=== PATIENT | female | born 1960 | race African-American/Black ===

== ENCOUNTER 2024-06-01 14:41 | Inpatient (IN) | payer OTHER, SELFPAY ==
[2024-06-01] VITALS (26 sets, daily range): BP systolic 68–156; BP diastolic 45–86; PULSE 116–151; RESP 0–67; TEMP 37.6–40.7; O2SAT 81–97; BMI 21.9
--- NOTE | ~2024-06-01 | XR_ITS ---
EXAMINATION: XR chest 1V portable DATE: 06/02/2024 03:46 INDICATION: Hypoxia TECHNIQUE: frontal view of the chest was obtained. COMPARISON: Chest radiograph dated 06/01/2024 FINDINGS: Endotracheal tube tip 6.1 cm above the luis. Right internal jugular central venous catheter with di stal tip in the high right atrium. Nasogastric tube extends below the left hemidiaphragm with distal tip collimated off the study. Persistent diffuse bilateral airspace opacities throughout both lungs relatively sparing the apices t here is preservation the lower lung zones where there is associated air bronchograms. Possible small right pleural effusion. No pneumothorax. Heart size is normal. Visualized bones and soft tissues are unremarkable. IMPRESSION: 1. Endotracheal tube tip 6.1 cm above the luis. Could consider advancement by 4 cm. 2. Persistent diffuse bilateral airspace opacities which could represent moderate pulmonary edema or pneumonia. 3. Possible small right pleural effusion. Reviewed, dictated and finalized at location A. [facility]ER IMPRESSION: 1. Endotracheal tube tip 6.1 cm above the luis. Could consider advancement by 4 cm. 2. Persistent diffuse bilateral airspace opacities which could represent modera te pulmonary edema or pneumonia. 3. Possible small right pleural effusion.
--- NOTE | ~2024-06-01 | XR_ITS ---
EXAMINATION: XR chest port-a-cath/central Exam Date/Time: 06/01/2024 21:35 ZIG ZAG STITCHER HISTORY: Central line placement Comparison: Same date at 7:34 PM. RESULT: Lines, tubes, and devices: New right IJ central line terminating in the right atrium. Endotracheal t ube terminates 5.3 cm above the luis. Subdiaphragmatic NG tube. Lungs and pleura: New left medial basal opacity with volume loss. Diffuse bilateral airspace disease , with interval worsening in the right lung. Cardiomediastinal silhouette: Stable. Other: No acute osseous or upper abdominal finding. IMPRESSION: Right IJ central line positioned deep in the right atrium, consider 6 cm retraction. Endotracheal tube terminates 5.3 cm above the luis. Worsening right lung airspace disease. New left medial basilar atelectasis. Reviewed, dictated and finalized at [facility] K. ZAG STITCHER IMPRESSION: Right IJ central line positioned deep in the right atrium, consider 6 cm retrac tion. Endotracheal tube terminates 5.3 cm above the luis. Worsening right lung airspace disease. New left medial basilar atelectasis.
--- NOTE | ~2024-06-01 | XR_ITS ---
Portable chest x-ray Comparison: 06/02/2024 Clinical History: Pneumonia Findings: Endotracheal tube and NG tube and right IJ line remain in place. Extensive bilateral pulmo nary consolidation is present, relatively sparing the left lung apex. Possible underlying small effus ions. Cardiomediastinal silhouette is stable. Bones and soft tissues are unremarkable. Impression: Extensive bilateral pulmonary consolidation. Correlate for severe pulmonary edema versus extensive bi lateral pneumonia. Possible small pleural effusions. Support tubes, as above. Reviewed, dictated and finalized at location . HER CARVER Impression: Extensive bilateral pulmonary consolidation. Correlate for severe pulmonary annette ma versus extensive bilateral pneumonia. Possible small pleural effusions. Support tubes, as above.
--- NOTE | ~2024-06-01 | XR_ITS ---
EXAM: XR abdomen gastric tube insert DATE: 06/01/2024 19:43 HISTORY: NG TUBE PLACEMENT . COMPARISON: None available. FINDINGS: Patchy opacities in the lung bases. NG tube, tip at the gastric antrum, side port in the g astric body. Paucity of bowel gas. Degenerative changes in the spine. IMPRESSION: NG tube, in good position. Reviewed, dictated and finalized at location K. THCARE CUSTOMER SERVICE IMPRESSION: NG tube, in good position.
--- NOTE | ~2024-06-01 | XR_ITS ---
EXAMINATION: XR chest ET placement Exam Date/Time: 06/01/2024 19:20 BATCH TANK CONTROLLER HISTORY: respiratory failure Comparison: Same date at 3:37 PM. RESULT: Lines, tubes, and devices: Endotracheal tube terminates 6.0 cm above the luis. Subdiaphragmatic NG tube. Lungs and pleura: Worsening patchy bilateral airspace disease, greater in the right lung. Cardiomediastinal silhouette: Stable. Other: No acute osseous or upper abdominal finding. IMPRESSION: High positioned endotracheal tube, consider advancing by 2 cm. Worsening pulmonary opacities, likely representing worsening pulmonary edema, with or without underly ing infection. Reviewed, dictated and finalized at location K. H TANK CONTROLLER IMPRESSION: High positioned endotracheal tube, consider advancing by 2 cm. Worsening pulmonary opacities, likely representing worsening pulmonary edema, w ith or without underlying infection.
--- NOTE | ~2024-06-01 | XR_ITS ---
XR chest 1V portable 06/01/2024 15:41 Indication: Shortness of breath Procedure: AP portable chest Comparison: No prior studies for comparison. Findings: Patchy bilateral airspace disease, compatible with pneumonia, right greater than left. No p leural effusion. Heart size normal. No pleural effusion or pneumothorax. No acute osseous abnormality . Impression: 1: Patchy bilateral airspace disease, compatible with pneumonia. Reviewed, dictated and finalized at location A. ESTATE APPRAISER Impression: 1: Patchy bilateral airspace disease, compatible with pneumonia.
--- NOTE | ~2024-06-01 | US_ITS ---
EXAM: RENAL ULTRASOUND HISTORY: Acute kidney injury rule out hydronephrosis COMPARISON: None FINDINGS: RIGHT KIDNEY: 11.6 x 5.1 x 6.3 cm. The parenchyma of the right kidney is unremarkable. Mild right-sided hydronephrosis. LEFT KIDNEY: 14.3 x 6.3 x 5.8 cm No hydronephrosis or renal calculi. The parenchyma of the left kidney is unremarkable BLADDER: Decompressed with a Kate catheter, limiting its evaluation. Bilateral pleural effusions are incidentally noted. IMPRESSION: Mild right-sided hydronephrosis. Size asymmetry between the bilateral kidneys. No findings suggesting medical renal disease. Incidental notation is made of bilateral pleural effusions. Reviewed, dictated and finalized at location A. IAC REHABILITATION PROGRAM DIRECTOR
--- NOTE | ~2024-06-01 | XR_ITS ---
EXAMINATION: XR chest 1V portable DATE: 06/03/2024 09:33 INDICATION: Central line repositioning. TECHNIQUE: A single frontal view of the chest was obtained. COMPARISON: Chest single view 06/03/2024 at 5:49 AM FINDINGS: The patient is rotated to her right. There are airspace opacities in all right lung zones w ith a lower lung predominance with air bronchograms. There are airspace opacities in the left mid and lower lung zones with air bronchograms. There are small pleural effusions. No pneumothorax. The hear t size is normal. The endotracheal tube tip is 3.2 cm above the luis. A right internal jugular cent ral venous catheter is seen with tip at the superior cavoatrial junction. The nasogastric tube tip is beyond the inferior margin of the radiograph, but at least to the stomach. IMPRESSION: 1. Stable diffuse lung disease, consistent with pulmonary edema versus pneumonia. 2. Stable small pleural effusions. 3. Central line tip at the superior cavoatrial junction. Reviewed, dictated and finalized at location [] NERATOR PLANT GENERAL SUPERVISOR IMPRESSION: 1. Stable diffuse lung disease, consistent with pulmonary edema versus pneumoni a. 2. Stable small pleural effusions. 3. Central line tip at the superior cavoatrial junction.
--- NOTE | 2024-06-01 14:48 | ECG_ITS ---
Test Date: 2024-06-01 14:55:55 Measurements Intervals [place] Rate: 137 P: 56 SC: 129 QRS: 49 QRSD: 78 T: 56 QT: 322 QTc: 488 Interpretive Statements SINUS TACHYCARDIA MODERATE VOLTAGE CRITERIA FOR LVH, CONSIDER NORMAL VARIANT [MEETS CRITERIA IN ONE OF: R(aVL), S(V1), R(V5), R(V5/V6)+S(V1)] POSSIBLE ANTEROSEPTAL MYOCARDIAL INFARCTION , OF INDETERMINATE AGE [30 ms Q WAVE IN V1-V4] No previous ECG available for comparison Electronically Signed On 06-01-2024 22:41:23 [employer] by Maricarmen Hartmann M.D.
[2024-06-01] MEDS: SODIUM CHLORIDE 0.9% IV 1,000 ML 999 ML IV CONT ×3 (14:52→17:55)
[2024-06-01] MEDS: ONDANSETRON INJ 4 MG/2 ML VIAL IV PUSH (14:53)
[2024-06-01 15:13] LABS: Hematocrit 42.7 % (37.0-47.0); Hemoglobin 14.2 g/dL (12.0-15.0); Lymphocytes Absolute Auto 0.38 K/mm3 (0.9-3.2); Lymphocytes Percent Auto 37.6 % (18.3-44.2); Mean Corpuscular HGB Conc 33.3 g/dl (32-36); Mean Corpuscular Hemoglobin 28.6 pg (26-34); Mean Corpuscular Volume 86.1 fl (80-100); Mean Platelet Volume 10.9 fl (7.4-10.4); Monocytes Absolute Auto 0.1 K/mm3 (0.1-0.6); Monocytes Percent Auto 9.9 % (2.6-8.5); Neutrophils Absolute Auto 0.5 K/mm3 (1.3-6.7); Neutrophils Percent Auto 50.5 % (45.5-73.1); Platelet Count Result 212 k/mm3 (150-375); Red Blood Count 4.96 M/mm3 (4.2-5.4); Red Cell Distribution Width 12.1 % (11.5-14.5)
[2024-06-01 15:25] LABS: Prothrombin Time 13.6 Seconds (11.1-14.7)
[2024-06-01 15:26] LABS: Partial Thromboplastin Time 27.3 Seconds (22.3-36.8)
[2024-06-01 15:31] LABS: Alanine Aminotransferase 20 U/L (6-35); Albumin Level 4.7 g/dL (3.5-5.1); Alkaline Phosphatase 92 U/L (38-126); Anion Gap 13 mmol/L (4-12); Aspartate Amino Transferase 27 U/L (14-36); Bilirubin,Total 0.8 mg/dL (0.2-1.3); Blood Urea Nitrogen 8 mg/dL (7-17); CRP 4.1 mg/dL (<1.0); Calcium 9.7 mg/dL (8.4-10.2); Carbon Dioxide 20 mmol/L (22-30); Chloride 91 mmol/L (98-107); Estimated CRCL calculation 108 ml/min; Estimated Glomerular Filt Rate > 60; Glucose 325 mg/dL (65-110); Potassium 3.5 mmol/L (3.4-5.0); Sodium 124 mmol/L (137-145)
[2024-06-01 15:49] LABS: Influenza A QL RT-PCR Positive (Negative); Influenza B QL RT-PCR Negative (Negative); RSV RNA, RT-PCR Negative (Negative); SARS-CoV-2 RNA PCR Negative (Negative)
--- NOTE | 2024-06-01 15:50 | PC.NURSE ---
Patient placed on bed alarm for safety due to confusion
[2024-06-01 16:33] LABS: Add Urine Microscopic? YES; Appearance Urine Clear (Clear); Bacteria Urine None Seen /hpf; Bilirubin Urine Negative (Negative); Blood Urine Negative (Negative); Color Urine Yellow (Yellow); Glucose Urine UA 3+ mg/dL (Negative); Ketones Urine 3+ mg/dL (Negative); Leukocyte Esterase Ur Negative LEU/UL (Negative); Nitrate Urine Negative (Negative); Non Pathogenic Casts 0-2; Protein Urine 2+ mg/dL (Negative); RBC Urine 0-2 /hpf (0-2); Squamous Epithelial Cell Urine None Seen /hpf (Few); Urobilinogen Urine 0.2 mg/dL (<2.0); WBC Urine 0-5 /hpf (0-3)
[2024-06-01 16:38] LABS: Alveolar/Arterial O2 Gradient 225.9 mmHg; Base Excess ABG -6.1 mEq/l (+/-2.0); Carboxyhemoglobin 0.5 % THb (0-2.0); Fractional Inspired Oxygen 44 %; HCO3 ABG 16.8 mEq/l (22.0-26.0); Methemoglobin ABG 0.1 %THb (0-1.5); Oxygen Content ABG 16.4 %vol (16.0-22.0); Oxygen Saturation ABG 91.2 % (95.0-100.0); Oxyhemoglobin 89.9 % THb (90.0-100.0); PCO2 ABG 26.3 mmHg (35.0-45.0); PO2 ABG 57.8 mmHg (80.0-100.0); PO2 FiO2 Ratio Arterial Blood 1.31 %; Reduced Hemoglobin 9.5 %THb (0-5.0); pH ABG 7.423 (7.350-7.450)
[2024-06-01 16:39] LABS: Device NASAL CANNULA; Modified Allen's Test Pass; Site Drawn RIGHT RADIAL
--- NOTE | 2024-06-01 16:52 | ED.SOB ---
HPI - SOB/Dyspnea General Chief Complaint: Shortness of Breath/Dyspnea Stated Complaint: hypoxic/confused Time Seen by Provider: 06/01/24 14:42 History of Present Illness HPI Narrative: patient is a 64-year-old female who presents ER with hypoxia. Developed cough today according family went to urgent care. Found to be hypoxic and sent here. Patient orient x2. She has no complaints pain cannot provide additional history. Patient's family has arrived her surprised by her level of confusion reports this is new. She had had no prodrome of illness over last few days. Related Data Allergies Allergy/AdvReac Type Severity Reaction Status Date / Time No Known Allergies Allergy Verified 06/01/24 14:47 Review of Systems Review of Systems: ROS unobtainable: Yes unobtainable due to mental status PMFSH Past Medical History Medical History (Updated 06/01/24 @ 22:13 by Roel Parkinson MD) Diabetes Surgical History Surgical History (Updated 06/01/24 @ 22:13 by Roel Parkinson MD) History of tracheostomy Exam Narrative: GENERAL: Ill-appearing, well-nourished, and in Mild distress. HEAD: Normocephalic, atraumatic. EYES: PERRL and EOMI. ENT: Mucous membranes moist. NECK: Supple. CHEST: Coarse rales bilaterally with increased respiratory rate and mild distress. HEART: tachycardic regular. Normal peripheral pulses. ABDOMEN: Soft, nontender, nondistended. EXTREMITIES: Normal range of motion. No edema. SKIN: Warm, dry, no rash. NEURO: Alert and oriented x2. Course Course Emergency Course: significant decline in the ER going from 6 L to 10 L and becoming more hypoxic. Family at bedside and decision made to intubate which was successful. Patient had bloody frothy secretions on intubation. Broad-spectrum antibiotics ordered. Patient given Tamiflu. ICU consulted and we will give steroids as well. CTA recommended by ICU given persistent tachycardia. Patient with critically low white blood cell count. Family where the patient is critically ill and chances of or hi. Blood pressure dropping with sedation and central line placed. Admit to hospitalist service. Vital Signs Vital signs: Vital Signs Temperature 99.7 F H 06/01/24 14:36 Pulse Rate 145 H 06/01/24 14:36 Respiratory Rate 20 06/01/24 14:36 Blood Pressure 156/86 H 06/01/24 14:36 Pulse Oximetry 90 06/01/24 14:36 Oxygen Delivery Nasal Cannula 06/01/24 14:36 Oxygen Flow Rate 6 06/01/24 14:36 Temperature 103.5 F H 06/01/24 22:06 Pulse Rate 126 H 06/01/24 22:06 Respiratory Rate 40 H 06/01/24 22:06 Blood Pressure 79/48 L 06/01/24 22:06 Pulse Oximetry 93 06/01/24 22:06 Oxygen Delivery High Flow Nasal Cannula 06/01/24 17:36 Oxygen Flow Rate 10 06/01/24 17:36 Procedures Central Line Placement Right IJ: Central Line Date: 06/01/24 Discussed w/ the patient/family/POA,the placement of a central venous catheter, including its clinical necessity/indication & associated potential risks, benifits and alternatives.: Yes Time Out Performed: Yes Patient Placed on Monitor/Pulse Ox: Yes Max. Sterile Barrier Technique: Caps, large sterile sheet and hand hygiene Central Line Prep: 2% chlorhexidine scrub and sterile drapes applied Technique: US-Guided Ultrasound Used for Placement: Yes Central Line Lumen Inserted: triple Post Procedure: sutured in place, good blood return, all ports aspirated, flushed, capped and sterile dressing applied Post Procedure X-Ray: tip of catheter in good position and no pneumothorax seen Patient Tolerated Procedure: well Complications: none Intubation Intubation #1: sedative: Etomidate Mg Given: 30 paralytic: Succinylcholine Mg Given: 100 Laryngoscope: Anish Tube Size (cm): Cuffed Method of Intubation: orotracheal Number of Attempts: 1 Tube Secured Depth (cm): 21 Tube Secured Location: teeth Tube Placement Confirmation: visualized tube passing through cords, equal breath sounds bilaterally, no breath sounds over epigastrium and confirmation by capnometry Patient Tolerated Procedure: well Intubation Complications: none MDM - SOB/Dyspnea Lab Data 06/01/24 15:05 06/01/24 15:05 Labs: Lab Results 06/01/24 06/01/24 06/01/24 Range/Units 15:05 16:20 16:32 WBC 1.0 L* (4.5-10.0) K/mm3 RBC 4.96 (4.2-5.4) M/mm3 Hgb 14.2 (12.0-15.0) g/dL Hct 42.7 (37.0-47.0) % MCV 86.1 (80-100) fl MCH 28.6 (26-34) pg MCHC 33.3 (32-36) g/dl RDW 12.1 (11.5-14.5) % Plt Count 212 (150-375) k/mm3 MPV 10.9 H (7.4-10.4) fl Immature Gran % (Auto) 0.0 (0-0.5) % Neut % (Auto) 50.5 (45.5-73.1) % Lymph % (Auto) 37.6 (18.3-44.2) % [place] % (Auto) 9.9 H (2.6-8.5) % Eos % (Auto) 1.0 (0-4.4) % Baso % (Auto) 1.0 (0.2-1.2) % Lymph # (Auto) 0.38 L (0.9-3.2) K/mm3 [place] # (Auto) 0.1 (0.1-0.6) K/mm3 Eos # (Auto) 0.0 (0-0.3) K/mm3 Baso # (Auto) 0.0 (0.0-0.1) K/mm3 Abs Immat Gran (auto) 0.00 (0.00-0.031) K/mm3 Absolute Neuts (auto) 0.5 L (1.3-6.7) K/mm3 Absolute Nucleated RBC 0.000 (0.0-0.012) K/mm3 Nucleated RBC % 0.0 (0.0-0.2) % PT 13.6 (11.1-14.7) Seconds INR 1.0 APTT 27.3 (22.3-36.8) Seconds D-Dimer 2.82 H (<0.48) ug/mL Methemoglobin 0.1 (0-1.5) %THb Sodium 124 L (137-145) mmol/L Potassium 3.5 (3.4-5.0) mmol/L Chloride 91 L (98-107) mmol/L Carbon Dioxide 20 L (22-30) mmol/L Anion Gap 13 H (4-12) mmol/L BUN 8 (7-17) mg/dL Creatinine 0.40 L (0.7-1.0) mg/dL Estim Creat Clear Calc 108 ml/min Estimated GFR > 60 (59 - ) Glucose 325 H (65-110) mg/dL Lactic Acid 4.0 H (0.7-2.0) mmol/L Calcium 9.7 (8.4-10.2) mg/dL Total Bilirubin 0.8 (0.2-1.3) mg/dL AST 27 (14-36) U/L ALT 20 (6-35) U/L Alkaline Phosphatase 92 (38-126) U/L C-Reactive Protein 4.1 H (<1.0) mg/dL Total Protein 9.0 H (6.3-8.2) g/dL Albumin 4.7 (3.5-5.1) g/dL Triglycerides 66 (<150) mg/dL Urine Color Yellow (Yellow) Urine Appearance Clear (Clear) Urine pH 5.0 (5.0-9.0) Ur Specific [place] 1.030 (1.001-1.035) Urine Protein 2+ H (Negative) mg/dL Urine Glucose (UA) 3+ H (Negative) mg/dL Urine Ketones 3+ H (Negative) mg/dL Ur Blood (Man) Negative (Negative) Urine Nitrate Negative (Negative) Urine Bilirubin Negative (Negative) Urine Urobilinogen 0.2 (<2.0) mg/dL Leukocyte Esterase Rfl Negative (Negative) ALBERT/UL Urine RBC 0-2 (0-2) /hpf Urine WBC 0-5 (0-3) /hpf Ur Squamous Epith Cells None seen (Few) /hpf Urine Bacteria None seen /hpf Urine Casts 0-2 Influenza A (RT-PCR) Positive A (Negative) Influenza B (RT-PCR) Negative (Negative) RSV (RT-PCR) Negative (Negative) SARS-CoV-2 RNA (RT-PCR) Negative (Negative) 06/01/24 Range/Units 17:18 WBC (4.5-10.0) K/mm3 RBC (4.2-5.4) M/mm3 Hgb (12.0-15.0) g/dL Hct (37.0-47.0) % MCV (80-100) fl MCH (26-34) pg MCHC (32-36) g/dl RDW (11.5-14.5) % Plt Count (150-375) k/mm3 MPV (7.4-10.4) fl Immature Gran % (Auto) (0-0.5) % Neut % (Auto) (45.5-73.1) % Lymph % (Auto) (18.3-44.2) % [place] % (Auto) (2.6-8.5) % Eos % (Auto) (0-4.4) % Baso % (Auto) (0.2-1.2) % Lymph # (Auto) (0.9-3.2) K/mm3 [place] # (Auto) (0.1-0.6) K/mm3 Eos # (Auto) (0-0.3) K/mm3 Baso # (Auto) (0.0-0.1) K/mm3 Abs Immat Gran (auto) (0.00-0.031) K/mm3 Absolute Neuts (auto) (1.3-6.7) K/mm3 Absolute Nucleated RBC (0.0-0.012) K/mm3 Nucleated RBC % (0.0-0.2) % PT (11.1-14.7) Seconds INR APTT (22.3-36.8) Seconds D-Dimer (<0.48) ug/mL Methemoglobin (0-1.5) %THb Sodium (137-145) mmol/L Potassium (3.4-5.0) mmol/L Chloride (98-107) mmol/L Carbon Dioxide (22-30) mmol/L Anion Gap (4-12) mmol/L BUN (7-17) mg/dL Creatinine (0.7-1.0) mg/dL Estim Creat Clear Calc ml/min Estimated GFR (59 - ) Glucose (65-110) mg/dL Lactic Acid 3.5 H (0.7-2.0) mmol/L Calcium (8.4-10.2) mg/dL Total Bilirubin (0.2-1.3) mg/dL AST (14-36) U/L ALT (6-35) U/L Alkaline Phosphatase (38-126) U/L C-Reactive Protein (<1.0) mg/dL Total Protein (6.3-8.2) g/dL Albumin (3.5-5.1) g/dL Triglycerides (<150) mg/dL Urine Color (Yellow) Urine Appearance (Clear) Urine pH (5.0-9.0) Ur Specific [place] (1.001-1.035) Urine Protein (Negative) mg/dL Urine Glucose (UA) (Negative) mg/dL Urine Ketones (Negative) mg/dL Ur Blood (Man) (Negative) Urine Nitrate (Negative) Urine Bilirubin (Negative) Urine Urobilinogen (<2.0) mg/dL Leukocyte Esterase Rfl (Negative) ALBERT/UL Urine RBC (0-2) /hpf Urine WBC (0-3) /hpf Ur Squamous Epith Cells (Few) /hpf Urine Bacteria /hpf Urine Casts Influenza A (RT-PCR) (Negative) Influenza B (RT-PCR) (Negative) RSV (RT-PCR) (Negative) SARS-CoV-2 RNA (RT-PCR) (Negative) ABG Data ABG results: 06/01/24 16:32 Puncture Site Right radial ABG pH 7.423 ABG pCO2 26.3 L ABG pO2 57.8 L ABG PO2/FiO2 Ratio 1.31 ABG HCO3 16.8 L ABG O2 Saturation 91.2 L ABG O2 Content 16.4 ABG Base Excess -6.1 A-a Gradient 225.9 Oxyhemoglobin 89.9 L Carboxyhemoglobin 0.5 Reduced Hemoglobin 9.5 H Total Hemoglobin 13.0 O2 Delivery Device Nasal cannula O2 Liters/Min 6.0 FiO2 44 Imaging Data Radiologist's impression: ITS Impressions Chest X-Ray 06/01/24 16:04 Impression: 1: Patchy bilateral airspace disease, compatible with pneumonia. ECG Data EKG #1: ECG completion date: 06/01/24 ECG completion time: 14:55 EKG Interpretation: tachycardia (137), sinus rhythm, non-specific ST changes, normal QRS, normal QT, NL axis and other (LVH) Critical Care Time Critical Care Time Critical Care Time: Yes Total Critical Care Time: 60 Discharge Plan Discharge Clinical Impression: Severe sepsis, Influenza, Pneumonia, Respiratory failure, Leukopenia Patient Disposition: Still a Patient Condition: Critical
[2024-06-01 17:14] LABS: D Dimer 2.82 ug/mL (<0.48)
[2024-06-01] MEDS: AZITHROMYCIN 500 MG/NS 250 ML 500 MG/250 ML BAG 250 MG IVPB (17:22)
[2024-06-01] MEDS: LEVALBUTEROL NEB 1.25 MG/3 ML 2.5 MG INHALATION (17:22)
[2024-06-01 17:32] LABS: Lactic Acid Reflex 3.5 mmol/L (0.7-2.0)
[2024-06-01] MEDS: SODIUM CHLORIDE 0.9% IV 100 ML 999 ML IV CONT (17:54)
[2024-06-01 18:11] LABS: Reflex Lactic Acid Yes or No Add Lactic
--- NOTE | 2024-06-01 19:32 | PC.NURSE ---
Patient began to have increased respiratory effort. Patient oxygen SAT on the high flow oxygen was in the 80's. Provider aware and spoke with family about intubation. Patient's family agreed to intubation. Provider and respiratory at bedside at 1919 for intubation. 1920-30mg of etomidate given by UMESH Wilson 1921-100mg succinylcholine given by UMESH Wilson 1923-ET tube placed by Dr Parkinson. Bilateral lung sounds and +color change. 21cm at the teeth. 1929-OG tube placed @ 75cm at the lip with positive sounds
[2024-06-01] MEDS: MIDAZOLAM 100MG/NS 100ML(*CRX) 100 MG/100 ML BAG IV CONT (19:40)
[2024-06-01] MEDS: FENTANYL 2,500MCG/NS250ML(*CRX 2,500 MCG/250 ML BAG IV CONT (19:42)
[2024-06-01] MEDS: MIDAZOLAM HCL (*CRX) 2 MG/2 ML VIAL 4 MG (19:43)
[2024-06-01] MEDS: RAPID SEQUENCE INTUBATION KIT 1 EACH ×2 (19:43→20:08)
[2024-06-01] MEDS: VANCOMYCIN 1,750 MG/NS 500 ML 1,750 MG/500 ML BAG 250 MG IVPB (20:26)
--- NOTE | 2024-06-01 20:28 | PC.NURSE ---
Pt pressure is 111/64. Pt already has two sedations going at this time. RN is holding propofol for now until pt pressure goes back up to be able to handle all three sedations. Propofol is ready at bedside when pressures go up.
--- NOTE | 2024-06-01 20:35 | P.HP_ITS ---
H&P: HPI History of Present Illness Date/Time: 06/01/24 20:30 Chief Complaint: Short of breath. Narrative: This is a 64-year-old female with type 2 diabetes mellitus and history of tracheostomy as a young woman, possibly related to allergic reaction as she had previously told her daughter that her ?throat had closed up,? who presented to the emergency department via EMS from urgent care with complaints of shortness of breath. She is sedated on mechanical ventilation and is unable to provide any history. Her 3 daughters are present and provide the following history. The patient lives alone in her own home and works at a local [employer] where her eldest daughter also works. They drive to work together and yesterday the patient complained of a sore throat but otherwise seemed to be feeling okay. At about 07 :00 the patient texted her daughter that the sore throat was getting worse and she was also having ear pain. A few hours thereafter she went with her granddaughter to urgent care and they sat in the waiting room for upwards of an hour or so. Once they were called to come back and when the patient was feeling out her paperwork, she was confused and was unable to tell them her address or where she lived. Vital signs were then obtained and she was reportedly hypoxic was an SpO2 of 84% on room air. 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 Aside from the sore throat and ear pain the patient had no other complaints. It is unclear if she was vaccinated. In the ED: Vital signs on arrival include a blood pressure 156/86, pulse 137, respiratory rate 25, and an SpO2 of 92% on 10 L non-rebreather. She tested positive for influenza A. Labs are significant for WBC count of 1.0, D-dimer 2.82, sodium 124, potassium 3.5, chloride 91, carbon dioxide 20, anion gap 13, BUN 8, creatinine 0.40, glucose 325, lactic acid 4.0, CRP 4.1. Urinalysis was positive for 2+ protein, 3+ glucose, 3+ ketones. Chest x-ray showed patchy bilateral airspace disease compatible with pneumonia. Condition unfortunately declined in the emergency department with increasing respiratory distress and she was intubated. She required increasing doses of sedation as she was awake, alert, quite anxious, and was over breathing the ventilator significantly. Ultimately a central line was placed and she was started on vasopressors. She received azithromycin, ceftriaxone, oseltamivir, hydrocortisone, and a 3 L IV fluid bolus. She is being admitted to the ICU in this setting. Review of Systems Review of Systems: Unable to be obtained given clinical condition as detailed above. [facility] Past Medical History Medical History (Updated 06/02/24 @ 01:56 by Irene Mcbride PA-C) Type 2 diabetes mellitus Surgical History Surgical History History of tracheostomy Family History Family History Mother Aneurysm Social History Social History (Updated 06/02/24 @ 01:52 by Irene Mcbride PA-C) Social History: Surrogate medical decision maker: Kay ([phone]), Екатерина ([phone]), and Jos Alarcon ([phone]), daughters. Code status: Full code. Years smoked: 40 Smoking status: Former smoker Alcohol intake: current Alcohol use details: Drinks 4 to 5 beers most days Substance use: never Additional living arrangements comments: The patient lives in her own home in [place]. 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 Spiritual care concerns: No Meds Home Medications and Allergies Home Medications ?Medication ?Instructions ?Recorded ?Confirmed ?Type glipizide 5 mg tablet 5 mg PO DAILY 06/02/24 06/02/24 History metformin 1,000 mg tablet 1,000 mg PO BID 06/02/24 06/02/24 History Allergies Allergy/AdvReac Type Severity Reaction Status Date / Time No Known Allergies Allergy Verified 06/01/24 14:47 Vital Signs Vital Signs - 24 hr 06/01/24 14:36 06/01/24 14:55 06/01/24 15:03 Temperature 99.7 F H Pulse Rate 145 H 137 H Respiratory Rate 20 25 H Blood Pressure 156/86 H 156/86 H Pulse Oximetry 90 91 92 Oxygen Delivery Nasal Cannula Nasal Cannula Oxygen Flow Rate 6 6 06/01/24 16:00 06/01/24 17:00 06/01/24 17:36 Temperature Pulse Rate 132 H 140 H 141 H Respiratory Rate 26 H 30 H 28 H Blood Pressure 156/69 H 147/69 H Pulse Oximetry 96 96 95 Oxygen Delivery High Flow Nasal Cannula Oxygen Flow Rate 10 06/01/24 17:37 06/01/24 18:00 06/01/24 19:01 Temperature 103 F H Pulse Rate 141 H 140 H 148 H Respiratory Rate 28 H 26 H 36 H Blood Pressure 128/63 141/86 H Pulse Oximetry 95 81 L Oxygen Delivery Oxygen Flow Rate 06/01/24 19:40 06/01/24 19:42 06/01/24 19:56 Temperature Pulse Rate 151 H 151 H 146 H Respiratory Rate 43 H 43 H 61 H Blood Pressure Pulse Oximetry Oxygen Delivery Oxygen Flow Rate 06/01/24 19:58 Temperature Pulse Rate 146 H Respiratory Rate 67 H Blood Pressure Pulse Oximetry Oxygen Delivery Oxygen Flow Rate Exam Narrative: General: Acutely ill-appearing female intubated on mechanical ventilation. Weight: 63.5 kg. BMI: 21.9. HEENT: Normocephalic, atraumatic. PERRL, EOMI. Sclera anicteric. ET tube in place. Neck: Supple. No JVD. Respiratory: Tachypneic in over breathing the ventilator. Coarse rales heard anteriorly and at the flanks. Cardiovascular: Tachycardic with normal S1-S2. Gastrointestinal: Abdomen is soft, nontender, and nondistended with positive bowel sounds. Skin: Warm and dry. Normal capillary refill. Extremities are warm and perfused. Extremities: No cyanosis, clubbing, or edema. Radial and pedal pulses intact. Neurological: Alert. Unable to assess orientation as she is intubated. Cranial nerves 2-12 are grossly intact. She does squeeze my fingers with both hands equally. She does not follow any other commands. Psychiatric: Unable to assess at this time. H&P: Results Labs Labs: Short CBC 06/01/24 Range/Units 15:05 WBC 1.0 L* (4.5-10.0) K/mm3 Hgb 14.2 (12.0-15.0) g/dL Hct 42.7 (37.0-47.0) % Plt Count 212 (150-375) k/mm3 BMP 06/01/24 15:05 Sodium 124 L Potassium 3.5 Chloride 91 L Carbon Dioxide 20 L BUN 8 Creatinine 0.40 L Glucose 325 H Calcium 9.7 Liver Function 06/01/24 Range/Units 15:05 Total Bilirubin 0.8 (0.2-1.3) mg/dL AST 27 (14-36) U/L ALT 20 (6-35) U/L Alkaline Phosphatase 92 (38-126) U/L Albumin 4.7 (3.5-5.1) g/dL Urine 06/01/24 Range/Units 16:20 Urine Color Yellow (Yellow) Urine Appearance Clear (Clear) Urine pH 5.0 (5.0-9.0) Ur Specific [place] 1.030 (1.001-1.035) Urine Protein 2+ H (Negative) mg/dL Urine Glucose (UA) 3+ H (Negative) mg/dL Impressions Chest X-Ray 06/01/24 16:04 Impression: 1: Patchy bilateral airspace disease, compatible with pneumonia. Chest X-Ray 06/01/24 19:45 IMPRESSION: High positioned endotracheal tube, consider advancing by 2 cm. Worsening pulmonary opacities, likely representing worsening pulmonary edema, with or without underlying infection. Abdomen X-Ray 06/01/24 19:47 IMPRESSION: NG tube, in good position. Chest X-Ray 06/01/24 21:54 IMPRESSION: Right IJ central line positioned deep in the right atrium, consider 6 cm retraction. Endotracheal tube terminates 5.3 cm above the luis. Worsening right lung airspace disease. New left medial basilar atelectasis. ABG ABG results: 06/01/24 06/01/24 06/01/24 16:32 19:54 23:20 Puncture Site Right radial Right radial Right radial ABG pH 7.423 7.156 L* 7.170 L* ABG pCO2 26.3 L 44.6 37.5 ABG pO2 57.8 L 72.7 L 103.8 H ABG PO2/FiO2 Ratio 1.31 0.73 1.04 ABG HCO3 16.8 L 15.4 L 13.4 L ABG O2 Saturation 91.2 L 90.1 L 96.3 ABG O2 Content 16.4 16.8 18.7 ABG Base Excess -6.1 -13.0 -14.3 A-a Gradient 225.9 595.7 571.7 Oxyhemoglobin 89.9 L 89.1 L 95.8 Carboxyhemoglobin 0.5 0.7 0.5 Reduced Hemoglobin 9.5 H 10.0 H 3.7 Total Hemoglobin 13.0 13.4 13.8 O2 Delivery Device Nasal cannula Ventilator Ventilator O2 Liters/Min 6.0 Not Reportable Not Reportable Vent Rate 18 18 FiO2 44 100 100 Assessment and Plan Assessment and plan (1) Septic shock: Code(s): A41.9 - Sepsis, unspecified organism; R65.21 - Severe sepsis with septic shock Status: Acute Assessment and Plan: Patient with septic shock as evidenced by altered mental status, hypotension, tachycardia, neutropenia, and lactic acidosis. Source of infection is influenza with underlying pneumonia. * Mild improvement lactic acid level with IV fluids. * Currently on norepinephrine and vasopressin to maintain an MAP of greater than 65. * Blood and sputum cultures are pending. (2) Acute respiratory failure with hypoxia: Code(s): J96.01 - Acute respiratory failure with hypoxia Status: Acute Assessment and Plan: Intubated in the ED on 06/01/2024 due to worsening hypoxia. * Chest x-ray shows patchy bilateral airspace disease compatible with pneumonia. ET tube in position. * Vent per dog bather: CMV mode, tidal volume of 400, peep 5, FiO2 100%, rate 18. * Sedated with fentanyl and midazolam; received bolus of propofol and rocuronium in the ED for vent asynchrony. (3) Influenza A: Code(s): J10.1 - Influenza due to other identified influenza virus with other respiratory manifestations Status: Acute Assessment and Plan: Patient tested positive for influenza A, family members not certain if she was vaccinated. * Placed in isolation per protocol. * Oseltamivir 75 mg p.o. q.12 hours started 06/01/2024. (4) Pneumonia: Code(s): J18.9 - Pneumonia, unspecified organism Status: Acute Assessment and Plan: Chest x-ray shows patchy bilateral airspace disease compatible with pneumonia. * Likely influenza pneumonia for which she is on oseltamivir. * On azithromycin, ceftriaxone, and vancomycin to cover for possible concomitant bacterial pneumonia. * Continue hydrocortisone 50 mg q.6 hours for severe pneumonia. * Sputum culture ordered. (5) Neutropenia: Code(s): D70.9 - Neutropenia, unspecified Status: Acute Assessment and Plan: She has moderate neutropenia with an absolute neutrophil count of just over 500, likely related to viral infection. * Placed in reverse isolation in the ED. * Continue to monitor neutrophil count. (6) Type 2 diabetes mellitus: Code(s): E11.9 - Type 2 diabetes mellitus without complications Status: Acute Assessment and Plan: Daughters believe her diabetes is well controlled on oral medication with a random glucose of 325 today. * 3+ glucose and 3+ ketones noted in urine with a serum carbon dioxide of 20 and anion gap of 13. * Check beta hydroxybutyrate and repeat BMP. * Consider insulin drip depending on above results. Quality VTE Prophylaxis VTE prophylaxis: pharmacologic ordered Hospitalist MIPS Advance Care Plan I have confirmed that the patient's Advanced Care Plan is present, code status is documented, or surrogate decision maker is listed in patient medical record.: Yes Medication Reconciliation I have utilized all available resources to obtain, update and review the patients current medications (includes all prescriptions, OTC, herbals, cannabis, and nutritional supplements).: Yes Critical Care Time Critical Care Time: Yes Total Critical Care Time: 60 Attestation: Due to a high probability of clinically significant, life threatening deterioration, the patient required my highest level of preparedness to intervene emergently and I personally spent this critical care time directly and personally managing the patient. This critical care time included obtaining a history; examining the patient; pulse oximetry; ordering and review of studies; arranging urgent treatment with development of a management plan; evaluation of patient's response to treatment; frequent reassessment; and discussions with other providers. It was exclusive of separately billable procedures and treating other patients and teaching time. Please see Assessment and Plan section and the rest of the note for further information on patient assessment and treatment.
--- NOTE | 2024-06-01 20:52 | PC.NURSE ---
vrbo tylenol suppository per lan
[2024-06-01 20:57] LABS: Triglycerides 66 mg/dL (<150)
[2024-06-01] MEDS: HYDROCORTISONE SODIUM SUCCINATE 100 MG/2 ML VIAL 50 MG IV PUSH (21:50)
[2024-06-01] MEDS: ACETAMINOPHEN 650 MG SUPPOSITORY RECTAL (21:50)
[2024-06-01] MEDS: OSELTAMIVIR PHOSPHATE 75 MG CAPSULE PO (21:51)
[2024-06-01 23:24] LABS: HCO3 ABG 15.4 mEq/l (22.0-26.0); Oxygen Saturation ABG 90.1 % (95.0-100.0); PCO2 ABG 44.6 mmHg (35.0-45.0); PO2 ABG 72.7 mmHg (80.0-100.0); Total Hemoglobin 13.4 g/dL (12.0-18.0); pH ABG 7.156 (7.350-7.450)
[2024-06-01 23:25] LABS: Alveolar/Arterial O2 Gradient 571.7 mmHg; Base Excess ABG -14.3 mEq/l (+/-2.0); Carboxyhemoglobin 0.5 % THb (0-2.0); Fractional Inspired Oxygen 100 %; HCO3 ABG 13.4 mEq/l (22.0-26.0); Oxygen Content ABG 18.7 %vol (16.0-22.0); Oxygen Saturation ABG 96.3 % (95.0-100.0); Oxyhemoglobin 95.8 % THb (90.0-100.0); PCO2 ABG 37.5 mmHg (35.0-45.0); PO2 ABG 103.8 mmHg (80.0-100.0); PO2 FiO2 Ratio Arterial Blood 1.04 %; Reduced Hemoglobin 3.7 %THb (0-5.0); Total Hemoglobin 13.8 g/dL (12.0-18.0)
[2024-06-01 23:25] LABS: Alveolar/Arterial O2 Gradient 595.7 mmHg; Carboxyhemoglobin 0.7 % THb (0-2.0); Fractional Inspired Oxygen 100 %; Methemoglobin ABG 0.2 %THb (0-1.5); Oxygen Content ABG 16.8 %vol (16.0-22.0); Oxyhemoglobin 89.1 % THb (90.0-100.0); PO2 FiO2 Ratio Arterial Blood 0.73 %
[2024-06-01 23:26] LABS: Modified Allen's Test Pass; Site Drawn RIGHT RADIAL
[2024-06-01] MEDS: SODIUM CHLORIDE 0.9% IV 1,000 ML 125 ML IV CONT (23:26)
[2024-06-01 23:27] LABS: Device VENTILATOR; Modified Allen's Test Pass; Site Drawn RIGHT RADIAL
[2024-06-01 23:27] LABS: Arterial Blood Gas PEEP 5 cmH2O; Arterial Blood Gas Tidal Volume 400 ml; Arterial Blood Gas Vent Mode CMV; Arterial Blood Gas Ventilator rate 18 /MIN; Device VENTILATOR
[2024-06-01] MEDS: NOREPINEPHRINE 8 MG/D5W 250 ML 8 MG/250 ML BAG 56.25 MG IV CONT (23:27)
[2024-06-01 23:29] LABS: Arterial Blood Gas PEEP 5 cmH2O; Arterial Blood Gas Tidal Volume 400 ml; Arterial Blood Gas Vent Mode CMV; Arterial Blood Gas Ventilator rate 18 /MIN
[2024-06-02] VITALS (81 sets, daily range): BP systolic 62–109; BP diastolic 38–75; PULSE 103–138; RESP 24–258; TEMP 38.6–39.6; O2SAT 74–97
[2024-06-02] MEDS: SODIUM BICARBONATE 8.4% 50 MEQ/50 ML SYRINGE 67 MEQ IV PUSH (01:08)
[2024-06-02] MEDS: VASOPRESSIN INJ 100 UNITS in DEXTROSE 5% 95 ML IV CONT (01:34)
[2024-06-02 03:25] LABS: Beta-Hydroxybutyrate/Acetoacetate 0.45 mmol/L (0.02-0.27); Hemoglobin A1C 12.6 % (<5.7)
[2024-06-02 03:31] LABS: Alanine Aminotransferase 281 U/L (6-35); Albumin Level 2.8 g/dL (3.5-5.1); Alkaline Phosphatase 50 U/L (38-126); Anion Gap 9 mmol/L (4-12); Bilirubin,Total 0.4 mg/dL (0.2-1.3); Blood Urea Nitrogen 21 mg/dL (7-17); Calcium 7.5 mg/dL (8.4-10.2); Carbon Dioxide 19 mmol/L (22-30); Chloride 98 mmol/L (98-107); Estimated CRCL calculation 25 ml/min; Estimated Glomerular Filt Rate 30; Glucose 603 mg/dL (65-110); Magnesium 1.6 mg/dL (1.6-2.3); Potassium 3.8 mmol/L (3.4-5.0); Sodium 126 mmol/L (137-145)
[2024-06-02 03:32] LABS: Lactic Acid Reflex 5.5 mmol/L (0.7-2.0)
[2024-06-02 03:32] LABS: Aspartate Amino Transferase 900 U/L (14-36)
[2024-06-02 03:47] LABS: Procalcitonin > 100.0 ng/mL
[2024-06-02 03:50] LABS: Alveolar/Arterial O2 Gradient 608.3 mmHg; Base Excess ABG -16.7 mEq/l (+/-2.0); Carboxyhemoglobin 0.4 % THb (0-2.0); Fractional Inspired Oxygen 100 %; HCO3 ABG 12.2 mEq/l (22.0-26.0); Methemoglobin ABG 0.3 %THb (0-1.5); Oxygen Content ABG 17.5 %vol (16.0-22.0); PCO2 ABG 39.5 mmHg (35.0-45.0); PO2 ABG 65.2 mmHg (80.0-100.0); PO2 FiO2 Ratio Arterial Blood 0.65 %; Reduced Hemoglobin 14.3 %THb (0-5.0); Total Hemoglobin 14.6 g/dL (12.0-18.0)
--- NOTE | 2024-06-02 03:52 | PCRCNOTE ---
ABG was delayed because nursing was attempting to sedate and clean the patient up.
[2024-06-02 03:54] LABS: pH ABG 7.106 (7.350-7.450)
[2024-06-02 03:55] LABS: Oxygen Saturation ABG 85.1 % (95.0-100.0)
[2024-06-02 03:56] LABS: Arterial Blood Gas PEEP 8 cmH2O; Arterial Blood Gas Vent Mode CMV; Arterial Blood Gas Ventilator rate 30 /MIN; Device VENTILATOR; Modified Allen's Test Pass; Site Drawn RIGHT BRACHIAL
[2024-06-02 03:57] LABS: Arterial Blood Gas Tidal Volume 400 ml
[2024-06-02] MEDS: PHENYLEPHRINE HCL INJ 50 MG in DEXTROSE 5% IN WATER 250 ML/245 ML BAG 30 ML IV CONT (04:16)
[2024-06-02 04:21] LABS: MRSA (PCR) DETECTED (NOT DETECTE)
[2024-06-02] MEDS: ACETYLCYSTEINE 20% INHAL SOLN 800 MG/4 ML VIAL 200 MG INHALATION ×4 (04:27→20:27)
[2024-06-02] MEDS: HYDROCORTISONE SODIUM SUCCINATE 100 MG/2 ML VIAL 50 MG IV PUSH (04:28)
[2024-06-02] MEDS: SODIUM BICARBONATE 8.4% 100 MEQ in WATER, STERILE FOR INJECTION 1,000 ML 75 MEQ IV CONT (04:29)
[2024-06-02] MEDS: INSULIN HUMAN REGULAR (*BKC) 100 UNITS in SODIUM CHLORIDE 0.9% IV 99 ML 6 UNITS IV CONT (04:31)
[2024-06-02 06:16] LABS: Glucose Point of Care > 500 mg/dl (65-105)
[2024-06-02] MEDS: NOREPINEPHRINE 8 MG/D5W 250 ML 8 MG/250 ML BAG 75 MG IV CONT ×6 (06:21→22:16)
[2024-06-02 07:00] LABS: Phosphorus 7.9 mg/dL (2.5-4.5)
[2024-06-02 07:51] LABS: Anion Gap 12 mmol/L (4-12); Blood Urea Nitrogen 25 mg/dL (7-17); Calcium 6.9 mg/dL (8.4-10.2); Carbon Dioxide 20 mmol/L (22-30); Chloride 95 mmol/L (98-107); Estimated CRCL calculation 19 ml/min; Estimated Glomerular Filt Rate 22; Glucose 570 mg/dL (65-110); Potassium 3.2 mmol/L (3.4-5.0); Sodium 127 mmol/L (137-145)
[2024-06-02 07:56] LABS: Glucose Point of Care > 500 mg/dl (65-105)
[2024-06-02] MEDS: LEVALBUTEROL NEB 1.25 MG/3 ML INHALATION ×3 (08:28→20:28)
[2024-06-02] MEDS: IPRATROPIUM BR 0.02% INH SOLN 0.5 MG/2.5 ML VIAL INHALATION ×3 (08:28→20:28)
[2024-06-02] MEDS: PANTOPRAZOLE SODIUM IV 40 MG VIAL IV PUSH (08:37)
[2024-06-02] MEDS: MUPIROCIN 2% OINT 22 GM TUBE 1 APPLIC EACH NARE ×2 (08:37→20:59)
[2024-06-02] MEDS: cefTRIAXone 2 GM/NS 100 ML 2 GM/100 ML BAG IVPB (08:38)
[2024-06-02] MEDS: ALBUMIN HUMAN 25% 25 GM/100 ML 100 ML IVPB ×3 (08:38→20:58)
[2024-06-02] MEDS: ACETAMINOPHEN ELIXIR 325 MG/10.15 ML UDC 650 MG FEED TUBE (09:10)
[2024-06-02] MEDS: ROCURONIUM BROMIDE 50 MG/5 ML VIAL (09:35)
[2024-06-02] MEDS: PHENYLEPHRINE HCL INJ 50 MG in DEXTROSE 5% IN WATER 250 ML/245 ML BAG 54 ML IV CONT ×3 (10:07→19:24)
[2024-06-02 10:19] LABS: Basophils Percent Auto 0.6 % (0.2-1.2); Hematocrit 42.4 % (37.0-47.0); Hemoglobin 13.7 g/dL (12.0-15.0); Immature Granulocyte Absolute 0.08 K/mm3 (0.00-0.031); Immature Granulocyte Percent A 5.1 % (0-0.5); Immature Platelet Fraction Pct 13.4 % (0.9-11.2); Lymphocytes Absolute Auto 0.91 K/mm3 (0.9-3.2); Mean Corpuscular HGB Conc 32.3 g/dl (32-36); Mean Corpuscular Hemoglobin 28.7 pg (26-34); Mean Corpuscular Volume 88.7 fl (80-100); Mean Platelet Volume 12.4 fl (7.4-10.4); Monocytes Absolute Auto 0.1 K/mm3 (0.1-0.6); Monocytes Percent Auto 4.5 % (2.6-8.5); Neutrophils Absolute Auto 0.5 K/mm3 (1.3-6.7); Neutrophils Percent Auto 31.8 % (45.5-73.1); Nucleated Red Blood Cells Perc 1.3 % (0.0-0.2); Red Blood Count 4.78 M/mm3 (4.2-5.4); Red Cell Distribution Width 12.1 % (11.5-14.5)
[2024-06-02 10:42] LABS: White Blood Count 1.6 K/mm3 (4.5-10.0)
[2024-06-02 10:44] LABS: Partial Thromboplastin Time 49.4 Seconds (22.3-36.8); Prothrombin Time 23.6 Seconds (11.1-14.7)
[2024-06-02 10:50] LABS: Platelet Estimate Decreased (Adequate)
[2024-06-02 10:51] LABS: Atypical Lymphocytes Present; Giant Platelets Present; Large Platelets Present; Platelet Clumps Present; Schistocytes None Seen
[2024-06-02 11:12] LABS: Alveolar/Arterial O2 Gradient 590.5 mmHg; Base Excess ABG -17.4 mEq/l (+/-2.0); Fractional Inspired Oxygen 100 %; HCO3 ABG 12.9 mEq/l (22.0-26.0); Oxygen Content ABG 18.1 %vol (16.0-22.0); Oxyhemoglobin 90.5 % THb (90.0-100.0); PCO2 ABG 48.1 mmHg (35.0-45.0); PO2 ABG 74.4 mmHg (80.0-100.0); PO2 FiO2 Ratio Arterial Blood 0.74 %; Total Hemoglobin 14.2 g/dL (12.0-18.0)
[2024-06-02 11:13] LABS: pH ABG 7.047 (7.350-7.450)
[2024-06-02 11:14] LABS: Arterial Blood Gas PEEP 14 cmH2O; Arterial Blood Gas Vent Mode CMV; Arterial Blood Gas Ventilator rate 28 /MIN; Device VENTILATOR; Oxygen Saturation ABG 87.5 % (95.0-100.0); Site Drawn ARTLINE
[2024-06-02 11:15] LABS: Arterial Blood Gas Tidal Volume 370 ml
[2024-06-02] MEDS: EPINEPHrine INJ 1 MG in DEXTROSE 5% IN WATER 250 ML 15.06 MG IV CONT (11:18)
[2024-06-02] MEDS: CISATRACURIUM BESYLATE 200 MG in DEXTROSE 5% 80 ML 5.72 ML IV CONT (11:26)
[2024-06-02] MEDS: SODIUM BICARBONATE 8.4% 50 MEQ/50 ML SYRINGE 100 MEQ IV PUSH ×3 (11:34→15:12)
[2024-06-02] MEDS: MINERAL OIL/WHITE PETROLATUM OINTMENT 1 APPLIC EACH EYE ×2 (11:39→20:58)
[2024-06-02] MEDS: INSULIN HUMAN REGULAR (*BKC) 100 UNITS in SODIUM CHLORIDE 0.9% IV 99 ML 11.5 UNITS IV CONT (11:46)
[2024-06-02 11:53] LABS: Glucose Point of Care > 500 mg/dl (65-105)
[2024-06-02 11:53] LABS: Glucose Point of Care 315 mg/dl (65-105)
[2024-06-02 11:53] LABS: Glucose Point of Care 498 mg/dl (65-105)
[2024-06-02 11:53] LABS: Glucose Point of Care 316 mg/dl (65-105)
[2024-06-02 12:38] LABS: Glucose Point of Care > 500 mg/dl (65-105)
[2024-06-02] MEDS: CEFEPIME 1 GM/NS 50 ML 1 GM/50 ML BAG IVPB (13:19)
[2024-06-02] MEDS: AZITHROMYCIN 500 MG/NS 250 ML 500 MG/250 ML BAG 250 MG IVPB (13:19)
[2024-06-02] MEDS: HYDROCORTISONE SODIUM SUCCINATE 100 MG/2 ML VIAL IV PUSH ×2 (13:21→20:59)
--- NOTE | 2024-06-02 13:39 | WPDPROCEDUR ---
Procedures Arterial Line Arterial Line Date: 06/02/24 Arterial Line Time: 10:55 Discussed with the patient/family/POA, the placement of an arterial catheter, including its clinical necessity/indication and associated potential risks, benefits and alternatives.: Yes Patient/family/POA and/or understands and acknowledges the need to proceed with the arterial catheter insertion as an important element of the patient's clinical management.: Yes Time Out Performed: Yes Patient Position: other (Prone) Door Glass Installer Prep: sterile gown, sterile gloves, mask and hat Site: left and radial Site Prep: chlorhexidine and sterile drape Technique used: ultrasound-guided Size (Gauge): 14 Length: 4.4 cm Closure/Dressing: suture, transparent dressing, hemostatic product and securement product Patient tolerated procedure: well Complications: none
--- NOTE | 2024-06-02 13:41 | P.CONIN_ITS ---
Assessment and Plan Assessment and plan (1) Septic shock: Code(s): A41.9 - Sepsis, unspecified organism; R65.21 - Severe sepsis with septic shock Status: Acute Assessment and Plan: 06/01: Patient presented to from urgent care via EMS for hypoxia, confusion, cough, hypotensive, -receive 3 L IV fluid bolus -remained hypotensive, central line was inserted and started on Levophed -currently on maximum doses of Levophed, Herbie-Synephrine, vasopressin -started on epinephrine this morning, will maintain MAP > 65 mmHg at all times for adequate end organ perfusion -worsening renal function, hyperglycemia, significant elevation in LFTs likely related to shock -started patient on stress dose steroid -patient currently on bicarb infusion -has been requiring IV bicarb pushes -06/01: Blood cultures have been obtained and pending -06/02/2024: Sputum cultures have been obtained and pending -Continue cefepime, vancomycin, Tamiflu, azithromycin (06/01) (2) Acute respiratory failure with hypoxia: Code(s): J96.01 - Acute respiratory failure with hypoxia Status: Acute Assessment and Plan: Acute respiratory failure likely related to influenza A. -intubated in the ER on 06/01/2024 -has been severely hypoxic, requiring peep of 14, 100% FiO2 -ARDS physiology, low tidal volume strategy along with high PEEP -patient in prone position for likely severe ARDS -ABGs continue show metabolic acidosis -chest x-ray reviewed -patient unstable to go down for CT chest (3) Influenza A: Code(s): J10.1 - Influenza due to other identified influenza virus with other respiratory manifestations Status: Acute Assessment and Plan: Continue Tamiflu (4) Leukopenia: Code(s): D72.819 - Decreased white blood cell count, unspecified Status: Acute Assessment and Plan: Leukopenia neutropenia likely related to septic shock, continue to monitor -antibiotics as above (5) Acute kidney injury: Code(s): N17.9 - Acute kidney failure, unspecified Status: Acute Assessment and Plan: Patient presented with a creatinine of 0.4 on admission, now in septic shock, creatinine this morning was 2.60 -has received adequate amount of IV fluids, continue maintenance IV fluids and sodium bicarb -will check urine lytes, urine eosinophils and CK level -check renal ultrasound -nephrology has been consulted, discussed with Nephrology, not a candidate for hemodialysis at this time given hemodynamically unstable. -continue to monitor urine output, electrolytes and renal function (6) Transaminitis: Code(s): R74.01 - Elevation of levels of liver transaminase levels Status: Acute Assessment and Plan: Elevated LFTs likely related to hypoxia, hypotension, shock liver -will continue to monitor liver function (7) Type 2 diabetes mellitus: Code(s): E11.9 - Type 2 diabetes mellitus without complications Status: Acute Assessment and Plan: Patient with severe hyperglycemia, started on insulin infusion, likely related to septic shock, possible uncontrolled diabetes since patient's hemoglobin A1c is 12.6 this admission. -Accu-Cheks per insulin infusion protocol Plan DVT prophylaxis: Lovenox, renally dosed Stress ulcer prophylaxis: Protonix Nutrition: NPO for now Code Status: Full code Critical Care Time Spent: 81 minutes Discussed with 3 daughters, sister, 3 sons and other family members in the conference room, updated them with patient's condition and plan of care. They are aware that patient is on 4 pressors, in prone position with ARDS physiology of her lungs, they also aware that she has acute kidney injury, hyperglycemia, transaminitis elevated LFTs all secondary to severe shock, metabolic acidosis with low blood pressures. I discussed with them in details at the patient condition is guarded and that she could have a cardiac arrest is of low blood pressures, shock, hypoxia, severe metabolic acidosis. Discussed code status and CPR if patient had a cardiac arrest. The daughters agreed to in an initially that they want everything to be done and wanted to be a full code for now and give her chance to fight. Bedside RN was in the conference room with me during the discussion Due to a high probability of clinically significant, life threatening deterioration, the patient required my highest level of preparedness to intervene emergently and I personally spent this critical care time directly and personally managing the patient. This critical care time included obtaining a history; examining the patient; pulse oximetry; ordering and review of studies; arranging urgent treatment with development of a management plan; evaluation of patient's response to treatment; frequent reassessment; and discussions with other providers. It was exclusive of separately billable procedures and treating other patients and teaching time. Please see Assessment and Plan section and the rest of the note for further information on patient assessment and treatment This dictation may have been done utilizing a voice recognition system. Attempts have been made to correct errors. However, there may be uncorrected grammatical, spelling, and recognitions errors present. [employer] Consult Note Consult date: 06/02/24 Reason for consult: Septic shock, lactic acidosis, acute respiratory failure, influenza A, leukopenia, transaminitis, acute kidney HPI: Noelle Vivar is a 64 year old female with past medical history of diabetes type 2, history of tracheostomy when she was young likely related to allergic reaction, presented the ED on 06/01/2024 via EMS from urgent care with complains of shortness of breath, cough, hypoxia, confusion/altered mental status. Patient also had a sore throat along with your pain. She was on 6-10 L of oxygen before becoming more hypoxic, she was intubated in the ER, had some bloody frothy secretions on intubation. Patient was tested positive for influenza A, negative for COVID-19 and RSV. Patient was also hypotensive, central line was inserted and patient started on Levophed. In the ER WBC was 1.0, D-dimer 2.82, sodium was 124, potassium 3.5, chloride 91, CO2 of 20, anion gap of 13, BUN of 8, creatinine 0.4, glucose 325, lactic was 4.0 and CRP of 4.1. Urine positive for ketones, glucose was and proteins. Chest x-ray showed patchy bilateral airspace disease compatible with pneumonia. Patient was started on azithromycin, ceftriaxone, Tamiflu, hydrocortisone and received 3 L of IV fluid bolus. Patient was transferred to the ICU for further management. Upon arrival to the ICU patient was more hypotensive, she was already on Levophed which was maxed out, started on vasopressin, Herbie-Synephrine. Patient seen and examined this morning, was hypoxic, hypotensive, epinephrine infusion was started, changes were made to the ventilator, patient was severely acidotic, bicarb IV push x2 again. Remains on CMV mode of ventilation, peep of 14, 100% FiO2, rate of 28. Patient is maxed out on Levophed, Herbie-Synephrine, vasopressin and is epinephrine 7 mcg/min. Patient is in prone position secondary to severe hypoxia due to ARDS. Patient on Nimbex for neuromuscular blockade and ventilator synchrony Review of Systems 2 Review of Systems: ROS unobtainable: Yes unobtainable due to endotracheal tube, unobtainable due to medical condition and unobtainable due to mental status PMFSH Past Medical History Medical History (Updated 06/02/24 @ 14:01 by Ravinder Fuentes MD) Type 2 diabetes mellitus Surgical History Surgical History History of tracheostomy Family History Family History Mother Aneurysm Social History Social History (Updated 06/02/24 @ 01:52 by Irene Mcbride PA-C) Social History: Surrogate medical decision maker: Kay ([phone]), Екатерина ([phone]), and Jos Alarcon ([phone]), daughters. Code status: Full code. Years smoked: 40 Smoking status: Former smoker Alcohol intake: current Alcohol use details: Drinks 4 to 5 beers most days Substance use: never Additional living arrangements comments: The patient lives in her own home in [place]. 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 Spiritual care concerns: No Meds Home Medications and Allergies Home Medications ?Medication ?Instructions ?Recorded ?Confirmed ?Type glipizide 5 mg tablet 5 mg PO DAILY 06/02/24 06/02/24 History metformin 1,000 mg tablet 1,000 mg PO BID 06/02/24 06/02/24 History Allergies Allergy/AdvReac Type Severity Reaction Status Date / Time No Known Allergies Allergy Verified 06/01/24 14:47 Vital Signs Vital Signs - 24 hr 06/01/24 14:36 06/01/24 14:55 06/01/24 15:03 Temperature 99.7 F H Pulse Rate 145 H 137 H Respiratory Rate 20 25 H Blood Pressure 156/86 H 156/86 H Pulse Oximetry 90 91 92 Oxygen Delivery Nasal Cannula Nasal Cannula Oxygen Flow Rate 6 6 Fraction of Inspired Oxygen 06/01/24 16:00 06/01/24 17:00 06/01/24 17:36 Temperature Pulse Rate 132 H 140 H 141 H Respiratory Rate 26 H 30 H 28 H Blood Pressure 156/69 H 147/69 H Pulse Oximetry 96 96 95 Oxygen Delivery High Flow Nasal Cannula Oxygen Flow Rate 10 Fraction of Inspired Oxygen 06/01/24 17:37 06/01/24 18:00 06/01/24 19:01 Temperature 103 F H Pulse Rate 141 H 140 H 148 H Respiratory Rate 28 H 26 H 36 H Blood Pressure 128/63 141/86 H Pulse Oximetry 95 81 L Oxygen Delivery Oxygen Flow Rate Fraction of Inspired Oxygen 06/01/24 19:15 06/01/24 19:40 06/01/24 19:42 Temperature Pulse Rate 138 H 151 H 151 H Respiratory Rate 43 H 43 H Blood Pressure Pulse Oximetry 95 Oxygen Delivery Mechanical Ventilation Oxygen Flow Rate Fraction of Inspired Oxygen 100 06/01/24 19:56 06/01/24 19:58 06/01/24 20:35 Temperature 105.2 F H Pulse Rate 146 H 146 H 146 H Respiratory Rate 61 H 67 H 0 L Blood Pressure 111/64 Pulse Oximetry 91 Oxygen Delivery Oxygen Flow Rate Fraction of Inspired Oxygen 06/01/24 21:18 06/01/24 21:19 06/01/24 21:50 Temperature 105.2 F H Pulse Rate 137 H 137 H Respiratory Rate 21 H 23 H Blood Pressure Pulse Oximetry Oxygen Delivery Oxygen Flow Rate Fraction of Inspired Oxygen 06/01/24 22:00 06/01/24 22:06 06/01/24 23:05 Temperature 103.5 F H 102.9 F H Pulse Rate 127 H 126 H 117 H Respiratory Rate 40 H 26 H Blood Pressure 79/48 L 70/52 L Pulse Oximetry 92 93 86 L Oxygen Delivery Mechanical Ventilation Oxygen Flow Rate Fraction of Inspired Oxygen 100 06/01/24 23:15 06/01/24 23:22 06/01/24 23:27 Temperature 102.9 F H Pulse Rate 117 H 116 H Respiratory Rate 32 H Blood Pressure 68/45 L 68/45 L Pulse Oximetry 89 L Oxygen Delivery Oxygen Flow Rate Fraction of Inspired Oxygen 100 06/01/24 23:30 06/01/24 23:30 06/01/24 23:30 Temperature 102.8 F H Pulse Rate 116 H 116 H 116 H Respiratory Rate 33 H 33 H 33 H Blood Pressure 90/58 L Pulse Oximetry 95 Oxygen Delivery Oxygen Flow Rate Fraction of Inspired Oxygen 06/01/24 23:43 06/01/24 23:45 06/02/24 00:00 Temperature 102.3 F H Pulse Rate 119 H 117 H 120 H Respiratory Rate 30 H Blood Pressure 99/63 L Pulse Oximetry 96 97 Oxygen Delivery Mechanical Ventilation Oxygen Flow Rate Fraction of Inspired Oxygen 100 06/02/24 00:00 06/02/24 00:00 06/02/24 00:00 Temperature 102 F H Pulse Rate 119 H 119 H 119 H Respiratory Rate 32 H 32 H 33 H Blood Pressure 92/49 L Pulse Oximetry 96 Oxygen Delivery Oxygen Flow Rate Fraction of Inspired Oxygen 06/02/24 00:00 06/02/24 00:00 06/02/24 00:30 Temperature 102 F H Pulse Rate 119 H 120 H Respiratory Rate 32 H 33 H Blood Pressure 92/49 L Pulse Oximetry 96 Oxygen Delivery Oxygen Flow Rate Fraction of Inspired Oxygen 100 06/02/24 00:30 06/02/24 00:30 06/02/24 01:00 Temperature 101.9 F H Pulse Rate 120 H 120 H 120 H Respiratory Rate 33 H 33 H 34 H Blood Pressure 102/70 Pulse Oximetry 92 Oxygen Delivery Oxygen Flow Rate Fraction of Inspired Oxygen 06/02/24 01:00 06/02/24 01:00 06/02/24 01:15 Temperature 102 F H 102 F H Pulse Rate 120 H 120 H 119 H Respiratory Rate 34 H 34 H 34 H Blood Pressure 92/53 L 87/56 L Pulse Oximetry 89 L 88 L Oxygen Delivery Oxygen Flow Rate Fraction of Inspired Oxygen 06/02/24 01:30 06/02/24 01:30 06/02/24 01:30 Temperature 102 F H Pulse Rate 115 H 115 H 115 H Respiratory Rate 29 H 29 H 29 H Blood Pressure 73/51 L Pulse Oximetry 89 L Oxygen Delivery Oxygen Flow Rate Fraction of Inspired Oxygen 06/02/24 01:34 06/02/24 01:45 06/02/24 01:45 Temperature 102 F H Pulse Rate 116 H 114 H 114 H Respiratory Rate 27 H 27 H Blood Pressure 73/51 L 86/54 L Pulse Oximetry 89 L Oxygen Delivery Oxygen Flow Rate Fraction of Inspired Oxygen 06/02/24 01:45 06/02/24 02:00 06/02/24 02:00 Temperature 102 F H 101.9 F H Pulse Rate 114 H 114 H 110 H Respiratory Rate 27 H 26 H Blood Pressure 86/54 L 89/57 L Pulse Oximetry 89 L 93 Oxygen Delivery Oxygen Flow Rate Fraction of Inspired Oxygen 06/02/24 02:00 06/02/24 02:00 06/02/24 02:00 Temperature Pulse Rate 110 H 110 H 110 H Respiratory Rate 26 H 26 H Blood Pressure 89/57 L Pulse Oximetry Oxygen Delivery Oxygen Flow Rate Fraction of Inspired Oxygen 06/02/24 03:00 06/02/24 03:24 06/02/24 03:30 Temperature 101.8 F H 101.9 F H Pulse Rate 111 H 121 H 111 H Respiratory Rate 24 H 27 H Blood Pressure 84/56 L 85/58 L Pulse Oximetry 89 L 81 L Oxygen Delivery Mechanical Ventilation Oxygen Flow Rate Fraction of Inspired Oxygen 100 06/02/24 03:30 06/02/24 03:45 06/02/24 03:45 Temperature Pulse Rate 111 H 106 H 106 H Respiratory Rate 26 H Blood Pressure 85/58 L Pulse Oximetry 86 L Oxygen Delivery Oxygen Flow Rate Fraction of Inspired Oxygen 06/02/24 04:00 06/02/24 04:00 06/02/24 04:00 Temperature Pulse Rate 108 H 108 H Respiratory Rate 24 H Blood Pressure Pulse Oximetry 88 L Oxygen Delivery Mechanical Ventilation Oxygen Flow Rate Fraction of Inspired Oxygen 100 100 06/02/24 04:00 06/02/24 04:00 06/02/24 04:00 Temperature 102.1 F H Pulse Rate 103 H 103 H 103 H Respiratory Rate 24 H 24 H 24 H Blood Pressure 86/65 L Pulse Oximetry 85 L Oxygen Delivery Oxygen Flow Rate Fraction of Inspired Oxygen 06/02/24 04:00 06/02/24 04:00 06/02/24 04:00 Temperature 102.1 F H Pulse Rate 107 H 103 H 103 H Respiratory Rate 24 H Blood Pressure 85/65 L 86/65 L 86/65 L Pulse Oximetry 87 L Oxygen Delivery Oxygen Flow Rate Fraction of Inspired Oxygen 06/02/24 04:16 06/02/24 04:30 06/02/24 04:30 Temperature 101.9 F H Pulse Rate 108 H 106 H 106 H Respiratory Rate 24 H Blood Pressure 84/58 L 85/65 L 85/62 L Pulse Oximetry 82 L Oxygen Delivery Oxygen Flow Rate Fraction of Inspired Oxygen 06/02/24 04:45 06/02/24 05:15 06/02/24 06:00 Temperature 101.8 F H 101.8 F H Pulse Rate 108 H 107 H 115 H Respiratory Rate 24 H 25 H Blood Pressure 91/71 L 92/59 L 106/75 Pulse Oximetry 74 L 92 Oxygen Delivery Oxygen Flow Rate Fraction of Inspired Oxygen 06/02/24 06:00 06/02/24 06:15 06/02/24 06:19 Temperature 101.8 F H Pulse Rate 116 H 115 H 113 H Respiratory Rate 24 H 24 H Blood Pressure 106/75 103/67 Pulse Oximetry 90 Oxygen Delivery Oxygen Flow Rate Fraction of Inspired Oxygen 06/02/24 06:19 06/02/24 06:21 06/02/24 08:00 Temperature Pulse Rate 114 H 115 H 119 H Respiratory Rate 24 H Blood Pressure 106/75 82/53 L Pulse Oximetry Oxygen Delivery Oxygen Flow Rate Fraction of Inspired Oxygen 06/02/24 08:00 06/02/24 08:00 06/02/24 08:00 Temperature Pulse Rate 119 H 119 H 119 H Respiratory Rate 24 H 24 H Blood Pressure 82/53 L Pulse Oximetry Oxygen Delivery Oxygen Flow Rate Fraction of Inspired Oxygen 06/02/24 08:00 06/02/24 08:00 06/02/24 08:30 Temperature 102.3 F H Pulse Rate 119 H 119 H 118 H Respiratory Rate 24 H Blood Pressure 82/53 L 83/51 L Pulse Oximetry 89 L 90 Oxygen Delivery Mechanical Ventilation Oxygen Flow Rate Fraction of Inspired Oxygen 100 06/02/24 08:30 06/02/24 08:50 06/02/24 09:10 Temperature 102.7 F H Pulse Rate 118 H 127 H Respiratory Rate 24 H 24 H Blood Pressure Pulse Oximetry Oxygen Delivery Oxygen Flow Rate Fraction of Inspired Oxygen 06/02/24 09:40 06/02/24 09:48 06/02/24 09:56 Temperature Pulse Rate 130 H 130 H Respiratory Rate Blood Pressure 78/48 L 83/51 L Pulse Oximetry Oxygen Delivery Mechanical Ventilation Oxygen Flow Rate Fraction of Inspired Oxygen 100 06/02/24 09:56 06/02/24 10:00 06/02/24 10:00 Temperature Pulse Rate 130 H 129 H 129 H Respiratory Rate 28 H Blood Pressure 83/51 L 90/53 L Pulse Oximetry Oxygen Delivery Oxygen Flow Rate Fraction of Inspired Oxygen 06/02/24 10:00 06/02/24 10:00 06/02/24 10:00 Temperature 102.9 F H Pulse Rate 129 H 129 H 129 H Respiratory Rate 28 H 28 H Blood Pressure 90/53 L 90/53 L Pulse Oximetry 96 Oxygen Delivery Oxygen Flow Rate Fraction of Inspired Oxygen 06/02/24 10:07 06/02/24 10:07 06/02/24 10:10 Temperature 103.2 F H Pulse Rate 129 H 129 H Respiratory Rate Blood Pressure 90/53 L 90/53 L Pulse Oximetry Oxygen Delivery Oxygen Flow Rate Fraction of Inspired Oxygen 06/02/24 10:45 06/02/24 11:18 06/02/24 11:20 Temperature Pulse Rate 127 H 123 H 123 H Respiratory Rate Blood Pressure 71/44 L Pulse Oximetry 97 94 Oxygen Delivery Mechanical Ventilation Mechanical Ventilation Oxygen Flow Rate Fraction of Inspired Oxygen 100 100 06/02/24 11:23 06/02/24 11:26 06/02/24 11:28 Temperature Pulse Rate 131 H 124 H 132 H Respiratory Rate 28 H Blood Pressure 82/48 L 67/44 L 67/44 L Pulse Oximetry Oxygen Delivery Oxygen Flow Rate Fraction of Inspired Oxygen 06/02/24 11:48 06/02/24 12:00 06/02/24 12:00 Temperature Pulse Rate 124 H 125 H 125 H Respiratory Rate Blood Pressure 66/41 L 73/51 L 73/51 L Pulse Oximetry Oxygen Delivery Oxygen Flow Rate Fraction of Inspired Oxygen 06/02/24 12:00 06/02/24 12:00 06/02/24 12:00 Temperature Pulse Rate 125 H 125 H 125 H Respiratory Rate 28 H 28 H Blood Pressure 73/51 L Pulse Oximetry Oxygen Delivery Oxygen Flow Rate Fraction of Inspired Oxygen 06/02/24 12:00 06/02/24 12:30 06/02/24 12:45 Temperature Pulse Rate 125 H 129 H 130 H Respiratory Rate Blood Pressure 73/51 L 74/45 L 74/45 L Pulse Oximetry Oxygen Delivery Oxygen Flow Rate Fraction of Inspired Oxygen 06/02/24 13:00 06/02/24 13:20 06/02/24 13:32 Temperature Pulse Rate 130 H 130 H 132 H Respiratory Rate Blood Pressure 73/45 L 73/45 L 77/47 L Pulse Oximetry Oxygen Delivery Oxygen Flow Rate Fraction of Inspired Oxygen 06/02/24 13:38 06/02/24 13:38 Temperature Pulse Rate 132 H 132 H Respiratory Rate Blood Pressure 76/46 L 76/46 L Pulse Oximetry Oxygen Delivery Oxygen Flow Rate Fraction of Inspired Oxygen Exam 2 Narrative: General: Patient in prone position, intubated and sedated, on neuromuscular magdalena HEENT:? Pupils are equal, sluggish but reactive Neck:? Supple, right IJ central line Respiratory:? Coarse breath sounds bilaterally, decreased at bases, no wheezing Cardiac:? Sinus tachycardia Abdomen:? Hypoactive bowels, nondistended, nontender, soft Extremities:? Cool extremities, palpable pedal pulses Neuro:? Patient is intubated, sedated, on neuromuscular blockade Skin:? Cool to touch, no lesions noted Psych:? Unable to assess at this time Results Labs 06/02/24 10:04 06/02/24 07:12 Labs: Short CBC 06/01/24 06/02/24 Range/Units 15:05 10:04 WBC 1.0 L* 1.6 L* (4.5-10.0) K/mm3 Hgb 14.2 13.7 (12.0-15.0) g/dL Hct 42.7 42.4 (37.0-47.0) % Plt Count 212 TNP (150-375) k/mm3 BMP 06/01/24 06/02/24 06/02/24 15:05 03:04 07:12 Sodium 124 L 126 L 127 L Potassium 3.5 3.8 3.2 L Chloride 91 L 98 95 L Carbon Dioxide 20 L 19 L 20 L BUN 8 21 H D 25 H Creatinine 0.40 L 2.00 H 2.60 H Glucose 325 H 603 H* 570 H* Calcium 9.7 7.5 L 6.9 L Liver Function 06/01/24 06/02/24 Range/Units 15:05 03:04 Total Bilirubin 0.8 0.4 (0.2-1.3) mg/dL AST 27 900 H (14-36) U/L ALT 20 281 H (6-35) U/L Alkaline Phosphatase 92 50 (38-126) U/L Albumin 4.7 2.8 L (3.5-5.1) g/dL Urine 06/01/24 Range/Units 16:20 Urine Color Yellow (Yellow) Urine Appearance Clear (Clear) Urine pH 5.0 (5.0-9.0) Ur Specific [place] 1.030 (1.001-1.035) Urine Protein 2+ H (Negative) mg/dL Urine Glucose (UA) 3+ H (Negative) mg/dL Quality VTE Prophylaxis VTE prophylaxis: mechanical ordered and pharmacologic ordered Hospitalist MIPS Advance Care Plan I have confirmed that the patient's Advanced Care Plan is present, code status is documented, or surrogate decision maker is listed in patient medical record.: Yes Medication Reconciliation I have utilized all available resources to obtain, update and review the patients current medications (includes all prescriptions, OTC, herbals, cannabis, and nutritional supplements).: Yes
[2024-06-02 13:54] LABS: Alveolar/Arterial O2 Gradient 601.5 mmHg; Base Excess ABG -8.3 mEq/l (+/-2.0); Fractional Inspired Oxygen 100 %; HCO3 ABG 17.9 mEq/l (22.0-26.0); Oxygen Content ABG 16.9 %vol (16.0-22.0); Oxygen Saturation ABG 92.5 % (95.0-100.0); Oxyhemoglobin 92.9 % THb (90.0-100.0); PCO2 ABG 39.7 mmHg (35.0-45.0); PO2 ABG 71.8 mmHg (80.0-100.0); PO2 FiO2 Ratio Arterial Blood 0.72 %; Total Hemoglobin 12.9 g/dL (12.0-18.0)
[2024-06-02] MEDS: EPINEPHrine INJ 4 MG in DEXTROSE 5% IN WATER 250 ML 45.72 MG IV CONT (14:00)
[2024-06-02 14:13] LABS: Hematocrit 37.6 % (37.0-47.0); Hemoglobin 12.3 g/dL (12.0-15.0); Immature Platelet Fraction Pct 18.2 % (0.9-11.2); Mean Corpuscular HGB Conc 32.7 g/dl (32-36); Mean Corpuscular Hemoglobin 28.3 pg (26-34); Mean Corpuscular Volume 86.4 fl (80-100); Platelet Count Result 51 k/mm3 (150-375); Red Blood Count 4.35 M/mm3 (4.2-5.4)
[2024-06-02 14:22] LABS: Magnesium 1.3 mg/dL (1.6-2.3)
[2024-06-02 14:24] LABS: INR 2.7; Prothrombin Time 29.2 Seconds (11.1-14.7)
--- NOTE | 2024-06-02 14:24 | P.CONNP_ITS ---
Assessment and Plan Assessment and plan (1) Acute kidney injury: Code(s): N17.9 - Acute kidney failure, unspecified Status: Acute Assessment and Plan: * normal renal function at baseline * significant deterioration noted since admission (< 24 hours) with creatinine up to 2.8mg/dl * likely ATN with multifactorial etiology: * hemodynamic instability/shock * sepsis/infection * hypoxia * prerenal factors * other(?) * s/p aggressive IVF resuscitation * on maintenace IVFs with bicarb * on significant vasopressor support in an effort to maintain MAP * follow-up on urine studies, CPK and renal ultrasound * [facility]/dialysis is a consideration but she is not a candidate at this time due to her hemodynamics instability [not sure if she would even tolerate continuous renal replacement therapy (CRRT) given her curret status] * follow trend of repeat labs and UOP (2) Septic shock: Code(s): A41.9 - Sepsis, unspecified organism; R65.21 - Severe sepsis with septic shock Status: Acute Assessment and Plan: * as noted on presentation - hypoxia, hypotension, acute confusion, leukopenia, and lactic acidosis * s/p aggressive IVF resuscitation * due to persistent hypotension despite IVFs, central line placed * currently on maximum doses of Levophed, Herbie-Synephrine, vasopressin and epinephrine * attempting to maintain MAP > 65 mmHg (but limited effectiveness noted) * on stress dose steroids as well * follow culture data * on antibiotics and Tamiflu (3) Acute respiratory failure with hypoxia: Code(s): J96.01 - Acute respiratory failure with hypoxia Status: Acute Assessment and Plan: * secondary to influenza A and pneumonia * may have progressed to ARDS given severity of hypoxia * prone positioning instituted * follow ABGs and CXRs * not stable for transport for CT imaging * continue ventilator support (4) Metabolic acidosis: Code(s): E87.20 - Acidosis, unspecified Status: Acute Assessment and Plan: * due several issues: * acute kidney injury/acute renal failure * lactic acidosis * sepsis/septic shock * possible bowel ischemia * metformin use (?) * on bicarbonate infustion to compensate (5) Influenza A: Code(s): J10.1 - Influenza due to other identified influenza virus with other respiratory manifestations Status: Acute Assessment and Plan: * as noted by testing in ER * on Tamiflu (6) Transaminitis: Code(s): R74.01 - Elevation of levels of liver transaminase levels Status: Acute Assessment and Plan: * likely secondary to shock liver in the context of hypoxia and hypotension * follow trend of LFTs (7) Type 2 diabetes mellitus: Code(s): E11.9 - Type 2 diabetes mellitus without complications Status: Acute Assessment and Plan: * on insulin gtt * secondary to #2 * however, suspect poor glycemic control prior to admission (noted HgbA1c of 12.6) * follow accu-cheks * glycemic control per director of home economics Extensive review the electronic chart and events that have occurred since her admission (> 20 minutes) along with discussion with Dr. Fuentes; unfortunately I suspect the patient's renal dysfunction will get worse before it gets better and although she meets criteria for renal replacement therapy/dialysis, her hemodynamic instability precludes this intervention (not a candidate) and would likely worsen her overall clinical condition rather than improve it. I am unclear if she would even benefit from continuous renal replacement therapy (CRRT - not available here at [facility]) as it may not make a significant difference given her severe shock and need for for multiple vasopressors to maintain her clinical status at this time. I will continue to follow the patient with you while she remains hospitalized and make further recommendations as deemed necessary. Thank you for allowing me to participate in the care of this patient. L History of Present Illness Reason for Consult Consult date: 06/02/24 Reason for consult: acute renal failure Chief Complaint Chief complaint: Influenza/Pneumonia/Hypoxia/Leukopenia History of Present Illness Narrative: All the information that I obtained is from review of the electronic medical record as well as discussion with the physician/ nurses involved in the patient's care has the patient is unable provide any history due to her current clinical status. The patient is a 64-year-old female a past medical history as outlined below who presented to [facility] Emergency Room via EMS from urgent care with complaints of shortness of breath. Apparently, prior to her presentation to the ER, the patient had been feeling okay but had complaints of a sore throat. Early on the morning of admission, she texted her daughter has said that the sore throat was getting worse and she was also having pain in her ears. Few hours later she presented to an urgent care center with family due to these symptoms and while in the waiting room, family noted the patient was getting somewhat confused as she had difficulty filling out the paperwork registration -- She had difficulty filling out her address and simple information that she is well aware. By assessment at the urgent care center, she was noted be hypoxic with oxygen saturations of 84% on room air. Given her confusion and hypoxia, EMS was called and she was subsequently transported to the emergency room from the urgent care center. Workup and evaluation emergency room demonstrated the patient to be hemodynamically stable but tachycardic and tachypneic with oxygen saturations of 90% on 10 L non-rebreather mask. Routine blood test demonstrated leukopenia with a white blood cell count of 1.0, normal renal function, sodium of 124, potassium of 3.5 bicarb 20 glucose of 325 with a lactic acid of 0.0 and a CRP of 4 1. Urinalysis was significant for 2+ protein, 3+ glucose and 3+ ketones a chest x-ray showed patchy bilateral airspace disease compatible with pneumonia. Viral testing for RSV and COVID were negative but she was found to be positive for influenza. Unfortunately, her respiratory status and hypoxia continued to worsen while in the emergency room and she subsequently was intubated placed on mechanical ventilation. Her blood pressure also dropped although it should be noted that she required significant sedation for both her intubation and her over breathing the ventilator and a central line was placed and she was initiated on vasopressor therapy as she failed to respond to IV fluid resuscitation with 3 L of normal saline. After appropriate cultures were obtained, she was started on broad-spectrum IV antibiotics along with Tamiflu and stress dose steroids She was subsequently admitted to the ICU further evaluation therapy. Upon her arrival to the intensive care unit, she was already on maximum doses of Levophed and had to be started on vasopressin as well as Herbie-Synephrine. By this morning, she remained hypoxic and hypotensive and epinephrine was added to her current vasopressors in effort to optimize her hemodynamics. Furthermore, she was severely acidotic as evidence by her ABG and she was given multiple doses IV bicarb pushes and subsequently initiated on a bicarb drip. Due to severity of her hypoxia and evidence of what appeared to be ARDS, she was placed in the prone position as well. She also required initiation of paralytics due to ventilator is is asynchrony. Repeat labs since this morning also demonstrated worsening renal dysfunction as her creatinine went from 0.4 to 2.0 then 2.6, and up to her most recent value 2.8 mg/dL. Renal consultation was requested due to her acute kidney injury/acute renal failure. As already mentioned above her renal function was well within normal limits on presentation as far as I am aware, she has no history renal insufficiency. However, her renal function has progressively worsened as evidence by the trend of her labs in conjunction with her worsening hypoxia, hypotension, and acidosis. Her acute kidney injury/acute renal failure is likely a manifestation of acute tubular necrosis due to her hemodynamic instability/shock in conjunction sepsis/infection leading to her severe acidosis as already noted. Unfortunately, based on evidence today renal function is likely to continue to worsen given her need for high vasopressor requirements and ongoing clinical deterioration. She appears to be making some urine output but she remains oliguric since her admission. Currently, she remains on 4 vasopressors (Levophed, vasopressin, Herbie-Synephrine, and epinephrine and is intubated/sedated/paralyzed and on full ventilatory support. Review of Systems 2 Review of Systems: As per HPI. [facility] Past Medical History Medical History Type 2 diabetes mellitus Surgical History Surgical History History of tracheostomy Family History Family History Mother Aneurysm Social History Social History Social History: Surrogate medical decision maker: Kay ([phone]), Екатерина ([phone]), and Jos Alarcon ([phone]), daughters. Code status: Full code. Years smoked: 40 Smoking status: Former smoker Alcohol intake: current Alcohol use details: Drinks 4 to 5 beers most days Substance use: never Additional living arrangements comments: The patient lives in her own home in [place]. 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 Spiritual care concerns: No Meds Home Medications and Allergies Home Medications ?Medication ?Instructions ?Recorded ?Confirmed ?Type glipizide 5 mg tablet 5 mg PO DAILY 06/02/24 06/02/24 History metformin 1,000 mg tablet 1,000 mg PO BID 06/02/24 06/02/24 History Allergies Allergy/AdvReac Type Severity Reaction Status Date / Time No Known Allergies Allergy Verified 06/01/24 14:47 Vital Signs Vital Signs Temp Pulse Resp BP Pulse Ox O2 Del Method FiO2 06/02/24 14:23 131 H 77/46 L 06/02/24 14:10 127 H 62/39 L 06/02/24 14:07 128 H 28 H 06/02/24 14:00 127 H 06/02/24 14:00 106 H 28 H 98/61 L 06/02/24 14:00 131 H 76/46 L 06/02/24 14:00 131 H 28 H 06/02/24 14:00 131 H 28 H 06/02/24 14:00 131 H 76/46 L 06/02/24 14:00 131 H 76/46 L 06/02/24 14:00 102.6 F H 127 H 28 H 62/38 L 93 06/02/24 14:00 135 H 88/50 L 06/02/24 13:58 129 H 75/46 L 06/02/24 13:48 131 H 77/47 L 06/02/24 13:45 132 H 28 H 06/02/24 13:45 132 H 93 Mechanical Ventilation 06/02/24 13:38 132 H 76/46 L 06/02/24 13:38 132 H 76/46 L 06/02/24 13:32 132 H 77/47 L 06/02/24 13:20 130 H 73/45 L 06/02/24 13:00 129 H 28 H 71/43 L 06/02/24 13:00 130 H 73/45 L 06/02/24 12:45 130 H 74/45 L 06/02/24 12:30 129 H 74/45 L 06/02/24 12:00 132 H 06/02/24 12:00 125 H 28 H 67/42 L 06/02/24 12:00 100 06/02/24 12:00 90 Mechanical Ventilation 06/02/24 12:00 103 F H 125 H 28 H 73/51 L 90 06/02/24 12:00 125 H 73/51 L 06/02/24 12:00 125 H 28 H 06/02/24 12:00 125 H 28 H 06/02/24 12:00 125 H 73/51 L 06/02/24 12:00 125 H 73/51 L 06/02/24 12:00 125 H 73/51 L 06/02/24 11:48 124 H 66/41 L 06/02/24 11:41 125 H 28 H 83/47 L 06/02/24 11:28 132 H 67/44 L 06/02/24 11:26 124 H 28 H 67/44 L 06/02/24 11:23 131 H 82/48 L 06/02/24 11:20 123 H 94 Mechanical Ventilation 06/02/24 11:18 123 H 71/44 L 06/02/24 10:45 127 H 97 Mechanical Ventilation 06/02/24 10:10 103.2 F H 06/02/24 10:07 129 H 90/53 L 06/02/24 10:07 129 H 90/53 L 06/02/24 10:00 129 H 06/02/24 10:00 102.9 F H 129 H 28 H 90/53 L 96 06/02/24 10:00 129 H 90/53 L 06/02/24 10:00 129 H 28 H 06/02/24 10:00 129 H 28 H 06/02/24 10:00 129 H 90/53 L 06/02/24 09:56 130 H 83/51 L 06/02/24 09:56 130 H 83/51 L 06/02/24 09:48 130 H 78/48 L 06/02/24 09:45 100 06/02/24 09:40 Mechanical Ventilation 06/02/24 09:10 102.7 F H 06/02/24 08:50 127 H 24 H 06/02/24 08:30 118 H 24 H 06/02/24 08:30 118 H 90 Mechanical Ventilation 06/02/24 08:00 119 H 06/02/24 08:00 100 06/02/24 08:00 89 L Mechanical Ventilation 06/02/24 08:00 102.3 F H 119 H 24 H 83/51 L 89 L 06/02/24 08:00 119 H 82/53 L 06/02/24 08:00 119 H 24 H 06/02/24 08:00 119 H 24 H 06/02/24 08:00 119 H 82/53 L 06/02/24 08:00 119 H 82/53 L 06/02/24 06:21 115 H 106/75 06/02/24 06:19 114 H 24 H 06/02/24 06:19 113 H 24 H 06/02/24 06:15 115 H 103/67 06/02/24 06:00 115 H 06/02/24 06:00 101.8 F H 116 H 24 H 106/75 90 06/02/24 06:00 115 H 106/75 06/02/24 05:15 101.8 F H 107 H 25 H 92/59 L 92 06/02/24 04:45 101.8 F H 108 H 24 H 91/71 L 74 L 06/02/24 04:30 101.9 F H 106 H 24 H 85/62 L 82 L 06/02/24 04:30 106 H 85/65 L 06/02/24 04:16 108 H 84/58 L 06/02/24 04:00 103 H 86/65 L 06/02/24 04:00 102.1 F H 103 H 24 H 86/65 L 87 L 06/02/24 04:00 107 H 85/65 L 06/02/24 04:00 103 H 24 H 06/02/24 04:00 103 H 24 H 06/02/24 04:00 102.1 F H 103 H 24 H 86/65 L 85 L 06/02/24 04:00 100 06/02/24 04:00 108 H 06/02/24 04:00 108 H 24 H 88 L Mechanical Ventilation 06/02/24 03:45 106 H 26 H 86 L 06/02/24 03:45 106 H 06/02/24 03:30 111 H 85/58 L 06/02/24 03:30 101.9 F H 111 H 27 H 85/58 L 81 L 06/02/24 03:24 121 H Mechanical Ventilation 06/02/24 03:00 101.8 F H 111 H 24 H 84/56 L 89 L 06/02/24 02:00 110 H 89/57 L 06/02/24 02:00 110 H 26 H 06/02/24 02:00 110 H 26 H 06/02/24 02:00 101.9 F H 110 H 26 H 89/57 L 93 06/02/24 02:00 114 H 06/02/24 01:45 102 F H 114 H 27 H 86/54 L 89 L 06/02/24 01:45 102 F H 114 H 27 H 86/54 L 89 L 06/02/24 01:45 114 H 27 H 06/02/24 01:34 116 H 73/51 L 06/02/24 01:30 102 F H 115 H 29 H 73/51 L 89 L 06/02/24 01:30 115 H 29 H 06/02/24 01:30 115 H 29 H 06/02/24 01:15 102 F H 119 H 34 H 87/56 L 88 L 06/02/24 01:00 102 F H 120 H 34 H 92/53 L 89 L 06/02/24 01:00 120 H 34 H 06/02/24 01:00 120 H 34 H 06/02/24 00:30 101.9 F H 120 H 33 H 102/70 92 06/02/24 00:30 120 H 33 H 06/02/24 00:30 120 H 33 H 06/02/24 00:00 100 06/02/24 00:00 102 F H 119 H 32 H 92/49 L 96 06/02/24 00:00 102 F H 119 H 33 H 92/49 L 96 06/02/24 00:00 119 H 32 H 06/02/24 00:00 119 H 32 H 06/02/24 00:00 120 H 06/01/24 23:45 102.3 F H 117 H 30 H 99/63 L 97 06/01/24 23:43 119 H 96 Mechanical Ventilation 100 06/01/24 23:30 102.8 F H 116 H 33 H 90/58 L 95 06/01/24 23:30 116 H 33 H 06/01/24 23:30 116 H 33 H 06/01/24 23:27 116 H 68/45 L 06/01/24 23:22 100 06/01/24 23:15 102.9 F H 117 H 32 H 68/45 L 89 L 06/01/24 23:05 102.9 F H 117 H 26 H 70/52 L 86 L 06/01/24 22:06 103.5 F H 126 H 40 H 79/48 L 93 06/01/24 22:00 127 H 92 Mechanical Ventilation 100 06/01/24 21:50 105.2 F H 12/31/24 21:19 137 H 23 H 06/01/24 21:18 137 H 21 H 06/01/24 20:35 105.2 F H 146 H 0 L 111/64 91 06/01/24 19:58 146 H 67 H 06/01/24 19:56 146 H 61 H 06/01/24 19:42 151 H 43 H 06/01/24 19:40 151 H 43 H 06/01/24 19:15 138 H 95 Mechanical Ventilation 100 06/01/24 19:01 103 F H 148 H 36 H 141/86 H 81 L Exam 2 Narrative: GENERAL APPEARANCE: ill-appearing female intubated/sedated/paralyzed in prone position on mechanical ventilation HEENT: normocephalic, atraumatic, normal conjunctiva and sclera, nares patient NECK: no lymphadenopathy, thyromegaly, or JVD MOUTH: normal lips and gums; ETT in place CARDIOVASCULAR: tachycardic, normal S1 and S2, no rub RESPIRATORY: coarse and decreased at bases ABDOMEN: soft, nontender, nondistended, decreased bowel sounds present EXTREMITIES: no evidence of cyanosis, clubbing, or edema NEUROLOGICAL: unable to assess Results Lab Results 06/05/24 02:57 06/05/24 02:57 Lab results: Most recent lab results ABG pH 7.047 (7.350-7.450) L* 06/02/24 11:10 ABG pCO2 48.1 mmHg (35.0-45.0) H 06/02/24 11:10 ABG pO2 74.4 mmHg (80.0-100.0) L 06/02/24 11:10 ABG HCO3 12.9 mEq/l (22.0-26.0) L 06/02/24 11:10 ABG O2 Saturation 87.5 % (95.0-100.0) L* 06/02/24 11:10 Calcium 6.1 mg/dL (8.4-10.2) L 06/02/24 13:53 Phosphorus 5.6 mg/dL (2.5-4.5) H 06/02/24 13:53 Magnesium 1.3 mg/dL (1.6-2.3) L 06/02/24 13:53 Urine Creatinine 40.9 mg/dL 06/02/24 15:16
[2024-06-02 14:25] LABS: Fibrinogen 369 mg/dl (215-510); Partial Thromboplastin Time 49.8 Seconds (22.3-36.8)
[2024-06-02 14:35] LABS: Hematocrit 36.9 % (37.0-47.0); Hemoglobin 12.3 g/dL (12.0-15.0); Mean Corpuscular HGB Conc 33.3 g/dl (32-36); Mean Corpuscular Hemoglobin 28.7 pg (26-34); Mean Platelet Volume 11.7 fl (7.4-10.4); Platelet Count Result 50 k/mm3 (150-375); Red Blood Count 4.29 M/mm3 (4.2-5.4); Red Cell Distribution Width 12.1 % (11.5-14.5)
[2024-06-02 14:40] LABS: White Blood Count 1.9 K/mm3 (4.5-10.0)
[2024-06-02 15:08] LABS: Lactic Acid Reflex 9.5 mmol/L (0.7-2.0)
[2024-06-02 15:09] LABS: Albumin Level 2.6 g/dL (3.5-5.1); Alkaline Phosphatase 42 U/L (38-126); Anion Gap 14 mmol/L (4-12); Bilirubin,Total 0.3 mg/dL (0.2-1.3); Blood Urea Nitrogen 29 mg/dL (7-17); Calcium 6.1 mg/dL (8.4-10.2); Carbon Dioxide 26 mmol/L (22-30); Chloride 90 mmol/L (98-107); Estimated CRCL calculation 18 ml/min; Estimated Glomerular Filt Rate 21; Glucose 463 mg/dL (65-110); Phosphorus 5.6 mg/dL (2.5-4.5); Potassium 2.3 mmol/L (3.4-5.0); Sodium 130 mmol/L (137-145)
[2024-06-02] MEDS: MIDAZOLAM 100MG/NS 100ML(*CRX) 100 MG/100 ML BAG IV CONT (15:09)
[2024-06-02 15:20] LABS: Lymphocytes Absolute Manual 0.93 K/mm3 (1.1-4.5); Monocytes Absolute Manual 0.62 K/mm3 (0.1-0.90); Monocytes Percent Manual 33 % (3-9); Neutrophils Percent Manual 18 % (46-73); Platelet Estimate Slightly Decreased (Adequate); Total Cells Counted 100
[2024-06-02 15:21] LABS: Giant Platelets Present; Schistocytes None Seen
[2024-06-02 15:23] LABS: D Dimer > 20.00 ug/mL (<0.48)
[2024-06-02 15:37] LABS: Creatine Kinase 338 U/L (30-135)
[2024-06-02] MEDS: SODIUM BICARBONATE 8.4% 100 MEQ in WATER, STERILE FOR INJECTION 1,000 ML 150 MEQ IV CONT (15:56)
[2024-06-02] MEDS: POTASSIUM CHLORIDE 20 MEQ PACKET (FOR LIQUID) 40 MEQ FEED TUBE (15:57)
[2024-06-02] MEDS: MAGNESIUM SULF 2 GM/WATER 50ML 2 GM/50 ML BAG IVPB (15:58)
[2024-06-02] MEDS: KCL 40 MEQ/WATER 100 ML 100 ML 25 ML IVPB ×2 (15:58→21:48)
[2024-06-02] MEDS: LACTATED RINGERS 500 ML 999 ML IV CONT (15:59)
[2024-06-02 16:01] LABS: Creatinine Urine 40.9 mg/dL
[2024-06-02] MEDS: CALCIUM GLUC 2,000 MG/NS 100ML 2,000 MG/100 ML BAG 100 MG IVPB (16:05)
[2024-06-02 16:07] LABS: Sodium Urine Random 33 meq/L
[2024-06-02 16:09] LABS: Eosinophil Urine None Seen % (None Seen); Urine Eos QC 2nd Tech Confirmed
[2024-06-02 16:21] LABS: Alanine Aminotransferase 1716 U/L (6-35); Aspartate Amino Transferase > 7500 U/L (14-36)
[2024-06-02] MEDS: INSULIN HUMAN REGULAR (*BKC) 100 UNITS in SODIUM CHLORIDE 0.9% IV 99 ML 33.5 UNITS IV CONT (16:34)
[2024-06-02 17:08] LABS: Reflex Lactic Acid Yes or No Add Lactic
[2024-06-02] MEDS: EPINEPHrine INJ 4 MG in DEXTROSE 5% IN WATER 250 ML 64.77 MG IV CONT (17:38)
[2024-06-02 18:53] LABS: Anion Gap 11 mmol/L (4-12); Blood Urea Nitrogen 31 mg/dL (7-17); Calcium 6.2 mg/dL (8.4-10.2); Carbon Dioxide 28 mmol/L (22-30); Chloride 86 mmol/L (98-107); Estimated CRCL calculation 18 ml/min; Estimated Glomerular Filt Rate 21; Glucose 408 mg/dL (65-110); Potassium 2.9 mmol/L (3.4-5.0); Sodium 125 mmol/L (137-145)
[2024-06-02 18:59] LABS: Lactic Acid 8.6 mmol/L (0.7-2.0)
[2024-06-02] MEDS: INSULIN HUMAN REGULAR (*BKC) 100 UNITS in SODIUM CHLORIDE 0.9% IV 99 ML 39 UNITS IV CONT (19:11)
[2024-06-02 19:34] LABS: Glucose Point of Care > 500 mg/dl (65-105)
[2024-06-02 19:34] LABS: Glucose Point of Care 500 mg/dl (65-105)
[2024-06-02 19:34] LABS: Glucose Point of Care 415 mg/dl (65-105)
[2024-06-02 19:34] LABS: Glucose Point of Care 497 mg/dl (65-105)
[2024-06-02 19:34] LABS: Glucose Point of Care 430 mg/dl (65-105)
[2024-06-02 19:34] LABS: Glucose Point of Care 464 mg/dl (65-105)
[2024-06-02 19:34] LABS: Glucose Point of Care 379 mg/dl (65-105)
[2024-06-02 20:38] LABS: Alveolar/Arterial O2 Gradient 619.5 mmHg; Base Excess ABG -7.8 mEq/l (+/-2.0); Fractional Inspired Oxygen 100 %; Oxygen Content ABG 15.8 %vol (16.0-22.0); PCO2 ABG 38.1 mmHg (35.0-45.0); PO2 ABG 55.4 mmHg (80.0-100.0); PO2 FiO2 Ratio Arterial Blood 0.55 %; Total Hemoglobin 12.9 g/dL (12.0-18.0)
[2024-06-02 20:43] LABS: Oxygen Saturation ABG 85.7 % (95.0-100.0); Oxyhemoglobin 86.9 % THb (90.0-100.0); pH ABG 7.293 (7.350-7.450)
[2024-06-02 20:44] LABS: Arterial Blood Gas PEEP 14 cmH2O; Arterial Blood Gas Tidal Volume 450 ml; Arterial Blood Gas Vent Mode CMV; Arterial Blood Gas Ventilator rate 28 /MIN; Device VENTILATOR; Modified Allen's Test Pass; Site Drawn ARTLINE
[2024-06-02] MEDS: OSELTAMIVIR PHOSPHATE ORAL SUSP 30 MG/5 ML SYRINGE FEED TUBE (20:59)
[2024-06-02 21:04] LABS: Glucose Point of Care 411 mg/dl (65-105)
[2024-06-02 21:10] LABS: Vancomycin Random 16.2 ug/mL (10-20)
[2024-06-02 21:43] LABS: Glucose Point of Care 401 mg/dl (65-105)
[2024-06-02] MEDS: INSULIN HUMAN REGULAR (*BKC) 100 UNITS in SODIUM CHLORIDE 0.9% IV 99 ML 45 UNITS IV CONT (21:51)
[2024-06-02] MEDS: EPINEPHrine INJ 4 MG in DEXTROSE 5% IN WATER 250 ML 76.2 MG IV CONT (22:00)
[2024-06-02] MEDS: VANCOMYCIN 750 MG/NS 250 ML 750 MG/250 ML BAG 250 MG IVPB (22:19)
[2024-06-02 22:46] LABS: Anion Gap 13 mmol/L (4-12); Blood Urea Nitrogen 30 mg/dL (7-17); Carbon Dioxide 24 mmol/L (22-30); Chloride 87 mmol/L (98-107); Estimated CRCL calculation 18 ml/min; Estimated Glomerular Filt Rate 21; Glucose 344 mg/dL (65-110); Potassium 2.8 mmol/L (3.4-5.0); Sodium 124 mmol/L (137-145)
--- NOTE | 2024-06-02 23:29 | PC.NURSE ---
06-02-24 Max Moore from [facility] called for additional information.
[2024-06-02 23:40] LABS: Alveolar/Arterial O2 Gradient 608.8 mmHg; Base Excess ABG -8.1 mEq/l (+/-2.0); Carboxyhemoglobin 0.4 % THb (0-2.0); Fractional Inspired Oxygen 100 %; HCO3 ABG 19.6 mEq/l (22.0-26.0); Oxygen Content ABG 14.8 %vol (16.0-22.0); PCO2 ABG 49.3 mmHg (35.0-45.0); PO2 ABG 54.9 mmHg (80.0-100.0); PO2 FiO2 Ratio Arterial Blood 0.55 %; Reduced Hemoglobin 16.6 %THb (0-5.0); Total Hemoglobin 12.7 g/dL (12.0-18.0)
[2024-06-02 23:41] LABS: pH ABG 7.218 (7.350-7.450)
[2024-06-02 23:43] LABS: Device AMBU BAG; Site Drawn ARTLINE
[2024-06-03] VITALS (69 sets, daily range): BP systolic 69–144; BP diastolic 42–81; PULSE 0–130; RESP 26–31; TEMP 36.4–39.6; O2SAT 45–88; BMI 21.9
[2024-06-03] MEDS: INSULIN HUMAN REGULAR (*BKC) 100 UNITS in SODIUM CHLORIDE 0.9% IV 99 ML 46 UNITS IV CONT
[2024-06-03] MEDS: CALCIUM GLUC 2,000 MG/NS 100ML 2,000 MG/100 ML BAG 100 MG IVPB (00:25)
[2024-06-03] MEDS: POTASSIUM CHLORIDE 20 MEQ PACKET (FOR LIQUID) 40 MEQ FEED TUBE (00:27)
[2024-06-03] MEDS: GLYCOPYRROLATE INJ (*SP) 0.2 MG/ML VIAL IV PUSH (00:32)
[2024-06-03 00:39] LABS: Glucose Point of Care 321 mg/dl (65-105)
[2024-06-03] MEDS: CEFEPIME 1 GM/NS 50 ML 1 GM/50 ML BAG IVPB ×2 (00:55→11:39)
[2024-06-03] MEDS: SODIUM BICARBONATE 8.4% 100 MEQ in WATER, STERILE FOR INJECTION 1,000 ML 150 MEQ IV CONT (01:00)
[2024-06-03 01:54] LABS: Glucose Point of Care 254 mg/dl (65-105)
[2024-06-03] MEDS: PHENYLEPHRINE HCL INJ 50 MG in DEXTROSE 5% IN WATER 250 ML/245 ML BAG 60 ML IV CONT (02:00)
[2024-06-03] MEDS: NOREPINEPHRINE 8 MG/D5W 250 ML 8 MG/250 ML BAG 93.75 MG IV CONT (02:00)
[2024-06-03 02:26] LABS: Anion Gap 12 mmol/L (4-12); Blood Urea Nitrogen 32 mg/dL (7-17); Calcium 6.3 mg/dL (8.4-10.2); Carbon Dioxide 22 mmol/L (22-30); Chloride 86 mmol/L (98-107); Estimated CRCL calculation 18 ml/min; Estimated Glomerular Filt Rate 20; Glucose 318 mg/dL (65-110); Potassium 3.4 mmol/L (3.4-5.0); Sodium 120 mmol/L (137-145)
[2024-06-03] MEDS: ALBUMIN HUMAN 25% 25 GM/100 ML 100 ML IVPB (02:30)
[2024-06-03] MEDS: SODIUM BICARBONATE 8.4% 50 MEQ/50 ML SYRINGE 100 MEQ IV PUSH ×2 (02:30→14:31)
[2024-06-03] MEDS: ACETYLCYSTEINE 20% INHAL SOLN 800 MG/4 ML VIAL 200 MG INHALATION ×2 (02:49→08:10)
[2024-06-03] MEDS: LEVALBUTEROL NEB 1.25 MG/3 ML INHALATION ×2 (02:49→08:11)
[2024-06-03] MEDS: IPRATROPIUM BR 0.02% INH SOLN 0.5 MG/2.5 ML VIAL INHALATION ×2 (02:49→08:11)
[2024-06-03 02:55] LABS: Glucose Point of Care 220 mg/dl (65-105)
[2024-06-03] MEDS: INSULIN HUMAN REGULAR (*BKC) 100 UNITS in SODIUM CHLORIDE 0.9% IV 99 ML 46.5 UNITS IV CONT (02:57)
[2024-06-03] MEDS: CISATRACURIUM BESYLATE 200 MG in DEXTROSE 5% 80 ML IV CONT (02:59)
[2024-06-03] MEDS: NOREPINEPHRINE 8 MG/D5W 250 ML 8 MG/250 ML BAG 75 MG IV CONT ×5 (04:00→17:03)
[2024-06-03] MEDS: EPINEPHrine INJ 4 MG in DEXTROSE 5% IN WATER 250 ML 76.2 MG IV CONT ×4 (04:00→15:31)
[2024-06-03 04:22] LABS: Glucose Point of Care 250 mg/dl (65-105)
[2024-06-03 04:22] LABS: Alveolar/Arterial O2 Gradient 618.7 mmHg; Base Excess ABG -5.8 mEq/l (+/-2.0); Carboxyhemoglobin 0.3 % THb (0-2.0); Fractional Inspired Oxygen 100 %; HCO3 ABG 20.7 mEq/l (22.0-26.0); Methemoglobin ABG 0.3 %THb (0-1.5); Oxygen Content ABG 14.4 %vol (16.0-22.0); PCO2 ABG 44.2 mmHg (35.0-45.0); PO2 ABG 50.1 mmHg (80.0-100.0); Total Hemoglobin 12.4 g/dL (12.0-18.0)
[2024-06-03 04:25] LABS: Oxygen Saturation ABG 81.1 % (95.0-100.0); pH ABG 7.288 (7.350-7.450)
[2024-06-03 04:26] LABS: Device VENTILATOR; Modified Allen's Test Pass; Oxyhemoglobin 82.4 % THb (90.0-100.0); Site Drawn ARTLINE
[2024-06-03 04:27] LABS: Arterial Blood Gas PEEP 14 cmH2O; Arterial Blood Gas Tidal Volume 450 ml; Arterial Blood Gas Vent Mode CMV; Arterial Blood Gas Ventilator rate 28 /MIN
[2024-06-03 04:58] LABS: Magnesium 1.5 mg/dL (1.6-2.3)
[2024-06-03 05:00] LABS: Lactic Acid Reflex 8.6 mmol/L (0.7-2.0)
[2024-06-03 05:06] LABS: Albumin Level 2.6 g/dL (3.5-5.1); Alkaline Phosphatase 31 U/L (38-126); Anion Gap 12 mmol/L (4-12); Bilirubin,Total 0.6 mg/dL (0.2-1.3); Blood Urea Nitrogen 33 mg/dL (7-17); Calcium 6.1 mg/dL (8.4-10.2); Carbon Dioxide 26 mmol/L (22-30); Chloride 83 mmol/L (98-107); Creatine Kinase 3093 U/L (30-135); Estimated CRCL calculation 19 ml/min; Estimated Glomerular Filt Rate 22; Glucose 275 mg/dL (65-110); Magnesium 1.5 mg/dL (1.6-2.3); Sodium 121 mmol/L (137-145)
[2024-06-03 05:07] LABS: Hematocrit 34.2 % (37.0-47.0); Hemoglobin 11.7 g/dL (12.0-15.0); Immature Platelet Fraction Pct 27.9 % (0.9-11.2); Mean Corpuscular HGB Conc 34.2 g/dl (32-36); Mean Corpuscular Hemoglobin 28.5 pg (26-34); Mean Corpuscular Volume 83.2 fl (80-100); Red Blood Count 4.11 M/mm3 (4.2-5.4); Red Cell Distribution Width 11.9 % (11.5-14.5); White Blood Count 2.5 K/mm3 (4.5-10.0)
[2024-06-03 05:10] LABS: Prothrombin Time 39.7 Seconds (11.1-14.7)
[2024-06-03 05:11] LABS: Fibrinogen 296 mg/dl (215-510)
[2024-06-03 05:16] LABS: Alanine Aminotransferase 1138 U/L (6-35)
[2024-06-03 05:25] LABS: D Dimer 15.39 ug/mL (<0.48)
[2024-06-03 05:36] LABS: Platelet Count Result 12 k/mm3 (150-375)
[2024-06-03 05:42] LABS: Glucose Point of Care 136 mg/dl (65-105)
[2024-06-03] MEDS: HYDROCORTISONE SODIUM SUCCINATE 100 MG/2 ML VIAL IV PUSH ×3 (05:42→22:24)
[2024-06-03 05:45] LABS: Aspartate Amino Transferase 5044 U/L (14-36)
[2024-06-03] MEDS: PHENYLEPHRINE HCL INJ 50 MG in DEXTROSE 5% IN WATER 250 ML/245 ML BAG 54 ML IV CONT ×5 (06:00→21:10)
[2024-06-03 06:54] LABS: Glucose Point of Care 200 mg/dl (65-105)
[2024-06-03 07:24] LABS: Reflex Lactic Acid Yes or No Add Lactic
[2024-06-03] MEDS: FENTANYL 2,500MCG/NS250ML(*CRX 2,500 MCG/250 ML BAG IV CONT (07:43)
[2024-06-03] MEDS: INSULIN HUMAN REGULAR (*BKC) 100 UNITS in SODIUM CHLORIDE 0.9% IV 99 ML IV CONT ×2 (07:44→09:53)
[2024-06-03 07:58] LABS: Alveolar/Arterial O2 Gradient 622.5 mmHg; Carboxyhemoglobin 0.5 % THb (0-2.0); Fractional Inspired Oxygen 100 %; HCO3 ABG 20.7 mEq/l (22.0-26.0); Methemoglobin ABG 0.3 %THb (0-1.5); Oxygen Content ABG 14.2 %vol (16.0-22.0); PCO2 ABG 45.1 mmHg (35.0-45.0); PO2 FiO2 Ratio Arterial Blood 0.45 %; Reduced Hemoglobin 20.9 %THb (0-5.0); Total Hemoglobin 12.9 g/dL (12.0-18.0)
[2024-06-03 07:58] LABS: Glucose Point of Care 189 mg/dl (65-105)
[2024-06-03 07:59] LABS: Oxygen Saturation ABG 75.7 % (95.0-100.0); PO2 ABG 45.4 mmHg (80.0-100.0); pH ABG 7.279 (7.350-7.450)
[2024-06-03 08:00] LABS: Arterial Blood Gas PEEP 14 cmH2O; Arterial Blood Gas Vent Mode CMV; Arterial Blood Gas Ventilator rate 28 /MIN; Device VENTILATOR; Oxyhemoglobin 78.3 % THb (90.0-100.0); Site Drawn ARTLINE
[2024-06-03 08:01] LABS: Arterial Blood Gas Tidal Volume 450 ml
--- NOTE | 2024-06-03 08:29 | WPDINTPN ---
Progress Note: A&P Assessment and Plan (1) Septic shock: Code(s): A41.9 - Sepsis, unspecified organism; R65.21 - Severe sepsis with septic shock Status: Acute Assessment and Plan: 06/01: Patient presented to from urgent care via EMS for hypoxia, confusion, cough, hypotensive, -receive 3 L IV fluid bolus, -06/02: worsening renal function, hyperglycemia, significant elevation in LFTs likely related to shock -remains on stress dose steroids -cough bicarb infusion, has been requiring IV bicarb pushes -06/01: Preliminary blood cultures are negative -06/02/2024: Sputum cultures have been obtained and pending -Continue cefepime, vancomycin, Tamiflu, azithromycin (06/01) Currently on maximum doses of Levophed, phenylephrine, vasopressin, epinephrine to maintain MAP > 65 mmHg at all times for adequate end organ perfusion -lactic acid, LFTs, CK level remained elevated -06/03: right IJ central line was pulled out 4 cm since it was 20 cm catheter and sitting in the high right atria. (2) Acute respiratory failure with hypoxia: Code(s): J96.01 - Acute respiratory failure with hypoxia Status: Acute Assessment and Plan: Acute respiratory failure likely related to influenza A. -intubated in the ER on 06/01/2024 -remains hypoxic despite being on peep of 14, 100% FiO2, peak pressures were elevated -ARDS physiology, low tidal volume strategy along with high PEEP -ABGs and chest x-ray reviewed -patient was in prone position for [address] patient in prone position again today -start Flolan -discussed with Nephrology, will give Bumex 2 mg IV x1, to keep her on the dry side (3) Influenza A: Code(s): J10.1 - Influenza due to other identified influenza virus with other respiratory manifestations Status: Acute Assessment and Plan: Continue Tamiflu, renally dosed per pharmacy (4) Leukopenia: Code(s): D72.819 - Decreased white blood cell count, unspecified Status: Acute Assessment and Plan: Leukopenia and neutropenia likely related to septic shock, bone marrow suppression -will consult Hematology/Oncology -continue to monitor -antibiotics as above (5) Acute kidney injury: Code(s): N17.9 - Acute kidney failure, unspecified Status: Acute Assessment and Plan: Patient presented with a creatinine of 0.4 on admission, now in septic shock, creatinine this morning was 2.60 - -urine lytes not reflective of prerenal, urine eosinophils are negative, CK levels are elevated -patient has been adequately fluid-resuscitated, maintenance IV fluids were discontinued -06/03/2023: Renal ultrasound showed mild right-sided hydronephrosis size asymmetry between the bilateral kidneys, no findings suggesting medical renal disease -appreciate Nephrology evaluation recommendation. Currently unstable for dialysis since patient is on multiple pressors on maximum doses. - Nephrology was okay with Bumex -continue to monitor urine output, electrolytes and renal function (6) Transaminitis: Code(s): R74.01 - Elevation of levels of liver transaminase levels Status: Acute Assessment and Plan: Elevated LFTs likely related to hypoxia, hypotension, shock liver -gradually improving -will continue to monitor liver function (7) Type 2 diabetes mellitus: Code(s): E11.9 - Type 2 diabetes mellitus without complications Status: Acute Assessment and Plan: Patient with severe hyperglycemia, started on insulin infusion, likely related to septic shock, possible uncontrolled diabetes since patient's hemoglobin A1c is 12.6 this admission. -hyperglycemia finally improved, insulin infusion on minimal dose, will continue -Accu-Cheks per insulin infusion protocol (8) Thrombocytopenia: Code(s): D69.6 - Thrombocytopenia, unspecified Status: Acute Assessment and Plan: Thrombocytopenia likely related to septic shock, bone marrow suppression -patient has not received any heparin or LMWH -Heme-Onc has been consulted -1 unit of platelets to be transfused (9) Electrolyte abnormality: Code(s): E87.8 - Other disorders of electrolyte and fluid balance, not elsewhere classified Status: Acute Assessment and Plan: Replace calcium, potassium, magnesium Plan DVT prophylaxis: SCDs, no chemoprophylaxis due to thrombocytopenia Stress ulcer prophylaxis: Protonix IV q.12 hours Nutrition: NPO for now Code Status: Full code Critical Care Time Spent: 41 minutes Will update family when they arrive 06/03: Discussed with 3 daughters, sister, 3 sons and other family members in the conference room, updated them with patient's condition and plan of care. They are aware that patient is on 4 pressors, in prone position with ARDS physiology of her lungs, they also aware that she has acute kidney injury, hyperglycemia, transaminitis elevated LFTs all secondary to severe shock, metabolic acidosis with low blood pressures. I discussed with them in details at the patient condition is guarded and that she could have a cardiac arrest is of low blood pressures, shock, hypoxia, severe metabolic acidosis. Discussed code status and CPR if patient had a cardiac arrest. The daughters agreed to in an initially that they want everything to be done and wanted to be a full code for now and give her chance to fight. Bedside RN was in the conference room with me during the discussion Due to a high probability of clinically significant, life threatening deterioration, the patient required my highest level of preparedness to intervene emergently and I personally spent this critical care time directly and personally managing the patient. This critical care time included obtaining a history; examining the patient; pulse oximetry; ordering and review of studies; arranging urgent treatment with development of a management plan; evaluation of patient's response to treatment; frequent reassessment; and discussions with other providers. It was exclusive of separately billable procedures and treating other patients and teaching time. Please see Assessment and Plan section and the rest of the note for further information on patient assessment and treatment This dictation may have been done utilizing a voice recognition system. Attempts have been made to correct errors. However, there may be uncorrected grammatical, spelling, and recognitions errors present. Subjective Date/time seen: 06/03/24 08:29 Interval history: Reason for consult: Hypoxic respiratory failure, influenza A, ARDS, septic shock, transaminitis, acute kidney injury, leukopenia, lactic acidosis, thrombocytopenia 06/03/2024: Patient seen and examined the ICU, remains intubated on CMV mode of ventilation, 100% FiO2, peep of 14, rate of 28. -Sedated with fentanyl, Versed. Nimbex for neuromuscular blockade. -Remains on maximum doses of Levophed, vasopressin, Herbie-Synephrine, epinephrine. -Minimal urine output. -WBC 2.5, platelets 12, blood sugars have improved since yesterday, currently on insulin infusion 1 unit -lactic remains 8.6, significantly elevated LFTs and CK levels Review of Systems Review of Systems: ROS unobtainable: Yes unobtainable due to endotracheal tube, unobtainable due to medical condition and unobtainable due to mental status Exam Narrative: General: Currently in supine position, intubated and sedated, on neuromuscular blockade HEENT:? Pupils are equal, sluggish but reactive, periorbital swelling Neck:? Supple, right IJ central line Respiratory:? Coarse breath sounds bilaterally, decreased at bases, no wheezing Cardiac:? Sinus tachycardia Abdomen:? Hypoactive bowels, nondistended, nontender, soft Extremities:? Cool extremities, palpable pedal pulses Neuro:? Patient is intubated, sedated, on neuromuscular blockade Skin:? Cool to touch, no lesions noted Psych:? Unable to assess at this time Objective Data Vital Signs Vital Signs: Vital Signs - 24 hr 06/02/24 08:30 06/02/24 08:30 06/02/24 08:50 Temperature Pulse Rate 118 H 118 H 127 H Respiratory Rate 24 H 24 H Blood Pressure Pulse Oximetry 90 Oxygen Delivery Mechanical Ventilation Fraction of Inspired Oxygen 100 06/02/24 09:10 06/02/24 09:40 06/02/24 09:45 Temperature 102.7 F H Pulse Rate Respiratory Rate Blood Pressure Pulse Oximetry Oxygen Delivery Mechanical Ventilation Fraction of Inspired Oxygen 100 100 06/02/24 09:48 06/02/24 09:56 06/02/24 09:56 Temperature Pulse Rate 130 H 130 H 130 H Respiratory Rate Blood Pressure 78/48 L 83/51 L 83/51 L Pulse Oximetry Oxygen Delivery Fraction of Inspired Oxygen 06/02/24 10:00 06/02/24 10:00 06/02/24 10:00 Temperature Pulse Rate 129 H 129 H 129 H Respiratory Rate 28 H 28 H Blood Pressure 90/53 L Pulse Oximetry Oxygen Delivery Fraction of Inspired Oxygen 06/02/24 10:00 06/02/24 10:00 06/02/24 10:00 Temperature 102.9 F H Pulse Rate 129 H 129 H 129 H Respiratory Rate 28 H Blood Pressure 90/53 L 90/53 L Pulse Oximetry 96 Oxygen Delivery Fraction of Inspired Oxygen 06/02/24 10:07 06/02/24 10:07 06/02/24 10:10 Temperature 103.2 F H Pulse Rate 129 H 129 H Respiratory Rate Blood Pressure 90/53 L 90/53 L Pulse Oximetry Oxygen Delivery Fraction of Inspired Oxygen 06/02/24 10:45 06/02/24 11:18 06/02/24 11:20 Temperature Pulse Rate 127 H 123 H 123 H Respiratory Rate Blood Pressure 71/44 L Pulse Oximetry 97 94 Oxygen Delivery Mechanical Ventilation Mechanical Ventilation Fraction of Inspired Oxygen 100 100 06/02/24 11:23 06/02/24 11:26 06/02/24 11:28 Temperature Pulse Rate 131 H 124 H 132 H Respiratory Rate 28 H Blood Pressure 82/48 L 67/44 L 67/44 L Pulse Oximetry Oxygen Delivery Fraction of Inspired Oxygen 06/02/24 11:41 06/02/24 11:48 06/02/24 12:00 Temperature Pulse Rate 125 H 124 H 125 H Respiratory Rate 28 H Blood Pressure 83/47 L 66/41 L 73/51 L Pulse Oximetry Oxygen Delivery Fraction of Inspired Oxygen 06/02/24 12:00 06/02/24 12:00 06/02/24 12:00 Temperature Pulse Rate 125 H 125 H 125 H Respiratory Rate 28 H Blood Pressure 73/51 L 73/51 L Pulse Oximetry Oxygen Delivery Fraction of Inspired Oxygen 06/02/24 12:00 06/02/24 12:00 06/02/24 12:00 Temperature 103 F H Pulse Rate 125 H 125 H 125 H Respiratory Rate 28 H 28 H Blood Pressure 73/51 L 73/51 L Pulse Oximetry 90 Oxygen Delivery Fraction of Inspired Oxygen 06/02/24 12:00 06/02/24 12:00 06/02/24 12:00 Temperature Pulse Rate 125 H Respiratory Rate 28 H Blood Pressure 67/42 L Pulse Oximetry 90 Oxygen Delivery Mechanical Ventilation Fraction of Inspired Oxygen 100 100 06/02/24 12:00 06/02/24 12:30 06/02/24 12:45 Temperature Pulse Rate 132 H 129 H 130 H Respiratory Rate Blood Pressure 74/45 L 74/45 L Pulse Oximetry Oxygen Delivery Fraction of Inspired Oxygen 06/02/24 13:00 06/02/24 13:00 06/02/24 13:20 Temperature Pulse Rate 130 H 129 H 130 H Respiratory Rate 28 H Blood Pressure 73/45 L 71/43 L 73/45 L Pulse Oximetry Oxygen Delivery Fraction of Inspired Oxygen 06/02/24 13:32 06/02/24 13:38 06/02/24 13:38 Temperature Pulse Rate 132 H 132 H 132 H Respiratory Rate Blood Pressure 77/47 L 76/46 L 76/46 L Pulse Oximetry Oxygen Delivery Fraction of Inspired Oxygen 06/02/24 13:45 06/02/24 13:45 06/02/24 13:48 Temperature Pulse Rate 132 H 132 H 131 H Respiratory Rate 28 H Blood Pressure 77/47 L Pulse Oximetry 93 Oxygen Delivery Mechanical Ventilation Fraction of Inspired Oxygen 100 06/02/24 13:58 06/02/24 14:00 06/02/24 14:00 Temperature 102.6 F H Pulse Rate 129 H 135 H 127 H Respiratory Rate 28 H Blood Pressure 75/46 L 88/50 L 62/38 L Pulse Oximetry 93 Oxygen Delivery Fraction of Inspired Oxygen 06/02/24 14:00 06/02/24 14:00 06/02/24 14:00 Temperature Pulse Rate 131 H 131 H 131 H Respiratory Rate 28 H Blood Pressure 76/46 L 76/46 L Pulse Oximetry Oxygen Delivery Fraction of Inspired Oxygen 06/02/24 14:00 06/02/24 14:00 06/02/24 14:00 Temperature Pulse Rate 131 H 131 H 106 H Respiratory Rate 28 H 28 H Blood Pressure 76/46 L 98/61 L Pulse Oximetry Oxygen Delivery Fraction of Inspired Oxygen 06/02/24 14:00 06/02/24 14:07 06/02/24 14:10 Temperature Pulse Rate 127 H 128 H 127 H Respiratory Rate 28 H Blood Pressure 62/39 L Pulse Oximetry Oxygen Delivery Fraction of Inspired Oxygen 06/02/24 14:23 06/02/24 14:28 06/02/24 14:33 Temperature Pulse Rate 131 H 130 H 130 H Respiratory Rate Blood Pressure 77/46 L 80/48 L 80/47 L Pulse Oximetry Oxygen Delivery Fraction of Inspired Oxygen 06/02/24 14:33 06/02/24 14:49 06/02/24 15:00 Temperature Pulse Rate 130 H 129 H 129 H Respiratory Rate 28 H Blood Pressure 80/47 L 81/48 L 82/48 L Pulse Oximetry Oxygen Delivery Fraction of Inspired Oxygen 06/02/24 15:03 06/02/24 15:07 06/02/24 15:09 Temperature Pulse Rate 128 H 128 H 128 H Respiratory Rate 28 H 28 H Blood Pressure 81/48 L Pulse Oximetry Oxygen Delivery Fraction of Inspired Oxygen 06/02/24 16:00 06/02/24 16:00 06/02/24 16:00 Temperature Pulse Rate 132 H 132 H 132 H Respiratory Rate Blood Pressure 100/48 L 100/48 L 100/48 L Pulse Oximetry Oxygen Delivery Fraction of Inspired Oxygen 06/02/24 16:00 06/02/24 16:00 06/02/24 16:00 Temperature Pulse Rate 132 H 132 H 132 H Respiratory Rate 28 H 28 H 28 H Blood Pressure 100/48 L Pulse Oximetry Oxygen Delivery Fraction of Inspired Oxygen 06/02/24 16:00 06/02/24 16:00 06/02/24 16:00 Temperature 102 F H Pulse Rate 132 H 132 H Respiratory Rate 28 H Blood Pressure 100/48 L 100/48 L Pulse Oximetry 97 Oxygen Delivery Fraction of Inspired Oxygen 100 06/02/24 16:00 06/02/24 16:00 06/02/24 16:37 Temperature Pulse Rate 125 H 132 H Respiratory Rate Blood Pressure 100/47 L Pulse Oximetry 97 Oxygen Delivery Mechanical Ventilation Fraction of Inspired Oxygen 100 06/02/24 16:37 06/02/24 16:47 06/02/24 17:00 Temperature Pulse Rate 132 H 133 H 136 H Respiratory Rate 28 H Blood Pressure 100/47 L 87/53 L Pulse Oximetry 95 Oxygen Delivery Mechanical Ventilation Fraction of Inspired Oxygen 100 06/02/24 17:38 06/02/24 17:38 06/02/24 18:00 Temperature Pulse Rate 138 H 138 H 133 H Respiratory Rate Blood Pressure 95/50 L 95/50 L Pulse Oximetry Oxygen Delivery Fraction of Inspired Oxygen 06/02/24 18:00 06/02/24 18:00 06/02/24 18:00 Temperature 101.6 F H Pulse Rate 133 H 132 H 132 H Respiratory Rate 258 H Blood Pressure 90/52 L 89/54 L 89/54 L Pulse Oximetry 92 Oxygen Delivery Fraction of Inspired Oxygen 06/02/24 18:00 06/02/24 18:00 06/02/24 18:00 Temperature Pulse Rate 132 H 132 H 132 H Respiratory Rate 28 H 28 H Blood Pressure 89/54 L 87/53 L Pulse Oximetry Oxygen Delivery Fraction of Inspired Oxygen 06/02/24 18:00 06/02/24 18:00 06/02/24 18:55 Temperature Pulse Rate 132 H 132 H 131 H Respiratory Rate 28 H Blood Pressure 89/54 L 83/52 L Pulse Oximetry Oxygen Delivery Fraction of Inspired Oxygen 06/02/24 19:00 06/02/24 19:01 06/02/24 19:08 Temperature Pulse Rate 131 H 131 H 131 H Respiratory Rate 28 H Blood Pressure 86/53 L 87/53 L 87/53 L Pulse Oximetry Oxygen Delivery Fraction of Inspired Oxygen 06/02/24 19:09 06/02/24 19:09 06/02/24 19:11 Temperature Pulse Rate 131 H 131 H 131 H Respiratory Rate Blood Pressure 88/54 L 88/54 L 90/52 L Pulse Oximetry Oxygen Delivery Fraction of Inspired Oxygen 06/02/24 19:24 06/02/24 19:57 06/02/24 19:57 Temperature Pulse Rate 131 H 131 H 131 H Respiratory Rate 28 H Blood Pressure 90/52 L Pulse Oximetry 90 Oxygen Delivery Mechanical Ventilation Fraction of Inspired Oxygen 100 06/02/24 19:58 06/02/24 20:00 06/02/24 20:00 Temperature 101.6 F H Pulse Rate 131 H 131 H Respiratory Rate 28 H Blood Pressure 87/53 L 87/53 L Pulse Oximetry 90 Oxygen Delivery Fraction of Inspired Oxygen 100 06/02/24 20:00 06/02/24 20:00 06/02/24 20:00 Temperature Pulse Rate 131 H 131 H 131 H Respiratory Rate 28 H 28 H Blood Pressure 87/53 L Pulse Oximetry Oxygen Delivery Fraction of Inspired Oxygen 06/02/24 20:00 06/02/24 20:00 06/02/24 20:28 Temperature Pulse Rate 131 H 131 H 120 H Respiratory Rate 28 H Blood Pressure 87/53 L 87/53 L Pulse Oximetry 87 L Oxygen Delivery Mechanical Ventilation Fraction of Inspired Oxygen 100 06/02/24 20:28 06/02/24 20:46 06/02/24 21:11 Temperature Pulse Rate 120 H 134 H 132 H Respiratory Rate 28 H 28 H Blood Pressure Pulse Oximetry Oxygen Delivery Fraction of Inspired Oxygen 06/02/24 21:11 06/02/24 21:34 06/02/24 22:00 Temperature 101.4 F H Pulse Rate 132 H 131 H 132 H Respiratory Rate 28 H Blood Pressure 109/61 87/53 L 109/60 Pulse Oximetry 90 Oxygen Delivery Fraction of Inspired Oxygen 06/02/24 22:00 06/02/24 22:00 06/02/24 22:00 Temperature Pulse Rate 132 H 132 H 132 H Respiratory Rate Blood Pressure 106/60 106/60 106/59 L Pulse Oximetry Oxygen Delivery Fraction of Inspired Oxygen 06/02/24 22:00 06/02/24 22:00 06/02/24 22:00 Temperature Pulse Rate 132 H 132 H 132 H Respiratory Rate 28 H 28 H 28 H Blood Pressure 106/59 L Pulse Oximetry Oxygen Delivery Fraction of Inspired Oxygen 06/02/24 22:16 06/02/24 23:45 06/03/24 00:00 Temperature Pulse Rate 132 H 134 H 130 H Respiratory Rate 28 H Blood Pressure 109/60 Pulse Oximetry 88 L 88 L Oxygen Delivery Mechanical Ventilation Mechanical Ventilation Fraction of Inspired Oxygen 100 100 06/03/24 00:00 06/03/24 00:00 06/03/24 00:00 Temperature 100.3 F H Pulse Rate 130 H 130 H Respiratory Rate 28 H Blood Pressure 95/44 L Pulse Oximetry 86 L Oxygen Delivery Fraction of Inspired Oxygen 100 06/03/24 00:00 06/03/24 00:00 06/03/24 00:00 Temperature Pulse Rate 130 H 130 H 130 H Respiratory Rate Blood Pressure 95/44 L 95/44 L 95/44 L Pulse Oximetry Oxygen Delivery Fraction of Inspired Oxygen 06/03/24 00:00 06/03/24 00:00 06/03/24 00:00 Temperature Pulse Rate 130 H 130 H 130 H Respiratory Rate 28 H 28 H Blood Pressure 95/44 L 95/44 L Pulse Oximetry Oxygen Delivery Fraction of Inspired Oxygen 06/03/24 00:00 06/03/24 00:00 06/03/24 01:00 Temperature 100.4 F H Pulse Rate 130 H 130 H 125 H Respiratory Rate 28 H 28 H Blood Pressure 95/44 L 100/45 L Pulse Oximetry Oxygen Delivery Fraction of Inspired Oxygen 06/03/24 02:00 06/03/24 02:00 06/03/24 02:00 Temperature Pulse Rate 122 H 122 H 122 H Respiratory Rate Blood Pressure 88/42 L 88/42 L 88/42 L Pulse Oximetry Oxygen Delivery Fraction of Inspired Oxygen 06/03/24 02:00 06/03/24 02:00 06/03/24 02:00 Temperature Pulse Rate 122 H 122 H 122 H Respiratory Rate 28 H Blood Pressure 88/42 L 88/42 L 88/42 L Pulse Oximetry Oxygen Delivery Fraction of Inspired Oxygen 06/03/24 02:00 06/03/24 02:00 06/03/24 02:00 Temperature Pulse Rate 122 H 122 H 122 H Respiratory Rate 28 H 28 H Blood Pressure 88/42 L Pulse Oximetry Oxygen Delivery Fraction of Inspired Oxygen 06/03/24 02:00 06/03/24 02:00 06/03/24 02:49 Temperature 100.1 F H Pulse Rate 122 H 122 H 124 H Respiratory Rate 28 H Blood Pressure 88/42 L Pulse Oximetry Oxygen Delivery Mechanical Ventilation Fraction of Inspired Oxygen 100 06/03/24 02:49 06/03/24 02:54 06/03/24 02:59 Temperature Pulse Rate 124 H 127 H 122 H Respiratory Rate 28 H 28 H Blood Pressure 123/65 82/49 L Pulse Oximetry Oxygen Delivery Fraction of Inspired Oxygen 06/03/24 02:59 06/03/24 02:59 06/03/24 03:00 Temperature 100.1 F H Pulse Rate 122 H 122 H 122 H Respiratory Rate 28 H 28 H 28 H Blood Pressure 82/49 L 82/48 L Pulse Oximetry Oxygen Delivery Fraction of Inspired Oxygen 06/03/24 03:48 06/03/24 03:48 06/03/24 03:49 Temperature Pulse Rate 122 H 130 H Respiratory Rate 28 H Blood Pressure Pulse Oximetry Oxygen Delivery Mechanical Ventilation Fraction of Inspired Oxygen 100 100 06/03/24 04:00 06/03/24 04:00 06/03/24 04:00 Temperature Pulse Rate 127 H 127 H 127 H Respiratory Rate Blood Pressure 123/65 126/66 126/66 Pulse Oximetry Oxygen Delivery Fraction of Inspired Oxygen 06/03/24 04:00 06/03/24 04:00 06/03/24 04:00 Temperature Pulse Rate 127 H 130 H 130 H Respiratory Rate 28 H 28 H Blood Pressure 127/66 140/71 Pulse Oximetry Oxygen Delivery Fraction of Inspired Oxygen 06/03/24 04:00 06/03/24 04:00 06/03/24 04:00 Temperature 99.7 F H Pulse Rate 130 H 130 H 130 H Respiratory Rate 28 H 28 H Blood Pressure 140/71 140/71 Pulse Oximetry Oxygen Delivery Fraction of Inspired Oxygen 06/03/24 04:27 06/03/24 05:00 06/03/24 05:00 Temperature 99.7 F H Pulse Rate 125 H 125 H 125 H Respiratory Rate 28 H 28 H Blood Pressure 113/61 Pulse Oximetry 82 L 82 L 80 L Oxygen Delivery Mechanical Ventilation Fraction of Inspired Oxygen 100 100 06/03/24 06:00 06/03/24 06:00 06/03/24 06:00 Temperature Pulse Rate 121 H 121 H 121 H Respiratory Rate Blood Pressure 103/57 L 118/61 118/61 Pulse Oximetry Oxygen Delivery Fraction of Inspired Oxygen 06/03/24 06:00 06/03/24 06:00 06/03/24 06:00 Temperature Pulse Rate 122 H 122 H 121 H Respiratory Rate 28 H 28 H Blood Pressure 118/61 Pulse Oximetry Oxygen Delivery Fraction of Inspired Oxygen 06/03/24 06:00 06/03/24 06:00 06/03/24 06:13 Temperature 99.9 F H Pulse Rate 124 H 120 H 122 H Respiratory Rate 28 H 28 H Blood Pressure 118/61 118/61 Pulse Oximetry Oxygen Delivery Fraction of Inspired Oxygen 06/03/24 07:05 06/03/24 07:05 06/03/24 07:42 Temperature Pulse Rate 118 H 118 H 119 H Respiratory Rate Blood Pressure 102/57 L 102/57 L 102/61 Pulse Oximetry Oxygen Delivery Fraction of Inspired Oxygen 06/03/24 07:42 06/03/24 07:43 06/03/24 08:00 Temperature 100.1 F H Pulse Rate 119 H 119 H 119 H Respiratory Rate 28 H 28 H Blood Pressure 102/61 108/63 Pulse Oximetry Oxygen Delivery Fraction of Inspired Oxygen 06/03/24 08:12 06/03/24 08:13 Temperature Pulse Rate 119 H 119 H Respiratory Rate 28 H Blood Pressure Pulse Oximetry Oxygen Delivery Mechanical Ventilation Fraction of Inspired Oxygen 100 Intake/Output Intake/Output: Intake & Output 05/31/24 06/01/24 06/02/24 06/03/24 23:59 23:59 23:59 23:59 Intake Total 3439.2 6510.9 4305.1 Output Total 435 435 Balance 3439.2 6075.9 3870.1 Meds/Results Medications: Active Medications Generic Name Dose Route Start Last Admin Trade Name Freq PRN Reason Stop Dose Admin Acetaminophen 650 mg 06/02/24 07:27 06/02/24 09:10 Acetaminophen Elixir 325 Mg/10.15 Ml Udc FEED TUBE 650 mg Q6H PRN Administration Mild Pain (1-3) or Fever Acetylcysteine 200 mg 06/02/24 08:00 06/03/24 08:10 Acetylcysteine 20% Inhal Soln 800 Mg/4 Ml Vial INHALATION [address] Administration Dextrose 12.5 gm 06/02/24 04:03 Dextrose 50% 25 Gm/50 Ml Syringe IV PUSH PRN PRN Hypoglycemia Protocol Epoprostenol Sodium 1 mg 06/03/24 07:39 Epoprostenol Sodium 0.5 Mg Vial INHALATION PRN PRN Titrate Glucagon 1 mg 06/02/24 04:03 Glucagon For Inj 1 Mg Vial IM PRN PRN Hypoglycemia Protocol Glucose 15 gm 06/02/24 04:03 Glucose Oral Gel 15 Gm Of Glucse In 37.5 Gm Tube PO PRN PRN Hypoglycemia Protocol Hydrocortisone Sodium Succinate 100 mg 06/02/24 14:00 06/03/24 05:42 Hydrocortisone Sodium Succinate 100 Mg/2 Ml Vial IV PUSH [address] Administration Azithromycin 500 mg in 250 mls @ 250 mls/hr 06/02/24 12:00 06/02/24 14:19 Zithromax IVPB Infused Q24H COURT Infusion Fentanyl Citrate 2,500 mcg in 250 mls @ 5 mls/hr 06/01/24 19:12 06/03/24 06:00 Fentanyl 2,500 Mcg/Ns 250 Ml IV CONT 06/03/24 21:11 50 mcg/hr .Q50H STA 5 mls/hr Titration Protocol 50 MCG/HR Norepinephrine Bitartrate 8 mg in 250 mls @ 75 mls/hr 06/01/24 22:15 06/03/24 07:05 Levophed 8 Mg/D5w 250 Ml IV CONT 40 mcg/min .Q3H20M COURT 75 mls/hr Administration Protocol 40 MCG/MIN Vasopressin 100 units/ 100 mls @ 2.4 mls/hr 06/02/24 01:10 06/03/24 06:00 Dextrose IV CONT 0.4 units/min .[id number] COURT 24 mls/hr Titration Protocol 0.04 UNITS/MIN Phenylephrine HCl 50 mg/ 250 ml in 250 mls @ 54 mls/hr 06/02/24 03:55 06/03/24 07:42 Dextrose IV CONT 180 mcg/min .Q4H38M COURT 54 mls/hr Administration Protocol 180 MCG/MIN Sodium Bicarbonate 100 meq/ 1,100 mls @ 0 mls/hr 06/02/24 04:05 06/03/24 07:46 Sterile Water IV CONT 0 mls/hr .Q0M COURT Infusion Dextrose 1,000 mls @ 100 mls/hr 06/02/24 04:03 Dextrose 5% 1,000 Ml IVPB PRN PRN Hypoglycemia Protocol Cisatracurium Besylate 200 mg/ 100 mls @ 1.905 mls/hr 06/02/24 10:15 06/03/24 06:13 Dextrose IV CONT 1 mcg/kg/min .[id number] COURT 1.91 mls/hr Titration Protocol 1 MCG/KG/MIN Cefepime HCl 1 gm in 50 mls @ 100 mls/hr 06/02/24 12:00 06/03/24 01:20 Maxipime 1 Gm/Ns 50 Ml IVPB Inf[address] Q12H COURT Infusion Epinephrine HCl 4 mg/ Dextrose 254 mls @ 76.2 mls/hr 06/02/24 13:45 06/03/24 04:27 IV CONT Not Given .Q3H20M COURT Protocol 20 MCG/MIN Midazolam HCl 100 mg in 100 mls @ 3 mls/hr 06/02/24 15:05 06/03/24 06:00 Versed 100 Mg/Ns 100 Ml IV CONT 3 mg/hr .[id number] COURT 3 mls/hr Titration Protocol 3 MG/HR Sodium Chloride 250 mls @ 30 mls/hr 06/03/24 06:25 Normal Saline Iv IV CONT 06/03/24 14:44 .Q8H20M STA Fentanyl Citrate 2,500 mcg in 250 mls @ 5 mls/hr 06/03/24 07:30 06/03/24 07:43 Fentanyl 2,500 Mcg/Ns 250 Ml IV CONT 50 mcg/hr .Q50H COURT 5 mls/hr Administration Protocol 50 MCG/HR Potassium Chloride 100 mls @ 25 mls/hr 06/03/24 07:39 Kcl 40 Meq/Water 100 Ml IVPB 06/03/24 11:38 ONCE ONE Magnesium Sulfate 2 gm in 50 mls @ 50 mls/hr 06/03/24 07:42 Magnesium Sulf 2 Gm/Water 50ml IVPB 06/03/24 08:41 ONCE ONE Insulin Human Regular 100 100 mls @ 1 mls/hr 06/03/24 07:55 units/ Sodium Chloride IV CONT .Q24H COURT Protocol 1 UNIT/HR Ipratropium [place] 0.5 mg 06/02/24 08:00 06/03/24 08:11 Ipratropium Br 0.02% Inh Soln 0.5 Mg/2.5 Ml Vial INHALATION 0.[address] Administration Levalbuterol HCl 1.25 mg 06/02/24 08:00 06/03/24 08:11 Levalbuterol Neb 1.25 Mg/3 Ml INHALATION 1.[address] Administration Multi-Ingred Cream/Lotion/Oil/Oint 1 applic 06/02/24 10:05 06/02/24 20:58 Mineral Oil/White Petrolatum Ointment EACH EYE [address] Administration Mupirocin 1 applic 06/02/24 09:00 06/02/24 20:59 Mupirocin 2% Oint 22 Gm Tube EACH NARE 06/06/24 21:[address] Administration Ondansetron HCl 4 mg 06/01/24 16:52 Ondansetron Inj 4 Mg/2 Ml Vial IV PUSH Q4H PRN Nausea Oseltamivir Phosphate 30 mg 06/02/24 21:00 06/02/24 20:59 Oseltamivir Phosphate Oral Susp 30 Mg/5 Ml Syringe FEED TUBE 06/05/24 21:[address] Administration Pantoprazole Sodium 40 mg 06/02/24 09:00 06/02/24 08:37 Pantoprazole Sodium Iv 40 Mg Vial IV PUSH [address] Administration Perflutren Lipid Microsphere 0 ml 06/02/24 02:07 Perflutren Lipid Microspheres 1.5 Ml Vial Diluted To 10 Ml Total Volume IV PUSH 06/05/24 02:07 ONCE PRN adequate visualization Protocol Vancomycin HCl 1 each 06/02/24 06:52 Vancomycin For Acute Kidney Injury IVPB PRN PRN Vancomycin Protocol Radiology Results: ITS Impressions Abdomen X-Ray 06/01/24 19:47 IMPRESSION: NG tube, in good position. Chest X-Ray 06/03/24 06:31 Impression: Extensive bilateral pulmonary consolidation. Correlate for severe pulmonary edema versus extensive bilateral pneumonia. Possible small pleural effusions. Support tubes, as above. Labs Labs: Laboratory Results - last 24 hr 06/02/24 06/02/24 06/02/24 08:25 09:20 10:04 WBC 1.6 L* RBC 4.78 Hgb 13.7 Hct 42.4 MCV 88.7 MCH 28.7 MCHC 32.3 RDW 12.1 Plt Count TNP MPV 12.4 H Immature Gran % (Auto) 5.1 H Neut % (Auto) 31.8 L Lymph % (Auto) 58.0 H [place] % (Auto) 4.5 Eos % (Auto) 0.0 Baso % (Auto) 0.6 Lymph # (Auto) 0.91 [place] # (Auto) 0.1 Eos # (Auto) 0.0 Baso # (Auto) 0.0 Abs Immat Gran (auto) 0.08 H Absolute Neuts (auto) 0.5 L Absolute Nucleated RBC 0.020 H Total Counted Neutrophils % (Manual) Lymphocytes % (Manual) Monocytes % (Manual) Nucleated RBC % 1.3 H Abs Lymphs (Manual) Abs Monocytes (Manual) Atypical Lymphocytes Present Platelet Estimate Decreased Clumped Platelets Present Large Platelets Present Giant Platelets Present % Immature Plt Fraction 13.4 H Schistocytes None seen PT 23.6 H D INR 2.0 APTT 49.4 H Fibrinogen D-Dimer Puncture Site ABG pH ABG pCO2 ABG pO2 ABG PO2/FiO2 Ratio ABG HCO3 ABG O2 Saturation ABG O2 Content ABG Base Excess A-a Gradient Oxyhemoglobin Carboxyhemoglobin Methemoglobin Reduced Hemoglobin Total Hemoglobin O2 Delivery Device O2 Liters/Min Minute Volume Vent Rate Vent Mode FiO2 Tidal Volume PEEP Peak Inspir Pressure Pressure Support Sodium Potassium Chloride Carbon Dioxide Anion Gap BUN Creatinine Estim Creat Clear Calc Estimated GFR Glucose POC Capillary Glucose 498 H > 500 H* Lactic Acid Calcium Phosphorus Magnesium Total Bilirubin AST ALT Alkaline Phosphatase Total Creatine Kinase Total Protein Albumin Urine Eosinophils Ur Random Sodium Ur Random Potassium Urine Creatinine Random Vancomycin Blood Type 06/02/24 06/02/24 06/02/24 11:03 11:10 11:44 WBC RBC Hgb Hct MCV MCH MCHC RDW Plt Count MPV Immature Gran % (Auto) Neut % (Auto) Lymph % (Auto) [place] % (Auto) Eos % (Auto) Baso % (Auto) Lymph # (Auto) [place] # (Auto) Eos # (Auto) Baso # (Auto) Abs Immat Gran (auto) Absolute Neuts (auto) Absolute Nucleated RBC Total Counted Neutrophils % (Manual) Lymphocytes % (Manual) Monocytes % (Manual) Nucleated RBC % Abs Lymphs (Manual) Abs Monocytes (Manual) Atypical Lymphocytes Platelet Estimate Clumped Platelets Large Platelets Giant Platelets % Immature Plt Fraction Schistocytes PT INR APTT Fibrinogen D-Dimer Puncture Site Artline ABG pH 7.047 L* ABG pCO2 48.1 H ABG pO2 74.4 L ABG PO2/FiO2 Ratio 0.74 ABG HCO3 12.9 L ABG O2 Saturation 87.5 L* ABG O2 Content 18.1 ABG Base Excess -17.4 A-a Gradient 590.5 Oxyhemoglobin 90.5 Carboxyhemoglobin Methemoglobin Reduced Hemoglobin Total Hemoglobin 14.2 O2 Delivery Device Ventilator O2 Liters/Min Not Reportable Minute Volume Not Reportable Vent Rate 28 Vent Mode Cmv FiO2 100 Tidal Volume 370 PEEP 14 Peak Inspir Pressure Not Reportable Pressure Support Not Reportable Sodium Potassium Chloride Carbon Dioxide Anion Gap BUN Creatinine Estim Creat Clear Calc Estimated GFR Glucose POC Capillary Glucose 316 H 315 H Lactic Acid Calcium Phosphorus Magnesium Total Bilirubin AST ALT Alkaline Phosphatase Total Creatine Kinase Total Protein Albumin Urine Eosinophils Ur Random Sodium Ur Random Potassium Urine Creatinine Random Vancomycin Blood Type 06/02/24 06/02/24 06/02/24 12:30 13:33 13:50 WBC 1.9 L* RBC 4.29 Hgb 12.3 Hct 36.9 L MCV 86.0 MCH 28.7 MCHC 33.3 RDW 12.1 Plt Count 50 L D MPV 11.7 H Immature Gran % (Auto) Not Reportable Neut % (Auto) Not Reportable Lymph % (Auto) Not Reportable [place] % (Auto) Not Reportable Eos % (Auto) Not Reportable Baso % (Auto) Not Reportable Lymph # (Auto) Not Reportable [place] # (Auto) Not Reportable Eos # (Auto) Not Reportable Baso # (Auto) Not Reportable Abs Immat Gran (auto) Not Reportable Absolute Neuts (auto) Not Reportable Absolute Nucleated RBC Not Reportable Total Counted 100 Neutrophils % (Manual) 18 L Lymphocytes % (Manual) 49.0 H Monocytes % (Manual) 33 H Nucleated RBC % Not Reportable Abs Lymphs (Manual) 0.93 L Abs Monocytes (Manual) 0.62 Atypical Lymphocytes Platelet Estimate Slightly decreased Clumped Platelets Large Platelets Giant Platelets Present % Immature Plt Fraction 18.0 H Schistocytes None seen PT INR APTT Fibrinogen D-Dimer Puncture Site ABG pH ABG pCO2 ABG pO2 ABG PO2/FiO2 Ratio ABG HCO3 ABG O2 Saturation ABG O2 Content ABG Base Excess A-a Gradient Oxyhemoglobin Carboxyhemoglobin Methemoglobin Reduced Hemoglobin Total Hemoglobin O2 Delivery Device O2 Liters/Min Minute Volume Vent Rate Vent Mode FiO2 Tidal Volume PEEP Peak Inspir Pressure Pressure Support Sodium Potassium Chloride Carbon Dioxide Anion Gap BUN Creatinine Estim Creat Clear Calc Estimated GFR Glucose POC Capillary Glucose > 500 H* 500 H Lactic Acid Calcium Phosphorus Magnesium Total Bilirubin AST ALT Alkaline Phosphatase Total Creatine Kinase Total Protein Albumin Urine Eosinophils Ur Random Sodium Ur Random Potassium Urine Creatinine Random Vancomycin Blood Type 06/02/24 06/02/24 06/02/24 13:53 13:54 14:42 WBC 2.0 L Cancelled RBC 4.35 Cancelled Hgb 12.3 Cancelled Hct 37.6 Cancelled MCV 86.4 Cancelled MCH 28.3 Cancelled MCHC 32.7 Cancelled RDW 12.0 Cancelled Plt Count 51 L Cancelled MPV 13.0 H Cancelled Immature Gran % (Auto) Cancelled Neut % (Auto) Cancelled Lymph % (Auto) Cancelled [place] % (Auto) Cancelled Eos % (Auto) Cancelled Baso % (Auto) Cancelled Lymph # (Auto) Cancelled [place] # (Auto) Cancelled Eos # (Auto) Cancelled Baso # (Auto) Cancelled Abs Immat Gran (auto) Cancelled Absolute Neuts (auto) Cancelled Absolute Nucleated RBC Cancelled Total Counted Neutrophils % (Manual) Lymphocytes % (Manual) Monocytes % (Manual) Nucleated RBC % Cancelled Abs Lymphs (Manual) Abs Monocytes (Manual) Atypical Lymphocytes Platelet Estimate Clumped Platelets Large Platelets Giant Platelets % Immature Plt Fraction 18.2 H Cancelled Schistocytes PT 29.2 H D INR 2.7 APTT 49.8 H Fibrinogen 369 D-Dimer > 20.00 H Puncture Site ABG pH ABG pCO2 ABG pO2 ABG PO2/FiO2 Ratio ABG HCO3 ABG O2 Saturation ABG O2 Content ABG Base Excess A-a Gradient Oxyhemoglobin Carboxyhemoglobin Methemoglobin Reduced Hemoglobin Total Hemoglobin O2 Delivery Device O2 Liters/Min Minute Volume Vent Rate Vent Mode FiO2 Tidal Volume PEEP Peak Inspir Pressure Pressure Support Sodium 130 L Potassium 2.3 L* Chloride 90 L Carbon Dioxide 26 Anion Gap 14 H BUN 29 H Creatinine 2.80 H Estim Creat Clear Calc 18 Estimated GFR 21 L Glucose 463 H POC Capillary Glucose > 500 H* Lactic Acid 9.5 H* Calcium 6.1 L Phosphorus 5.6 H Magnesium 1.3 L Total Bilirubin 0.3 AST > 7500 H ALT 1716 H Alkaline Phosphatase 42 Total Creatine Kinase Total Protein 4.0 L Albumin 2.6 L Urine Eosinophils Ur Random Sodium Ur Random Potassium Urine Creatinine Random Vancomycin Blood Type 06/02/24 06/02/24 06/02/24 15:16 15:23 16:23 WBC RBC Hgb Hct MCV MCH MCHC RDW Plt Count MPV Immature Gran % (Auto) Neut % (Auto) Lymph % (Auto) [place] % (Auto) Eos % (Auto) Baso % (Auto) Lymph # (Auto) [place] # (Auto) Eos # (Auto) Baso # (Auto) Abs Immat Gran (auto) Absolute Neuts (auto) Absolute Nucleated RBC Total Counted Neutrophils % (Manual) Lymphocytes % (Manual) Monocytes % (Manual) Nucleated RBC % Abs Lymphs (Manual) Abs Monocytes (Manual) Atypical Lymphocytes Platelet Estimate Clumped Platelets Large Platelets Giant Platelets % Immature Plt Fraction Schistocytes PT INR APTT Fibrinogen D-Dimer Puncture Site ABG pH ABG pCO2 ABG pO2 ABG PO2/FiO2 Ratio ABG HCO3 ABG O2 Saturation ABG O2 Content ABG Base Excess A-a Gradient Oxyhemoglobin Carboxyhemoglobin Methemoglobin Reduced Hemoglobin Total Hemoglobin O2 Delivery Device O2 Liters/Min Minute Volume Vent Rate Vent Mode FiO2 Tidal Volume PEEP Peak Inspir Pressure Pressure Support Sodium Potassium Chloride Carbon Dioxide Anion Gap BUN Creatinine Estim Creat Clear Calc Estimated GFR Glucose POC Capillary Glucose 464 H 497 H Lactic Acid Calcium Phosphorus Magnesium Total Bilirubin AST ALT Alkaline Phosphatase Total Creatine Kinase 338 H Total Protein Albumin Urine Eosinophils None seen Ur Random Sodium 33 Ur Random Potassium 22.0 Urine Creatinine 40.9 Random Vancomycin Blood Type 06/02/24 06/02/24 06/02/24 17:33 18:36 18:43 WBC RBC Hgb Hct MCV MCH MCHC RDW Plt Count MPV Immature Gran % (Auto) Neut % (Auto) Lymph % (Auto) [place] % (Auto) Eos % (Auto) Baso % (Auto) Lymph # (Auto) [place] # (Auto) Eos # (Auto) Baso # (Auto) Abs Immat Gran (auto) Absolute Neuts (auto) Absolute Nucleated RBC Total Counted Neutrophils % (Manual) Lymphocytes % (Manual) Monocytes % (Manual) Nucleated RBC % Abs Lymphs (Manual) Abs Monocytes (Manual) Atypical Lymphocytes Platelet Estimate Clumped Platelets Large Platelets Giant Platelets % Immature Plt Fraction Schistocytes PT INR APTT Fibrinogen D-Dimer Puncture Site ABG pH ABG pCO2 ABG pO2 ABG PO2/FiO2 Ratio ABG HCO3 ABG O2 Saturation ABG O2 Content ABG Base Excess A-a Gradient Oxyhemoglobin Carboxyhemoglobin Methemoglobin Reduced Hemoglobin Total Hemoglobin O2 Delivery Device O2 Liters/Min Minute Volume Vent Rate Vent Mode FiO2 Tidal Volume PEEP Peak Inspir Pressure Pressure Support Sodium 125 L Potassium 2.9 L Chloride 86 L Carbon Dioxide 28 Anion Gap 11 BUN 31 H Creatinine 2.80 H Estim Creat Clear Calc 18 Estimated GFR 21 L Glucose 408 H POC Capillary Glucose 379 H 430 H Lactic Acid 8.6 H* Calcium 6.2 L Phosphorus Magnesium Total Bilirubin AST ALT Alkaline Phosphatase Total Creatine Kinase Total Protein Albumin Urine Eosinophils Ur Random Sodium Ur Random Potassium Urine Creatinine Random Vancomycin Blood Type 06/02/24 06/02/24 06/02/24 19:17 19:22 20:28 WBC RBC Hgb Hct MCV MCH MCHC RDW Plt Count MPV Immature Gran % (Auto) Neut % (Auto) Lymph % (Auto) [place] % (Auto) Eos % (Auto) Baso % (Auto) Lymph # (Auto) [place] # (Auto) Eos # (Auto) Baso # (Auto) Abs Immat Gran (auto) Absolute Neuts (auto) Absolute Nucleated RBC Total Counted Neutrophils % (Manual) Lymphocytes % (Manual) Monocytes % (Manual) Nucleated RBC % Abs Lymphs (Manual) Abs Monocytes (Manual) Atypical Lymphocytes Platelet Estimate Clumped Platelets Large Platelets Giant Platelets % Immature Plt Fraction Schistocytes PT INR APTT Fibrinogen D-Dimer Puncture Site Artline ABG pH 7.293 L* ABG pCO2 38.1 ABG pO2 55.4 L ABG PO2/FiO2 Ratio 0.55 ABG HCO3 18.0 L ABG O2 Saturation 85.7 L* ABG O2 Content 15.8 L ABG Base Excess -7.8 A-a Gradient 619.5 Oxyhemoglobin 86.9 L* Carboxyhemoglobin Methemoglobin Reduced Hemoglobin Total Hemoglobin 12.9 O2 Delivery Device Ventilator O2 Liters/Min Not Reportable Minute Volume Not Reportable Vent Rate 28 Vent Mode Cmv FiO2 100 Tidal Volume 450 PEEP 14 Peak Inspir Pressure Not Reportable Pressure Support Not Reportable Sodium Potassium Chloride Carbon Dioxide Anion Gap BUN Creatinine Estim Creat Clear Calc Estimated GFR Glucose POC Capillary Glucose 415 H Lactic Acid Calcium Phosphorus Magnesium Total Bilirubin AST ALT Alkaline Phosphatase Total Creatine Kinase Total Protein Albumin Urine Eosinophils Ur Random Sodium Ur Random Potassium Urine Creatinine Random Vancomycin 16.2 Blood Type 06/02/24 06/02/24 06/02/24 20:50 21:40 22:06 WBC RBC Hgb Hct MCV MCH MCHC RDW Plt Count MPV Immature Gran % (Auto) Neut % (Auto) Lymph % (Auto) [place] % (Auto) Eos % (Auto) Baso % (Auto) Lymph # (Auto) [place] # (Auto) Eos # (Auto) Baso # (Auto) Abs Immat Gran (auto) Absolute Neuts (auto) Absolute Nucleated RBC Total Counted Neutrophils % (Manual) Lymphocytes % (Manual) Monocytes % (Manual) Nucleated RBC % Abs Lymphs (Manual) Abs Monocytes (Manual) Atypical Lymphocytes Platelet Estimate Clumped Platelets Large Platelets Giant Platelets % Immature Plt Fraction Schistocytes PT INR APTT Fibrinogen D-Dimer Puncture Site ABG pH ABG pCO2 ABG pO2 ABG PO2/FiO2 Ratio ABG HCO3 ABG O2 Saturation ABG O2 Content ABG Base Excess A-a Gradient Oxyhemoglobin Carboxyhemoglobin Methemoglobin Reduced Hemoglobin Total Hemoglobin O2 Delivery Device O2 Liters/Min Minute Volume Vent Rate Vent Mode FiO2 Tidal Volume PEEP Peak Inspir Pressure Pressure Support Sodium 124 L Potassium 2.8 L* Chloride 87 L Carbon Dioxide 24 Anion Gap 13 H BUN 30 H Creatinine 2.80 H Estim Creat Clear Calc 18 Estimated GFR 21 L Glucose 344 H POC Capillary Glucose 411 H 401 H Lactic Acid Calcium 6.0 L Phosphorus Magnesium Total Bilirubin AST ALT Alkaline Phosphatase Total Creatine Kinase Total Protein Albumin Urine Eosinophils Ur Random Sodium Ur Random Potassium Urine Creatinine Random Vancomycin Blood Type 06/02/24 06/03/24 06/03/24 23:38 00:25 01:44 WBC RBC Hgb Hct MCV MCH MCHC RDW Plt Count MPV Immature Gran % (Auto) Neut % (Auto) Lymph % (Auto) [place] % (Auto) Eos % (Auto) Baso % (Auto) Lymph # (Auto) [place] # (Auto) Eos # (Auto) Baso # (Auto) Abs Immat Gran (auto) Absolute Neuts (auto) Absolute Nucleated RBC Total Counted Neutrophils % (Manual) Lymphocytes % (Manual) Monocytes % (Manual) Nucleated RBC % Abs Lymphs (Manual) Abs Monocytes (Manual) Atypical Lymphocytes Platelet Estimate Clumped Platelets Large Platelets Giant Platelets % Immature Plt Fraction Schistocytes PT INR APTT Fibrinogen D-Dimer Puncture Site Artline ABG pH 7.218 L* ABG pCO2 49.3 H ABG pO2 54.9 L ABG PO2/FiO2 Ratio 0.55 ABG HCO3 19.6 L ABG O2 Saturation 82.0 L* ABG O2 Content 14.8 L ABG Base Excess -8.1 A-a Gradient 608.8 Oxyhemoglobin 83.0 L* Carboxyhemoglobin 0.4 Methemoglobin 0.0 Reduced Hemoglobin 16.6 H Total Hemoglobin 12.7 O2 Delivery Device Ambu bag O2 Liters/Min 15.0 Minute Volume Vent Rate Vent Mode FiO2 100 Tidal Volume PEEP Peak Inspir Pressure Pressure Support Sodium Potassium Chloride Carbon Dioxide Anion Gap BUN Creatinine Estim Creat Clear Calc Estimated GFR Glucose POC Capillary Glucose 321 H 254 H Lactic Acid Calcium Phosphorus Magnesium Total Bilirubin AST ALT Alkaline Phosphatase Total Creatine Kinase Total Protein Albumin Urine Eosinophils Ur Random Sodium Ur Random Potassium Urine Creatinine Random Vancomycin Blood Type 06/03/24 06/03/24 06/03/24 02:06 02:54 04:02 WBC Cancelled RBC Hgb Hct MCV MCH MCHC RDW Plt Count MPV Immature Gran % (Auto) Neut % (Auto) Lymph % (Auto) [place] % (Auto) Eos % (Auto) Baso % (Auto) Lymph # (Auto) [place] # (Auto) Eos # (Auto) Baso # (Auto) Abs Immat Gran (auto) Absolute Neuts (auto) Absolute Nucleated RBC Total Counted Neutrophils % (Manual) Lymphocytes % (Manual) Monocytes % (Manual) Nucleated RBC % Abs Lymphs (Manual) Abs Monocytes (Manual) Atypical Lymphocytes Platelet Estimate Clumped Platelets Large Platelets Giant Platelets % Immature Plt Fraction Schistocytes PT INR APTT Fibrinogen D-Dimer Puncture Site ABG pH ABG pCO2 ABG pO2 ABG PO2/FiO2 Ratio ABG HCO3 ABG O2 Saturation ABG O2 Content ABG Base Excess A-a Gradient Oxyhemoglobin Carboxyhemoglobin Methemoglobin Reduced Hemoglobin Total Hemoglobin O2 Delivery Device O2 Liters/Min Minute Volume Vent Rate Vent Mode FiO2 Tidal Volume PEEP Peak Inspir Pressure Pressure Support Sodium 120 L Potassium 3.4 Chloride 86 L Carbon Dioxide 22 Anion Gap 12 BUN 32 H Creatinine 2.90 H Estim Creat Clear Calc 18 Estimated GFR 20 L Glucose 318 H POC Capillary Glucose 220 H Lactic Acid Calcium 6.3 L Phosphorus Magnesium Total Bilirubin AST ALT Alkaline Phosphatase Total Creatine Kinase Total Protein Albumin Urine Eosinophils Ur Random Sodium Ur Random Potassium Urine Creatinine Random Vancomycin Blood Type 06/03/24 06/03/24 06/03/24 04:02 04:02 04:02 WBC 2.5 L RBC Cancelled 4.11 L Hgb Cancelled 11.7 L Hct Cancelled MCV MCH MCHC RDW Plt Count MPV Immature Gran % (Auto) Neut % (Auto) Lymph % (Auto) [place] % (Auto) Eos % (Auto) Baso % (Auto) Lymph # (Auto) [place] # (Auto) Eos # (Auto) Baso # (Auto) Abs Immat Gran (auto) Absolute Neuts (auto) Absolute Nucleated RBC Total Counted Neutrophils % (Manual) Lymphocytes % (Manual) Monocytes % (Manual) Nucleated RBC % Abs Lymphs (Manual) Abs Monocytes (Manual) Atypical Lymphocytes Platelet Estimate Clumped Platelets Large Platelets Giant Platelets % Immature Plt Fraction Schistocytes PT INR APTT Fibrinogen D-Dimer Puncture Site ABG pH ABG pCO2 ABG pO2 ABG PO2/FiO2 Ratio ABG HCO3 ABG O2 Saturation ABG O2 Content ABG Base Excess A-a Gradient Oxyhemoglobin Carboxyhemoglobin Methemoglobin Reduced Hemoglobin Total Hemoglobin O2 Delivery Device O2 Liters/Min Minute Volume Vent Rate Vent Mode FiO2 Tidal Volume PEEP Peak Inspir Pressure Pressure Support Sodium Potassium Chloride Carbon Dioxide Anion Gap BUN Creatinine Estim Creat Clear Calc Estimated GFR Glucose POC Capillary Glucose Lactic Acid Calcium Phosphorus Magnesium Total Bilirubin AST ALT Alkaline Phosphatase Total Creatine Kinase Total Protein Albumin Urine Eosinophils Ur Random Sodium Ur Random Potassium Urine Creatinine Random Vancomycin Blood Type 06/03/24 06/03/24 06/03/24 04:02 04:02 04:02 WBC RBC Hgb Hct 34.2 L MCV Cancelled 83.2 MCH Cancelled 28.5 MCHC Cancelled RDW Plt Count MPV Immature Gran % (Auto) Neut % (Auto) Lymph % (Auto) [place] % (Auto) Eos % (Auto) Baso % (Auto) Lymph # (Auto) [place] # (Auto) Eos # (Auto) Baso # (Auto) Abs Immat Gran (auto) Absolute Neuts (auto) Absolute Nucleated RBC Total Counted Neutrophils % (Manual) Lymphocytes % (Manual) Monocytes % (Manual) Nucleated RBC % Abs Lymphs (Manual) Abs Monocytes (Manual) Atypical Lymphocytes Platelet Estimate Clumped Platelets Large Platelets Giant Platelets % Immature Plt Fraction Schistocytes PT INR APTT Fibrinogen D-Dimer Puncture Site ABG pH ABG pCO2 ABG pO2 ABG PO2/FiO2 Ratio ABG HCO3 ABG O2 Saturation ABG O2 Content ABG Base Excess A-a Gradient Oxyhemoglobin Carboxyhemoglobin Methemoglobin Reduced Hemoglobin Total Hemoglobin O2 Delivery Device O2 Liters/Min Minute Volume Vent Rate Vent Mode FiO2 Tidal Volume PEEP Peak Inspir Pressure Pressure Support Sodium Potassium Chloride Carbon Dioxide Anion Gap BUN Creatinine Estim Creat Clear Calc Estimated GFR Glucose POC Capillary Glucose Lactic Acid Calcium Phosphorus Magnesium Total Bilirubin AST ALT Alkaline Phosphatase Total Creatine Kinase Total Protein Albumin Urine Eosinophils Ur Random Sodium Ur Random Potassium Urine Creatinine Random Vancomycin Blood Type 06/03/24 06/03/24 06/03/24 04:02 04:02 04:02 WBC RBC Hgb Hct MCV MCH MCHC 34.2 RDW Cancelled 11.9 Plt Count Cancelled 12 L* D MPV Cancelled Immature Gran % (Auto) Neut % (Auto) Lymph % (Auto) [place] % (Auto) Eos % (Auto) Baso % (Auto) Lymph # (Auto) [place] # (Auto) Eos # (Auto) Baso # (Auto) Abs Immat Gran (auto) Absolute Neuts (auto) Absolute Nucleated RBC Total Counted Neutrophils % (Manual) Lymphocytes % (Manual) Monocytes % (Manual) Nucleated RBC % Abs Lymphs (Manual) Abs Monocytes (Manual) Atypical Lymphocytes Platelet Estimate Clumped Platelets Large Platelets Giant Platelets % Immature Plt Fraction Schistocytes PT INR APTT Fibrinogen D-Dimer Puncture Site ABG pH ABG pCO2 ABG pO2 ABG PO2/FiO2 Ratio ABG HCO3 ABG O2 Saturation ABG O2 Content ABG Base Excess A-a Gradient Oxyhemoglobin Carboxyhemoglobin Methemoglobin Reduced Hemoglobin Total Hemoglobin O2 Delivery Device O2 Liters/Min Minute Volume Vent Rate Vent Mode FiO2 Tidal Volume PEEP Peak Inspir Pressure Pressure Support Sodium Potassium Chloride Carbon Dioxide Anion Gap BUN Creatinine Estim Creat Clear Calc Estimated GFR Glucose POC Capillary Glucose Lactic Acid Calcium Phosphorus Magnesium Total Bilirubin AST ALT Alkaline Phosphatase Total Creatine Kinase Total Protein Albumin Urine Eosinophils Ur Random Sodium Ur Random Potassium Urine Creatinine Random Vancomycin Blood Type 06/03/24 06/03/24 06/03/24 04:02 04:02 04:02 WBC RBC Hgb Hct MCV MCH MCHC RDW Plt Count MPV TNP Immature Gran % (Auto) Cancelled Neut % (Auto) Cancelled Lymph % (Auto) Cancelled [place] % (Auto) Cancelled Eos % (Auto) Cancelled Baso % (Auto) Cancelled Lymph # (Auto) Cancelled [place] # (Auto) Cancelled Eos # (Auto) Cancelled Baso # (Auto) Cancelled Abs Immat Gran (auto) Cancelled Absolute Neuts (auto) Cancelled Absolute Nucleated RBC Cancelled Total Counted Neutrophils % (Manual) Lymphocytes % (Manual) Monocytes % (Manual) Nucleated RBC % Cancelled Abs Lymphs (Manual) Abs Monocytes (Manual) Atypical Lymphocytes Platelet Estimate Clumped Platelets Large Platelets Giant Platelets % Immature Plt Fraction Cancelled 27.9 H Schistocytes PT Cancelled 39.7 H D INR Cancelled APTT Fibrinogen D-Dimer Puncture Site ABG pH ABG pCO2 ABG pO2 ABG PO2/FiO2 Ratio ABG HCO3 ABG O2 Saturation ABG O2 Content ABG Base Excess A-a Gradient Oxyhemoglobin Carboxyhemoglobin Methemoglobin Reduced Hemoglobin Total Hemoglobin O2 Delivery Device O2 Liters/Min Minute Volume Vent Rate Vent Mode FiO2 Tidal Volume PEEP Peak Inspir Pressure Pressure Support Sodium Potassium Chloride Carbon Dioxide Anion Gap BUN Creatinine Estim Creat Clear Calc Estimated GFR Glucose POC Capillary Glucose Lactic Acid Calcium Phosphorus Magnesium Total Bilirubin AST ALT Alkaline Phosphatase Total Creatine Kinase Total Protein Albumin Urine Eosinophils Ur Random Sodium Ur Random Potassium Urine Creatinine Random Vancomycin Blood Type 06/03/24 06/03/24 06/03/24 04:02 04:02 04:02 WBC RBC Hgb Hct MCV MCH MCHC RDW Plt Count MPV Immature Gran % (Auto) Neut % (Auto) Lymph % (Auto) [place] % (Auto) Eos % (Auto) Baso % (Auto) Lymph # (Auto) [place] # (Auto) Eos # (Auto) Baso # (Auto) Abs Immat Gran (auto) Absolute Neuts (auto) Absolute Nucleated RBC Total Counted Neutrophils % (Manual) Lymphocytes % (Manual) Monocytes % (Manual) Nucleated RBC % Abs Lymphs (Manual) Abs Monocytes (Manual) Atypical Lymphocytes Platelet Estimate Clumped Platelets Large Platelets Giant Platelets % Immature Plt Fraction Schistocytes PT INR 4.0 APTT Cancelled 57.0 H Fibrinogen Cancelled 296 D-Dimer Cancelled Puncture Site ABG pH ABG pCO2 ABG pO2 ABG PO2/FiO2 Ratio ABG HCO3 ABG O2 Saturation ABG O2 Content ABG Base Excess A-a Gradient Oxyhemoglobin Carboxyhemoglobin Methemoglobin Reduced Hemoglobin Total Hemoglobin O2 Delivery Device O2 Liters/Min Minute Volume Vent Rate Vent Mode FiO2 Tidal Volume PEEP Peak Inspir Pressure Pressure Support Sodium Potassium Chloride Carbon Dioxide Anion Gap BUN Creatinine Estim Creat Clear Calc Estimated GFR Glucose POC Capillary Glucose Lactic Acid Calcium Phosphorus Magnesium Total Bilirubin AST ALT Alkaline Phosphatase Total Creatine Kinase Total Protein Albumin Urine Eosinophils Ur Random Sodium Ur Random Potassium Urine Creatinine Random Vancomycin Blood Type 06/03/24 06/03/24 06/03/24 04:02 04:02 04:13 WBC RBC Hgb Hct MCV MCH MCHC RDW Plt Count MPV Immature Gran % (Auto) Neut % (Auto) Lymph % (Auto) [place] % (Auto) Eos % (Auto) Baso % (Auto) Lymph # (Auto) [place] # (Auto) Eos # (Auto) Baso # (Auto) Abs Immat Gran (auto) Absolute Neuts (auto) Absolute Nucleated RBC Total Counted Neutrophils % (Manual) Lymphocytes % (Manual) Monocytes % (Manual) Nucleated RBC % Abs Lymphs (Manual) Abs Monocytes (Manual) Atypical Lymphocytes Platelet Estimate Clumped Platelets Large Platelets Giant Platelets % Immature Plt Fraction Schistocytes PT INR APTT Fibrinogen D-Dimer 15.39 H Puncture Site Artline ABG pH 7.288 L* ABG pCO2 44.2 ABG pO2 50.1 L ABG PO2/FiO2 Ratio 0.50 ABG HCO3 20.7 L ABG O2 Saturation 81.1 L* ABG O2 Content 14.4 L ABG Base Excess -5.8 A-a Gradient 618.7 Oxyhemoglobin 82.4 L* Carboxyhemoglobin 0.3 Methemoglobin 0.3 Reduced Hemoglobin 17.0 H Total Hemoglobin 12.4 O2 Delivery Device Ventilator O2 Liters/Min Not Reportable Minute Volume Not Reportable Vent Rate 28 Vent Mode Cmv FiO2 100 Tidal Volume 450 PEEP 14 Peak Inspir Pressure Not Reportable Pressure Support Not Reportable Sodium 121 L Potassium 3.0 L Chloride 83 L Carbon Dioxide 26 Anion Gap 12 BUN 33 H Creatinine 2.70 H Estim Creat Clear Calc 19 Estimated GFR 22 L Glucose 275 H POC Capillary Glucose 250 H Lactic Acid 8.6 H* Calcium 6.1 L Phosphorus 4.0 Magnesium 1.5 L 1.5 L Total Bilirubin 0.6 AST 5044 H ALT 1138 H Alkaline Phosphatase 31 L Total Creatine Kinase 3093 H Total Protein 4.0 L Albumin 2.6 L Urine Eosinophils Ur Random Sodium Ur Random Potassium Urine Creatinine Random Vancomycin Blood Type 06/03/24 06/03/24 06/03/24 05:39 06:39 06:46 WBC RBC Hgb Hct MCV MCH MCHC RDW Plt Count MPV Immature Gran % (Auto) Neut % (Auto) Lymph % (Auto) [place] % (Auto) Eos % (Auto) Baso % (Auto) Lymph # (Auto) [place] # (Auto) Eos # (Auto) Baso # (Auto) Abs Immat Gran (auto) Absolute Neuts (auto) Absolute Nucleated RBC Total Counted Neutrophils % (Manual) Lymphocytes % (Manual) Monocytes % (Manual) Nucleated RBC % Abs Lymphs (Manual) Abs Monocytes (Manual) Atypical Lymphocytes Platelet Estimate Clumped Platelets Large Platelets Giant Platelets % Immature Plt Fraction Schistocytes PT INR APTT Fibrinogen D-Dimer Puncture Site ABG pH ABG pCO2 ABG pO2 ABG PO2/FiO2 Ratio ABG HCO3 ABG O2 Saturation ABG O2 Content ABG Base Excess A-a Gradient Oxyhemoglobin Carboxyhemoglobin Methemoglobin Reduced Hemoglobin Total Hemoglobin O2 Delivery Device O2 Liters/Min Minute Volume Vent Rate Vent Mode FiO2 Tidal Volume PEEP Peak Inspir Pressure Pressure Support Sodium Potassium Chloride Carbon Dioxide Anion Gap BUN Creatinine Estim Creat Clear Calc Estimated GFR Glucose POC Capillary Glucose 136 H 200 H Lactic Acid Calcium Phosphorus Magnesium Total Bilirubin AST ALT Alkaline Phosphatase Total Creatine Kinase Total Protein Albumin Urine Eosinophils Ur Random Sodium Ur Random Potassium Urine Creatinine Random Vancomycin Blood Type O Positive 06/03/24 06/03/24 07:40 07:52 WBC RBC Hgb Hct MCV MCH MCHC RDW Plt Count MPV Immature Gran % (Auto) Neut % (Auto) Lymph % (Auto) [place] % (Auto) Eos % (Auto) Baso % (Auto) Lymph # (Auto) [place] # (Auto) Eos # (Auto) Baso # (Auto) Abs Immat Gran (auto) Absolute Neuts (auto) Absolute Nucleated RBC Total Counted Neutrophils % (Manual) Lymphocytes % (Manual) Monocytes % (Manual) Nucleated RBC % Abs Lymphs (Manual) Abs Monocytes (Manual) Atypical Lymphocytes Platelet Estimate Clumped Platelets Large Platelets Giant Platelets % Immature Plt Fraction Schistocytes PT INR APTT Fibrinogen D-Dimer Puncture Site Artline ABG pH 7.279 L* ABG pCO2 45.1 H ABG pO2 45.4 L* ABG PO2/FiO2 Ratio 0.45 ABG HCO3 20.7 L ABG O2 Saturation 75.7 L* ABG O2 Content 14.2 L ABG Base Excess -6.0 A-a Gradient 622.5 Oxyhemoglobin 78.3 L* Carboxyhemoglobin 0.5 Methemoglobin 0.3 Reduced Hemoglobin 20.9 H Total Hemoglobin 12.9 O2 Delivery Device Ventilator O2 Liters/Min Not Reportable Minute Volume Not Reportable Vent Rate 28 Vent Mode Cmv FiO2 100 Tidal Volume 450 PEEP 14 Peak Inspir Pressure Not Reportable Pressure Support Not Reportable Sodium Potassium Chloride Carbon Dioxide Anion Gap BUN Creatinine Estim Creat Clear Calc Estimated GFR Glucose POC Capillary Glucose 189 H Lactic Acid Calcium Phosphorus Magnesium Total Bilirubin AST ALT Alkaline Phosphatase Total Creatine Kinase Total Protein Albumin Urine Eosinophils Ur Random Sodium Ur Random Potassium Urine Creatinine Random Vancomycin Blood Type Quality VTE Prophylaxis VTE prophylaxis: mechanical ordered and pharmacologic ordered
[2024-06-03] MEDS: VASOPRESSIN INJ 100 UNITS in DEXTROSE 5% 95 ML IV CONT (08:37)
[2024-06-03] MEDS: BUMETANIDE INJ 1 MG/4 ML VIAL 2 MG IV PUSH (09:10)
[2024-06-03] MEDS: PANTOPRAZOLE SODIUM IV 40 MG VIAL IV PUSH ×2 (09:10→21:08)
[2024-06-03] MEDS: MINERAL OIL/WHITE PETROLATUM OINTMENT 1 APPLIC EACH EYE ×2 (09:11→21:07)
[2024-06-03] MEDS: MUPIROCIN 2% OINT 22 GM TUBE 1 APPLIC EACH NARE ×2 (09:11→21:08)
[2024-06-03] MEDS: KCL 40 MEQ/WATER 100 ML 100 ML 25 ML IVPB (09:12)
[2024-06-03] MEDS: MAGNESIUM SULF 2 GM/WATER 50ML 2 GM/50 ML BAG IVPB (09:12)
[2024-06-03] MEDS: PHYTONADIONE ADULT INJ 10 MG in DEXTROSE 5% IN WATER 50 ML 100 MG IVPB (09:13)
[2024-06-03] MEDS: EPOPROSTENOL SODIUM 0.5 MG VIAL 1 MG INHALATION ×2 (09:21→14:17)
[2024-06-03] MEDS: SODIUM CHLORIDE 0.9% IV 250 ML 30 ML IV CONT (11:09)
[2024-06-03] MEDS: AZITHROMYCIN 500 MG/NS 250 ML 500 MG/250 ML BAG 250 MG IVPB (11:47)
[2024-06-03 11:55] LABS: Base Excess ABG -12.8 mEq/l (+/-2.0); Fractional Inspired Oxygen 100 %; HCO3 ABG 13.5 mEq/l (22.0-26.0); Oxygen Content ABG 15.8 %vol (16.0-22.0); Oxygen Saturation ABG 90.4 % (95.0-100.0); Oxyhemoglobin 89.6 % THb (90.0-100.0); PCO2 ABG 32.5 mmHg (35.0-45.0); PO2 ABG 67.5 mmHg (80.0-100.0); PO2 FiO2 Ratio Arterial Blood 0.68 %; Total Hemoglobin 12.5 g/dL (12.0-18.0)
--- NOTE | 2024-06-03 11:55 | P.PNNP_ITS ---
Progress Note: A&P Assessment and Plan (1) Acute kidney injury: Code(s): N17.9 - Acute kidney failure, unspecified Status: Acute Assessment and Plan: * normal renal function at baseline * significant deterioration noted since admission (< 24 hours) with creatinine up to 2.8mg/dl * likely ATN with multifactorial etiology: * hemodynamic instability/shock * sepsis/infection * hypoxia * prerenal factors * other(?) * s/p aggressive IVF resuscitation * on maintenace IVFs with bicarb * on significant vasopressor support in an effort to maintain MAP * evaluation to date noted: * renal ultrasound with mild right hydronephrosis and kidney size asymmetry * rising CPK noted * urine eosinophils negative * urine electrolytes indeterminate * UA not indicative of infection * no significant response to IV diuretics * 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 * continue follow trend of repeat labs and UOP (2) Septic shock: Code(s): A41.9 - Sepsis, unspecified organism; R65.21 - Severe sepsis with septic shock Status: Acute Assessment and Plan: * as noted on presentation - hypoxia, hypotension, acute confusion, leukopenia, and lactic acidosis * s/p aggressive IVF resuscitation * due to persistent hypotension despite IVFs, central line placed * currently on maximum doses of Levophed, Herbie-Synephrine, vasopressin and epinephrine * attempting to maintain MAP > 65 mmHg (but limited effectiveness noted) * on stress dose steroids as well * follow culture data * on antibiotics and Tamiflu (3) Acute respiratory failure with hypoxia: Code(s): J96.01 - Acute respiratory failure with hypoxia Status: Acute Assessment and Plan: * secondary to influenza A and pneumonia * may have progressed to ARDS given severity of hypoxia * prone positioning instituted * follow ABGs and CXRs * not stable for transport for CT imaging * continue ventilator support (4) Metabolic acidosis: Code(s): E87.20 - Acidosis, unspecified Status: Acute Assessment and Plan: * due several issues: * acute kidney injury/acute renal failure * lactic acidosis (which continues to worsen) * sepsis/septic shock * likely bowel ischemia * metformin use (?) * on bicarbonate infusion and PRN IVPs to compensate (5) Influenza A: Code(s): J10.1 - Influenza due to other identified influenza virus with other respiratory manifestations Status: Acute Assessment and Plan: * as noted by testing in ER * on Tamiflu (6) Transaminitis: Code(s): R74.01 - Elevation of levels of liver transaminase levels Status: Acute Assessment and Plan: * likely secondary to shock liver in the context of hypoxia and hypotension * contiunes to worsen * follow trend of LFTs (7) Type 2 diabetes mellitus: Code(s): E11.9 - Type 2 diabetes mellitus without complications Status: Acute Assessment and Plan: * on insulin gtt * secondary to #2 * however, suspect poor glycemic control prior to admission (noted HgbA1c of 12.6) * follow accu-cheks * glycemic control per cyber security engineer Ongoing clinical deterioration noted despite all aggressive medical care to date -- I worry we are getting to a point (if we have not already reached it) of futility of care: current maximized therapy has not improved her overall clinical status and she continues to worsen still.... Discussed with Dr. Fuentes. Will continue to follow. L Subjective Date/time seen: 06/03/24 11:55 Interval history: Follow-up for acute kidney injury/acute renal failure. Remains intubated/sedated/paralyzed and on mechanical ventilation at this time; still on maxed out of on vasopressor therapy (levophed, vasopressin, herbie- synephrine, and epinephrine); worsening urine output noted with no significant response to IV bumex given earlier today; laboratory indices have also worsened with ongoing leukopenia, thrombocytopenia, lactic acidosis, elevated LFTs, and CPK along with hyperglycemia despite all aggressive medica care to date. Exam 2 Narrative: General: ill-appearing female intubated/sedated/paralyzed on mechanical ventilation in prone position Heart: normal S1 and S2; no rub Lungs: coarse with decreased breath sounds at bases Abdomen: soft, nontender, nondistended, decreased bowel sounds Extremities: no cyanosis or clubbing; traceedema Skin: cool to touch Objective Data Vital Signs Vital Signs: Vital Signs Temp Pulse Resp BP Pulse Ox O2 Del Method FiO2 06/03/24 11:54 99.5 F 98 28 H 112/69 06/03/24 11:53 98 112/69 06/03/24 11:42 98 104/68 06/03/24 11:33 98 106/68 06/03/24 11:31 99.6 F 98 28 H 106/68 06/03/24 11:22 99 28 H 45 L 06/03/24 11:22 99 45 L Mechanical Ventilation 100 06/03/24 11:20 98 111/69 06/03/24 11:15 99.7 F H 98 28 H 110/68 06/03/24 10:20 100 80/56 L 06/03/24 10:20 100 80/56 L 06/03/24 10:00 110 H 06/03/24 10:00 99.7 F H 106 H 28 H 113/69 06/03/24 10:00 104 H 28 H 06/03/24 10:00 104 H 111/69 06/03/24 10:00 104 H 28 H 06/03/24 10:00 104 H 111/69 06/03/24 10:00 104 H 111/69 06/03/24 10:00 104 H 28 H 111/69 06/03/24 10:00 104 H 111/69 06/03/24 09:22 67 28 H 69 L 06/03/24 08:39 119 H 117/68 06/03/24 08:37 119 H 118/68 06/03/24 08:13 119 H Mechanical Ventilation 100 06/03/24 08:12 119 H 28 H 06/03/24 08:00 100 06/03/24 08:00 119 H 06/03/24 08:00 116 H 28 H Mechanical Ventilation 100 06/03/24 08:00 119 H 28 H 06/03/24 08:00 119 H 28 H 06/03/24 08:00 119 H 28 H 06/03/24 08:00 119 H 92/78 L 06/03/24 08:00 118 H 92/78 L 06/03/24 08:00 119 H 92/78 L 06/03/24 08:00 118 H 92/78 L 06/03/24 08:00 118 H 28 H 92/78 L 06/03/24 08:00 100.1 F H 119 H 28 H 108/63 06/03/24 07:43 119 H 28 H 06/03/24 07:42 119 H 102/61 06/03/24 07:42 119 H 102/61 01/02/25 07:05 118 H 102/57 L 06/03/24 07:05 118 H 102/57 L 06/03/24 06:13 122 H 28 H 118/61 06/03/24 06:00 99.9 F H 120 H 28 H 118/61 06/03/24 06:00 124 H 06/03/24 06:00 121 H 28 H 06/03/24 06:00 122 H 118/61 06/03/24 06:00 122 H 28 H 06/03/24 06:00 121 H 118/61 06/03/24 06:00 121 H 118/61 06/03/24 06:00 121 H 103/57 L 06/03/24 05:00 99.7 F H 125 H 28 H 113/61 80 L 06/03/24 05:00 125 H 28 H 82 L 100 06/03/24 04:27 125 H 82 L Mechanical Ventilation 06/03/24 04:00 99.7 F H 130 H 28 H 140/71 06/03/24 04:00 130 H 28 H 06/03/24 04:00 130 H 140/71 06/03/24 04:00 130 H 28 H 140/71 06/03/24 04:00 130 H 28 H 06/03/24 04:00 127 H 127/66 06/03/24 04:00 127 H 126/66 06/03/24 04:00 127 H 126/66 06/03/24 04:00 127 H 123/65 06/03/24 03:49 100 06/03/24 03:48 130 H 06/03/24 03:48 122 H 28 H Mechanical Ventilation 06/03/24 03:00 100.1 F H 122 H 28 H 82/48 L 06/03/24 02:59 122 H 28 H 06/03/24 02:59 122 H 28 H 82/49 L 06/03/24 02:59 122 H 28 H 82/49 L 06/03/24 02:54 127 H 123/65 06/03/24 02:49 124 H 28 H 06/03/24 02:49 124 H Mechanical Ventilation 06/03/24 02:00 100.1 F H 122 H 28 H 88/42 L 06/03/24 02:00 122 H 06/03/24 02:00 122 H 28 H 06/03/24 02:00 122 H 88/42 L 06/03/24 02:00 122 H 28 H 06/03/24 02:00 122 H 88/42 L 06/03/24 02:00 122 H 28 H 88/42 L 06/03/24 02:00 122 H 88/42 L 06/03/24 02:00 122 H 88/42 L 06/03/24 02:00 122 H 88/42 L 06/03/24 02:00 122 H 88/42 L 06/03/24 01:00 100.4 F H 125 H 28 H 100/45 L 06/03/24 00:00 130 H 95/44 L 06/03/24 00:00 130 H 28 H 06/03/24 00:00 130 H 28 H 06/03/24 00:00 130 H 28 H 95/44 L 06/03/24 00:00 130 H 95/44 L 06/03/24 00:00 130 H 95/44 L 06/03/24 00:00 130 H 95/44 L 06/03/24 00:00 130 H 95/44 L 06/03/24 00:00 100.3 F H 130 H 28 H 95/44 L 86 L 06/03/24 00:00 100 06/03/24 00:00 130 H 06/03/24 00:00 130 H 28 H 88 L Mechanical Ventilation 100 06/02/24 23:45 134 H 88 L Mechanical Ventilation 100 06/02/24 22:16 132 H 109/60 06/02/24 22:00 132 H 28 H 06/02/24 22:00 132 H 28 H 06/02/24 22:00 132 H 28 H 106/59 L 06/02/24 22:00 132 H 106/59 L 06/02/24 22:00 132 H 106/60 06/02/24 22:00 132 H 106/60 06/02/24 22:00 132 H 109/60 06/02/24 21:34 131 H 87/53 L 06/02/24 21:11 101.4 F H 132 H 28 H 109/61 90 06/02/24 21:11 132 H 06/02/24 20:46 134 H 28 H 06/02/24 20:28 120 H 28 H 06/02/24 20:28 120 H 87 L Mechanical Ventilation 06/02/24 20:00 131 H 28 H 87/53 L 06/02/24 20:00 131 H 87/53 L 06/02/24 20:00 131 H 28 H 06/02/24 20:00 131 H 28 H 06/02/24 20:00 131 H 87/53 L 06/02/24 20:00 131 H 87/53 L 06/02/24 20:00 101.6 F H 131 H 28 H 87/53 L 90 06/02/24 19:58 100 06/02/24 19:57 131 H 06/02/24 19:57 131 H 28 H 90 Mechanical Ventilation 06/02/24 19:24 131 H 90/52 L 06/02/24 19:11 131 H 90/52 L 06/02/24 19:09 131 H 88/54 L 06/02/24 19:09 131 H 88/54 L 06/02/24 19:08 131 H 87/53 L 06/02/24 19:01 131 H 87/53 L 06/02/24 19:00 131 H 28 H 86/53 L 06/02/24 18:55 131 H 83/52 L 06/02/24 18:00 132 H 89/54 L 06/02/24 18:00 132 H 28 H 06/02/24 18:00 132 H 28 H 06/02/24 18:00 132 H 28 H 87/53 L 06/02/24 18:00 132 H 89/54 L 06/02/24 18:00 132 H 89/54 L 06/02/24 18:00 132 H 89/54 L 06/02/24 18:00 101.6 F H 133 H 258 H 90/52 L 92 06/02/24 18:00 133 H 06/02/24 17:38 138 H 95/50 L 06/02/24 17:38 138 H 95/50 L 06/02/24 17:00 136 H 28 H 87/53 L 06/02/24 16:47 133 H 95 Mechanical Ventilation 06/02/24 16:37 132 H 100/47 L 06/02/24 16:37 132 H 100/47 L 06/02/24 16:00 125 H 06/02/24 16:00 97 Mechanical Ventilation 100 06/02/24 16:00 100 06/02/24 16:00 102 F H 132 H 28 H 100/48 L 97 06/02/24 16:00 132 H 100/48 L 06/02/24 16:00 132 H 28 H 06/02/24 16:00 132 H 28 H 06/02/24 16:00 132 H 28 H 100/48 L 06/02/24 16:00 132 H 100/48 L 06/02/24 16:00 132 H 100/48 L 06/02/24 16:00 132 H 100/48 L Intake/Output Intake/Output: Intake & Output 05/31/24 06/01/24 06/02/24 06/03/24 23:59 23:59 23:59 23:59 Intake Total 3439.2 6510.9 6653.7 Output Total 435 435 Balance 3439.2 6075.9 6218.7 Meds/Results Medications: Active Medications Generic Name Dose Route Start Last Admin Trade Name Freq PRN Reason Stop Dose Admin Acetaminophen 650 mg 06/02/24 07:27 06/02/24 09:10 Acetaminophen Elixir 325 Mg/10.15 Ml Udc FEED TUBE 650 mg Q6H PRN Administration Mild Pain (1-3) or Fever Acetylcysteine 200 mg 06/02/24 08:00 06/03/24 08:10 Acetylcysteine 20% Inhal Soln 800 Mg/4 Ml Vial INHALATION [address] Administration Dextrose 12.5 gm 06/02/24 04:03 Dextrose 50% 25 Gm/50 Ml Syringe IV PUSH PRN PRN Hypoglycemia Protocol Epoprostenol Sodium 1 mg 06/03/24 07:39 06/03/24 14:17 Epoprostenol Sodium 0.5 Mg Vial INHALATION 1 mg PRN PRN Administration Titrate Glucagon 1 mg 06/02/24 04:03 Glucagon For Inj 1 Mg Vial IM PRN PRN Hypoglycemia Protocol Glucose 15 gm 06/02/24 04:03 Glucose Oral Gel 15 Gm Of Glucse In 37.5 Gm Tube PO PRN PRN Hypoglycemia Protocol Hydrocortisone Sodium Succinate 100 mg 06/02/24 14:00 06/03/24 13:43 Hydrocortisone Sodium Succinate 100 Mg/2 Ml Vial IV PUSH [address] Administration Azithromycin 500 mg in 250 mls @ 250 mls/hr 06/02/24 12:00 06/03/24 13:16 Zithromax IVPB Infused Q24H COURT Infusion Norepinephrine Bitartrate 8 mg in 250 mls @ 75 mls/hr 06/01/24 22:15 06/03/24 14:00 Levophed 8 Mg/D5w 250 Ml IV CONT 40 mcg/min .Q3H20M COURT 75 mls/hr Titration Protocol 40 MCG/MIN Vasopressin 100 units/ 100 mls @ 2.4 mls/hr 06/02/24 01:10 06/03/24 14:00 Dextrose IV CONT 0.04 units/min .[id number] COURT 2.4 mls/hr Titration Protocol 0.04 UNITS/MIN Phenylephrine HCl 50 mg/ 250 ml in 250 mls @ 54 mls/hr 06/02/24 03:55 06/03/24 14:00 Dextrose IV CONT 180 mcg/min .Q4H38M COURT 54 mls/hr Titration Protocol 180 MCG/MIN Dextrose 1,000 mls @ 100 mls/hr 06/02/24 04:03 Dextrose 5% 1,000 Ml IVPB PRN PRN Hypoglycemia Protocol Cisatracurium Besylate 200 mg/ 100 mls @ 1.905 mls/hr 06/02/24 10:15 06/03/24 14:00 Dextrose IV CONT 1 mcg/kg/min .[id number] COURT 1.91 mls/hr Titration Protocol 1 MCG/KG/MIN Cefepime HCl 1 gm in 50 mls @ 100 mls/hr 06/02/24 12:00 06/03/24 12:10 Maxipime 1 Gm/Ns 50 Ml IVPB Inf[address] Q12H COURT Infusion Epinephrine HCl 4 mg/ Dextrose 254 mls @ 76.2 mls/hr 06/02/24 13:45 06/03/24 14:00 IV CONT 20 mcg/min .Q3H20M COURT 76.2 mls/hr Titration Protocol 20 MCG/MIN Midazolam HCl 100 mg in 100 mls @ 3 mls/hr 06/02/24 15:05 06/03/24 14:00 Versed 100 Mg/Ns 100 Ml IV CONT 3 mg/hr .[id number] COURT 3 mls/hr Titration Protocol 3 MG/HR Fentanyl Citrate 2,500 mcg in 250 mls @ 5 mls/hr 06/03/24 07:30 06/03/24 14:00 Fentanyl 2,500 Mcg/Ns 250 Ml IV CONT 50 mcg/hr .Q50H COURT 5 mls/hr Titration Protocol 50 MCG/HR Insulin Human Regular 100 100 mls @ 1 mls/hr 06/03/24 07:55 06/03/24 15:00 units/ Sodium Chloride IV CONT 1 unit/hr .Q24H COURT 1 mls/hr Titration Protocol 1 UNIT/HR Ipratropium [place] 0.5 mg 06/02/24 08:00 06/03/24 08:11 Ipratropium Br 0.02% Inh Soln 0.5 Mg/2.5 Ml Vial INHALATION 0.[address] Administration Levalbuterol HCl 1.25 mg 06/02/24 08:00 06/03/24 08:11 Levalbuterol Neb 1.25 Mg/3 Ml INHALATION 1.[address] Administration Multi-Ingred Cream/Lotion/Oil/Oint 1 applic 06/02/24 10:05 06/03/24 09:11 Mineral Oil/White Petrolatum Ointment EACH EYE [address] Administration Mupirocin 1 applic 06/02/24 09:00 06/03/24 09:11 Mupirocin 2% Oint 22 Gm Tube EACH NARE 06/06/24 21:[address] Administration Ondansetron HCl 4 mg 06/01/24 16:52 Ondansetron Inj 4 Mg/2 Ml Vial IV PUSH Q4H PRN Nausea Oseltamivir Phosphate 30 mg 06/02/24 21:00 06/02/24 20:59 Oseltamivir Phosphate Oral Susp 30 Mg/5 Ml Syringe FEED TUBE 06/05/24 21:[address] Administration Pantoprazole Sodium 40 mg 06/03/24 21:00 Pantoprazole Sodium Iv 40 Mg Vial IV PUSH Q12HR COURT Perflutren Lipid Microsphere 0 ml 06/02/24 02:07 Perflutren Lipid Microspheres 1.5 Ml Vial Diluted To 10 Ml Total Volume IV PUSH 06/05/24 02:07 ONCE PRN adequate visualization Protocol Sodium Chloride 10 ml 06/03/24 14:00 06/03/24 13:43 Central Line Flush IV PUSH [address] Administration Sodium Chloride 20 ml 06/03/24 13:00 Central Line Flush IV PUSH PRN PRN after blood draws Vancomycin HCl 1 each 06/02/24 06:52 Vancomycin For Acute Kidney Injury IVPB PRN PRN Vancomycin Protocol Radiology Results: ITS Impressions Abdomen X-Ray 06/01/24 19:47 IMPRESSION: NG tube, in good position. Renal Ultrasound 06/03/24 08:44 IMPRESSION: Mild right-sided hydronephrosis. Size asymmetry between the bilateral kidneys. No findings suggesting medical renal disease. Incidental notation is made of bilateral pleural effusions. Chest X-Ray 06/03/24 09:35 IMPRESSION: 1. Stable diffuse lung disease, consistent with pulmonary edema versus pneumonia. 2. Stable small pleural effusions. 3. Central line tip at the superior cavoatrial junction. Labs Labs: Laboratory Tests 06/03/24 04:02 06/03/24 04:02 WBC 2.5 L Hgb 11.7 L Hct 34.2 L Plt Count 12* L Lactic Acid 9.2* Calcium 9.1 Phosphorus 4.0 Magnesium 1.5 L Total Bilirubin 0.6 AST 5044 H ALT 1138 H Alkaline Phosphatase 31 H Total Creatine Kinase 3093 H Total Protein 4.0 Albumin 2.6 L INR 4.0 Microbiology 06/01/24 15:05 Blood Blood Culture - Preliminary 06/01/24 16:00 Blood Blood Culture - Preliminary
[2024-06-03 12:02] LABS: Lactic Acid 9.2 mmol/L (0.7-2.0)
[2024-06-03] MEDS: EPINEPHrine INJ 4 MG in DEXTROSE 5% IN WATER 250 ML 57.15 MG IV CONT (12:08)
[2024-06-03 12:57] LABS: pH ABG 7.236 (7.350-7.450)
[2024-06-03 12:58] LABS: Arterial Blood Gas PEEP 14 cmH2O; Arterial Blood Gas Tidal Volume 450 ml; Arterial Blood Gas Vent Mode CMV; Arterial Blood Gas Ventilator rate 28 /MIN; Device VENTILATOR; Site Drawn ARTLINE
[2024-06-03] MEDS: CENTRAL LINE FLUSH 10 ML IV PUSH ×2 (13:43→22:25)
[2024-06-03 13:52] LABS: Glucose Point of Care 207 mg/dl (65-105)
[2024-06-03 13:52] LABS: Glucose Point of Care 185 mg/dl (65-105)
[2024-06-03 13:52] LABS: Glucose Point of Care 109 mg/dl (65-105)
[2024-06-03 13:52] LABS: Glucose Point of Care 100 mg/dl (65-105)
[2024-06-03 13:52] LABS: Glucose Point of Care 98 mg/dl (65-105)
[2024-06-03 14:14] LABS: Alveolar/Arterial O2 Gradient 604.4 mmHg; Base Excess ABG -18.3 mEq/l (+/-2.0); Fractional Inspired Oxygen 100 %; HCO3 ABG 10.3 mEq/l (22.0-26.0); Oxygen Content ABG 15.7 %vol (16.0-22.0); Oxygen Saturation ABG 89.2 % (95.0-100.0); Oxyhemoglobin 89.9 % THb (90.0-100.0); PCO2 ABG 34.4 mmHg (35.0-45.0); PO2 ABG 74.2 mmHg (80.0-100.0); PO2 FiO2 Ratio Arterial Blood 0.74 %; Total Hemoglobin 12.4 g/dL (12.0-18.0)
[2024-06-03 14:16] LABS: pH ABG 7.096 (7.350-7.450)
[2024-06-03 14:17] LABS: Device VENTILATOR; Site Drawn RIGHT FEMORAL
[2024-06-03 14:18] LABS: Arterial Blood Gas PEEP 14 cmH2O; Arterial Blood Gas Vent Mode PRESSURE CONTROL; Arterial Blood Gas Ventilator rate 26 /MIN
[2024-06-03 15:11] LABS: Glucose Point of Care 105 mg/dl (65-105)
[2024-06-03 16:32] LABS: Glucose Point of Care 169 mg/dl (65-105)
[2024-06-03] MEDS: MIDAZOLAM 100MG/NS 100ML(*CRX) 100 MG/100 ML BAG IV CONT (17:03)
[2024-06-03 18:07] LABS: Base Excess ABG -13.4 mEq/l (+/-2.0); Carboxyhemoglobin 0.9 % THb (0-2.0); HCO3 ABG 13.9 mEq/l (22.0-26.0); Methemoglobin ABG 0.3 %THb (0-1.5); Oxygen Saturation ABG 89.7 % (95.0-100.0); Oxyhemoglobin 89.3 % THb (90.0-100.0); PO2 ABG 68.9 mmHg (80.0-100.0); Reduced Hemoglobin 9.5 %THb (0-5.0); Total Hemoglobin 12.7 g/dL (12.0-18.0)
[2024-06-03 18:10] LABS: pH ABG 7.192 (7.350-7.450)
[2024-06-03 18:11] LABS: Site Drawn ARTLINE
[2024-06-03 18:12] LABS: Device VENTILATOR
[2024-06-03] MEDS: EPINEPHrine INJ 4 MG in DEXTROSE 5% IN WATER 250 ML 64.77 MG IV CONT (18:49)
[2024-06-03 19:10] LABS: Glucose Point of Care 119 mg/dl (65-105)
[2024-06-03 19:10] LABS: Glucose Point of Care 98 mg/dl (65-105)
[2024-06-03 19:10] LABS: Glucose Point of Care 130 mg/dl (65-105)
[2024-06-03] MEDS: NOREPINEPHRINE 8 MG/D5W 250 ML 8 MG/250 ML BAG 56.25 MG IV CONT (20:15)
[2024-06-03 20:18] LABS: Glucose Point of Care 263 mg/dl (65-105)
[2024-06-03] MEDS: OSELTAMIVIR PHOSPHATE ORAL SUSP 30 MG/5 ML SYRINGE FEED TUBE (21:10)
[2024-06-03 21:16] LABS: Glucose Point of Care 258 mg/dl (65-105)
[2024-06-03 21:56] LABS: Vancomycin Random 10.1 ug/mL (10-20)
[2024-06-03] MEDS: VANCOMYCIN 1,000 MG/NS 250 ML 1,000 MG/250 ML BAG 250 MG IVPB (22:25)
[2024-06-03 22:29] LABS: Glucose Point of Care 235 mg/dl (65-105)
[2024-06-03 23:51] LABS: Glucose Point of Care 268 mg/dl (65-105)
[2024-06-04] VITALS (46 sets, daily range): BP systolic 90–172; BP diastolic 45–103; PULSE 62–881; RESP 8–32; TEMP 35.3–36.6; O2SAT 81–91
[2024-06-04] MEDS: EPINEPHrine INJ 4 MG in DEXTROSE 5% IN WATER 250 ML 41.91 MG IV CONT
[2024-06-04 00:13] LABS: Glucose Point of Care 252 mg/dl (65-105)
[2024-06-04] MEDS: CEFEPIME 1 GM/NS 50 ML 1 GM/50 ML BAG IVPB ×2 (00:25→21:21)
[2024-06-04 00:31] LABS: Alveolar/Arterial O2 Gradient 600.4 mmHg; Base Excess ABG -19.3 mEq/l (+/-2.0); Carboxyhemoglobin 0.2 % THb (0-2.0); Fractional Inspired Oxygen 100 %; HCO3 ABG 8.9 mEq/l (22.0-26.0); Methemoglobin ABG 0.3 %THb (0-1.5); Oxygen Content ABG 16.1 %vol (16.0-22.0); Oxygen Saturation ABG 92.4 % (95.0-100.0); Oxyhemoglobin 92.6 % THb (90.0-100.0); PCO2 ABG 29.1 mmHg (35.0-45.0); PO2 ABG 83.5 mmHg (80.0-100.0); PO2 FiO2 Ratio Arterial Blood 0.83 %; Reduced Hemoglobin 6.9 %THb (0-5.0); Total Hemoglobin 12.3 g/dL (12.0-18.0)
[2024-06-04 00:33] LABS: Device VENTILATOR; Site Drawn ARTLINE; pH ABG 7.105 (7.350-7.450)
[2024-06-04 00:34] LABS: Arterial Blood Gas PEEP 14 cmH2O; Arterial Blood Gas Tidal Volume 450 ml; Arterial Blood Gas Vent Mode CMV; Arterial Blood Gas Ventilator rate 28 /MIN
[2024-06-04] MEDS: SODIUM BICARBONATE 8.4% 50 MEQ/50 ML SYRINGE 100 MEQ IV PUSH ×2 (01:52→05:35)
[2024-06-04] MEDS: PHENYLEPHRINE HCL INJ 50 MG in DEXTROSE 5% IN WATER 250 ML/245 ML BAG 54 ML IV CONT ×5 (02:00→21:00)
[2024-06-04 03:14] LABS: Glucose Point of Care 265 mg/dl (65-105)
[2024-06-04 03:14] LABS: Glucose Point of Care 245 mg/dl (65-105)
[2024-06-04 04:52] LABS: Base Excess ABG -16.9 mEq/l (+/-2.0); Carboxyhemoglobin 0.3 % THb (0-2.0); Fractional Inspired Oxygen 100 %; HCO3 ABG 10.4 mEq/l (22.0-26.0); Oxygen Content ABG 16.7 %vol (16.0-22.0); Oxygen Saturation ABG 94.7 % (95.0-100.0); Oxyhemoglobin 94.6 % THb (90.0-100.0); PCO2 ABG 29.6 mmHg (35.0-45.0); PO2 ABG 90.4 mmHg (80.0-100.0); Reduced Hemoglobin 5.1 %THb (0-5.0); Total Hemoglobin 12.5 g/dL (12.0-18.0)
[2024-06-04 04:53] LABS: Arterial Blood Gas PEEP 14 cmH2O; Arterial Blood Gas Tidal Volume 450 ml; Arterial Blood Gas Vent Mode CMV; Arterial Blood Gas Ventilator rate 26 /MIN; Device VENTILATOR; Site Drawn ARTLINE; pH ABG 7.162 (7.350-7.450)
[2024-06-04 04:56] LABS: Basophils Percent Auto 0.2 % (0.2-1.2); Hematocrit 35.8 % (37.0-47.0); Hemoglobin 12.2 g/dL (12.0-15.0); Immature Granulocyte Absolute 0.13 K/mm3 (0.00-0.031); Immature Granulocyte Percent A 2.2 % (0-0.5); Immature Platelet Fraction Pct 9.6 % (0.9-11.2); Lymphocytes Absolute Auto 0.82 K/mm3 (0.9-3.2); Lymphocytes Percent Auto 13.6 % (18.3-44.2); Mean Corpuscular HGB Conc 34.1 g/dl (32-36); Mean Corpuscular Hemoglobin 28.8 pg (26-34); Mean Corpuscular Volume 84.4 fl (80-100); Mean Platelet Volume 10.2 fl (7.4-10.4); Monocytes Absolute Auto 0.1 K/mm3 (0.1-0.6); Monocytes Percent Auto 1.8 % (2.6-8.5); Neutrophils Percent Auto 82.2 % (45.5-73.1); Nucleated Red Blood Cells Perc 0.5 % (0.0-0.2); Red Blood Count 4.24 M/mm3 (4.2-5.4)
[2024-06-04 05:09] LABS: INR 2.6; Prothrombin Time 28.2 Seconds (11.1-14.7)
[2024-06-04 05:10] LABS: Partial Thromboplastin Time 43.5 Seconds (22.3-36.8)
[2024-06-04 05:13] LABS: Albumin Level 2.4 g/dL (3.5-5.1); Alkaline Phosphatase 111 U/L (38-126); Anion Gap 28 mmol/L (4-12); Bilirubin,Total 1.5 mg/dL (0.2-1.3); Blood Urea Nitrogen 35 mg/dL (7-17); Calcium 5.3 mg/dL (8.4-10.2); Carbon Dioxide 11 mmol/L (22-30); Chloride 75 mmol/L (98-107); Estimated CRCL calculation 13 ml/min; Estimated Glomerular Filt Rate 14; Glucose 261 mg/dL (65-110); Lipase 706 U/L (23-300); Phosphorus 10.8 mg/dL (2.5-4.5); Potassium 4.9 mmol/L (3.4-5.0); Sodium 114 mmol/L (137-145)
[2024-06-04 05:14] LABS: Lactic Acid Reflex 17.3 mmol/L (0.7-2.0)
[2024-06-04 05:16] LABS: Glucose Point of Care 250 mg/dl (65-105)
[2024-06-04 05:22] LABS: Platelet Count Result 25 k/mm3 (150-375); Platelet Estimate Decreased (Adequate)
[2024-06-04 05:23] LABS: Schistocytes None Seen
[2024-06-04 05:31] LABS: Alanine Aminotransferase 2485 U/L (6-35)
[2024-06-04] MEDS: CALCIUM GLUC 2,000 MG/NS 100ML 2,000 MG/100 ML BAG 100 MG IVPB ×2 (05:35→21:15)
--- NOTE | 2024-06-04 05:45 | PC.NURSE ---
family called for drastic change in labs, and change in HR. daughter and grand daughter at bedside
[2024-06-04 05:50] LABS: Creatine Kinase 10868 U/L (30-135)
[2024-06-04 06:02] LABS: Aspartate Amino Transferase > 7500 U/L (14-36)
[2024-06-04 07:52] LABS: Reflex Lactic Acid Yes or No Add Lactic
[2024-06-04] MEDS: CENTRAL LINE FLUSH 10 ML IV PUSH ×3 (08:16→21:35)
[2024-06-04] MEDS: PANTOPRAZOLE SODIUM IV 40 MG VIAL IV PUSH ×2 (08:16→21:34)
[2024-06-04] MEDS: MINERAL OIL/WHITE PETROLATUM OINTMENT 1 APPLIC EACH EYE ×2 (08:16→21:19)
[2024-06-04] MEDS: MUPIROCIN 2% OINT 22 GM TUBE 1 APPLIC EACH NARE ×2 (08:16→21:25)
[2024-06-04 08:51] LABS: Glucose Point of Care 267 mg/dl (65-105)
[2024-06-04 09:12] LABS: Lactic Acid 15.6 mmol/L (0.7-2.0)
[2024-06-04 09:19] LABS: Glucose Point of Care 253 mg/dl (65-105)
--- NOTE | 2024-06-04 10:00 | P.PNNP_ITS ---
Progress Note: A&P Assessment and Plan (1) Acute kidney injury: Code(s): N17.9 - Acute kidney failure, unspecified Status: Acute Assessment and Plan: * continues to worsen * normal renal function at baseline * significant deterioration noted since admission (< 24 hours) with creatinine up to 2.8mg/dl * likely ATN with multifactorial etiology: * hemodynamic instability/shock * sepsis/infection * hypoxia * prerenal factors * other(?) * s/p aggressive IVF resuscitation * on maintenance IVFs with bicarb * on significant vasopressor support in an effort to maintain MAP * evaluation to date noted: * renal ultrasound with mild right hydronephrosis and kidney size asymmetry * rising CPK noted * urine eosinophils negative * urine electrolytes indeterminate * UA not indicative of infection * no significant response to IV diuretics * [employer]/dialysis is a consideration but she is not a candidate at this time due to her hemodynamics instability * certainly would not tolerated regular intermittent hemodialysis * doubt she would even tolerate continuous renal replacement therapy (CRRT) either... * continue follow trend of repeat labs and UOP (2) Septic shock: Code(s): A41.9 - Sepsis, unspecified organism; R65.21 - Severe sepsis with septic shock Status: Acute Assessment and Plan: * as noted on presentation - hypoxia, hypotension, acute confusion, leukopenia, and lactic acidosis * s/p aggressive IVF resuscitation * due to persistent hypotension despite IVFs, central line placed * currently on maximum doses of Levophed, Herbie-Synephrine, vasopressin and epinephrine * attempting to maintain MAP > 65 mmHg (but limited effectiveness noted) * on stress dose steroids as well * follow culture data * on antibiotics and Tamiflu (3) Acute respiratory failure with hypoxia: Code(s): J96.01 - Acute respiratory failure with hypoxia Status: Acute Assessment and Plan: * secondary to influenza A and pneumonia * may have progressed to ARDS given severity of hypoxia * prone positioning instituted * follow ABGs and CXRs * not stable for transport for CT imaging * continue ventilator support (4) Metabolic acidosis: Code(s): E87.20 - Acidosis, unspecified Status: Acute Assessment and Plan: * due several issues: * acute kidney injury/acute renal failure * lactic acidosis (which continues to worsen) * sepsis/septic shock * likely bowel ischemia * metformin use (?) * on bicarbonate infusion and PRN IVPs to compensate (5) Electrolyte abnormality: Code(s): E87.8 - Other disorders of electrolyte and fluid balance, not elsewhere classified Status: Acute Assessment and Plan: * hyponatremia: * due to SKY/ARF and volume overload (almost 18L positive) * diuretics of limited utility since not responsive * 3% saline would likely worsen volume overload status * salt tablets not likely to be absorbed * hence, no optimal solution to treat this issue * hypocalcemia * due to acidosis and use of bicarb fluid * replace as needed * hyperphosphatemia * due to ongoing SKY/ARF * will likely worsen as does renal function (6) Influenza A: Code(s): J10.1 - Influenza due to other identified influenza virus with other respiratory manifestations Status: Acute Assessment and Plan: * as noted by testing in ER * on Tamiflu (7) Transaminitis: Code(s): R74.01 - Elevation of levels of liver transaminase levels Status: Acute Assessment and Plan: * likely secondary to shock liver in the context of hypoxia and hypotension * continues to worsen along with coagulopathy * follow trend of LFTs (8) Type 2 diabetes mellitus: Code(s): E11.9 - Type 2 diabetes mellitus without complications Status: Acute Assessment and Plan: * on insulin gtt * secondary to #2 * however, suspect poor glycemic control prior to admission (noted HgbA1c of 12.6) * follow accu-cheks * 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 Discussed with Dr. Fuentes. Will continue to follow. L Subjective Date/time seen: 06/04/24 10:00 Interval history: Folloiw-up for acute kidney injury/acute renal failure. Remains intubated/sedated/paralyzed and on mechanical ventilation in the prone position; still requiring maximum doses of 4 vasopressors (levophed, vasopressin, herbie-synephrine and epinephrine) at this time; requiring insulin gtt for hyperglycemia, worsening lactic acidosis, liver function tests, coagulation profile and CPK in association with anuria, hyponatremia, hyperphosphatemia, and hypocalcemia. Exam 2 Narrative: General: ill-appearing female intubated/sedated/paralyzed on mechanical ventilation in prone position Heart: normal S1 and S2; no rub Lungs: coarse with decreased breath sounds at bases Abdomen: soft, nontender, nondistended, decreased bowel sounds Extremities: no cyanosis or clubbing; traceedema Skin: cool to touch Objective Data Vital Signs Vital Signs: Vital Signs Temp Pulse Resp BP Pulse Ox O2 Del Method FiO2 06/04/24 10:00 97.5 F L 116 H 32 H 100/86 81 L 06/04/24 09:02 Mechanical Ventilation 100 06/04/24 08:20 113 H 26 H 06/04/24 08:20 113 H Mechanical Ventilation 100 06/04/24 08:00 91 26 H Mechanical Ventilation 100 06/04/24 08:00 100 06/04/24 08:00 91 06/04/24 08:00 96.8 F L 90 26 H 94/75 L 06/04/24 06:59 111 H 28 H 06/04/24 06:00 111 H 28 H 06/04/24 06:00 111 H 8 L 97/81 L 06/04/24 06:00 111 H 97/81 L 06/04/24 06:00 111 H 97/81 L 06/04/24 06:00 111 H 97/81 L 06/04/24 06:00 111 H 97/81 L 06/04/24 06:00 111 H 97/81 L 06/04/24 06:00 96.5 F L 111 H 28 H 97/81 L 06/04/24 06:00 111 H 06/04/24 05:52 115 H 26 H 06/04/24 05:48 115 H Mechanical Ventilation 06/04/24 05:00 96.5 F L 108 H 28 H 145/64 H 06/04/24 05:00 88 145/64 H 06/04/24 04:00 96.6 F L 113 H 28 H 145/70 H 06/04/24 04:00 100 06/04/24 04:00 881 H 06/04/24 04:00 88 28 H Mechanical Ventilation 100 06/04/24 04:00 113 H 28 H 06/04/24 04:00 113 H 28 H 06/04/24 04:00 113 H 145/70 H 06/04/24 04:00 113 H 145/70 H 06/04/24 04:00 113 H 145/70 H 06/04/24 04:00 113 H 145/70 H 06/04/24 03:00 113 H 8 L 100 06/04/24 03:00 89 26 H 06/04/24 02:15 83 Mechanical Ventilation 100 06/04/24 02:00 96.6 F L 83 28 H 144/69 H 06/04/24 02:00 83 28 H 06/04/24 02:00 83 28 H 06/04/24 02:00 83 28 H 144/69 H 06/04/24 02:00 89 144/69 H 06/04/24 02:00 86 144/69 H 06/04/24 02:00 87 144/69 H 06/04/24 02:00 85 144/69 H 06/04/24 02:00 85 144/69 H 06/04/24 01:55 83 06/04/24 01:30 83 26 H 06/04/24 00:00 96.9 F L 84 28 H 99/61 L 06/04/24 00:00 100 06/04/24 00:00 84 06/04/24 00:00 84 28 H Mechanical Ventilation 100 06/04/24 00:00 84 28 H 06/04/24 00:00 84 28 H 06/04/24 00:00 84 28 H 99/61 L 06/04/24 00:00 84 99/61 L 06/04/24 00:00 84 99/61 L 06/04/24 00:00 84 99/61 L 06/04/24 00:00 86 99/61 L 06/04/24 00:00 84 99/61 L 06/04/24 00:00 84 99/61 L 06/03/24 23:30 88 31 H 06/03/24 23:30 83 28 H 104/58 L 06/03/24 23:00 88 Mechanical Ventilation 100 06/03/24 23:00 86 121/66 06/03/24 23:00 86 121/66 06/03/24 23:00 86 28 H 100 06/03/24 22:30 88 28 H 118/65 06/03/24 22:00 97.6 F 90 28 H 118/76 06/03/24 22:00 89 06/03/24 22:00 86 28 H 100 06/03/24 22:00 89 28 H 06/03/24 22:00 89 28 H 06/03/24 22:00 89 28 H 120/65 06/03/24 22:00 89 120/65 06/03/24 22:00 89 120/65 06/03/24 22:00 89 120/65 06/03/24 22:00 89 120/65 06/03/24 21:30 87 28 H 06/03/24 21:30 87 142/64 H 06/03/24 21:10 0 L 142/75 H 06/03/24 21:10 90 142/75 H 06/03/24 21:00 89 142/75 H 06/03/24 20:30 97.6 F 90 28 H 144/81 H 06/03/24 20:25 87 Mechanical Ventilation 100 06/03/24 20:20 91 140/73 06/03/24 20:15 91 142/74 H 06/03/24 20:15 91 142/74 H 06/03/24 20:15 97.6 F 91 28 H 142/74 H 06/03/24 20:00 97.7 F 91 28 H 140/73 06/03/24 20:00 91 28 H 06/03/24 20:00 91 28 H 06/03/24 20:00 91 28 H 140/73 06/03/24 20:00 91 140/73 06/03/24 20:00 91 140/73 06/03/24 20:00 91 140/73 06/03/24 19:36 113 H 26 H 06/03/24 19:29 100 06/03/24 19:29 92 06/03/24 19:25 93 28 H Mechanical Ventilation 100 06/03/24 18:49 93 140/73 06/03/24 18:49 93 140/73 06/03/24 18:00 97.8 F 93 28 H 139/74 06/03/24 18:00 93 06/03/24 18:00 94 28 H 06/03/24 18:00 94 28 H 06/03/24 18:00 94 28 H 140/73 06/03/24 18:00 94 140/73 06/03/24 18:00 94 140/73 06/03/24 18:00 94 140/73 06/03/24 18:00 94 140/73 06/03/24 17:51 94 28 H 06/03/24 17:03 93 28 H 06/03/24 17:03 93 28 H 06/03/24 17:03 93 117/66 06/03/24 17:03 93 117/66 06/03/24 16:40 94 133/68 06/03/24 16:40 94 133/68 06/03/24 16:33 94 28 H 06/03/24 16:31 94 Mechanical Ventilation 100 Intake/Output Intake/Output: Intake & Output 06/01/24 06/02/24 06/03/24 06/04/24 23:59 23:59 23:59 23:59 Intake Total 3439.2 6510.9 8707.7 1704.3 Output Total 435 760 300 Balance 3439.2 6075.9 7947.7 1404.3 Meds/Results Medications: Active Medications Generic Name Dose Route Start Last Admin Trade Name Freq PRN Reason Stop Dose Admin Acetaminophen 650 mg 06/02/24 07:27 06/02/24 09:10 Acetaminophen Elixir 325 Mg/10.15 Ml Udc FEED TUBE 650 mg Q6H PRN Administration Mild Pain (1-3) or Fever Acetylcysteine 200 mg 06/02/24 08:00 06/03/24 08:10 Acetylcysteine 20% Inhal Soln 800 Mg/4 Ml Vial INHALATION [address] Administration Dextrose 12.5 gm 06/02/24 04:03 Dextrose 50% 25 Gm/50 Ml Syringe IV PUSH PRN PRN Hypoglycemia Protocol Epoprostenol Sodium 1 mg 06/03/24 07:39 06/04/24 11:38 Epoprostenol Sodium 0.5 Mg Vial INHALATION 1 mg PRN PRN Administration Titrate Glucagon 1 mg 06/02/24 04:03 Glucagon For Inj 1 Mg Vial IM PRN PRN Hypoglycemia Protocol Glucose 15 gm 06/02/24 04:03 Glucose Oral Gel 15 Gm Of Glucse In 37.5 Gm Tube PO PRN PRN Hypoglycemia Protocol Hydrocortisone Sodium Succinate 100 mg 06/02/24 14:00 06/04/24 13:41 Hydrocortisone Sodium Succinate 100 Mg/2 Ml Vial IV PUSH [address] Administration Azithromycin 500 mg in 250 mls @ 250 mls/hr 06/02/24 12:00 06/04/24 11:59 Zithromax IVPB 06/06/24 23:59 200 mls/hr Q24H COURT Administration Norepinephrine Bitartrate 8 mg in 250 mls @ 37.5 mls/hr 06/01/24 22:15 06/04/24 15:23 Levophed 8 Mg/D5w 250 Ml IV CONT 30 mcg/min .Q6H40M COURT 56.25 mls/hr Administration Protocol 20 MCG/MIN Vasopressin 100 units/ 100 mls @ 2.4 mls/hr 06/02/24 01:10 06/04/24 06:00 Dextrose IV CONT 0.04 units/min .[id number] COURT 2.4 mls/hr Titration Protocol 0.04 UNITS/MIN Phenylephrine HCl 50 mg/ 250 ml in 250 mls @ 54 mls/hr 06/02/24 03:55 06/04/24 11:10 Dextrose IV CONT 180 mcg/min .Q4H38M COURT 54 mls/hr Administration Protocol 180 MCG/MIN Dextrose 1,000 mls @ 100 mls/hr 06/02/24 04:03 Dextrose 5% 1,000 Ml IVPB PRN PRN Hypoglycemia Protocol Cisatracurium Besylate 200 mg/ 100 mls @ 1.905 mls/hr 06/02/24 10:15 06/04/24 06:00 Dextrose IV CONT 1 mcg/kg/min .[id number] COURT 1.91 mls/hr Titration Protocol 1 MCG/KG/MIN Epinephrine HCl 4 mg/ Dextrose 254 mls @ 15.24 mls/hr 06/02/24 13:45 06/04/24 15:02 IV CONT 4 mcg/min .[id number] COURT 15.24 mls/hr Titration Protocol 4 MCG/MIN Midazolam HCl 100 mg in 100 mls @ 3 mls/hr 06/02/24 15:05 06/04/24 06:00 Versed 100 Mg/Ns 100 Ml IV CONT 3 mg/hr .[id number] COURT 3 mls/hr Titration Protocol 3 MG/HR Fentanyl Citrate 2,500 mcg in 250 mls @ 5 mls/hr 06/03/24 07:30 06/04/24 06:59 Fentanyl 2,500 Mcg/Ns 250 Ml IV CONT 50 mcg/hr .Q50H COURT 5 mls/hr Titration Protocol 50 MCG/HR Insulin Human Regular 100 100 mls @ 7.5 mls/hr 06/03/24 07:55 06/04/24 14:47 units/ Sodium Chloride IV CONT 7.5 unit/hr .[id number] COURT 7.5 mls/hr Administration Protocol 7.5 UNIT/HR Cefepime HCl 1 gm in 50 mls @ 100 mls/hr 06/04/24 21:00 Maxipime 1 Gm/Ns [address] Ipratropium [place] 0.5 mg 06/02/24 08:00 06/03/24 08:11 Ipratropium Br 0.02% Inh Soln 0.5 Mg/2.5 Ml Vial INHALATION 0.[address] Administration Levalbuterol HCl 1.25 mg 06/02/24 08:00 06/03/24 08:11 Levalbuterol Neb 1.25 Mg/3 Ml INHALATION 1.[address] Administration Multi-Ingred Cream/Lotion/Oil/Oint 1 applic 06/02/24 10:05 06/04/24 08:16 Mineral Oil/White Petrolatum Ointment EACH EYE [address] Administration Mupirocin 1 applic 06/02/24 09:00 06/04/24 08:16 Mupirocin 2% Oint 22 Gm Tube EACH NARE 06/06/24 21:[address] Administration Ondansetron HCl 4 mg 06/01/24 16:52 Ondansetron Inj 4 Mg/2 Ml Vial IV PUSH Q4H PRN Nausea Oseltamivir Phosphate 30 mg 06/02/24 21:00 06/03/24 21:10 Oseltamivir Phosphate Oral Susp 30 Mg/5 Ml Syringe FEED TUBE 06/05/24 21:[address] Administration Pantoprazole Sodium 40 mg 06/03/24 21:00 06/04/24 08:16 Pantoprazole Sodium Iv 40 Mg Vial IV PUSH [address] Administration Perflutren Lipid Microsphere 0 ml 06/02/24 02:07 Perflutren Lipid Microspheres 1.5 Ml Vial Diluted To 10 Ml Total Volume IV PUSH 06/05/24 02:07 ONCE PRN adequate visualization Protocol Sodium Chloride 10 ml 06/03/24 14:00 06/04/24 13:41 Central Line Flush IV PUSH [address] Administration Sodium Chloride 20 ml 06/03/24 13:00 Central Line Flush IV PUSH PRN PRN after blood draws Vancomycin HCl 1 each 06/02/24 06:52 Vancomycin For Acute Kidney Injury IVPB PRN PRN Vancomycin Protocol Radiology Results: ITS Impressions Abdomen X-Ray 06/01/24 19:47 IMPRESSION: NG tube, in good position. Renal Ultrasound 06/03/24 08:44 IMPRESSION: Mild right-sided hydronephrosis. Size asymmetry between the bilateral kidneys. No findings suggesting medical renal disease. Incidental notation is made of bilateral pleural effusions. Chest X-Ray 06/03/24 09:35 IMPRESSION: 1. Stable diffuse lung disease, consistent with pulmonary edema versus pneumonia. 2. Stable small pleural effusions. 3. Central line tip at the superior cavoatrial junction. Labs Labs: Laboratory Tests 06/04/24 04:43 06/04/24 04:43 ABG pH 7.162 L* ABG pCO2 29.6 L ABG pO2 90.4 ABG PO2/FiO2 Ratio 0.90 ABG HCO3 10.4 L ABG O2 Saturation 94.7 L ABG O2 Content 16.7 ABG Base Excess -16.9 A-a Gradient 593.0 Oxyhemoglobin 94.6 Carboxyhemoglobin 0.3 Methemoglobin 0.0 Reduced Hemoglobin 5.1 H Total Hemoglobin 12.5 O2 Delivery Device Ventilator Vent Rate 26 Vent Mode Cmv FiO2 100 Tidal Volume 450 PEEP 14 Lactic Acid 17.3 H* Calcium 5.3 L* Phosphorus 10.8 H Magnesium 2.0 Total Bilirubin 1.5 H AST > 7500 H ALT 2485 H Alkaline Phosphatase 111 Total Creatine Kinase 37979 H Total Protein 4.0 L Albumin 2.4 L Lipase 706 H
[2024-06-04 10:57] LABS: Alveolar/Arterial O2 Gradient 608.5 mmHg; Base Excess ABG -12.6 mEq/l (+/-2.0); Fractional Inspired Oxygen 100 %; HCO3 ABG 14.8 mEq/l (22.0-26.0); Oxygen Content ABG 16.3 %vol (16.0-22.0); Oxygen Saturation ABG 88.3 % (95.0-100.0); PO2 ABG 65.5 mmHg (80.0-100.0); PO2 FiO2 Ratio Arterial Blood 0.65 %; Total Hemoglobin 13.3 g/dL (12.0-18.0)
[2024-06-04 11:00] LABS: Oxyhemoglobin 87.1 % THb (90.0-100.0); pH ABG 7.196 (7.350-7.450)
[2024-06-04 11:01] LABS: Arterial Blood Gas Ventilator rate 32 /MIN; Device VENTILATOR; Site Drawn ARTLINE
[2024-06-04 11:02] LABS: Arterial Blood Gas Vent Mode CMV
[2024-06-04 11:03] LABS: Arterial Blood Gas PEEP 14 cmH2O; Arterial Blood Gas Tidal Volume 390 ml
[2024-06-04] MEDS: NOREPINEPHRINE 8 MG/D5W 250 ML 8 MG/250 ML BAG 56.25 MG IV CONT ×4 (11:09→20:00)
[2024-06-04 11:26] LABS: Arterial Blood Gas PEEP 14 cmH2O; Arterial Blood Gas Tidal Volume 450 ml; Arterial Blood Gas Vent Mode CMV; Arterial Blood Gas Ventilator rate 28 /MIN
[2024-06-04 11:27] LABS: Fractional Inspired Oxygen 100 %
[2024-06-04 11:28] LABS: Glucose Point of Care 260 mg/dl (65-105)
[2024-06-04 11:28] LABS: Glucose Point of Care 242 mg/dl (65-105)
[2024-06-04 11:29] LABS: pH ABG 7.273 (7.350-7.450)
[2024-06-04 11:30] LABS: Arterial Blood Gas PEEP 14 cmH2O; Arterial Blood Gas Tidal Volume 450 ml; Arterial Blood Gas Vent Mode CMV; Arterial Blood Gas Ventilator rate 28 /MIN; Device VENTILATOR
[2024-06-04] MEDS: EPOPROSTENOL SODIUM 0.5 MG VIAL 1 MG INHALATION ×3 (11:38→22:33)
--- NOTE | 2024-06-04 11:40 | PCNFU ---
Nutrition Follow-Up Complete: Inadequate energy intake related to hemodynamic instability, as evidenced by need for full pressor support and hold tube feeding. Meet estimated protein energy needs - Not progressing. Not able to start feeding because of hemodynamic instability Goal: Pt current nutrition is NPO. Nutrition recommendation: Continue to hold tube feeding until more adequately perfused. Agree with NPO order Last recorded weight is 63.5 kg. Bowel Motility: No BMs Labs Reviewed: Hct 35.8, Alb 2.4, Na 114, GFR 14, BUN 35, Cre 3.9, Glu 261 Meds Noted: Versed, fentanyl, Nimbex. Pressors: Levophed, vasopressin, epinephrine, phenylephrine. Protonix, zofran, insulin Skin: WNL Additional Notes: Pt is proned. No feedings today because of need for full pressors support. Monitoring Monitoring plan of care, meds, weights, labs, output Follow up Every 3 days, daily in rounds
[2024-06-04] MEDS: AZITHROMYCIN 500 MG/NS 250 ML 500 MG/250 ML BAG 200 MG IVPB (11:59)
[2024-06-04 12:25] LABS: Glucose Point of Care 249 mg/dl (65-105)
--- NOTE | 2024-06-04 12:54 | WPDINTPN ---
Progress Note: A&P Assessment and Plan (1) Septic shock: Code(s): A41.9 - Sepsis, unspecified organism; R65.21 - Severe sepsis with septic shock Status: Acute Assessment and Plan: 06/01: Patient presented to from urgent care via EMS for hypoxia, confusion, cough, hypotensive, -receive 3 L IV fluid bolus, -06/02: worsening renal function, hyperglycemia, significant elevation in LFTs likely related to shock -remains on stress dose steroids -cough bicarb infusion, has been requiring IV bicarb pushes -06/01: Preliminary blood cultures are negative -06/02/2024: Sputum cultures have been obtained and pending -Continue cefepime, vancomycin, Tamiflu, azithromycin (06/01), all renally dosed -06/03: right IJ central line was pulled out 4 cm since it was 20 cm catheter and sitting in the high right atria. Currently on maximum doses of Levophed, phenylephrine, vasopressin, epinephrine to maintain MAP > 65 mmHg at all times for adequate end organ perfusion -lactic acid, LFTs, CK level remain elevated -lactic acid increased to 17, could be related to ischemic bowel, surgery consulted, very poor prognosis per per surgeon and not a candidate for surgery at this time (2) Acute respiratory failure with hypoxia: Code(s): J96.01 - Acute respiratory failure with hypoxia Status: Acute Assessment and Plan: Acute respiratory failure likely related to influenza A. -intubated in the ER on 06/01/2024 -on CMV mode of ventilation peep of 14, 100% FiO2, ventilator adjusted,Vt 390 mL, rate of 32, peep of 14 and 100% FiO2 -ARDS physiology, low tidal volume strategy along with high PEEP -ABGs and chest x-ray reviewed -06/02: patient was in prone position for [address] patient in prone position again today -06/03 [place] -06/03: Patient was again placed in prone position, trial of Bumex 2 mg IV x1 with no significant urine output -patient to remain in prone position today, 06/04/2024 as remains hypoxic (3) Influenza A: Code(s): J10.1 - Influenza due to other identified influenza virus with other respiratory manifestations Status: Acute Assessment and Plan: Continue Tamiflu, renally dosed per pharmacy (4) Leukopenia: Code(s): D72.819 - Decreased white blood cell count, unspecified Status: Acute Assessment and Plan: Leukopenia and neutropenia likely related to septic shock, bone marrow suppression - Hematology/Oncology has been consulted -continue to monitor -antibiotics as above (5) Acute kidney injury: Code(s): N17.9 - Acute kidney failure, unspecified Status: Acute Assessment and Plan: Patient presented with a creatinine of 0.4 on admission, now in septic shock, creatinine this morning was 2.60 -urine lytes not reflective of prerenal, urine eosinophils are negative, CK levels are elevated -patient has been adequately fluid-resuscitated, maintenance IV fluids were discontinued, patient 18 L in positive fluid balance since admission, oliguric/anuric -06/03/2023: Renal ultrasound showed mild right-sided hydronephrosis size asymmetry between the bilateral kidneys, no findings suggesting medical renal disease -appreciate Nephrology evaluation recommendation. Currently unstable for dialysis since patient is on multiple pressors on maximum doses. -appreciate Nephrology evaluation recommendation -continue to monitor urine output, electrolytes and renal function -continues to be oliguric/anuric, patient on 4 pressors, and in prone position, discussed with Nephrology, patient not a candidate for hemodialysis due to hemodynamic instability. -hyponatremia likely related to dilution given patient is 18 L positive in fluid balance -worsening CK level (6) Transaminitis: Code(s): R74.01 - Elevation of levels of liver transaminase levels Status: Acute Assessment and Plan: Elevated LFTs likely related to hypoxia, hypotension, shock liver -worsening LFTs -will continue to monitor liver function (7) Type 2 diabetes mellitus: Code(s): E11.9 - Type 2 diabetes mellitus without complications Status: Acute Assessment and Plan: Patient with severe hyperglycemia, started on insulin infusion, likely related to septic shock, possible uncontrolled diabetes since patient's hemoglobin A1c is 12.6 this admission. -hyperglycemia finally improved, insulin infusion on minimal dose, will continue -Accu-Cheks per insulin infusion protocol (8) Thrombocytopenia: Code(s): D69.6 - Thrombocytopenia, unspecified Status: Acute Assessment and Plan: Thrombocytopenia likely related to septic shock, bone marrow suppression -patient has not received any heparin or LMWH -Heme-Onc has been consulted -06/03: 1 unit of platelets to be transfused -remains thrombocytopenic with platelet counts of 25 this morning on 06/04 (9) Electrolyte abnormality: Code(s): E87.8 - Other disorders of electrolyte and fluid balance, not elsewhere classified Status: Acute Assessment and Plan: Replace calcium -patient getting p.r.n. bicarb IV pushes Plan DVT prophylaxis: SCDs, no chemoprophylaxis due to thrombocytopenia Stress ulcer prophylaxis: Protonix IV q.12 hours Nutrition: NPO for now Code Status: Full code Critical Care Time Spent: 51 minute minutes Discussed with patient's family which consist of daughters and son and updated them with patient's condition and plan of care. I explained to them that patient is in multiorgan failure, with involvement of lungs, heart, liver dysfunction, acute kidney injury, bone marrow suppression, coagulation defect. I did discuss with them patient is critical and condition is guarded. They are also aware that patient is on 4 blood pressure support medications, on full life support with the breathing machine. I discussed with them regarding code status and also comfort measures. Family stated that they wanted some time discuss among themselves. Family restarted a 100 patient to be a full code and wanted everything to be done in case she has a cardiac arrest. I answered all the questions. The ICU charge nurse was in the conference room with me 06/03: Discussed with 3 daughters, sister, 3 sons and other family members in the conference room, updated them with patient's condition and plan of care. They are aware that patient is on 4 pressors, in prone position with ARDS physiology of her lungs, they also aware that she has acute kidney injury, hyperglycemia, transaminitis elevated LFTs all secondary to severe shock, metabolic acidosis with low blood pressures. I discussed with them in details at the patient condition is guarded and that she could have a cardiac arrest is of low blood pressures, shock, hypoxia, severe metabolic acidosis. Discussed code status and CPR if patient had a cardiac arrest. The daughters agreed to in an initially that they want everything to be done and wanted to be a full code for now and give her chance to fight. Bedside RN was in the conference room with me during the discussion Due to a high probability of clinically significant, life threatening deterioration, the patient required my highest level of preparedness to intervene emergently and I personally spent this critical care time directly and personally managing the patient. This critical care time included obtaining a history; examining the patient; pulse oximetry; ordering and review of studies; arranging urgent treatment with development of a management plan; evaluation of patient's response to treatment; frequent reassessment; and discussions with other providers. It was exclusive of separately billable procedures and treating other patients and teaching time. Please see Assessment and Plan section and the rest of the note for further information on patient assessment and treatment This dictation may have been done utilizing a voice recognition system. Attempts have been made to correct errors. However, there may be uncorrected grammatical, spelling, and recognitions errors present. Subjective Date/time seen: 06/04/24 12:54 Interval history: Reason for consult: Hypoxic respiratory failure, influenza A, ARDS, septic shock, transaminitis, acute kidney injury, leukopenia, lactic acidosis, thrombocytopenia 06/04/2024: Patient seen and examined the ICU, remains intubated on CMV mode of ventilation, 100% FiO2, peep of 14, rate of 26. -Sedated with fentanyl, Versed. Nimbex for neuromuscular blockade. Patient in prone position -Remains on maximum doses of Levophed, vasopressin, Herbie-Synephrine, -epinephrine is being slowly weaned -Minimal urine output. -WBC 6.0, platelets 25 after 1 unit of platelet transfusion yesterday, -patient remains on insulin infusion, blood sugars in the 200s -lactic 17.3 this morning -significantly elevated LFTs and CK level Review of Systems Review of Systems: ROS unobtainable: Yes unobtainable due to endotracheal tube, unobtainable due to medical condition and unobtainable due to mental status Exam Narrative: General: Currently in prone position, intubated and sedated, on neuromuscular blockade HEENT:? Unable to assess pupillary response due to her prone position, periorbital swelling noted Neck:? Supple, right IJ central line Respiratory:? Coarse breath sounds bilaterally, decreased at bases, no wheezing Cardiac:? Regular rate and rhythm, rate controlled Abdomen:? Abdominal was soft, no bowel sounds Extremities:? Cool extremities, decreased pedal pulses Neuro:? Patient is intubated, sedated, on neuromuscular blockade Skin:? Cool to touch, no lesions noted Psych:? Unable to assess at this time Objective Data Vital Signs Vital Signs: Vital Signs - 24 hr 06/03/24 13:41 06/03/24 13:46 06/03/24 14:00 Temperature Pulse Rate 93 93 107 H Respiratory Rate 28 H Blood Pressure 87/61 L 87/61 L 107/67 Pulse Oximetry Oxygen Delivery Fraction of Inspired Oxygen 06/03/24 14:00 06/03/24 14:00 06/03/24 14:00 Temperature Pulse Rate 104 H 104 H 104 H Respiratory Rate Blood Pressure 107/67 107/67 107/67 Pulse Oximetry Oxygen Delivery Fraction of Inspired Oxygen 06/03/24 14:00 06/03/24 14:00 06/03/24 14:00 Temperature Pulse Rate 104 H 104 H 104 H Respiratory Rate 28 H 28 H Blood Pressure 107/67 Pulse Oximetry Oxygen Delivery Fraction of Inspired Oxygen 06/03/24 14:00 06/03/24 14:00 06/03/24 14:13 Temperature 98.8 F Pulse Rate 93 95 91 Respiratory Rate 26 H 26 H Blood Pressure 95/64 L Pulse Oximetry Oxygen Delivery Fraction of Inspired Oxygen 06/03/24 14:29 06/03/24 15:31 06/03/24 15:31 Temperature Pulse Rate 107 H 94 94 Respiratory Rate Blood Pressure 121/67 121/67 Pulse Oximetry Oxygen Delivery Mechanical Ventilation Fraction of Inspired Oxygen 100 06/03/24 16:00 06/03/24 16:00 06/03/24 16:00 Temperature 97.7 F Pulse Rate 94 94 Respiratory Rate 28 H 28 H Blood Pressure 121/68 Pulse Oximetry Oxygen Delivery Mechanical Ventilation Fraction of Inspired Oxygen 100 100 06/03/24 16:00 06/03/24 16:00 06/03/24 16:00 Temperature Pulse Rate 94 94 94 Respiratory Rate 28 H Blood Pressure 124/69 124/68 124/69 Pulse Oximetry Oxygen Delivery Fraction of Inspired Oxygen 06/03/24 16:00 06/03/24 16:00 06/03/24 16:00 Temperature Pulse Rate 94 94 94 Respiratory Rate 28 H Blood Pressure 124/69 124/69 Pulse Oximetry Oxygen Delivery Fraction of Inspired Oxygen 06/03/24 16:00 06/03/24 16:00 06/03/24 16:31 Temperature Pulse Rate 94 94 94 Respiratory Rate 28 H Blood Pressure Pulse Oximetry Oxygen Delivery Mechanical Ventilation Fraction of Inspired Oxygen 100 06/03/24 16:33 06/03/24 16:40 06/03/24 16:40 Temperature Pulse Rate 94 94 94 Respiratory Rate 28 H Blood Pressure 133/68 133/68 Pulse Oximetry Oxygen Delivery Fraction of Inspired Oxygen 06/03/24 17:03 06/03/24 17:03 06/03/24 17:03 Temperature Pulse Rate 93 93 93 Respiratory Rate 28 H Blood Pressure 117/66 117/66 Pulse Oximetry Oxygen Delivery Fraction of Inspired Oxygen 06/03/24 17:03 06/03/24 17:51 06/03/24 18:00 Temperature Pulse Rate 93 94 94 Respiratory Rate 28 H 28 H Blood Pressure 140/73 Pulse Oximetry Oxygen Delivery Fraction of Inspired Oxygen 06/03/24 18:00 06/03/24 18:00 06/03/24 18:00 Temperature Pulse Rate 94 94 94 Respiratory Rate Blood Pressure 140/73 140/73 140/73 Pulse Oximetry Oxygen Delivery Fraction of Inspired Oxygen 06/03/24 18:00 06/03/24 18:00 06/03/24 18:00 Temperature Pulse Rate 94 94 94 Respiratory Rate 28 H 28 H 28 H Blood Pressure 140/73 Pulse Oximetry Oxygen Delivery Fraction of Inspired Oxygen 06/03/24 18:00 06/03/24 18:00 06/03/24 18:49 Temperature 97.8 F Pulse Rate 93 93 93 Respiratory Rate 28 H Blood Pressure 139/74 140/73 Pulse Oximetry Oxygen Delivery Fraction of Inspired Oxygen 06/03/24 18:49 06/03/24 19:25 06/03/24 19:29 Temperature Pulse Rate 93 93 92 Respiratory Rate 28 H Blood Pressure 140/73 Pulse Oximetry Oxygen Delivery Mechanical Ventilation Fraction of Inspired Oxygen 100 06/03/24 19:29 06/03/24 19:36 06/03/24 20:00 Temperature Pulse Rate 113 H 91 Respiratory Rate 26 H Blood Pressure 140/73 Pulse Oximetry Oxygen Delivery Fraction of Inspired Oxygen 100 06/03/24 20:00 06/03/24 20:00 06/03/24 20:00 Temperature Pulse Rate 91 91 91 Respiratory Rate 28 H Blood Pressure 140/73 140/73 140/73 Pulse Oximetry Oxygen Delivery Fraction of Inspired Oxygen 06/03/24 20:00 06/03/24 20:00 06/03/24 20:00 Temperature 97.7 F Pulse Rate 91 91 91 Respiratory Rate 28 H 28 H 28 H Blood Pressure 140/73 Pulse Oximetry Oxygen Delivery Fraction of Inspired Oxygen 06/03/24 20:15 06/03/24 20:15 06/03/24 20:15 Temperature 97.6 F Pulse Rate 91 91 91 Respiratory Rate 28 H Blood Pressure 142/74 H 142/74 H 142/74 H Pulse Oximetry Oxygen Delivery Fraction of Inspired Oxygen 06/03/24 20:20 06/03/24 20:25 06/03/24 20:30 Temperature 97.6 F Pulse Rate 91 87 90 Respiratory Rate 28 H Blood Pressure 140/73 144/81 H Pulse Oximetry Oxygen Delivery Mechanical Ventilation Fraction of Inspired Oxygen 100 06/03/24 21:00 06/03/24 21:10 06/03/24 21:10 Temperature Pulse Rate 89 90 0 L Respiratory Rate Blood Pressure 142/75 H 142/75 H 142/75 H Pulse Oximetry Oxygen Delivery Fraction of Inspired Oxygen 06/03/24 21:30 06/03/24 21:30 06/03/24 22:00 Temperature Pulse Rate 87 87 89 Respiratory Rate 28 H Blood Pressure 142/64 H 120/65 Pulse Oximetry Oxygen Delivery Fraction of Inspired Oxygen 06/03/24 22:00 06/03/24 22:00 06/03/24 22:00 Temperature Pulse Rate 89 89 89 Respiratory Rate Blood Pressure 120/65 120/65 120/65 Pulse Oximetry Oxygen Delivery Fraction of Inspired Oxygen 06/03/24 22:00 06/03/24 22:00 06/03/24 22:00 Temperature Pulse Rate 89 89 89 Respiratory Rate 28 H 28 H 28 H Blood Pressure 120/65 Pulse Oximetry Oxygen Delivery Fraction of Inspired Oxygen 06/03/24 22:00 06/03/24 22:00 06/03/24 22:00 Temperature 97.6 F Pulse Rate 86 89 90 Respiratory Rate 28 H 28 H Blood Pressure 118/76 Pulse Oximetry Oxygen Delivery Fraction of Inspired Oxygen 100 06/03/24 22:30 06/03/24 23:00 06/03/24 23:00 Temperature Pulse Rate 88 86 86 Respiratory Rate 28 H 28 H Blood Pressure 118/65 121/66 Pulse Oximetry Oxygen Delivery Fraction of Inspired Oxygen 100 06/03/24 23:00 06/03/24 23:00 06/03/24 23:30 Temperature Pulse Rate 86 88 83 Respiratory Rate 28 H Blood Pressure 121/66 104/58 L Pulse Oximetry Oxygen Delivery Mechanical Ventilation Fraction of Inspired Oxygen 100 06/03/24 23:30 06/04/24 00:00 06/04/24 00:00 Temperature Pulse Rate 88 84 84 Respiratory Rate 31 H Blood Pressure 99/61 L 99/61 L Pulse Oximetry Oxygen Delivery Fraction of Inspired Oxygen 06/04/24 00:00 06/04/24 00:00 06/04/24 00:00 Temperature Pulse Rate 86 84 84 Respiratory Rate Blood Pressure 99/61 L 99/61 L 99/61 L Pulse Oximetry Oxygen Delivery Fraction of Inspired Oxygen 06/04/24 00:00 06/04/24 00:00 06/04/24 00:00 Temperature Pulse Rate 84 84 84 Respiratory Rate 28 H 28 H Blood Pressure 99/61 L 99/61 L Pulse Oximetry Oxygen Delivery Fraction of Inspired Oxygen 06/04/24 00:00 06/04/24 00:00 06/04/24 00:00 Temperature Pulse Rate 84 84 84 Respiratory Rate 28 H 28 H Blood Pressure Pulse Oximetry Oxygen Delivery Mechanical Ventilation Fraction of Inspired Oxygen 100 06/04/24 00:00 06/04/24 00:00 06/04/24 01:30 Temperature 96.9 F L Pulse Rate 84 83 Respiratory Rate 28 H 26 H Blood Pressure 99/61 L Pulse Oximetry Oxygen Delivery Fraction of Inspired Oxygen 100 06/04/24 01:55 06/04/24 02:00 06/04/24 02:00 Temperature Pulse Rate 83 85 85 Respiratory Rate Blood Pressure 144/69 H 144/69 H Pulse Oximetry Oxygen Delivery Fraction of Inspired Oxygen 06/04/24 02:00 06/04/24 02:00 06/04/24 02:00 Temperature Pulse Rate 87 86 89 Respiratory Rate Blood Pressure 144/69 H 144/69 H 144/69 H Pulse Oximetry Oxygen Delivery Fraction of Inspired Oxygen 06/04/24 02:00 06/04/24 02:00 06/04/24 02:00 Temperature Pulse Rate 83 83 83 Respiratory Rate 28 H 28 H 28 H Blood Pressure 144/69 H Pulse Oximetry Oxygen Delivery Fraction of Inspired Oxygen 06/04/24 02:00 06/04/24 02:15 06/04/24 03:00 Temperature 96.6 F L Pulse Rate 83 83 89 Respiratory Rate 28 H 26 H Blood Pressure 144/69 H Pulse Oximetry Oxygen Delivery Mechanical Ventilation Fraction of Inspired Oxygen 100 06/04/24 03:00 06/04/24 04:00 06/04/24 04:00 Temperature Pulse Rate 113 H 113 H 113 H Respiratory Rate 8 L Blood Pressure 145/70 H 145/70 H Pulse Oximetry Oxygen Delivery Fraction of Inspired Oxygen 100 06/04/24 04:00 06/04/24 04:00 06/04/24 04:00 Temperature Pulse Rate 113 H 113 H 113 H Respiratory Rate 28 H Blood Pressure 145/70 H 145/70 H Pulse Oximetry Oxygen Delivery Fraction of Inspired Oxygen 06/04/24 04:00 06/04/24 04:00 06/04/24 04:00 Temperature Pulse Rate 113 H 88 881 H Respiratory Rate 28 H 28 H Blood Pressure Pulse Oximetry Oxygen Delivery Mechanical Ventilation Fraction of Inspired Oxygen 100 06/04/24 04:00 06/04/24 04:00 06/04/24 05:00 Temperature 96.6 F L Pulse Rate 113 H 88 Respiratory Rate 28 H Blood Pressure 145/70 H 145/64 H Pulse Oximetry Oxygen Delivery Fraction of Inspired Oxygen 100 06/04/24 05:00 06/04/24 05:48 06/04/24 05:52 Temperature 96.5 F L Pulse Rate 108 H 115 H 115 H Respiratory Rate 28 H 26 H Blood Pressure 145/64 H Pulse Oximetry Oxygen Delivery Mechanical Ventilation Fraction of Inspired Oxygen 100 06/04/24 06:00 06/04/24 06:00 06/04/24 06:00 Temperature 96.5 F L Pulse Rate 111 H 111 H 111 H Respiratory Rate 28 H Blood Pressure 97/81 L 97/81 L Pulse Oximetry Oxygen Delivery Fraction of Inspired Oxygen 06/04/24 06:00 06/04/24 06:00 06/04/24 06:00 Temperature Pulse Rate 111 H 111 H 111 H Respiratory Rate Blood Pressure 97/81 L 97/81 L 97/81 L Pulse Oximetry Oxygen Delivery Fraction of Inspired Oxygen 06/04/24 06:00 06/04/24 06:00 06/04/24 06:00 Temperature Pulse Rate 111 H 111 H 111 H Respiratory Rate 8 L 28 H Blood Pressure 97/81 L 97/81 L Pulse Oximetry Oxygen Delivery Fraction of Inspired Oxygen 06/04/24 06:59 06/04/24 08:00 06/04/24 08:00 Temperature 96.8 F L Pulse Rate 111 H 90 91 Respiratory Rate 28 H 26 H Blood Pressure 94/75 L Pulse Oximetry Oxygen Delivery Fraction of Inspired Oxygen 06/04/24 08:00 06/04/24 08:00 06/04/24 08:20 Temperature Pulse Rate 91 113 H Respiratory Rate 26 H Blood Pressure Pulse Oximetry Oxygen Delivery Mechanical Ventilation Mechanical Ventilation Fraction of Inspired Oxygen 100 100 100 06/04/24 08:20 06/04/24 09:02 06/04/24 10:00 Temperature Pulse Rate 113 H 118 H Respiratory Rate 26 H Blood Pressure Pulse Oximetry Oxygen Delivery Mechanical Ventilation Fraction of Inspired Oxygen 100 06/04/24 10:00 06/04/24 10:38 06/04/24 10:40 Temperature 97.5 F L Pulse Rate 116 H 119 H 112 H Respiratory Rate 32 H 32 H Blood Pressure 100/86 142/63 H Pulse Oximetry 81 L Oxygen Delivery Fraction of Inspired Oxygen 06/04/24 11:00 06/04/24 11:09 06/04/24 11:10 Temperature Pulse Rate 97 119 H 119 H Respiratory Rate 32 H Blood Pressure 142/63 H 142/63 H Pulse Oximetry Oxygen Delivery Fraction of Inspired Oxygen 100 06/04/24 11:11 06/04/24 11:25 06/04/24 12:00 Temperature Pulse Rate 119 H 114 H 108 H Respiratory Rate Blood Pressure 90/63 L Pulse Oximetry 91 Oxygen Delivery Mechanical Ventilation Fraction of Inspired Oxygen 100 06/04/24 12:00 06/04/24 12:00 06/04/24 12:00 Temperature 97.9 F Pulse Rate 108 H 94 Respiratory Rate 32 H 26 H Blood Pressure 114/74 Pulse Oximetry Oxygen Delivery Mechanical Ventilation Fraction of Inspired Oxygen 100 100 Intake/Output Intake/Output: Intake & Output 06/01/24 06/02/24 06/03/24 06/04/24 23:59 23:59 23:59 23:59 Intake Total 3439.2 6510.9 8707.7 1393.9 Output Total 435 760 300 Balance 3439.2 6075.9 7947.7 1093.9 Meds/Results Medications: Active Medications Generic Name Dose Route Start Last Admin Trade Name Freq PRN Reason Stop Dose Admin Acetaminophen 650 mg 06/02/24 07:27 06/02/24 09:10 Acetaminophen Elixir 325 Mg/10.15 Ml Udc FEED TUBE 650 mg Q6H PRN Administration Mild Pain (1-3) or Fever Acetylcysteine 200 mg 06/02/24 08:00 06/03/24 08:10 Acetylcysteine 20% Inhal Soln 800 Mg/4 Ml Vial INHALATION [address] Administration Dextrose 12.5 gm 06/02/24 04:03 Dextrose 50% 25 Gm/50 Ml Syringe IV PUSH PRN PRN Hypoglycemia Protocol Epoprostenol Sodium 1 mg 06/03/24 07:39 06/04/24 11:38 Epoprostenol Sodium 0.5 Mg Vial INHALATION 1 mg PRN PRN Administration Titrate Glucagon 1 mg 06/02/24 04:03 Glucagon For Inj 1 Mg Vial IM PRN PRN Hypoglycemia Protocol Glucose 15 gm 06/02/24 04:03 Glucose Oral Gel 15 Gm Of Glucse In 37.5 Gm Tube PO PRN PRN Hypoglycemia Protocol Hydrocortisone Sodium Succinate 100 mg 06/02/24 14:00 06/04/24 09:40 Hydrocortisone Sodium Succinate 100 Mg/2 Ml Vial IV PUSH Not Given Q8HR COURT Azithromycin 500 mg in 250 mls @ 250 mls/hr 06/02/24 12:00 06/04/24 11:59 Zithromax IVPB 06/06/24 23:59 200 mls/hr Q24H COURT Administration Norepinephrine Bitartrate 8 mg in 250 mls @ 37.5 mls/hr 06/01/24 22:15 06/04/24 11:09 Levophed 8 Mg/D5w 250 Ml IV CONT 30 mcg/min .Q6H40M COURT 56.25 mls/hr Administration Protocol 20 MCG/MIN Vasopressin 100 units/ 100 mls @ 2.4 mls/hr 06/02/24 01:10 06/04/24 06:00 Dextrose IV CONT 0.04 units/min .[id number] COURT 2.4 mls/hr Titration Protocol 0.04 UNITS/MIN Phenylephrine HCl 50 mg/ 250 ml in 250 mls @ 54 mls/hr 06/02/24 03:55 06/04/24 11:10 Dextrose IV CONT 180 mcg/min .Q4H38M COURT 54 mls/hr Administration Protocol 180 MCG/MIN Dextrose 1,000 mls @ 100 mls/hr 06/02/24 04:03 Dextrose 5% 1,000 Ml IVPB PRN PRN Hypoglycemia Protocol Cisatracurium Besylate 200 mg/ 100 mls @ 1.905 mls/hr 06/02/24 10:15 06/04/24 06:00 Dextrose IV CONT 1 mcg/kg/min .[id number] COURT 1.91 mls/hr Titration Protocol 1 MCG/KG/MIN Epinephrine HCl 4 mg/ Dextrose 254 mls @ 38.1 mls/hr 06/02/24 13:45 06/04/24 11:11 IV CONT 10 mcg/min .Q6H40M COURT 38.1 mls/hr Titration Protocol 10 MCG/MIN Midazolam HCl 100 mg in 100 mls @ 3 mls/hr 06/02/24 15:05 06/04/24 06:00 Versed 100 Mg/Ns 100 Ml IV CONT 3 mg/hr .[id number] COURT 3 mls/hr Titration Protocol 3 MG/HR Fentanyl Citrate 2,500 mcg in 250 mls @ 5 mls/hr 06/03/24 07:30 06/04/24 06:59 Fentanyl 2,500 Mcg/Ns 250 Ml IV CONT 50 mcg/hr .Q50H COURT 5 mls/hr Titration Protocol 50 MCG/HR Insulin Human Regular 100 100 mls @ 7.5 mls/hr 06/03/24 07:55 06/04/24 12:37 units/ Sodium Chloride IV CONT 7.5 unit/hr .[id number] COURT 7.5 mls/hr Titration Protocol 7.5 UNIT/HR Cefepime HCl 1 gm in 50 mls @ 100 mls/hr 06/04/24 21:00 Maxipime 1 Gm/Ns [address] Ipratropium [place] 0.5 mg 06/02/24 08:00 06/03/24 08:11 Ipratropium Br 0.02% Inh Soln 0.5 Mg/2.5 Ml Vial INHALATION 0.[address] Administration Levalbuterol HCl 1.25 mg 06/02/24 08:00 06/03/24 08:11 Levalbuterol Neb 1.25 Mg/3 Ml INHALATION 1.[address] Administration Multi-Ingred Cream/Lotion/Oil/Oint 1 applic 06/02/24 10:05 06/04/24 08:16 Mineral Oil/White Petrolatum Ointment EACH EYE [address] Administration Mupirocin 1 applic 06/02/24 09:00 06/04/24 08:16 Mupirocin 2% Oint 22 Gm Tube EACH NARE 06/06/24 21:[address] Administration Ondansetron HCl 4 mg 06/01/24 16:52 Ondansetron Inj 4 Mg/2 Ml Vial IV PUSH Q4H PRN Nausea Oseltamivir Phosphate 30 mg 06/02/24 21:00 06/03/24 21:10 Oseltamivir Phosphate Oral Susp 30 Mg/5 Ml Syringe FEED TUBE 06/05/24 21:[address] Administration Pantoprazole Sodium 40 mg 06/03/24 21:00 06/04/24 08:16 Pantoprazole Sodium Iv 40 Mg Vial IV PUSH [address] Administration Perflutren Lipid Microsphere 0 ml 06/02/24 02:07 Perflutren Lipid Microspheres 1.5 Ml Vial Diluted To 10 Ml Total Volume IV PUSH 06/05/24 02:07 ONCE PRN adequate visualization Protocol Sodium Chloride 10 ml 06/03/24 14:00 06/04/24 08:16 Central Line Flush IV PUSH [address] Administration Sodium Chloride 20 ml 06/03/24 13:00 Central Line Flush IV PUSH PRN PRN after blood draws Vancomycin HCl 1 each 06/02/24 06:52 Vancomycin For Acute Kidney Injury IVPB PRN PRN Vancomycin Protocol Radiology Results: ITS Impressions Abdomen X-Ray 06/01/24 19:47 IMPRESSION: NG tube, in good position. Renal Ultrasound 06/03/24 08:44 IMPRESSION: Mild right-sided hydronephrosis. Size asymmetry between the bilateral kidneys. No findings suggesting medical renal disease. Incidental notation is made of bilateral pleural effusions. Chest X-Ray 06/03/24 09:35 IMPRESSION: 1. Stable diffuse lung disease, consistent with pulmonary edema versus pneumonia. 2. Stable small pleural effusions. 3. Central line tip at the superior cavoatrial junction. Labs Labs: Laboratory Results - last 24 hr 06/02/24 06/03/24 06/03/24 13:52 09:33 11:06 WBC RBC Hgb Hct MCV MCH MCHC RDW Plt Count MPV Immature Gran % (Auto) Neut % (Auto) Lymph % (Auto) Russell % (Auto) Eos % (Auto) Baso % (Auto) Lymph # (Auto) Russell # (Auto) Eos # (Auto) Baso # (Auto) Abs Immat Gran (auto) Absolute Neuts (auto) Absolute Nucleated RBC Nucleated RBC % Platelet Estimate % Immature Plt Fraction Schistocytes PT INR APTT Puncture Site Not Reportable ABG pH 7.273 L* ABG pCO2 39.7 ABG pO2 71.8 L ABG PO2/FiO2 Ratio 0.72 ABG HCO3 17.9 L ABG O2 Saturation 92.5 L ABG O2 Content 16.9 ABG Base Excess -8.3 A-a Gradient 601.5 Oxyhemoglobin 92.9 Carboxyhemoglobin Methemoglobin Reduced Hemoglobin Total Hemoglobin 12.9 O2 Delivery Device Ventilator O2 Liters/Min Not Reportable Minute Volume Not Reportable Vent Rate 28 Vent Mode Cmv FiO2 100 Tidal Volume 450 PEEP 14 Peak Inspir Pressure Not Reportable Pressure Support Not Reportable Sodium Potassium Chloride Carbon Dioxide Anion Gap BUN Creatinine Estim Creat Clear Calc Estimated GFR Glucose POC Capillary Glucose 207 H 185 H Lactic Acid Calcium Phosphorus Magnesium Total Bilirubin AST ALT Alkaline Phosphatase Total Creatine Kinase Total Protein Albumin Lipase Random Vancomycin 06/03/24 06/03/24 06/03/24 11:42 11:59 13:13 WBC RBC Hgb Hct MCV MCH MCHC RDW Plt Count MPV Immature Gran % (Auto) Neut % (Auto) Lymph % (Auto) Russell % (Auto) Eos % (Auto) Baso % (Auto) Lymph # (Auto) Russell # (Auto) Eos # (Auto) Baso # (Auto) Abs Immat Gran (auto) Absolute Neuts (auto) Absolute Nucleated RBC Nucleated RBC % Platelet Estimate % Immature Plt Fraction Schistocytes PT INR APTT Puncture Site Artline ABG pH 7.236 L* ABG pCO2 32.5 L ABG pO2 67.5 L ABG PO2/FiO2 Ratio 0.68 ABG HCO3 13.5 L ABG O2 Saturation 90.4 L ABG O2 Content 15.8 L ABG Base Excess -12.8 A-a Gradient 613.0 Oxyhemoglobin 89.6 L Carboxyhemoglobin Methemoglobin Reduced Hemoglobin Total Hemoglobin 12.5 O2 Delivery Device Ventilator O2 Liters/Min Not Reportable Minute Volume Not Reportable Vent Rate 28 Vent Mode Cmv FiO2 100 Tidal Volume 450 PEEP 14 Peak Inspir Pressure Not Reportable Pressure Support Not Reportable Sodium Potassium Chloride Carbon Dioxide Anion Gap BUN Creatinine Estim Creat Clear Calc Estimated GFR Glucose POC Capillary Glucose 100 98 Lactic Acid Calcium Phosphorus Magnesium Total Bilirubin AST ALT Alkaline Phosphatase Total Creatine Kinase Total Protein Albumin Lipase Random Vancomycin 06/03/24 06/03/24 06/03/24 13:49 14:10 15:08 WBC RBC Hgb Hct MCV MCH MCHC RDW Plt Count MPV Immature Gran % (Auto) Neut % (Auto) Lymph % (Auto) Russell % (Auto) Eos % (Auto) Baso % (Auto) Lymph # (Auto) Russell # (Auto) Eos # (Auto) Baso # (Auto) Abs Immat Gran (auto) Absolute Neuts (auto) Absolute Nucleated RBC Nucleated RBC % Platelet Estimate % Immature Plt Fraction Schistocytes PT INR APTT Puncture Site Right femoral ABG pH 7.096 L* ABG pCO2 34.4 L ABG pO2 74.2 L ABG PO2/FiO2 Ratio 0.74 ABG HCO3 10.3 L ABG O2 Saturation 89.2 L ABG O2 Content 15.7 L ABG Base Excess -18.3 A-a Gradient 604.4 Oxyhemoglobin 89.9 L Carboxyhemoglobin Methemoglobin Reduced Hemoglobin Total Hemoglobin 12.4 O2 Delivery Device Ventilator O2 Liters/Min Not Reportable Minute Volume Not Reportable Vent Rate 26 Vent Mode Pressure control FiO2 100 Tidal Volume Not Reportable PEEP 14 Peak Inspir Pressure Not Reportable Pressure Support Not Reportable Sodium Potassium Chloride Carbon Dioxide Anion Gap BUN Creatinine Estim Creat Clear Calc Estimated GFR Glucose POC Capillary Glucose 109 H 105 Lactic Acid Calcium Phosphorus Magnesium Total Bilirubin AST ALT Alkaline Phosphatase Total Creatine Kinase Total Protein Albumin Lipase Random Vancomycin 06/03/24 06/03/24 06/03/24 16:20 17:14 17:46 WBC RBC Hgb Hct MCV MCH MCHC RDW Plt Count MPV Immature Gran % (Auto) Neut % (Auto) Lymph % (Auto) Russell % (Auto) Eos % (Auto) Baso % (Auto) Lymph # (Auto) Russell # (Auto) Eos # (Auto) Baso # (Auto) Abs Immat Gran (auto) Absolute Neuts (auto) Absolute Nucleated RBC Nucleated RBC % Platelet Estimate % Immature Plt Fraction Schistocytes PT INR APTT Puncture Site Artline ABG pH 7.192 L* ABG pCO2 37.0 ABG pO2 68.9 L ABG PO2/FiO2 Ratio Not Reportable ABG HCO3 13.9 L ABG O2 Saturation 89.7 L ABG O2 Content 16.0 ABG Base Excess -13.4 A-a Gradient Not Reportable Oxyhemoglobin 89.3 L Carboxyhemoglobin 0.9 Methemoglobin 0.3 Reduced Hemoglobin 9.5 H Total Hemoglobin 12.7 O2 Delivery Device Ventilator O2 Liters/Min Not Reportable Minute Volume Not Reportable Vent Rate 28 Vent Mode Cmv FiO2 100 Tidal Volume 450 PEEP 14 Peak Inspir Pressure Not Reportable Pressure Support Not Reportable Sodium Potassium Chloride Carbon Dioxide Anion Gap BUN Creatinine Estim Creat Clear Calc Estimated GFR Glucose POC Capillary Glucose 169 H 130 H Lactic Acid Calcium Phosphorus Magnesium Total Bilirubin AST ALT Alkaline Phosphatase Total Creatine Kinase Total Protein Albumin Lipase Random Vancomycin 06/03/24 06/03/24 06/03/24 18:07 18:54 20:11 WBC RBC Hgb Hct MCV MCH MCHC RDW Plt Count MPV Immature Gran % (Auto) Neut % (Auto) Lymph % (Auto) Russell % (Auto) Eos % (Auto) Baso % (Auto) Lymph # (Auto) Russell # (Auto) Eos # (Auto) Baso # (Auto) Abs Immat Gran (auto) Absolute Neuts (auto) Absolute Nucleated RBC Nucleated RBC % Platelet Estimate % Immature Plt Fraction Schistocytes PT INR APTT Puncture Site ABG pH ABG pCO2 ABG pO2 ABG PO2/FiO2 Ratio ABG HCO3 ABG O2 Saturation ABG O2 Content ABG Base Excess A-a Gradient Oxyhemoglobin Carboxyhemoglobin Methemoglobin Reduced Hemoglobin Total Hemoglobin O2 Delivery Device O2 Liters/Min Minute Volume Vent Rate Vent Mode FiO2 Tidal Volume PEEP Peak Inspir Pressure Pressure Support Sodium Potassium Chloride Carbon Dioxide Anion Gap BUN Creatinine Estim Creat Clear Calc Estimated GFR Glucose POC Capillary Glucose 98 119 H 263 H Lactic Acid Calcium Phosphorus Magnesium Total Bilirubin AST ALT Alkaline Phosphatase Total Creatine Kinase Total Protein Albumin Lipase Random Vancomycin 06/03/24 06/03/24 06/03/24 21:05 21:26 22:09 WBC RBC Hgb Hct MCV MCH MCHC RDW Plt Count MPV Immature Gran % (Auto) Neut % (Auto) Lymph % (Auto) Russell % (Auto) Eos % (Auto) Baso % (Auto) Lymph # (Auto) Russell # (Auto) Eos # (Auto) Baso # (Auto) Abs Immat Gran (auto) Absolute Neuts (auto) Absolute Nucleated RBC Nucleated RBC % Platelet Estimate % Immature Plt Fraction Schistocytes PT INR APTT Puncture Site ABG pH ABG pCO2 ABG pO2 ABG PO2/FiO2 Ratio ABG HCO3 ABG O2 Saturation ABG O2 Content ABG Base Excess A-a Gradient Oxyhemoglobin Carboxyhemoglobin Methemoglobin Reduced Hemoglobin Total Hemoglobin O2 Delivery Device O2 Liters/Min Minute Volume Vent Rate Vent Mode FiO2 Tidal Volume PEEP Peak Inspir Pressure Pressure Support Sodium Potassium Chloride Carbon Dioxide Anion Gap BUN Creatinine Estim Creat Clear Calc Estimated GFR Glucose POC Capillary Glucose 258 H 235 H Lactic Acid Calcium Phosphorus Magnesium Total Bilirubin AST ALT Alkaline Phosphatase Total Creatine Kinase Total Protein Albumin Lipase Random Vancomycin 10.1 06/03/24 06/04/24 06/04/24 23:07 00:11 00:28 WBC RBC Hgb Hct MCV MCH MCHC RDW Plt Count MPV Immature Gran % (Auto) Neut % (Auto) Lymph % (Auto) Russell % (Auto) Eos % (Auto) Baso % (Auto) Lymph # (Auto) Russell # (Auto) Eos # (Auto) Baso # (Auto) Abs Immat Gran (auto) Absolute Neuts (auto) Absolute Nucleated RBC Nucleated RBC % Platelet Estimate % Immature Plt Fraction Schistocytes PT INR APTT Puncture Site Artline ABG pH 7.105 L* ABG pCO2 29.1 L ABG pO2 83.5 ABG PO2/FiO2 Ratio 0.83 ABG HCO3 8.9 L ABG O2 Saturation 92.4 L ABG O2 Content 16.1 ABG Base Excess -19.3 A-a Gradient 600.4 Oxyhemoglobin 92.6 Carboxyhemoglobin 0.2 Methemoglobin 0.3 Reduced Hemoglobin 6.9 H Total Hemoglobin 12.3 O2 Delivery Device Ventilator O2 Liters/Min Not Reportable Minute Volume Not Reportable Vent Rate 28 Vent Mode Cmv FiO2 100 Tidal Volume 450 PEEP 14 Peak Inspir Pressure Not Reportable Pressure Support Not Reportable Sodium Potassium Chloride Carbon Dioxide Anion Gap BUN Creatinine Estim Creat Clear Calc Estimated GFR Glucose POC Capillary Glucose 268 H 252 H Lactic Acid Calcium Phosphorus Magnesium Total Bilirubin AST ALT Alkaline Phosphatase Total Creatine Kinase Total Protein Albumin Lipase Random Vancomycin 06/04/24 06/04/24 06/04/24 02:21 03:06 04:36 WBC RBC Hgb Hct MCV MCH MCHC RDW Plt Count MPV Immature Gran % (Auto) Neut % (Auto) Lymph % (Auto) Russell % (Auto) Eos % (Auto) Baso % (Auto) Lymph # (Auto) Russell # (Auto) Eos # (Auto) Baso # (Auto) Abs Immat Gran (auto) Absolute Neuts (auto) Absolute Nucleated RBC Nucleated RBC % Platelet Estimate % Immature Plt Fraction Schistocytes PT INR APTT Puncture Site ABG pH ABG pCO2 ABG pO2 ABG PO2/FiO2 Ratio ABG HCO3 ABG O2 Saturation ABG O2 Content ABG Base Excess A-a Gradient Oxyhemoglobin Carboxyhemoglobin Methemoglobin Reduced Hemoglobin Total Hemoglobin O2 Delivery Device O2 Liters/Min Minute Volume Vent Rate Vent Mode FiO2 Tidal Volume PEEP Peak Inspir Pressure Pressure Support Sodium Potassium Chloride Carbon Dioxide Anion Gap BUN Creatinine Estim Creat Clear Calc Estimated GFR Glucose POC Capillary Glucose 265 H 245 H 250 H Lactic Acid Calcium Phosphorus Magnesium Total Bilirubin AST ALT Alkaline Phosphatase Total Creatine Kinase Total Protein Albumin Lipase Random Vancomycin 06/04/24 06/04/24 06/04/24 04:43 08:19 08:34 WBC 6.0 RBC 4.24 Hgb 12.2 Hct 35.8 L MCV 84.4 MCH 28.8 MCHC 34.1 RDW 12.0 Plt Count 25 L MPV 10.2 Immature Gran % (Auto) 2.2 H Neut % (Auto) 82.2 H Lymph % (Auto) 13.6 L Russell % (Auto) 1.8 L Eos % (Auto) 0.0 Baso % (Auto) 0.2 Lymph # (Auto) 0.82 L Russell # (Auto) 0.1 Eos # (Auto) 0.0 Baso # (Auto) 0.0 Abs Immat Gran (auto) 0.13 H Absolute Neuts (auto) 5.0 Absolute Nucleated RBC 0.030 H Nucleated RBC % 0.5 H Platelet Estimate Decreased % Immature Plt Fraction 9.6 Schistocytes None seen PT 28.2 H D INR 2.6 APTT 43.5 H Puncture Site Artline ABG pH 7.162 L* ABG pCO2 29.6 L ABG pO2 90.4 ABG PO2/FiO2 Ratio 0.90 ABG HCO3 10.4 L ABG O2 Saturation 94.7 L ABG O2 Content 16.7 ABG Base Excess -16.9 A-a Gradient 593.0 Oxyhemoglobin 94.6 Carboxyhemoglobin 0.3 Methemoglobin 0.0 Reduced Hemoglobin 5.1 H Total Hemoglobin 12.5 O2 Delivery Device Ventilator O2 Liters/Min Not Reportable Minute Volume Not Reportable Vent Rate 26 Vent Mode Cmv FiO2 100 Tidal Volume 450 PEEP 14 Peak Inspir Pressure Not Reportable Pressure Support Not Reportable Sodium 114 L* Potassium 4.9 Chloride 75 L Carbon Dioxide 11 L Anion Gap 28 H BUN 35 H Creatinine 3.90 H Estim Creat Clear Calc 13 Estimated GFR 14 L Glucose 261 H POC Capillary Glucose 267 H Lactic Acid 17.3 H* 15.6 H* Calcium 5.3 L* Phosphorus 10.8 H Magnesium 2.0 Total Bilirubin 1.5 H AST > 7500 H ALT 2485 H Alkaline Phosphatase 111 Total Creatine Kinase 44765 H Total Protein 4.0 L Albumin 2.4 L Lipase 706 H Random Vancomycin 06/04/24 06/04/24 06/04/24 09:16 10:45 10:46 WBC RBC Hgb Hct MCV MCH MCHC RDW Plt Count MPV Immature Gran % (Auto) Neut % (Auto) Lymph % (Auto) Russell % (Auto) Eos % (Auto) Baso % (Auto) Lymph # (Auto) Russell # (Auto) Eos # (Auto) Baso # (Auto) Abs Immat Gran (auto) Absolute Neuts (auto) Absolute Nucleated RBC Nucleated RBC % Platelet Estimate % Immature Plt Fraction Schistocytes PT INR APTT Puncture Site Artline ABG pH 7.196 L* ABG pCO2 39.0 ABG pO2 65.5 L ABG PO2/FiO2 Ratio 0.65 ABG HCO3 14.8 L ABG O2 Saturation 88.3 L ABG O2 Content 16.3 ABG Base Excess -12.6 A-a Gradient 608.5 Oxyhemoglobin 87.1 L* Carboxyhemoglobin Methemoglobin Reduced Hemoglobin Total Hemoglobin 13.3 O2 Delivery Device Ventilator O2 Liters/Min Not Reportable Minute Volume Not Reportable Vent Rate 32 Vent Mode Cmv FiO2 100 Tidal Volume 390 PEEP 14 Peak Inspir Pressure Not Reportable Pressure Support Not Reportable Sodium Potassium Chloride Carbon Dioxide Anion Gap BUN Creatinine Estim Creat Clear Calc Estimated GFR Glucose POC Capillary Glucose 253 H 260 H Lactic Acid Calcium Phosphorus Magnesium Total Bilirubin AST ALT Alkaline Phosphatase Total Creatine Kinase Total Protein Albumin Lipase Random Vancomycin 06/04/24 06/04/24 11:26 12:21 WBC RBC Hgb Hct MCV MCH MCHC RDW Plt Count MPV Immature Gran % (Auto) Neut % (Auto) Lymph % (Auto) Russell % (Auto) Eos % (Auto) Baso % (Auto) Lymph # (Auto) Russell # (Auto) Eos # (Auto) Baso # (Auto) Abs Immat Gran (auto) Absolute Neuts (auto) Absolute Nucleated RBC Nucleated RBC % Platelet Estimate % Immature Plt Fraction Schistocytes PT INR APTT Puncture Site ABG pH ABG pCO2 ABG pO2 ABG PO2/FiO2 Ratio ABG HCO3 ABG O2 Saturation ABG O2 Content ABG Base Excess A-a Gradient Oxyhemoglobin Carboxyhemoglobin Methemoglobin Reduced Hemoglobin Total Hemoglobin O2 Delivery Device O2 Liters/Min Minute Volume Vent Rate Vent Mode FiO2 Tidal Volume PEEP Peak Inspir Pressure Pressure Support Sodium Potassium Chloride Carbon Dioxide Anion Gap BUN Creatinine Estim Creat Clear Calc Estimated GFR Glucose POC Capillary Glucose 242 H 249 H Lactic Acid Calcium Phosphorus Magnesium Total Bilirubin AST ALT Alkaline Phosphatase Total Creatine Kinase Total Protein Albumin Lipase Random Vancomycin Quality VTE Prophylaxis VTE prophylaxis: mechanical ordered and pharmacologic ordered
[2024-06-04 13:19] LABS: Glucose Point of Care 231 mg/dl (65-105)
--- NOTE | 2024-06-04 13:21 | PM.CNGS ---
Assessment and Plan Assessment and plan (1) Severe sepsis: Code(s): A41.9 - Sepsis, unspecified organism; R65.20 - Severe sepsis without septic shock Status: Acute Assessment and Plan: she is maxed out on multiple pressors at this point secondary to severe sepsis, management per hydrometeorological technician team, very poor prognosis (2) Acute respiratory failure with hypoxia: Code(s): J96.01 - Acute respiratory failure with hypoxia Status: Acute Assessment and Plan: she has currently being ventilated in the prone position, very poor prognosis, management per hydrometeorological technician team (3) Ischemic disease of gut: Code(s): K55.9 - Vascular disorder of intestine, unspecified Status: Acute Assessment and Plan: sequela of maximal pressor support, very poor prognosis, definitively not a surgical candidate, long discussion with family regarding poor prognosis and likely ischemic gut History of Present Illness Consult details Consult date: 06/04/24 Reason for consult: abdominal pain Requesting physician: Ravinder Fuentes MD Narrative: The patient is a 64-year-old female with multiple medical issues currently intubated, sedated in the intensive care unit secondary to ARDS, respiratory failure, sepsis. The patient is found to have a worsening abdominal exam, including significant worsening lactic acidosis. This is likely secondary to being maxed out on multiple vasopressors with subsequent ischemia. All history is obtained via nursing in the chart. Review of Systems Review of Systems: ROS unobtainable: Yes unobtainable due to endotracheal tube and unobtainable due to medical condition PMFSH Past Medical History Medical History Type 2 diabetes mellitus Surgical History Surgical History History of tracheostomy Family History Family History Mother Aneurysm Social History Social History Social History: Surrogate medical decision maker: Kay ([phone]), Екатерина ([phone]), and Jos Alarcon ([phone]), daughters. Code status: Full code. Years smoked: 40 Smoking status: Former smoker Alcohol intake: current Alcohol use details: Drinks 4 to 5 beers most days Substance use: never Additional living arrangements comments: The patient lives in her own home in [place]. 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 Spiritual care concerns: No Meds Home Medications and Allergies Home Medications ?Medication ?Instructions ?Recorded ?Confirmed ?Type glipizide 5 mg tablet 5 mg PO DAILY 06/02/24 06/02/24 History metformin 1,000 mg tablet 1,000 mg PO BID 06/02/24 06/02/24 History Allergies Allergy/AdvReac Type Severity Reaction Status Date / Time No Known Allergies Allergy Verified 06/01/24 14:47 Vital Signs Vital Signs - 24 hr 06/03/24 13:41 06/03/24 13:46 06/03/24 14:00 Temperature Pulse Rate 93 93 107 H Respiratory Rate 28 H Blood Pressure 87/61 L 87/61 L 107/67 Pulse Oximetry Oxygen Delivery Fraction of Inspired Oxygen 06/03/24 14:00 06/03/24 14:00 06/03/24 14:00 Temperature Pulse Rate 104 H 104 H 104 H Respiratory Rate Blood Pressure 107/67 107/67 107/67 Pulse Oximetry Oxygen Delivery Fraction of Inspired Oxygen 06/03/24 14:00 06/03/24 14:00 06/03/24 14:00 Temperature Pulse Rate 104 H 104 H 104 H Respiratory Rate 28 H 28 H Blood Pressure 107/67 Pulse Oximetry Oxygen Delivery Fraction of Inspired Oxygen 06/03/24 14:00 06/03/24 14:00 06/03/24 14:13 Temperature 37.1 C Pulse Rate 93 95 91 Respiratory Rate 26 H 26 H Blood Pressure 95/64 L Pulse Oximetry Oxygen Delivery Fraction of Inspired Oxygen 06/03/24 14:29 06/03/24 15:31 06/03/24 15:31 Temperature Pulse Rate 107 H 94 94 Respiratory Rate Blood Pressure 121/67 121/67 Pulse Oximetry Oxygen Delivery Mechanical Ventilation Fraction of Inspired Oxygen 100 06/03/24 16:00 06/03/24 16:00 06/03/24 16:00 Temperature 36.5 C Pulse Rate 94 94 Respiratory Rate 28 H 28 H Blood Pressure 121/68 Pulse Oximetry Oxygen Delivery Mechanical Ventilation Fraction of Inspired Oxygen 100 100 06/03/24 16:00 06/03/24 16:00 06/03/24 16:00 Temperature Pulse Rate 94 94 94 Respiratory Rate 28 H Blood Pressure 124/69 124/68 124/69 Pulse Oximetry Oxygen Delivery Fraction of Inspired Oxygen 06/03/24 16:00 06/03/24 16:00 06/03/24 16:00 Temperature Pulse Rate 94 94 94 Respiratory Rate 28 H Blood Pressure 124/69 124/69 Pulse Oximetry Oxygen Delivery Fraction of Inspired Oxygen 06/03/24 16:00 06/03/24 16:00 06/03/24 16:31 Temperature Pulse Rate 94 94 94 Respiratory Rate 28 H Blood Pressure Pulse Oximetry Oxygen Delivery Mechanical Ventilation Fraction of Inspired Oxygen 100 06/03/24 16:33 06/03/24 16:40 06/03/24 16:40 Temperature Pulse Rate 94 94 94 Respiratory Rate 28 H Blood Pressure 133/68 133/68 Pulse Oximetry Oxygen Delivery Fraction of Inspired Oxygen 06/03/24 17:03 06/03/24 17:03 06/03/24 17:03 Temperature Pulse Rate 93 93 93 Respiratory Rate 28 H Blood Pressure 117/66 117/66 Pulse Oximetry Oxygen Delivery Fraction of Inspired Oxygen 06/03/24 17:03 06/03/24 17:51 06/03/24 18:00 Temperature Pulse Rate 93 94 94 Respiratory Rate 28 H 28 H Blood Pressure 140/73 Pulse Oximetry Oxygen Delivery Fraction of Inspired Oxygen 06/03/24 18:00 06/03/24 18:00 06/03/24 18:00 Temperature Pulse Rate 94 94 94 Respiratory Rate Blood Pressure 140/73 140/73 140/73 Pulse Oximetry Oxygen Delivery Fraction of Inspired Oxygen 06/03/24 18:00 06/03/24 18:00 06/03/24 18:00 Temperature Pulse Rate 94 94 94 Respiratory Rate 28 H 28 H 28 H Blood Pressure 140/73 Pulse Oximetry Oxygen Delivery Fraction of Inspired Oxygen 06/03/24 18:00 06/03/24 18:00 06/03/24 18:49 Temperature 36.6 C Pulse Rate 93 93 93 Respiratory Rate 28 H Blood Pressure 139/74 140/73 Pulse Oximetry Oxygen Delivery Fraction of Inspired Oxygen 06/03/24 18:49 06/03/24 19:25 06/03/24 19:29 Temperature Pulse Rate 93 93 92 Respiratory Rate 28 H Blood Pressure 140/73 Pulse Oximetry Oxygen Delivery Mechanical Ventilation Fraction of Inspired Oxygen 100 06/03/24 19:29 06/03/24 19:36 06/03/24 20:00 Temperature Pulse Rate 113 H 91 Respiratory Rate 26 H Blood Pressure 140/73 Pulse Oximetry Oxygen Delivery Fraction of Inspired Oxygen 100 06/03/24 20:00 06/03/24 20:00 06/03/24 20:00 Temperature Pulse Rate 91 91 91 Respiratory Rate 28 H Blood Pressure 140/73 140/73 140/73 Pulse Oximetry Oxygen Delivery Fraction of Inspired Oxygen 06/03/24 20:00 06/03/24 20:00 06/03/24 20:00 Temperature 36.5 C Pulse Rate 91 91 91 Respiratory Rate 28 H 28 H 28 H Blood Pressure 140/73 Pulse Oximetry Oxygen Delivery Fraction of Inspired Oxygen 06/03/24 20:15 06/03/24 20:15 06/03/24 20:15 Temperature 36.4 C Pulse Rate 91 91 91 Respiratory Rate 28 H Blood Pressure 142/74 H 142/74 H 142/74 H Pulse Oximetry Oxygen Delivery Fraction of Inspired Oxygen 06/03/24 20:20 06/03/24 20:25 06/03/24 20:30 Temperature 36.4 C Pulse Rate 91 87 90 Respiratory Rate 28 H Blood Pressure 140/73 144/81 H Pulse Oximetry Oxygen Delivery Mechanical Ventilation Fraction of Inspired Oxygen 100 06/03/24 21:00 06/03/24 21:10 06/03/24 21:10 Temperature Pulse Rate 89 90 0 L Respiratory Rate Blood Pressure 142/75 H 142/75 H 142/75 H Pulse Oximetry Oxygen Delivery Fraction of Inspired Oxygen 06/03/24 21:30 06/03/24 21:30 06/03/24 22:00 Temperature Pulse Rate 87 87 89 Respiratory Rate 28 H Blood Pressure 142/64 H 120/65 Pulse Oximetry Oxygen Delivery Fraction of Inspired Oxygen 06/03/24 22:00 06/03/24 22:00 06/03/24 22:00 Temperature Pulse Rate 89 89 89 Respiratory Rate Blood Pressure 120/65 120/65 120/65 Pulse Oximetry Oxygen Delivery Fraction of Inspired Oxygen 06/03/24 22:00 06/03/24 22:00 06/03/24 22:00 Temperature Pulse Rate 89 89 89 Respiratory Rate 28 H 28 H 28 H Blood Pressure 120/65 Pulse Oximetry Oxygen Delivery Fraction of Inspired Oxygen 06/03/24 22:00 06/03/24 22:00 06/03/24 22:00 Temperature 36.4 C Pulse Rate 86 89 90 Respiratory Rate 28 H 28 H Blood Pressure 118/76 Pulse Oximetry Oxygen Delivery Fraction of Inspired Oxygen 100 06/03/24 22:30 06/03/24 23:00 06/03/24 23:00 Temperature Pulse Rate 88 86 86 Respiratory Rate 28 H 28 H Blood Pressure 118/65 121/66 Pulse Oximetry Oxygen Delivery Fraction of Inspired Oxygen 100 06/03/24 23:00 06/03/24 23:00 06/03/24 23:30 Temperature Pulse Rate 86 88 83 Respiratory Rate 28 H Blood Pressure 121/66 104/58 L Pulse Oximetry Oxygen Delivery Mechanical Ventilation Fraction of Inspired Oxygen 100 06/03/24 23:30 06/04/24 00:00 06/04/24 00:00 Temperature Pulse Rate 88 84 84 Respiratory Rate 31 H Blood Pressure 99/61 L 99/61 L Pulse Oximetry Oxygen Delivery Fraction of Inspired Oxygen 06/04/24 00:00 06/04/24 00:00 06/04/24 00:00 Temperature Pulse Rate 86 84 84 Respiratory Rate Blood Pressure 99/61 L 99/61 L 99/61 L Pulse Oximetry Oxygen Delivery Fraction of Inspired Oxygen 06/04/24 00:00 06/04/24 00:00 06/04/24 00:00 Temperature Pulse Rate 84 84 84 Respiratory Rate 28 H 28 H Blood Pressure 99/61 L 99/61 L Pulse Oximetry Oxygen Delivery Fraction of Inspired Oxygen 06/04/24 00:00 06/04/24 00:00 06/04/24 00:00 Temperature Pulse Rate 84 84 84 Respiratory Rate 28 H 28 H Blood Pressure Pulse Oximetry Oxygen Delivery Mechanical Ventilation Fraction of Inspired Oxygen 100 06/04/24 00:00 06/04/24 00:00 06/04/24 01:30 Temperature 36.1 C L Pulse Rate 84 83 Respiratory Rate 28 H 26 H Blood Pressure 99/61 L Pulse Oximetry Oxygen Delivery Fraction of Inspired Oxygen 100 06/04/24 01:55 06/04/24 02:00 06/04/24 02:00 Temperature Pulse Rate 83 85 85 Respiratory Rate Blood Pressure 144/69 H 144/69 H Pulse Oximetry Oxygen Delivery Fraction of Inspired Oxygen 06/04/24 02:00 06/04/24 02:00 06/04/24 02:00 Temperature Pulse Rate 87 86 89 Respiratory Rate Blood Pressure 144/69 H 144/69 H 144/69 H Pulse Oximetry Oxygen Delivery Fraction of Inspired Oxygen 06/04/24 02:00 06/04/24 02:00 06/04/24 02:00 Temperature Pulse Rate 83 83 83 Respiratory Rate 28 H 28 H 28 H Blood Pressure 144/69 H Pulse Oximetry Oxygen Delivery Fraction of Inspired Oxygen 06/04/24 02:00 06/04/24 02:15 06/04/24 03:00 Temperature 35.9 C L Pulse Rate 83 83 89 Respiratory Rate 28 H 26 H Blood Pressure 144/69 H Pulse Oximetry Oxygen Delivery Mechanical Ventilation Fraction of Inspired Oxygen 100 06/04/24 03:00 06/04/24 04:00 06/04/24 04:00 Temperature Pulse Rate 113 H 113 H 113 H Respiratory Rate 8 L Blood Pressure 145/70 H 145/70 H Pulse Oximetry Oxygen Delivery Fraction of Inspired Oxygen 100 06/04/24 04:00 06/04/24 04:00 06/04/24 04:00 Temperature Pulse Rate 113 H 113 H 113 H Respiratory Rate 28 H Blood Pressure 145/70 H 145/70 H Pulse Oximetry Oxygen Delivery Fraction of Inspired Oxygen 06/04/24 04:00 06/04/24 04:00 06/04/24 04:00 Temperature Pulse Rate 113 H 88 881 H Respiratory Rate 28 H 28 H Blood Pressure Pulse Oximetry Oxygen Delivery Mechanical Ventilation Fraction of Inspired Oxygen 100 06/04/24 04:00 06/04/24 04:00 06/04/24 05:00 Temperature 35.9 C L Pulse Rate 113 H 88 Respiratory Rate 28 H Blood Pressure 145/70 H 145/64 H Pulse Oximetry Oxygen Delivery Fraction of Inspired Oxygen 100 06/04/24 05:00 06/04/24 05:48 06/04/24 05:52 Temperature 35.8 C L Pulse Rate 108 H 115 H 115 H Respiratory Rate 28 H 26 H Blood Pressure 145/64 H Pulse Oximetry Oxygen Delivery Mechanical Ventilation Fraction of Inspired Oxygen 100 06/04/24 06:00 06/04/24 06:00 06/04/24 06:00 Temperature 35.8 C L Pulse Rate 111 H 111 H 111 H Respiratory Rate 28 H Blood Pressure 97/81 L 97/81 L Pulse Oximetry Oxygen Delivery Fraction of Inspired Oxygen 06/04/24 06:00 06/04/24 06:00 06/04/24 06:00 Temperature Pulse Rate 111 H 111 H 111 H Respiratory Rate Blood Pressure 97/81 L 97/81 L 97/81 L Pulse Oximetry Oxygen Delivery Fraction of Inspired Oxygen 06/04/24 06:00 06/04/24 06:00 06/04/24 06:00 Temperature Pulse Rate 111 H 111 H 111 H Respiratory Rate 8 L 28 H Blood Pressure 97/81 L 97/81 L Pulse Oximetry Oxygen Delivery Fraction of Inspired Oxygen 06/04/24 06:59 06/04/24 08:00 06/04/24 08:00 Temperature 36.0 C L Pulse Rate 111 H 90 91 Respiratory Rate 28 H 26 H Blood Pressure 94/75 L Pulse Oximetry Oxygen Delivery Fraction of Inspired Oxygen 06/04/24 08:00 06/04/24 08:00 06/04/24 08:20 Temperature Pulse Rate 91 113 H Respiratory Rate 26 H Blood Pressure Pulse Oximetry Oxygen Delivery Mechanical Ventilation Mechanical Ventilation Fraction of Inspired Oxygen 100 100 100 06/04/24 08:20 06/04/24 09:02 06/04/24 10:00 Temperature Pulse Rate 113 H 118 H Respiratory Rate 26 H Blood Pressure Pulse Oximetry Oxygen Delivery Mechanical Ventilation Fraction of Inspired Oxygen 100 06/04/24 10:00 06/04/24 10:38 06/04/24 10:40 Temperature 36.4 C L Pulse Rate 116 H 119 H 112 H Respiratory Rate 32 H 32 H Blood Pressure 100/86 142/63 H Pulse Oximetry 81 L Oxygen Delivery Fraction of Inspired Oxygen 06/04/24 11:00 06/04/24 11:09 06/04/24 11:10 Temperature Pulse Rate 97 119 H 119 H Respiratory Rate 32 H Blood Pressure 142/63 H 142/63 H Pulse Oximetry Oxygen Delivery Fraction of Inspired Oxygen 100 06/04/24 11:11 06/04/24 11:25 06/04/24 12:00 Temperature Pulse Rate 119 H 114 H 108 H Respiratory Rate Blood Pressure 90/63 L Pulse Oximetry 91 Oxygen Delivery Mechanical Ventilation Fraction of Inspired Oxygen 100 06/04/24 12:00 06/04/24 12:00 06/04/24 12:00 Temperature 36.6 C Pulse Rate 108 H 94 Respiratory Rate 32 H 26 H Blood Pressure 114/74 Pulse Oximetry Oxygen Delivery Mechanical Ventilation Fraction of Inspired Oxygen 100 100 Exam Const: General: ill appearing Other: Intubated, sedated HENMT: Head: normal to inspection Eyes: General: appearance normal, both eyes and all related structures Neck: Neck: normal visual inspection Resp: Auscultation: diminished lung sounds Cardio: Rate: regular rate Rhythm: regular rhythm GI: Inspection: normal to inspection and distended GI Palp: Yes Firmness to palpation present (GI) and Yes Tenderness to palpation present (GI) Skin: General skin exam: normal color Neuro: Other: intubated, sedated Extrem: General: normal to inspection Results Labs 06/04/24 04:43 06/04/24 04:43 Labs: Abnormal lab results 06/02/24 06/03/24 06/03/24 Range/Units 13:52 09:33 11:06 Hct (37.0-47.0) % Plt Count (150-375) k/mm3 Immature Gran % (Auto) (0-0.5) % Neut % (Auto) (45.5-73.1) % Lymph % (Auto) (18.3-44.2) % [place] % (Auto) (2.6-8.5) % Lymph # (Auto) (0.9-3.2) K/mm3 Abs Immat Gran (auto) (0.00-0.031) K/mm3 Absolute Nucleated RBC (0.0-0.012) K/mm3 Nucleated RBC % (0.0-0.2) % PT (11.1-14.7) Seconds APTT (22.3-36.8) Seconds ABG pH 7.273 L* (7.350-7.450) ABG pCO2 (35.0-45.0) mmHg ABG pO2 71.8 L (80.0-100.0) mmHg ABG HCO3 17.9 L (22.0-26.0) mEq/l ABG O2 Saturation 92.5 L (95.0-100.0) % ABG O2 Content (16.0-22.0) %vol Oxyhemoglobin (90.0-100.0) % THb Reduced Hemoglobin (0-5.0) %THb Sodium (137-145) mmol/L Chloride (98-107) mmol/L Carbon Dioxide (22-30) mmol/L Anion Gap (4-12) mmol/L BUN (7-17) mg/dL Creatinine (0.7-1.0) mg/dL Estimated GFR (59 - ) Glucose (65-110) mg/dL POC Capillary Glucose 207 H 185 H (65-105) mg/dl Lactic Acid (0.7-2.0) mmol/L Calcium (8.4-10.2) mg/dL Phosphorus (2.5-4.5) mg/dL Total Bilirubin (0.2-1.3) mg/dL AST (14-36) U/L ALT (6-35) U/L Total Creatine Kinase (30-135) U/L Total Protein (6.3-8.2) g/dL Albumin (3.5-5.1) g/dL Lipase (23-300) U/L 06/03/24 06/03/24 06/03/24 Range/Units 13:49 14:10 16:20 Hct (37.0-47.0) % Plt Count (150-375) k/mm3 Immature Gran % (Auto) (0-0.5) % Neut % (Auto) (45.5-73.1) % Lymph % (Auto) (18.3-44.2) % [place] % (Auto) (2.6-8.5) % Lymph # (Auto) (0.9-3.2) K/mm3 Abs Immat Gran (auto) (0.00-0.031) K/mm3 Absolute Nucleated RBC (0.0-0.012) K/mm3 Nucleated RBC % (0.0-0.2) % PT (11.1-14.7) Seconds APTT (22.3-36.8) Seconds ABG pH 7.096 L* (7.350-7.450) ABG pCO2 34.4 L (35.0-45.0) mmHg ABG pO2 74.2 L (80.0-100.0) mmHg ABG HCO3 10.3 L (22.0-26.0) mEq/l ABG O2 Saturation 89.2 L (95.0-100.0) % ABG O2 Content 15.7 L (16.0-22.0) %vol Oxyhemoglobin 89.9 L (90.0-100.0) % THb Reduced Hemoglobin (0-5.0) %THb Sodium (137-145) mmol/L Chloride (98-107) mmol/L Carbon Dioxide (22-30) mmol/L Anion Gap (4-12) mmol/L BUN (7-17) mg/dL Creatinine (0.7-1.0) mg/dL Estimated GFR (59 - ) Glucose (65-110) mg/dL POC Capillary Glucose 109 H 169 H (65-105) mg/dl Lactic Acid (0.7-2.0) mmol/L Calcium (8.4-10.2) mg/dL Phosphorus (2.5-4.5) mg/dL Total Bilirubin (0.2-1.3) mg/dL AST (14-36) U/L ALT (6-35) U/L Total Creatine Kinase (30-135) U/L Total Protein (6.3-8.2) g/dL Albumin (3.5-5.1) g/dL Lipase (23-300) U/L 06/03/24 06/03/24 06/03/24 Range/Units 17:14 17:46 18:54 Hct (37.0-47.0) % Plt Count (150-375) k/mm3 Immature Gran % (Auto) (0-0.5) % Neut % (Auto) (45.5-73.1) % Lymph % (Auto) (18.3-44.2) % [place] % (Auto) (2.6-8.5) % Lymph # (Auto) (0.9-3.2) K/mm3 Abs Immat Gran (auto) (0.00-0.031) K/mm3 Absolute Nucleated RBC (0.0-0.012) K/mm3 Nucleated RBC % (0.0-0.2) % PT (11.1-14.7) Seconds APTT (22.3-36.8) Seconds ABG pH 7.192 L* (7.350-7.450) ABG pCO2 (35.0-45.0) mmHg ABG pO2 68.9 L (80.0-100.0) mmHg ABG HCO3 13.9 L (22.0-26.0) mEq/l ABG O2 Saturation 89.7 L (95.0-100.0) % ABG O2 Content (16.0-22.0) %vol Oxyhemoglobin 89.3 L (90.0-100.0) % THb Reduced Hemoglobin 9.5 H (0-5.0) %THb Sodium (137-145) mmol/L Chloride (98-107) mmol/L Carbon Dioxide (22-30) mmol/L Anion Gap (4-12) mmol/L BUN (7-17) mg/dL Creatinine (0.7-1.0) mg/dL Estimated GFR (59 - ) Glucose (65-110) mg/dL POC Capillary Glucose 130 H 119 H (65-105) mg/dl Lactic Acid (0.7-2.0) mmol/L Calcium (8.4-10.2) mg/dL Phosphorus (2.5-4.5) mg/dL Total Bilirubin (0.2-1.3) mg/dL AST (14-36) U/L ALT (6-35) U/L Total Creatine Kinase (30-135) U/L Total Protein (6.3-8.2) g/dL Albumin (3.5-5.1) g/dL Lipase (23-300) U/L 06/03/24 06/03/24 06/03/24 Range/Units 20:11 21:05 22:09 Hct (37.0-47.0) % Plt Count (150-375) k/mm3 Immature Gran % (Auto) (0-0.5) % Neut % (Auto) (45.5-73.1) % Lymph % (Auto) (18.3-44.2) % [place] % (Auto) (2.6-8.5) % Lymph # (Auto) (0.9-3.2) K/mm3 Abs Immat Gran (auto) (0.00-0.031) K/mm3 Absolute Nucleated RBC (0.0-0.012) K/mm3 Nucleated RBC % (0.0-0.2) % PT (11.1-14.7) Seconds APTT (22.3-36.8) Seconds ABG pH (7.350-7.450) ABG pCO2 (35.0-45.0) mmHg ABG pO2 (80.0-100.0) mmHg ABG HCO3 (22.0-26.0) mEq/l ABG O2 Saturation (95.0-100.0) % ABG O2 Content (16.0-22.0) %vol Oxyhemoglobin (90.0-100.0) % THb Reduced Hemoglobin (0-5.0) %THb Sodium (137-145) mmol/L Chloride (98-107) mmol/L Carbon Dioxide (22-30) mmol/L Anion Gap (4-12) mmol/L BUN (7-17) mg/dL Creatinine (0.7-1.0) mg/dL Estimated GFR (59 - ) Glucose (65-110) mg/dL POC Capillary Glucose 263 H 258 H 235 H (65-105) mg/dl Lactic Acid (0.7-2.0) mmol/L Calcium (8.4-10.2) mg/dL Phosphorus (2.5-4.5) mg/dL Total Bilirubin (0.2-1.3) mg/dL AST (14-36) U/L ALT (6-35) U/L Total Creatine Kinase (30-135) U/L Total Protein (6.3-8.2) g/dL Albumin (3.5-5.1) g/dL Lipase (23-300) U/L 06/03/24 06/04/24 06/04/24 Range/Units 23:07 00:11 00:28 Hct (37.0-47.0) % Plt Count (150-375) k/mm3 Immature Gran % (Auto) (0-0.5) % Neut % (Auto) (45.5-73.1) % Lymph % (Auto) (18.3-44.2) % [place] % (Auto) (2.6-8.5) % Lymph # (Auto) (0.9-3.2) K/mm3 Abs Immat Gran (auto) (0.00-0.031) K/mm3 Absolute Nucleated RBC (0.0-0.012) K/mm3 Nucleated RBC % (0.0-0.2) % PT (11.1-14.7) Seconds APTT (22.3-36.8) Seconds ABG pH 7.105 L* (7.350-7.450) ABG pCO2 29.1 L (35.0-45.0) mmHg ABG pO2 (80.0-100.0) mmHg ABG HCO3 8.9 L (22.0-26.0) mEq/l ABG O2 Saturation 92.4 L (95.0-100.0) % ABG O2 Content (16.0-22.0) %vol Oxyhemoglobin (90.0-100.0) % THb Reduced Hemoglobin 6.9 H (0-5.0) %THb Sodium (137-145) mmol/L Chloride (98-107) mmol/L Carbon Dioxide (22-30) mmol/L Anion Gap (4-12) mmol/L BUN (7-17) mg/dL Creatinine (0.7-1.0) mg/dL Estimated GFR (59 - ) Glucose (65-110) mg/dL POC Capillary Glucose 268 H 252 H (65-105) mg/dl Lactic Acid (0.7-2.0) mmol/L Calcium (8.4-10.2) mg/dL Phosphorus (2.5-4.5) mg/dL Total Bilirubin (0.2-1.3) mg/dL AST (14-36) U/L ALT (6-35) U/L Total Creatine Kinase (30-135) U/L Total Protein (6.3-8.2) g/dL Albumin (3.5-5.1) g/dL Lipase (23-300) U/L 06/04/24 06/04/24 06/04/24 Range/Units 02:21 03:06 04:36 Hct (37.0-47.0) % Plt Count (150-375) k/mm3 Immature Gran % (Auto) (0-0.5) % Neut % (Auto) (45.5-73.1) % Lymph % (Auto) (18.3-44.2) % [place] % (Auto) (2.6-8.5) % Lymph # (Auto) (0.9-3.2) K/mm3 Abs Immat Gran (auto) (0.00-0.031) K/mm3 Absolute Nucleated RBC (0.0-0.012) K/mm3 Nucleated RBC % (0.0-0.2) % PT (11.1-14.7) Seconds APTT (22.3-36.8) Seconds ABG pH (7.350-7.450) ABG pCO2 (35.0-45.0) mmHg ABG pO2 (80.0-100.0) mmHg ABG HCO3 (22.0-26.0) mEq/l ABG O2 Saturation (95.0-100.0) % ABG O2 Content (16.0-22.0) %vol Oxyhemoglobin (90.0-100.0) % THb Reduced Hemoglobin (0-5.0) %THb Sodium (137-145) mmol/L Chloride (98-107) mmol/L Carbon Dioxide (22-30) mmol/L Anion Gap (4-12) mmol/L BUN (7-17) mg/dL Creatinine (0.7-1.0) mg/dL Estimated GFR (59 - ) Glucose (65-110) mg/dL POC Capillary Glucose 265 H 245 H 250 H (65-105) mg/dl Lactic Acid (0.7-2.0) mmol/L Calcium (8.4-10.2) mg/dL Phosphorus (2.5-4.5) mg/dL Total Bilirubin (0.2-1.3) mg/dL AST (14-36) U/L ALT (6-35) U/L Total Creatine Kinase (30-135) U/L Total Protein (6.3-8.2) g/dL Albumin (3.5-5.1) g/dL Lipase (23-300) U/L 06/04/24 06/04/24 06/04/24 Range/Units 04:43 08:19 08:34 Hct 35.8 L (37.0-47.0) % Plt Count 25 L (150-375) k/mm3 Immature Gran % (Auto) 2.2 H (0-0.5) % Neut % (Auto) 82.2 H (45.5-73.1) % Lymph % (Auto) 13.6 L (18.3-44.2) % [place] % (Auto) 1.8 L (2.6-8.5) % Lymph # (Auto) 0.82 L (0.9-3.2) K/mm3 Abs Immat Gran (auto) 0.13 H (0.00-0.031) K/mm3 Absolute Nucleated RBC 0.030 H (0.0-0.012) K/mm3 Nucleated RBC % 0.5 H (0.0-0.2) % PT 28.2 H D (11.1-14.7) Seconds APTT 43.5 H (22.3-36.8) Seconds ABG pH 7.162 L* (7.350-7.450) ABG pCO2 29.6 L (35.0-45.0) mmHg ABG pO2 (80.0-100.0) mmHg ABG HCO3 10.4 L (22.0-26.0) mEq/l ABG O2 Saturation 94.7 L (95.0-100.0) % ABG O2 Content (16.0-22.0) %vol Oxyhemoglobin (90.0-100.0) % THb Reduced Hemoglobin 5.1 H (0-5.0) %THb Sodium 114 L* (137-145) mmol/L Chloride 75 L (98-107) mmol/L Carbon Dioxide 11 L (22-30) mmol/L Anion Gap 28 H (4-12) mmol/L BUN 35 H (7-17) mg/dL Creatinine 3.90 H (0.7-1.0) mg/dL Estimated GFR 14 L (59 - ) Glucose 261 H (65-110) mg/dL POC Capillary Glucose 267 H (65-105) mg/dl Lactic Acid 17.3 H* 15.6 H* (0.7-2.0) mmol/L Calcium 5.3 L* (8.4-10.2) mg/dL Phosphorus 10.8 H (2.5-4.5) mg/dL Total Bilirubin 1.5 H (0.2-1.3) mg/dL AST > 7500 H (14-36) U/L ALT 2485 H (6-35) U/L Total Creatine Kinase 05236 H (30-135) U/L Total Protein 4.0 L (6.3-8.2) g/dL Albumin 2.4 L (3.5-5.1) g/dL Lipase 706 H (23-300) U/L 06/04/24 06/04/24 06/04/24 Range/Units 09:16 10:45 10:46 Hct (37.0-47.0) % Plt Count (150-375) k/mm3 Immature Gran % (Auto) (0-0.5) % Neut % (Auto) (45.5-73.1) % Lymph % (Auto) (18.3-44.2) % [place] % (Auto) (2.6-8.5) % Lymph # (Auto) (0.9-3.2) K/mm3 Abs Immat Gran (auto) (0.00-0.031) K/mm3 Absolute Nucleated RBC (0.0-0.012) K/mm3 Nucleated RBC % (0.0-0.2) % PT (11.1-14.7) Seconds APTT (22.3-36.8) Seconds ABG pH 7.196 L* (7.350-7.450) ABG pCO2 (35.0-45.0) mmHg ABG pO2 65.5 L (80.0-100.0) mmHg ABG HCO3 14.8 L (22.0-26.0) mEq/l ABG O2 Saturation 88.3 L (95.0-100.0) % ABG O2 Content (16.0-22.0) %vol Oxyhemoglobin 87.1 L* (90.0-100.0) % THb Reduced Hemoglobin (0-5.0) %THb Sodium (137-145) mmol/L Chloride (98-107) mmol/L Carbon Dioxide (22-30) mmol/L Anion Gap (4-12) mmol/L BUN (7-17) mg/dL Creatinine (0.7-1.0) mg/dL Estimated GFR (59 - ) Glucose (65-110) mg/dL POC Capillary Glucose 253 H 260 H (65-105) mg/dl Lactic Acid (0.7-2.0) mmol/L Calcium (8.4-10.2) mg/dL Phosphorus (2.5-4.5) mg/dL Total Bilirubin (0.2-1.3) mg/dL AST (14-36) U/L ALT (6-35) U/L Total Creatine Kinase (30-135) U/L Total Protein (6.3-8.2) g/dL Albumin (3.5-5.1) g/dL Lipase (23-300) U/L 06/04/24 06/04/24 06/04/24 Range/Units 11:26 12:21 13:15 Hct (37.0-47.0) % Plt Count (150-375) k/mm3 Immature Gran % (Auto) (0-0.5) % Neut % (Auto) (45.5-73.1) % Lymph % (Auto) (18.3-44.2) % [place] % (Auto) (2.6-8.5) % Lymph # (Auto) (0.9-3.2) K/mm3 Abs Immat Gran (auto) (0.00-0.031) K/mm3 Absolute Nucleated RBC (0.0-0.012) K/mm3 Nucleated RBC % (0.0-0.2) % PT (11.1-14.7) Seconds APTT (22.3-36.8) Seconds ABG pH (7.350-7.450) ABG pCO2 (35.0-45.0) mmHg ABG pO2 (80.0-100.0) mmHg ABG HCO3 (22.0-26.0) mEq/l ABG O2 Saturation (95.0-100.0) % ABG O2 Content (16.0-22.0) %vol Oxyhemoglobin (90.0-100.0) % THb Reduced Hemoglobin (0-5.0) %THb Sodium (137-145) mmol/L Chloride (98-107) mmol/L Carbon Dioxide (22-30) mmol/L Anion Gap (4-12) mmol/L BUN (7-17) mg/dL Creatinine (0.7-1.0) mg/dL Estimated GFR (59 - ) Glucose (65-110) mg/dL POC Capillary Glucose 242 H 249 H 231 H (65-105) mg/dl Lactic Acid (0.7-2.0) mmol/L Calcium (8.4-10.2) mg/dL Phosphorus (2.5-4.5) mg/dL Total Bilirubin (0.2-1.3) mg/dL AST (14-36) U/L ALT (6-35) U/L Total Creatine Kinase (30-135) U/L Total Protein (6.3-8.2) g/dL Albumin (3.5-5.1) g/dL Lipase (23-300) U/L Diabetes panel 06/04/24 Range/Units 04:43 Sodium 114 L* (137-145) mmol/L Potassium 4.9 (3.4-5.0) mmol/L Chloride 75 L (98-107) mmol/L Carbon Dioxide 11 L (22-30) mmol/L BUN 35 H (7-17) mg/dL Creatinine 3.90 H (0.7-1.0) mg/dL Glucose 261 H (65-110) mg/dL Calcium 5.3 L* (8.4-10.2) mg/dL AST > 7500 H (14-36) U/L ALT 2485 H (6-35) U/L Alkaline Phosphatase 111 (38-126) U/L Total Protein 4.0 L (6.3-8.2) g/dL Albumin 2.4 L (3.5-5.1) g/dL Calcium panel 06/04/24 Range/Units 04:43 Calcium 5.3 L* (8.4-10.2) mg/dL Phosphorus 10.8 H (2.5-4.5) mg/dL Albumin 2.4 L (3.5-5.1) g/dL Pituitary panel 06/04/24 Range/Units 04:43 Sodium 114 L* (137-145) mmol/L Potassium 4.9 (3.4-5.0) mmol/L Chloride 75 L (98-107) mmol/L Carbon Dioxide 11 L (22-30) mmol/L BUN 35 H (7-17) mg/dL Creatinine 3.90 H (0.7-1.0) mg/dL Glucose 261 H (65-110) mg/dL Calcium 5.3 L* (8.4-10.2) mg/dL Adrenal panel 06/04/24 Range/Units 04:43 Sodium 114 L* (137-145) mmol/L Potassium 4.9 (3.4-5.0) mmol/L Chloride 75 L (98-107) mmol/L Carbon Dioxide 11 L (22-30) mmol/L BUN 35 H (7-17) mg/dL Creatinine 3.90 H (0.7-1.0) mg/dL Glucose 261 H (65-110) mg/dL Calcium 5.3 L* (8.4-10.2) mg/dL Total Bilirubin 1.5 H (0.2-1.3) mg/dL AST > 7500 H (14-36) U/L ALT 2485 H (6-35) U/L Alkaline Phosphatase 111 (38-126) U/L Total Protein 4.0 L (6.3-8.2) g/dL Albumin 2.4 L (3.5-5.1) g/dL All other labs normal.
[2024-06-04] MEDS: EPINEPHrine INJ 4 MG in DEXTROSE 5% IN WATER 250 ML 34.29 MG IV CONT (13:40)
[2024-06-04] MEDS: HYDROCORTISONE SODIUM SUCCINATE 100 MG/2 ML VIAL IV PUSH ×2 (13:41→21:34)
[2024-06-04 14:44] LABS: Alveolar/Arterial O2 Gradient 585.7 mmHg; Base Excess ABG -17.4 mEq/l (+/-2.0); Carboxyhemoglobin 0.1 % THb (0-2.0); Fractional Inspired Oxygen 100 %; Oxygen Content ABG 16.5 %vol (16.0-22.0); Oxygen Saturation ABG 95.7 % (95.0-100.0); Oxyhemoglobin 95.2 % THb (90.0-100.0); PCO2 ABG 28.9 mmHg (35.0-45.0); PO2 ABG 98.4 mmHg (80.0-100.0); PO2 FiO2 Ratio Arterial Blood 0.98 %; Reduced Hemoglobin 4.7 %THb (0-5.0); Total Hemoglobin 12.2 g/dL (12.0-18.0)
[2024-06-04] MEDS: INSULIN HUMAN REGULAR (*BKC) 100 UNITS in SODIUM CHLORIDE 0.9% IV 99 ML 7.5 UNITS IV CONT (14:47)
[2024-06-04 14:48] LABS: pH ABG 7.155 (7.350-7.450)
[2024-06-04 14:49] LABS: Arterial Blood Gas Vent Mode CMV; Arterial Blood Gas Ventilator rate 32 /MIN; Device VENTILATOR; Site Drawn ARTLINE
[2024-06-04 14:50] LABS: Arterial Blood Gas PEEP 14 cmH2O; Arterial Blood Gas Tidal Volume 390 ml
--- NOTE | 2024-06-04 15:04 | P.PCNBED_ITS ---
Procedures Arterial Line Arterial Line Date: 06/04/24 Arterial Line Time: 15:05 Discussed with the patient/family/POA, the placement of an arterial catheter, including its clinical necessity/indication and associated potential risks, benefits and alternatives.: Yes Patient/family/POA and/or understands and acknowledges the need to proceed with the arterial catheter insertion as an important element of the patient's clinical management.: Yes Time Out Performed: Yes Patient Position: other (Prone position) Pain Management Specialist Prep: sterile gown, sterile gloves, mask and hat Site: left and other (Axillary) Site Prep: chlorhexidine and sterile drape Technique used: ultrasound-guided Size (Gauge): 14 Length: 12 cm Closure/Dressing: suture, transparent dressing, hemostatic product, antimicrobial product and securement product Patient tolerated procedure: well Complications: none
--- NOTE | 2024-06-04 15:13 | ECG_ITS ---
Test Date: 2024-06-04 15:18:22 Measurements Intervals [place] Rate: 58 P: 0 OR: 0 QRS: 58 QRSD: 121 T: 23 QT: 340 QTc: 335 Interpretive Statements ATRIAL FIBRILLATION WITH SLOW VENTRICULAR RESPONSE SEPTAL MYOCARDIAL INFARCTION [40+ ms Q WAVE IN V1/V2], OF INDETERMINATE AGE Compared to ECG 06/01/2024 14:55:55 Sinus tachycardia no longer present Myocardial infarct finding still present Electronically Signed On 06-07-2024 15:11:13 [employer] WORK[employer] by Miller Frances M.D.
[2024-06-04 16:30] LABS: Glucose Point of Care 156 mg/dl (65-105)
[2024-06-04] MEDS: CISATRACURIUM BESYLATE 200 MG in DEXTROSE 5% 80 ML IV CONT (16:54)
[2024-06-04 17:58] LABS: Glucose Point of Care 130 mg/dl (65-105)
[2024-06-04 18:04] LABS: Hematocrit 33.2 % (37.0-47.0); Hemoglobin 11.2 g/dL (12.0-15.0); Immature Platelet Fraction Pct 14.8 % (0.9-11.2); Mean Corpuscular HGB Conc 33.7 g/dl (32-36); Mean Corpuscular Hemoglobin 28.9 pg (26-34); Mean Corpuscular Volume 85.6 fl (80-100); Mean Platelet Volume 10.6 fl (7.4-10.4); Red Blood Count 3.88 M/mm3 (4.2-5.4); Red Cell Distribution Width 12.2 % (11.5-14.5); White Blood Count 4.8 K/mm3 (4.5-10.0)
[2024-06-04 18:17] LABS: Magnesium 2.1 mg/dL (1.6-2.3)
[2024-06-04 18:18] LABS: INR 2.5; Prothrombin Time 27.8 Seconds (11.1-14.7)
[2024-06-04 18:19] LABS: Fibrinogen 379 mg/dl (215-510)
[2024-06-04 18:22] LABS: Platelet Count Result 13 k/mm3 (150-375)
[2024-06-04 18:35] LABS: D Dimer 13.13 ug/mL (<0.48)
[2024-06-04 18:56] LABS: Lactic Acid Reflex 22.6 mmol/L (0.7-2.0)
[2024-06-04 19:14] LABS: Alveolar/Arterial O2 Gradient 582.6 mmHg; Base Excess ABG -22.7 mEq/l (+/-2.0); Carboxyhemoglobin 0.2 % THb (0-2.0); Fractional Inspired Oxygen 100 %; HCO3 ABG 6.4 mEq/l (22.0-26.0); Methemoglobin ABG 0.1 %THb (0-1.5); Oxygen Content ABG 15.6 %vol (16.0-22.0); Oxygen Saturation ABG 95.3 % (95.0-100.0); Oxyhemoglobin 95.2 % THb (90.0-100.0); PCO2 ABG 24.1 mmHg (35.0-45.0); PO2 ABG 106.3 mmHg (80.0-100.0); PO2 FiO2 Ratio Arterial Blood 1.06 %; Reduced Hemoglobin 4.5 %THb (0-5.0); Total Hemoglobin 11.5 g/dL (12.0-18.0)
[2024-06-04 19:24] LABS: pH ABG 7.042 (7.350-7.450)
[2024-06-04 19:25] LABS: Device VENTILATOR; Modified Allen's Test Pass; Site Drawn ARTLINE
[2024-06-04 19:26] LABS: Arterial Blood Gas PEEP 14 cmH2O; Arterial Blood Gas Tidal Volume 430 ml; Arterial Blood Gas Vent Mode CMV; Arterial Blood Gas Ventilator rate 14 /MIN
[2024-06-04 19:34] LABS: Anion Gap 32 mmol/L (4-12); Blood Urea Nitrogen 37 mg/dL (7-17); Calcium 5.2 mg/dL (8.4-10.2); Carbon Dioxide 7 mmol/L (22-30); Chloride 73 mmol/L (98-107); Glucose 169 mg/dL (65-110); Potassium 6.9 mmol/L (3.4-5.0); Sodium 112 mmol/L (137-145)
[2024-06-04 20:25] LABS: Estimated CRCL calculation 12 ml/min; Estimated Glomerular Filt Rate 12
[2024-06-04] MEDS: SODIUM BICARBONATE 8.4% 50 MEQ/50 ML SYRINGE 150 MEQ IV PUSH (20:48)
[2024-06-04] MEDS: CALCIUM GLUC 1,000 MG/NS 50 ML 1,000 MG/50 ML BAG 100 MG IVPB (20:49)
[2024-06-04 20:59] LABS: Reflex Lactic Acid Yes or No Add Lactic
[2024-06-04] MEDS: DEXTROSE 50% 25 GM/50 ML SYRINGE IV PUSH (21:15)
[2024-06-04] MEDS: INSULIN HUMAN REGULAR (*BKC) 100 UNITS/ML 10 UNITS IV PUSH (21:15)
[2024-06-04] MEDS: OSELTAMIVIR PHOSPHATE ORAL SUSP 30 MG/5 ML SYRINGE FEED TUBE (21:25)
[2024-06-04] MEDS: SODIUM ZIRCONIUM CYCLOSILICATE 10 GM POWD.PACK PO (21:30)
[2024-06-04 21:53] LABS: Glucose Point of Care 155 mg/dl (65-105)
[2024-06-04 21:53] LABS: Glucose Point of Care 121 mg/dl (65-105)
[2024-06-05] VITALS (39 sets, daily range): BP systolic 0–187; BP diastolic 0–65; PULSE 0–116; RESP 0–32; TEMP 34.2–35.4
[2024-06-05 00:27] LABS: Lactic Acid > 24.0 mmol/L (0.7-2.0)
[2024-06-05] MEDS: NOREPINEPHRINE 8 MG/D5W 250 ML 8 MG/250 ML BAG 56.25 MG IV CONT ×3 (00:38→10:00)
[2024-06-05 01:12] LABS: Alveolar/Arterial O2 Gradient 591.9 mmHg; Base Excess ABG -23.4 mEq/l (+/-2.0); Carboxyhemoglobin 0.3 % THb (0-2.0); Fractional Inspired Oxygen 100 %; Methemoglobin ABG 0.1 %THb (0-1.5); Oxygen Saturation ABG 93.8 % (95.0-100.0); Oxyhemoglobin 93.4 % THb (90.0-100.0); PO2 ABG 97.5 mmHg (80.0-100.0); PO2 FiO2 Ratio Arterial Blood 0.98 %; Reduced Hemoglobin 6.2 %THb (0-5.0); Total Hemoglobin 11.3 g/dL (12.0-18.0)
[2024-06-05 01:12] LABS: Vancomycin Random 12.7 ug/mL (10-20)
[2024-06-05 01:28] LABS: PCO2 ABG 23.6 mmHg (35.0-45.0); Site Drawn ARTLINE; pH ABG 7.022 (7.350-7.450)
[2024-06-05 01:29] LABS: Device VENTILATOR
[2024-06-05 01:30] LABS: Arterial Blood Gas PEEP 14 cmH2O; Arterial Blood Gas Vent Mode CMV; Arterial Blood Gas Ventilator rate 32 /MIN
[2024-06-05 01:32] LABS: Arterial Blood Gas Tidal Volume 430 ml
[2024-06-05] MEDS: PHENYLEPHRINE HCL INJ 50 MG in DEXTROSE 5% IN WATER 250 ML/245 ML BAG 54 ML IV CONT ×3 (01:40→11:00)
[2024-06-05] MEDS: VASOPRESSIN INJ 100 UNITS in DEXTROSE 5% 95 ML IV CONT (01:48)
[2024-06-05] MEDS: MIDAZOLAM 100MG/NS 100ML(*CRX) 100 MG/100 ML BAG IV CONT (01:52)
[2024-06-05] MEDS: VANCOMYCIN 1,000 MG/NS 250 ML 1,000 MG/250 ML BAG 250 MG IVPB (02:06)
[2024-06-05 03:07] LABS: Basophils Percent Auto 0.2 % (0.2-1.2); Hematocrit 30.2 % (37.0-47.0); Hemoglobin 9.8 g/dL (12.0-15.0); Immature Granulocyte Absolute 0.14 K/mm3 (0.00-0.031); Immature Granulocyte Percent A 2.5 % (0-0.5); Immature Platelet Fraction Pct 18.6 % (0.9-11.2); Lymphocytes Absolute Auto 0.82 K/mm3 (0.9-3.2); Lymphocytes Percent Auto 14.6 % (18.3-44.2); Mean Corpuscular HGB Conc 32.5 g/dl (32-36); Mean Corpuscular Hemoglobin 28.6 pg (26-34); Monocytes Absolute Auto 0.1 K/mm3 (0.1-0.6); Neutrophils Absolute Auto 4.5 K/mm3 (1.3-6.7); Neutrophils Percent Auto 80.7 % (45.5-73.1); Nucleated Red Blood Cells Perc 1.2 % (0.0-0.2); Red Blood Count 3.43 M/mm3 (4.2-5.4); Red Cell Distribution Width 12.4 % (11.5-14.5); White Blood Count 5.6 K/mm3 (4.5-10.0)
[2024-06-05 03:21] LABS: INR 3.8
[2024-06-05 03:22] LABS: Partial Thromboplastin Time 65.5 Seconds (22.3-36.8)
[2024-06-05 03:27] LABS: Platelet Count Result 11 k/mm3 (150-375)
[2024-06-05 03:29] LABS: Anisocytosis 1+; Burr Cells 1+; Platelet Estimate Decreased (Adequate); Schistocytes None Seen
[2024-06-05 03:41] LABS: Albumin Level 1.7 g/dL (3.5-5.1); Alkaline Phosphatase 210 U/L (38-126); Bilirubin,Total 2.3 mg/dL (0.2-1.3); Blood Urea Nitrogen 36 mg/dL (7-17); Calcium 5.5 mg/dL (8.4-10.2); Carbon Dioxide < 5 mmol/L (22-30); Chloride 73 mmol/L (98-107); Glucose 179 mg/dL (65-110); Lipase 618 U/L (23-300); Magnesium 2.4 mg/dL (1.6-2.3); Potassium 7.4 mmol/L (3.4-5.0); Sodium 112 mmol/L (137-145)
[2024-06-05 03:46] LABS: Lactic Acid Reflex > 24.0 mmol/L (0.7-2.0)
[2024-06-05] MEDS: DEXTROSE 50% 25 GM/50 ML SYRINGE IV PUSH ×2 (03:50→09:36)
[2024-06-05] MEDS: INSULIN HUMAN REGULAR (*BKC) 100 UNITS/ML 10 UNITS IV PUSH ×2 (03:50→09:36)
[2024-06-05] MEDS: SODIUM BICARBONATE 8.4% 50 MEQ/50 ML SYRINGE 100 MEQ IV PUSH ×2 (03:50→09:10)
[2024-06-05] MEDS: SODIUM ZIRCONIUM CYCLOSILICATE 10 GM POWD.PACK PO ×2 (04:02→09:35)
[2024-06-05 04:18] LABS: Estimated CRCL calculation 11 ml/min; Estimated Glomerular Filt Rate 12
[2024-06-05 04:19] LABS: Alanine Aminotransferase 2709 U/L (6-35); Phosphorus 15.3 mg/dL (2.5-4.5)
[2024-06-05 04:20] LABS: Aspartate Amino Transferase > 7500 U/L (14-36)
[2024-06-05 04:24] LABS: Creatine Kinase 15092 U/L (30-135)
[2024-06-05 04:27] LABS: Alveolar/Arterial O2 Gradient 593.6 mmHg; Base Excess ABG -21.5 mEq/l (+/-2.0); Carboxyhemoglobin 0.3 % THb (0-2.0); Fractional Inspired Oxygen 100 %; HCO3 ABG 7.2 mEq/l (22.0-26.0); Methemoglobin ABG 0.2 %THb (0-1.5); Oxygen Content ABG 11.7 %vol (16.0-22.0); Oxygen Saturation ABG 93.8 % (95.0-100.0); Oxyhemoglobin 93.1 % THb (90.0-100.0); PCO2 ABG 25.7 mmHg (35.0-45.0); PO2 ABG 93.7 mmHg (80.0-100.0); PO2 FiO2 Ratio Arterial Blood 0.94 %; Reduced Hemoglobin 6.4 %THb (0-5.0); Total Hemoglobin 8.8 g/dL (12.0-18.0)
[2024-06-05] MEDS: CALCIUM GLUC 2,000 MG/NS 100ML 2,000 MG/100 ML BAG 100 MG IVPB (04:40)
[2024-06-05] MEDS: EPOPROSTENOL SODIUM 0.5 MG VIAL 1 MG INHALATION ×2 (04:42→09:59)
[2024-06-05] MEDS: HYDROCORTISONE SODIUM SUCCINATE 100 MG/2 ML VIAL IV PUSH (05:15)
[2024-06-05] MEDS: EPINEPHrine INJ 4 MG in DEXTROSE 5% IN WATER 250 ML 15.24 MG IV CONT (05:17)
[2024-06-05 06:05] LABS: Device VENTILATOR; Site Drawn ARTLINE; pH ABG 7.063 (7.350-7.450)
[2024-06-05 06:06] LABS: Arterial Blood Gas Vent Mode CMV; Arterial Blood Gas Ventilator rate 32 /MIN
[2024-06-05 06:07] LABS: Arterial Blood Gas PEEP 14 cmH2O; Arterial Blood Gas Tidal Volume 430 ml
[2024-06-05] MEDS: CENTRAL LINE FLUSH 10 ML IV PUSH (06:51)
--- NOTE | 2024-06-05 08:15 | PC.NURSE ---
Notified daughter Kay of CPR in progress
[2024-06-05] MEDS: DOPamine 400 MG/D5W 250 ML 400 MG/250 ML BAG 15.75 MG IV CONT (08:18)
[2024-06-05 08:53] LABS: Alveolar/Arterial O2 Gradient 624.2 mmHg; Base Excess ABG -22.2 mEq/l (+/-2.0); Fractional Inspired Oxygen 100 %; HCO3 ABG 7.5 mEq/l (22.0-26.0); Oxygen Content ABG 8.5 %vol (16.0-22.0); PCO2 ABG 31.4 mmHg (35.0-45.0); PO2 ABG 57.4 mmHg (80.0-100.0); PO2 FiO2 Ratio Arterial Blood 0.57 %; Total Hemoglobin 8.1 g/dL (12.0-18.0)
[2024-06-05 08:54] LABS: Oxygen Saturation ABG 74.1 % (95.0-100.0); pH ABG 6.998 (7.350-7.450)
[2024-06-05 08:55] LABS: Device VENTILATOR; Oxyhemoglobin 73.5 % THb (90.0-100.0); Site Drawn ARTLINE
[2024-06-05 08:56] LABS: Arterial Blood Gas PEEP 14 cmH2O; Arterial Blood Gas Tidal Volume 430 ml; Arterial Blood Gas Vent Mode CMV; Arterial Blood Gas Ventilator rate 32 /MIN
[2024-06-05 09:00] LABS: Glucose Point of Care 205 mg/dl (65-105)
[2024-06-05 09:00] LABS: Glucose Point of Care 198 mg/dl (65-105)
[2024-06-05 09:00] LABS: Glucose Point of Care 163 mg/dl (65-105)
[2024-06-05 09:00] LABS: Glucose Point of Care 146 mg/dl (65-105)
[2024-06-05 09:00] LABS: Glucose Point of Care 195 mg/dl (65-105)
[2024-06-05 09:08] LABS: Basophils Percent Auto 0.3 % (0.2-1.2); Hemoglobin 7.7 g/dL (12.0-15.0); Immature Granulocyte Percent A 3.2 % (0-0.5); Immature Platelet Fraction Pct 18.1 % (0.9-11.2); Lymphocytes Absolute Auto 1.14 K/mm3 (0.9-3.2); Lymphocytes Percent Auto 18.4 % (18.3-44.2); Mean Corpuscular HGB Conc 32.1 g/dl (32-36); Mean Corpuscular Hemoglobin 28.7 pg (26-34); Mean Corpuscular Volume 89.6 fl (80-100); Monocytes Absolute Auto 0.1 K/mm3 (0.1-0.6); Monocytes Percent Auto 2.3 % (2.6-8.5); Neutrophils Absolute Auto 4.7 K/mm3 (1.3-6.7); Neutrophils Percent Auto 75.8 % (45.5-73.1); Nucleated Red Blood Cells Perc 1.3 % (0.0-0.2); Red Blood Count 2.68 M/mm3 (4.2-5.4); Red Cell Distribution Width 12.7 % (11.5-14.5); White Blood Count 6.2 K/mm3 (4.5-10.0)
[2024-06-05] MEDS: PANTOPRAZOLE SODIUM IV 40 MG VIAL IV PUSH (09:08)
[2024-06-05] MEDS: MINERAL OIL/WHITE PETROLATUM OINTMENT 1 APPLIC EACH EYE (09:09)
[2024-06-05] MEDS: MUPIROCIN 2% OINT 22 GM TUBE 1 APPLIC EACH NARE (09:09)
[2024-06-05 09:28] LABS: Partial Thromboplastin Time 94.7 Seconds (22.3-36.8)
--- NOTE | 2024-06-05 09:28 | ECG_ITS ---
Test Date: 2024-06-05 09:36:02 Measurements Intervals [place] Rate: 81 P: 0 NC: 0 QRS: 62 QRSD: 130 T: -9 QT: 306 QTc: 356 Interpretive Statements ATRIAL FIBRILLATION ANTEROSEPTAL MYOCARDIAL INFARCTION [40+ ms Q WAVE IN V1-V4], PROBABLY RECENT ACUTE CO Compared to ECG 06/04/2024 15:18:22 ACUTE CO NOW PRESENT Electronically Signed On 06-08-2024 18:01:02 [employer] by Morelia Huerta M.D.
[2024-06-05 09:30] LABS: Albumin Level 1.2 g/dL (3.5-5.1); Alkaline Phosphatase 267 U/L (38-126); Anion Gap 37 mmol/L (4-12); Bilirubin,Total 1.9 mg/dL (0.2-1.3); Blood Urea Nitrogen 36 mg/dL (7-17); Calcium 8.3 mg/dL (8.4-10.2); Carbon Dioxide 6 mmol/L (22-30); Chloride 70 mmol/L (98-107); Glucose 281 mg/dL (65-110); Lipase 459 U/L (23-300); Magnesium 2.5 mg/dL (1.6-2.3); Potassium 8.7 mmol/L (3.4-5.0); Sodium 113 mmol/L (137-145)
[2024-06-05] MEDS: SODIUM BICARBONATE 8.4% 50 MEQ/50 ML SYRINGE IV PUSH (09:36)
[2024-06-05 09:41] LABS: Platelet Count Result 9 k/mm3 (150-375)
[2024-06-05 09:45] LABS: Platelet Estimate Decreased (Adequate)
[2024-06-05 09:47] LABS: Schistocytes None Seen
[2024-06-05 09:55] LABS: INR 7.9
[2024-06-05 10:21] LABS: Alanine Aminotransferase 2868 U/L (6-35); Lactic Acid Reflex > 24.0 mmol/L (0.7-2.0); Phosphorus 18.3 mg/dL (2.5-4.5)
[2024-06-05 10:23] LABS: Creatine Kinase 15020 U/L (30-135); Estimated CRCL calculation 13 ml/min; Estimated Glomerular Filt Rate 12
--- NOTE | 2024-06-05 10:31 | P.PNNP_ITS ---
Progress Note: A&P Assessment and Plan (1) Acute kidney injury: Code(s): N17.9 - Acute kidney failure, unspecified Status: Acute Assessment and Plan: * continues to worsen/deteriorate * normal renal function at baseline * significant deterioration noted since admission (< 24 hours) with creatinine up to 2.8mg/dl * likely ATN with multifactorial etiology: * hemodynamic instability/shock * sepsis/infection * hypoxia * prerenal factors * other(?) * s/p aggressive IVF resuscitation * on maintenance IVFs with bicarb * on significant vasopressor support in an effort to maintain MAP * evaluation to date noted: * renal ultrasound with mild right hydronephrosis and kidney size asymmetry * rising CPK noted * urine eosinophils negative * urine electrolytes indeterminate * UA not indicative of infection * no significant response to IV diuretics * ACCOUNT DEVELOPER/dialysis is a consideration but she is not a candidate at this time due to her hemodynamics instability * certainly would not tolerated regular intermittent hemodialysis * doubt she would even tolerate continuous renal replacement therapy (CRRT) either... * continue follow trend of repeat labs and UOP (2) Septic shock: Code(s): A41.9 - Sepsis, unspecified organism; R65.21 - Severe sepsis with septic shock Status: Acute Assessment and Plan: * as noted on presentation - hypoxia, hypotension, acute confusion, leukopenia, and lactic acidosis * s/p aggressive IVF resuscitation * due to persistent hypotension despite IVFs, central line placed * currently on maximum doses of Levophed, Herbie-Synephrine, vasopressin and epinephrine * attempting to maintain MAP > 65 mmHg (but limited effectiveness noted) * on stress dose steroids as well * follow culture data * on antibiotics and Tamiflu (3) Acute respiratory failure with hypoxia: Code(s): J96.01 - Acute respiratory failure with hypoxia Status: Acute Assessment and Plan: * secondary to influenza A and pneumonia * may have progressed to ARDS given severity of hypoxia * prone positioning instituted * follow ABGs and CXRs * not stable for transport for CT imaging * continue ventilator support (4) Metabolic acidosis: Code(s): E87.20 - Acidosis, unspecified Status: Acute Assessment and Plan: * continues to worsen as noted by trend of labs * due several issues: * acute kidney injury/acute renal failure * lactic acidosis (which continues to worsen) * sepsis/septic shock * bowel ischemia - surgery consultation noted * metformin use (?) * on bicarbonate infusion and PRN IVPs to compensate (5) Electrolyte abnormality: Code(s): E87.8 - Other disorders of electrolyte and fluid balance, not elsewhere classified Status: Acute Assessment and Plan: * hyperkalemia * due to SKY/ARF and ischemia * hyponatremia: * due to SKY/ARF and volume overload (almost 18L positive) * diuretics of limited utility since not responsive * 3% saline would likely worsen volume overload status * salt tablets not likely to be absorbed * hence, no optimal solution to treat this issue * hypocalcemia * due to acidosis and use of bicarb fluid * replace as needed * hyperphosphatemia * due to ongoing SKY/ARF * will likely worsen as does renal function (6) Influenza A: Code(s): J10.1 - Influenza due to other identified influenza virus with other respiratory manifestations Status: Acute Assessment and Plan: * as noted by testing in ER * on Tamiflu (7) Transaminitis: Code(s): R74.01 - Elevation of levels of liver transaminase levels Status: Acute Assessment and Plan: * likely secondary to shock liver in the context of hypoxia and hypotension * continues to worsen along with coagulopathy * follow trend of LFTs (8) Type 2 diabetes mellitus: Code(s): E11.9 - Type 2 diabetes mellitus without complications Status: Acute Assessment and Plan: * on insulin gtt * secondary to #2 * however, suspect poor glycemic control prior to admission (noted HgbA1c of 12.6) * follow accu-cheks * glycemic control per head gauge unit operator With ongoing worsening clinical status as noted by cardiac arrest earlier today, would continue discussions with family regarding futility of care -- she has worsening/progressive multisystem organ failure with no signs of any clinical improvement -- extremely poor prognosis. Discussed with Dr. Fuentes. Will continue to follow. Subjective Date/time seen: 06/05/24 10:31 Interval history: Follow-up for acute kidney injury/acute renal failure. Ongoing deterioration of clinical status noted in the last 24 hours -- s/p cardiac arrest/code blue earlier this morning with return of systemic circulation after ~ 10 minutes; post arrest labs note worsening renal function/creatinine, lactic/metabolic acidosis, hyperkalemia, along with already noted rising LFTs, INR, and CPK; anuric at this time; remains intubated/sedated/paralyzed and on mechanical ventilation as well significant vasopressor therapy (levophed, vasopressin, herbie-synephrine, epinephrine and recently added dopamine). Exam Narrative: General: ill-appearing female intubated/sedated/paralyzed on mechanical ventilation in prone position Heart: normal S1 and S2; no rub Lungs: coarse with decreased breath sounds at bases Abdomen: soft, nontender, nondistended, decreased bowel sounds Extremities: no cyanosis or clubbing; traceedema Skin: cool to touch apparent Objective Data Vital Signs Vital Signs: Vital Signs Temp Pulse Resp BP O2 Del Method FiO2 06/05/24 10:03 86 32 H 06/05/24 10:03 86 32 H 124/48 L Mechanical Ventilation 100 06/05/24 10:00 82 32 H 104/47 L 06/05/24 10:00 80 32 H 124/46 L 06/05/24 09:43 74 114/47 L 06/05/24 08:00 58 L 06/05/24 08:00 Mechanical Ventilation 100 06/05/24 08:00 65 32 H 103/47 L 06/05/24 08:00 65 103/47 L 06/05/24 08:00 65 32 H 06/05/24 08:00 65 32 H 06/05/24 08:00 65 103/47 L 06/05/24 08:00 65 103/47 L 06/05/24 08:00 65 103/47 L 06/05/24 08:00 95.8 F L 65 32 H 103/47 L 06/05/24 08:00 100 06/05/24 07:50 65 32 H 06/05/24 07:50 65 Mechanical Ventilation 100 06/05/24 07:00 67 32 H 100 06/05/24 07:00 70 106/48 L 06/05/24 06:55 68 96/47 L 06/05/24 06:50 66 104/43 L 06/05/24 06:45 85 113/64 06/05/24 06:40 68 97/43 L 06/05/24 06:35 85 96/44 L 06/05/24 06:00 94.7 F L 88 32 H 119/49 L 06/05/24 06:00 88 06/05/24 06:00 88 32 H 119/49 L 06/05/24 06:00 88 119/49 L 06/05/24 06:00 88 32 H 06/05/24 06:00 88 119/49 L 06/05/24 06:00 88 32 H 06/05/24 06:00 88 119/49 L 06/05/24 06:00 88 119/49 L 06/05/24 05:17 68 128/45 L 06/05/24 05:17 68 128/45 L 06/05/24 05:16 99 140/47 L 06/05/24 05:16 99 140/47 L 06/05/24 05:15 75 129/44 L 06/05/24 05:15 75 129/44 L 06/05/24 04:36 79 Mechanical Ventilation 100 06/05/24 04:29 65 32 H 06/05/24 04:00 65 06/05/24 04:00 100 06/05/24 04:00 65 32 H Mechanical Ventilation 100 06/05/24 04:00 93.9 F L 65 32 H 126/48 L 06/05/24 04:00 65 32 H 126/48 L 06/05/24 04:00 65 126/48 L 06/05/24 04:00 65 32 H 06/05/24 04:00 65 32 H 06/05/24 04:00 65 126/48 L 06/05/24 04:00 65 126/48 L 06/05/24 04:00 65 126/48 L 06/05/24 03:04 93.6 F L 06/05/24 03:00 70 32 H 100 06/05/24 02:35 69 32 H 06/05/24 02:02 76 146/55 H 06/05/24 02:00 55 L 32 H 06/05/24 02:00 94.0 F L 06/05/24 02:00 76 06/05/24 02:00 93.7 F L 76 32 H 146/55 H 06/05/24 02:00 76 146/55 H 06/05/24 02:00 76 148/65 H 06/05/24 02:00 78 32 H 06/05/24 02:00 78 146/55 H 06/05/24 02:00 78 32 H 146/55 H 06/05/24 01:52 80 32 H 06/05/24 01:52 80 32 H 06/05/24 01:48 80 148/54 H 06/05/24 01:48 80 148/54 H 06/05/24 01:43 92 Mechanical Ventilation 100 06/05/24 01:40 72 148/54 H 06/05/24 01:40 72 148/54 H 06/05/24 00:50 92 32 H 06/05/24 00:38 65 148/49 H 06/05/24 00:38 65 148/49 H 06/05/24 00:33 79 32 H 146/48 H 06/05/24 00:00 100 06/05/24 00:00 77 32 H Mechanical Ventilation 100 06/05/24 00:00 66 06/05/24 00:00 94.3 F L 77 32 H 146/49 H 06/05/24 00:00 79 32 H 06/05/24 00:00 79 32 H 06/05/24 00:00 79 146/48 H 06/05/24 00:00 79 146/48 H 06/05/24 00:00 79 146/48 H 06/05/24 00:00 79 146/48 H 06/04/24 23:00 107 H 32 H 100 06/04/24 22:33 74 32 H 06/04/24 22:33 74 Mechanical Ventilation 100 06/04/24 22:00 97 32 H 153/55 H 06/04/24 22:00 87 32 H 06/04/24 22:00 87 32 H 06/04/24 22:00 87 153/55 H 06/04/24 22:00 87 153/55 H 06/04/24 22:00 87 153/55 H 06/04/24 22:00 87 153/55 H 06/04/24 22:00 95.6 F L 107 H 32 H 172/56 H 06/04/24 22:00 87 06/04/24 21:00 72 132/55 L 06/04/24 21:00 72 132/55 L 06/04/24 20:34 139 H 32 H 06/04/24 20:34 139 H Mechanical Ventilation 06/04/24 20:00 74 32 H Mechanical Ventilation 06/04/24 20:00 100 06/04/24 20:00 96.2 F L 69 32 H 120/48 L 06/04/24 20:00 69 06/04/24 20:00 72 32 H 114/47 L 06/04/24 20:00 72 32 H 06/04/24 20:00 72 32 H 06/04/24 20:00 72 114/47 L 06/04/24 20:00 72 114/47 L 06/04/24 20:00 74 114/47 L 06/04/24 20:00 70 114/47 L 06/04/24 20:00 70 114/47 L 06/04/24 19:00 62 32 H 100 06/04/24 18:00 68 32 H 114/45 L 06/04/24 18:00 68 32 H 06/04/24 18:00 68 32 H 06/04/24 18:00 68 114/45 L 06/04/24 18:00 68 114/45 L 06/04/24 18:00 68 109/85 06/04/24 18:00 68 114/45 L 06/04/24 16:54 70 32 H 132/50 L 06/04/24 16:54 70 32 H 132/50 L 06/04/24 16:42 72 32 H 06/04/24 16:36 70 Mechanical Ventilation 06/04/24 16:14 70 140/51 L 06/04/24 16:14 70 140/51 L 06/04/24 16:00 92 32 H 150/55 H 06/04/24 16:00 92 32 H 06/04/24 16:00 92 32 H 06/04/24 16:00 92 150/55 H 06/04/24 16:00 92 150/55 H 06/04/24 16:00 92 150/55 H 06/04/24 16:00 92 150/55 H 06/04/24 16:00 69 06/04/24 16:00 94 26 H Mechanical Ventilation 06/04/24 16:00 100 06/04/24 16:00 97.3 F L 92 32 H 150/55 H 06/04/24 15:23 72 137/56 L 06/04/24 15:23 72 137/56 L 06/04/24 15:02 73 128/54 L 06/04/24 14:55 75 138/55 L 06/04/24 14:50 75 147/64 H 06/04/24 14:40 86 148/63 H Intake/Output Intake/Output: Intake & Output 06/02/24 06/03/24 06/04/24 06/05/24 23:59 23:59 23:59 23:59 Intake Total 6510.9 8707.7 3486.6 2512.6 Output Total 435 760 430 250 Balance 6075.9 7947.7 3056.6 2262.6 Meds/Results Medications: Active Medications Generic Name Dose Route Start Last Admin Trade Name Freq PRN Reason Stop Dose Admin Acetaminophen 650 mg 06/02/24 07:27 06/02/24 09:10 Acetaminophen Elixir 325 Mg/10.15 Ml Udc FEED TUBE 650 mg Q6H PRN Administration Mild Pain (1-3) or Fever Acetylcysteine 200 mg 06/02/24 08:00 06/03/24 08:10 Acetylcysteine 20% Inhal Soln 800 Mg/4 Ml Vial INHALATION [address] Administration Dextrose 12.5 gm 06/02/24 04:03 Dextrose 50% 25 Gm/50 Ml Syringe IV PUSH PRN PRN Hypoglycemia Protocol Epoprostenol Sodium 1 mg 06/03/24 07:39 06/05/24 09:59 Epoprostenol Sodium 0.5 Mg Vial INHALATION 1 mg PRN PRN Administration Titrate Glucagon 1 mg 06/02/24 04:03 Glucagon For Inj 1 Mg Vial IM PRN PRN Hypoglycemia Protocol Glucose 15 gm 06/02/24 04:03 Glucose Oral Gel 15 Gm Of Glucse In 37.5 Gm Tube PO PRN PRN Hypoglycemia Protocol Hydrocortisone Sodium Succinate 100 mg 06/02/24 14:00 06/05/24 05:15 Hydrocortisone Sodium Succinate 100 Mg/2 Ml Vial IV PUSH [address] Administration Azithromycin 500 mg in 250 mls @ 250 mls/hr 06/02/24 12:00 06/04/24 13:14 Zithromax IVPB 06/06/24 23:[address] Infusion Norepinephrine Bitartrate 8 mg in 250 mls @ 37.5 mls/hr 06/01/24 22:15 06/05/24 12:00 Levophed 8 Mg/D5w 250 Ml IV CONT Infused .Q6H40M COURT Titration Protocol 20 MCG/MIN Vasopressin 100 units/ 100 mls @ 2.4 mls/hr 06/02/24 01:10 06/05/24 12:00 Dextrose IV CONT Infused .[id number] COURT Titration Protocol 0.04 UNITS/MIN Phenylephrine HCl 50 mg/ 250 ml in 250 mls @ 54 mls/hr 06/02/24 03:55 06/05/24 12:00 Dextrose IV CONT Infused .Q4H38M COURT Titration Protocol 180 MCG/MIN Dextrose 1,000 mls @ 100 mls/hr 06/02/24 04:03 Dextrose 5% 1,000 Ml IVPB PRN PRN Hypoglycemia Protocol Cisatracurium Besylate 200 mg/ 100 mls @ 1.905 mls/hr 06/02/24 10:15 06/05/24 12:00 Dextrose IV CONT Infused .[id number] COURT Titration Protocol 1 MCG/KG/MIN Epinephrine HCl 4 mg/ Dextrose 254 mls @ 76.2 mls/hr 06/02/24 13:45 06/05/24 12:00 IV CONT Infused .Q3H20M COURT Titration Protocol 20 MCG/MIN Midazolam HCl 100 mg in 100 mls @ 3 mls/hr 06/02/24 15:05 06/05/24 12:00 Versed 100 Mg/Ns 100 Ml IV CONT Infused .[id number] COURT Titration Protocol 3 MG/HR Fentanyl Citrate 2,500 mcg in 250 mls @ 5 mls/hr 06/03/24 07:30 06/05/24 10:00 Fentanyl 2,500 Mcg/Ns 250 Ml IV CONT Infused .Q50H COURT Titration Protocol 50 MCG/HR Insulin Human Regular 100 100 mls @ 1 mls/hr 06/03/24 07:55 06/05/24 12:00 units/ Sodium Chloride IV CONT Infused .Q24H COURT Titration Protocol 1 UNIT/HR Cefepime HCl 1 gm in 50 mls @ 100 mls/hr 06/04/24 21:00 06/04/24 22:00 Maxipime 1 Gm/Ns [address] Inf[address] QHS [address] Infusion Dopamine HCl/Dextrose 400 mg in 250 mls @ 15.75 mls/hr 06/05/24 08:18 Dopamine 400 Mg/D5w 250 Ml IV CONT .[id number] COURT 5 MCG/KG/MIN Ipratropium [place] 0.5 mg 06/02/24 08:00 06/03/24 08:11 Ipratropium Br 0.02% Inh Soln 0.5 Mg/2.5 Ml Vial INHALATION 0.[address] Administration Levalbuterol HCl 1.25 mg 06/02/24 08:00 06/03/24 08:11 Levalbuterol Neb 1.25 Mg/3 Ml INHALATION 1.[address] Administration Multi-Ingred Cream/Lotion/Oil/Oint 1 applic 06/02/24 10:05 06/05/24 09:09 Mineral Oil/White Petrolatum Ointment EACH EYE [address] Administration Mupirocin 1 applic 06/02/24 09:00 06/05/24 09:09 Mupirocin 2% Oint 22 Gm Tube EACH NARE 06/06/24 21:[address] Administration Ondansetron HCl 4 mg 06/01/24 16:52 Ondansetron Inj 4 Mg/2 Ml Vial IV PUSH Q4H PRN Nausea Oseltamivir Phosphate 30 mg 06/02/24 21:00 06/04/24 21:25 Oseltamivir Phosphate Oral Susp 30 Mg/5 Ml Syringe FEED TUBE 06/05/24 21:[address] Administration Pantoprazole Sodium 40 mg 06/03/24 21:00 06/05/24 09:08 Pantoprazole Sodium Iv 40 Mg Vial IV PUSH [address] Administration Sodium Chloride 10 ml 06/03/24 14:00 06/05/24 06:51 Central Line Flush IV PUSH [address] Administration Sodium Chloride 20 ml 06/03/24 13:00 Central Line Flush IV PUSH PRN PRN after blood draws Sodium Zirconium Cyclosilicate 10 gm 06/05/24 10:00 06/05/24 09:35 Sodium Zirconium Cyclosilicate 10 Gm Powd.Pack PO 06/07/24 09:59 10 gm TID@1000,1500,2200 COURT Administration Vancomycin HCl 1 each 06/02/24 06:52 Vancomycin For Acute Kidney Injury IVPB PRN PRN Vancomycin Protocol Radiology Results: ITS Impressions Abdomen X-Ray 06/01/24 19:47 IMPRESSION: NG tube, in good position. Renal Ultrasound 06/03/24 08:44 IMPRESSION: Mild right-sided hydronephrosis. Size asymmetry between the bilateral kidneys. No findings suggesting medical renal disease. Incidental notation is made of bilateral pleural effusions. Chest X-Ray 06/03/24 09:35 IMPRESSION: 1. Stable diffuse lung disease, consistent with pulmonary edema versus pneumonia. 2. Stable small pleural effusions. 3. Central line tip at the superior cavoatrial junction. Labs Labs: Laboratory Tests 06/05/24 08:58 WBC 6.2 Hgb 7.7 L Hct 24.0 L RDW 12.7 Plt Count 9 L* PT 66.0 H D INR 7.9 H* APTT 94.7 H Sodium 113 L* Potassium 8.7 H* Chloride 70 L Carbon Dioxide 6 L Anion Gap 37 H BUN 36 H Creatinine 4.60 H Estim Creat Clear Calc 13 Estimated GFR 12 L Glucose 281 H Lactic Acid > 24.0 H* Calcium 8.3 L Phosphorus 18.3 H Magnesium 2.5 H Total Bilirubin 1.9 H AST TNP ALT 2868 H Alkaline Phosphatase 267 H Total Creatine Kinase 97521 H Total Protein 3.0 L Albumin 1.2 L Lipase 459 H Microbiology 06/02/24 03:05 Sputum Sputum Culture - Preliminary
[2024-06-05 11:14] LABS: Anion Gap 41 mmol/L (4-12); Blood Urea Nitrogen 36 mg/dL (7-17); Calcium 6.9 mg/dL (8.4-10.2); Carbon Dioxide 6 mmol/L (22-30); Chloride 68 mmol/L (98-107); Glucose 314 mg/dL (65-110); Potassium 9.1 mmol/L (3.4-5.0); Sodium 115 mmol/L (137-145)
--- NOTE | 2024-06-05 11:19 | PM.PNGS ---
Progress Note: A&P Assessment and Plan (1) Ischemic disease of gut: Code(s): K55.9 - Vascular disorder of intestine, unspecified Status: Acute Assessment and Plan: continues to deteriorate despite maximal support, discussed with family, patient is prohibitive surgical candidate, no surgical options at this point, will sign off, call with questions or issues Subjective Subjective Date/Time Seen: 06/05/24 11:19 Interval history: events overnight including code blue noted, cont to deteriorate despite maximal support Review of Systems Review of Systems: ROS unobtainable: Yes unobtainable due to endotracheal tube, unobtainable due to medical condition and unobtainable due to mental status Exam Const: General: ill appearing Other: intubated Resp: Auscultation: diminished lung sounds Cardio: Rate: regular rate Rhythm: regular rhythm GI: Inspection: normal to inspection and distended GI Palp: Yes abdominal tenderness, Yes Firmness to palpation present (GI) and Yes Rigid due to palpation Objective Data Vital Signs Vital Signs: Vital Signs - 24 hr 06/04/24 11:25 06/04/24 12:00 06/04/24 12:00 Temperature Pulse Rate 114 H 108 H Respiratory Rate Blood Pressure Pulse Oximetry 91 Oxygen Delivery Mechanical Ventilation Fraction of Inspired Oxygen 100 100 06/04/24 12:00 06/04/24 12:00 06/04/24 12:00 Temperature 36.6 C Pulse Rate 108 H 94 110 H Respiratory Rate 32 H 26 H Blood Pressure 114/74 114/74 Pulse Oximetry Oxygen Delivery Mechanical Ventilation Fraction of Inspired Oxygen 100 06/04/24 12:00 06/04/24 12:00 06/04/24 12:00 Temperature Pulse Rate 84 110 H 110 H Respiratory Rate Blood Pressure 114/74 114/74 114/74 Pulse Oximetry Oxygen Delivery Fraction of Inspired Oxygen 06/04/24 12:00 06/04/24 12:00 06/04/24 12:00 Temperature Pulse Rate 110 H 110 H 110 H Respiratory Rate 32 H 32 H 32 H Blood Pressure 114/74 Pulse Oximetry Oxygen Delivery Fraction of Inspired Oxygen 06/04/24 13:40 06/04/24 13:40 06/04/24 14:00 Temperature 36.4 C Pulse Rate 88 88 84 Respiratory Rate 32 H Blood Pressure 143/99 H 143/99 H 148/64 H Pulse Oximetry Oxygen Delivery Fraction of Inspired Oxygen 06/04/24 14:00 06/04/24 14:00 06/04/24 14:00 Temperature Pulse Rate 84 84 110 H Respiratory Rate Blood Pressure 133/94 H 133/94 H Pulse Oximetry Oxygen Delivery Fraction of Inspired Oxygen 06/04/24 14:00 06/04/24 14:00 06/04/24 14:00 Temperature Pulse Rate 84 84 84 Respiratory Rate 32 H Blood Pressure 137/103 H 133/94 H Pulse Oximetry Oxygen Delivery Fraction of Inspired Oxygen 06/04/24 14:00 06/04/24 14:00 06/04/24 14:10 Temperature Pulse Rate 84 84 82 Respiratory Rate 32 H 32 H Blood Pressure 133/94 H Pulse Oximetry Oxygen Delivery Mechanical Ventilation Fraction of Inspired Oxygen 100 06/04/24 14:12 06/04/24 14:29 06/04/24 14:40 Temperature Pulse Rate 82 78 86 Respiratory Rate 32 H Blood Pressure 154/86 H 148/63 H Pulse Oximetry Oxygen Delivery Fraction of Inspired Oxygen 06/04/24 14:50 06/04/24 14:55 06/04/24 15:02 Temperature Pulse Rate 75 75 73 Respiratory Rate Blood Pressure 147/64 H 138/55 L 128/54 L Pulse Oximetry Oxygen Delivery Fraction of Inspired Oxygen 06/04/24 15:23 06/04/24 15:23 06/04/24 16:00 Temperature 36.3 C L Pulse Rate 72 72 92 Respiratory Rate 32 H Blood Pressure 137/56 L 137/56 L 150/55 H Pulse Oximetry Oxygen Delivery Fraction of Inspired Oxygen 06/04/24 16:00 06/04/24 16:00 06/04/24 16:00 Temperature Pulse Rate 94 69 Respiratory Rate 26 H Blood Pressure Pulse Oximetry Oxygen Delivery Mechanical Ventilation Fraction of Inspired Oxygen 100 100 06/04/24 16:00 06/04/24 16:00 06/04/24 16:00 Temperature Pulse Rate 92 92 92 Respiratory Rate Blood Pressure 150/55 H 150/55 H 150/55 H Pulse Oximetry Oxygen Delivery Fraction of Inspired Oxygen 06/04/24 16:00 06/04/24 16:00 06/04/24 16:00 Temperature Pulse Rate 92 92 92 Respiratory Rate 32 H 32 H Blood Pressure 150/55 H Pulse Oximetry Oxygen Delivery Fraction of Inspired Oxygen 06/04/24 16:00 06/04/24 16:14 06/04/24 16:14 Temperature Pulse Rate 92 70 70 Respiratory Rate 32 H Blood Pressure 150/55 H 140/51 L 140/51 L Pulse Oximetry Oxygen Delivery Fraction of Inspired Oxygen 06/04/24 16:36 06/04/24 16:42 06/04/24 16:54 Temperature Pulse Rate 70 72 70 Respiratory Rate 32 H 32 H Blood Pressure 132/50 L Pulse Oximetry Oxygen Delivery Mechanical Ventilation Fraction of Inspired Oxygen 100 06/04/24 16:54 06/04/24 18:00 06/04/24 18:00 Temperature Pulse Rate 70 68 68 Respiratory Rate 32 H Blood Pressure 132/50 L 114/45 L 109/85 Pulse Oximetry Oxygen Delivery Fraction of Inspired Oxygen 06/04/24 18:00 06/04/24 18:00 06/04/24 18:00 Temperature Pulse Rate 68 68 68 Respiratory Rate 32 H Blood Pressure 114/45 L 114/45 L Pulse Oximetry Oxygen Delivery Fraction of Inspired Oxygen 06/04/24 18:00 06/04/24 18:00 06/04/24 19:00 Temperature Pulse Rate 68 68 62 Respiratory Rate 32 H 32 H 32 H Blood Pressure 114/45 L Pulse Oximetry Oxygen Delivery Fraction of Inspired Oxygen 100 06/04/24 20:00 06/04/24 20:00 06/04/24 20:00 Temperature Pulse Rate 70 70 74 Respiratory Rate Blood Pressure 114/47 L 114/47 L 114/47 L Pulse Oximetry Oxygen Delivery Fraction of Inspired Oxygen 06/04/24 20:00 06/04/24 20:00 06/04/24 20:00 Temperature Pulse Rate 72 72 72 Respiratory Rate 32 H Blood Pressure 114/47 L 114/47 L Pulse Oximetry Oxygen Delivery Fraction of Inspired Oxygen 06/04/24 20:00 06/04/24 20:00 06/04/24 20:00 Temperature Pulse Rate 72 72 69 Respiratory Rate 32 H 32 H Blood Pressure 114/47 L Pulse Oximetry Oxygen Delivery Fraction of Inspired Oxygen 06/04/24 20:00 06/04/24 20:00 06/04/24 20:00 Temperature 35.7 C L Pulse Rate 69 74 Respiratory Rate 32 H 32 H Blood Pressure 120/48 L Pulse Oximetry Oxygen Delivery Mechanical Ventilation Fraction of Inspired Oxygen 100 100 06/04/24 20:34 06/04/24 20:34 06/04/24 21:00 Temperature Pulse Rate 139 H 139 H 72 Respiratory Rate 32 H Blood Pressure 132/55 L Pulse Oximetry Oxygen Delivery Mechanical Ventilation Fraction of Inspired Oxygen 100 06/04/24 21:00 06/04/24 22:00 06/04/24 22:00 Temperature 35.3 C L Pulse Rate 72 87 107 H Respiratory Rate 32 H Blood Pressure 132/55 L 172/56 H Pulse Oximetry Oxygen Delivery Fraction of Inspired Oxygen 06/04/24 22:00 06/04/24 22:00 06/04/24 22:00 Temperature Pulse Rate 87 87 87 Respiratory Rate Blood Pressure 153/55 H 153/55 H 153/55 H Pulse Oximetry Oxygen Delivery Fraction of Inspired Oxygen 06/04/24 22:00 06/04/24 22:00 06/04/24 22:00 Temperature Pulse Rate 87 87 87 Respiratory Rate 32 H 32 H Blood Pressure 153/55 H Pulse Oximetry Oxygen Delivery Fraction of Inspired Oxygen 06/04/24 22:00 06/04/24 22:33 06/04/24 22:33 Temperature Pulse Rate 97 74 74 Respiratory Rate 32 H 32 H Blood Pressure 153/55 H Pulse Oximetry Oxygen Delivery Mechanical Ventilation Fraction of Inspired Oxygen 100 06/04/24 23:00 06/05/24 00:00 06/05/24 00:00 Temperature Pulse Rate 107 H 79 79 Respiratory Rate 32 H Blood Pressure 146/48 H 146/48 H Pulse Oximetry Oxygen Delivery Fraction of Inspired Oxygen 100 06/05/24 00:00 06/05/24 00:00 06/05/24 00:00 Temperature Pulse Rate 79 79 79 Respiratory Rate 32 H Blood Pressure 146/48 H 146/48 H Pulse Oximetry Oxygen Delivery Fraction of Inspired Oxygen 06/05/24 00:00 06/05/24 00:00 06/05/24 00:00 Temperature 34.6 C L Pulse Rate 79 77 66 Respiratory Rate 32 H 32 H Blood Pressure 146/49 H Pulse Oximetry Oxygen Delivery Fraction of Inspired Oxygen 06/05/24 00:00 06/05/24 00:00 06/05/24 00:33 Temperature Pulse Rate 77 79 Respiratory Rate 32 H 32 H Blood Pressure 146/48 H Pulse Oximetry Oxygen Delivery Mechanical Ventilation Fraction of Inspired Oxygen 100 100 06/05/24 00:38 06/05/24 00:38 06/05/24 00:50 Temperature Pulse Rate 65 65 92 Respiratory Rate 32 H Blood Pressure 148/49 H 148/49 H Pulse Oximetry Oxygen Delivery Fraction of Inspired Oxygen 06/05/24 01:40 06/05/24 01:40 06/05/24 01:43 Temperature Pulse Rate 72 72 92 Respiratory Rate Blood Pressure 148/54 H 148/54 H Pulse Oximetry Oxygen Delivery Mechanical Ventilation Fraction of Inspired Oxygen 100 06/05/24 01:48 06/05/24 01:48 06/05/24 01:52 Temperature Pulse Rate 80 80 80 Respiratory Rate 32 H Blood Pressure 148/54 H 148/54 H Pulse Oximetry Oxygen Delivery Fraction of Inspired Oxygen 06/05/24 01:52 06/05/24 02:00 06/05/24 02:00 Temperature Pulse Rate 80 78 78 Respiratory Rate 32 H 32 H Blood Pressure 146/55 H 146/55 H Pulse Oximetry Oxygen Delivery Fraction of Inspired Oxygen 06/05/24 02:00 06/05/24 02:00 06/05/24 02:00 Temperature Pulse Rate 78 76 76 Respiratory Rate 32 H Blood Pressure 148/65 H 146/55 H Pulse Oximetry Oxygen Delivery Fraction of Inspired Oxygen 06/05/24 02:00 06/05/24 02:00 06/05/24 02:00 Temperature 34.3 C L 34.4 C L Pulse Rate 76 76 Respiratory Rate 32 H Blood Pressure 146/55 H Pulse Oximetry Oxygen Delivery Fraction of Inspired Oxygen 06/05/24 02:00 06/05/24 02:02 06/05/24 02:35 Temperature Pulse Rate 55 L 76 69 Respiratory Rate 32 H 32 H Blood Pressure 146/55 H Pulse Oximetry Oxygen Delivery Fraction of Inspired Oxygen 06/05/24 03:00 06/05/24 03:04 06/05/24 04:00 Temperature 34.2 C L Pulse Rate 70 65 Respiratory Rate 32 H Blood Pressure 126/48 L Pulse Oximetry Oxygen Delivery Fraction of Inspired Oxygen 100 06/05/24 04:00 06/05/24 04:00 06/05/24 04:00 Temperature Pulse Rate 65 65 65 Respiratory Rate 32 H Blood Pressure 126/48 L 126/48 L Pulse Oximetry Oxygen Delivery Fraction of Inspired Oxygen 06/05/24 04:00 06/05/24 04:00 06/05/24 04:00 Temperature Pulse Rate 65 65 65 Respiratory Rate 32 H 32 H Blood Pressure 126/48 L 126/48 L Pulse Oximetry Oxygen Delivery Fraction of Inspired Oxygen 06/05/24 04:00 06/05/24 04:00 06/05/24 04:00 Temperature 34.4 C L Pulse Rate 65 65 Respiratory Rate 32 H 32 H Blood Pressure 126/48 L Pulse Oximetry Oxygen Delivery Mechanical Ventilation Fraction of Inspired Oxygen 100 100 06/05/24 04:00 06/05/24 04:29 06/05/24 04:36 Temperature Pulse Rate 65 65 79 Respiratory Rate 32 H Blood Pressure Pulse Oximetry Oxygen Delivery Mechanical Ventilation Fraction of Inspired Oxygen 100 06/05/24 05:15 06/05/24 05:15 06/05/24 05:16 Temperature Pulse Rate 75 75 99 Respiratory Rate Blood Pressure 129/44 L 129/44 L 140/47 L Pulse Oximetry Oxygen Delivery Fraction of Inspired Oxygen 06/05/24 05:16 06/05/24 05:17 06/05/24 05:17 Temperature Pulse Rate 99 68 68 Respiratory Rate Blood Pressure 140/47 L 128/45 L 128/45 L Pulse Oximetry Oxygen Delivery Fraction of Inspired Oxygen 06/05/24 06:00 06/05/24 06:00 06/05/24 06:00 Temperature Pulse Rate 88 88 88 Respiratory Rate 32 H Blood Pressure 119/49 L 119/49 L Pulse Oximetry Oxygen Delivery Fraction of Inspired Oxygen 06/05/24 06:00 06/05/24 06:00 06/05/24 06:00 Temperature Pulse Rate 88 88 88 Respiratory Rate 32 H Blood Pressure 119/49 L 119/49 L Pulse Oximetry Oxygen Delivery Fraction of Inspired Oxygen 06/05/24 06:00 06/05/24 06:00 06/05/24 06:00 Temperature 34.8 C L Pulse Rate 88 88 88 Respiratory Rate 32 H 32 H Blood Pressure 119/49 L 119/49 L Pulse Oximetry Oxygen Delivery Fraction of Inspired Oxygen 06/05/24 06:35 06/05/24 06:40 06/05/24 06:45 Temperature Pulse Rate 85 68 85 Respiratory Rate Blood Pressure 96/44 L 97/43 L 113/64 Pulse Oximetry Oxygen Delivery Fraction of Inspired Oxygen 06/05/24 06:50 06/05/24 06:55 06/05/24 07:00 Temperature Pulse Rate 66 68 70 Respiratory Rate Blood Pressure 104/43 L 96/47 L 106/48 L Pulse Oximetry Oxygen Delivery Fraction of Inspired Oxygen 06/05/24 07:00 06/05/24 07:50 06/05/24 07:50 Temperature Pulse Rate 67 65 65 Respiratory Rate 32 H 32 H Blood Pressure Pulse Oximetry Oxygen Delivery Mechanical Ventilation Fraction of Inspired Oxygen 100 100 06/05/24 08:00 06/05/24 08:00 06/05/24 08:00 Temperature 35.4 C L Pulse Rate 65 65 Respiratory Rate 32 H Blood Pressure 103/47 L 103/47 L Pulse Oximetry Oxygen Delivery Fraction of Inspired Oxygen 100 06/05/24 08:00 06/05/24 08:00 06/05/24 08:00 Temperature Pulse Rate 65 65 65 Respiratory Rate 32 H Blood Pressure 103/47 L 103/47 L Pulse Oximetry Oxygen Delivery Fraction of Inspired Oxygen 06/05/24 08:00 06/05/24 08:00 06/05/24 08:00 Temperature Pulse Rate 65 65 65 Respiratory Rate 32 H 32 H Blood Pressure 103/47 L 103/47 L Pulse Oximetry Oxygen Delivery Fraction of Inspired Oxygen 06/05/24 09:43 06/05/24 10:00 06/05/24 10:00 Temperature Pulse Rate 74 74 80 Respiratory Rate Blood Pressure 114/47 L 114/47 L 124/46 L Pulse Oximetry Oxygen Delivery Fraction of Inspired Oxygen 06/05/24 10:00 06/05/24 10:00 06/05/24 10:00 Temperature Pulse Rate 80 80 80 Respiratory Rate 32 H 32 H Blood Pressure 124/46 L Pulse Oximetry Oxygen Delivery Fraction of Inspired Oxygen 06/05/24 10:00 06/05/24 10:00 06/05/24 10:01 Temperature Pulse Rate 80 80 80 Respiratory Rate 32 H Blood Pressure 124/46 L 124/46 L 124/46 L Pulse Oximetry Oxygen Delivery Fraction of Inspired Oxygen 06/05/24 10:03 06/05/24 10:03 06/05/24 11:00 Temperature Pulse Rate 86 86 116 H Respiratory Rate 32 H Blood Pressure 86/46 L Pulse Oximetry Oxygen Delivery Mechanical Ventilation Fraction of Inspired Oxygen 100 06/05/24 11:05 06/05/24 11:10 06/05/24 11:15 Temperature Pulse Rate 82 84 76 Respiratory Rate Blood Pressure 82/44 L 75/44 L 69/42 L Pulse Oximetry Oxygen Delivery Fraction of Inspired Oxygen Intake/Output Intake/Output: Intake & Output 06/02/24 06/03/24 06/04/24 06/05/24 23:59 23:59 23:59 23:59 Intake Total 6510.9 8707.7 3486.6 2284.5 Output Total 435 760 430 250 Balance 6075.9 7947.7 3056.6 2034.5 Meds/Results Medications: Active Medications Generic Name Dose Route Start Last Admin Trade Name Freq PRN Reason Stop Dose Admin Acetaminophen 650 mg 06/02/24 07:27 06/02/24 09:10 Acetaminophen Elixir 325 Mg/10.15 Ml Udc FEED TUBE 650 mg Q6H PRN Administration Mild Pain (1-3) or Fever Acetylcysteine 200 mg 06/02/24 08:00 06/03/24 08:10 Acetylcysteine 20% Inhal Soln 800 Mg/4 Ml Vial INHALATION [address] Administration Dextrose 12.5 gm 06/02/24 04:03 Dextrose 50% 25 Gm/50 Ml Syringe IV PUSH PRN PRN Hypoglycemia Protocol Epoprostenol Sodium 1 mg 06/03/24 07:39 06/05/24 09:59 Epoprostenol Sodium 0.5 Mg Vial INHALATION 1 mg PRN PRN Administration Titrate Glucagon 1 mg 06/02/24 04:03 Glucagon For Inj 1 Mg Vial IM PRN PRN Hypoglycemia Protocol Glucose 15 gm 06/02/24 04:03 Glucose Oral Gel 15 Gm Of Glucse In 37.5 Gm Tube PO PRN PRN Hypoglycemia Protocol Hydrocortisone Sodium Succinate 100 mg 06/02/24 14:00 06/05/24 05:15 Hydrocortisone Sodium Succinate 100 Mg/2 Ml Vial IV PUSH [address] Administration Azithromycin 500 mg in 250 mls @ 250 mls/hr 06/02/24 12:00 06/04/24 13:14 Zithromax IVPB 06/06/24 23:[address] Infusion Norepinephrine Bitartrate 8 mg in 250 mls @ 37.5 mls/hr 06/01/24 22:15 06/05/24 10:01 Levophed 8 Mg/D5w 250 Ml IV CONT 30 mcg/min .Q6H40M COURT 56.25 mls/hr Titration Protocol 20 MCG/MIN Vasopressin 100 units/ 100 mls @ 2.4 mls/hr 06/02/24 01:10 06/05/24 10:00 Dextrose IV CONT 0.04 units/min .[id number] COURT 2.4 mls/hr Titration Protocol 0.04 UNITS/MIN Phenylephrine HCl 50 mg/ 250 ml in 250 mls @ 54 mls/hr 06/02/24 03:55 06/05/24 10:00 Dextrose IV CONT Infused .Q4H38M COURT Titration Protocol 180 MCG/MIN Dextrose 1,000 mls @ 100 mls/hr 06/02/24 04:03 Dextrose 5% 1,000 Ml IVPB PRN PRN Hypoglycemia Protocol Cisatracurium Besylate 200 mg/ 100 mls @ 1.905 mls/hr 06/02/24 10:15 06/05/24 10:00 Dextrose IV CONT 1 mcg/kg/min .[id number] COURT 1.91 mls/hr Titration Protocol 1 MCG/KG/MIN Epinephrine HCl 4 mg/ Dextrose 254 mls @ 45.72 mls/hr 06/02/24 13:45 06/05/24 11:15 IV CONT 14 mcg/min .Q5H34M COURT 53.34 mls/hr Titration Protocol 12 MCG/MIN Midazolam HCl 100 mg in 100 mls @ 3 mls/hr 06/02/24 15:05 06/05/24 10:00 Versed 100 Mg/Ns 100 Ml IV CONT 3 mg/hr .[id number] COURT 3 mls/hr Titration Protocol 3 MG/HR Fentanyl Citrate 2,500 mcg in 250 mls @ 5 mls/hr 06/03/24 07:30 06/05/24 10:00 Fentanyl 2,500 Mcg/Ns 250 Ml IV CONT Infused .Q50H COURT Titration Protocol 50 MCG/HR Insulin Human Regular 100 100 mls @ 1 mls/hr 06/03/24 07:55 06/05/24 10:00 units/ Sodium Chloride IV CONT 0 unit/hr .Q24H COURT 0 mls/hr Titration Protocol 1 UNIT/HR Cefepime HCl 1 gm in 50 mls @ 100 mls/hr 06/04/24 21:00 06/04/24 22:00 Maxipime 1 Gm/Ns [address] Infusion Ipratropium [place] 0.5 mg 06/02/24 08:00 06/03/24 08:11 Ipratropium Br 0.02% Inh Soln 0.5 Mg/2.5 Ml Vial INHALATION 0.[address] Administration Levalbuterol HCl 1.25 mg 06/02/24 08:00 06/03/24 08:11 Levalbuterol Neb 1.25 Mg/3 Ml INHALATION 1.[address] Administration Multi-Ingred Cream/Lotion/Oil/Oint 1 applic 06/02/24 10:05 06/05/24 09:09 Mineral Oil/White Petrolatum Ointment EACH EYE [address] Administration Mupirocin 1 applic 06/02/24 09:00 06/05/24 09:09 Mupirocin 2% Oint 22 Gm Tube EACH NARE 06/06/24 21:[address] Administration Ondansetron HCl 4 mg 06/01/24 16:52 Ondansetron Inj 4 Mg/2 Ml Vial IV PUSH Q4H PRN Nausea Oseltamivir Phosphate 30 mg 06/02/24 21:00 06/04/24 21:25 Oseltamivir Phosphate Oral Susp 30 Mg/5 Ml Syringe FEED TUBE 06/05/24 21:[address] Administration Pantoprazole Sodium 40 mg 06/03/24 21:00 06/05/24 09:08 Pantoprazole Sodium Iv 40 Mg Vial IV PUSH [address] Administration Sodium Chloride 10 ml 06/03/24 14:00 06/05/24 06:51 Central Line Flush IV PUSH [address] Administration Sodium Chloride 20 ml 06/03/24 13:00 Central Line Flush IV PUSH PRN PRN after blood draws Sodium Zirconium Cyclosilicate 10 gm 06/05/24 10:00 06/05/24 09:35 Sodium Zirconium Cyclosilicate 10 Gm Powd.Pack PO 06/07/24 09:59 10 gm TID@1000,1500,2200 COURT Administration Vancomycin HCl 1 each 06/02/24 06:52 Vancomycin For Acute Kidney Injury IVPB PRN PRN Vancomycin Protocol Radiology Results: ITS Impressions Abdomen X-Ray 06/01/24 19:47 IMPRESSION: NG tube, in good position. Renal Ultrasound 06/03/24 08:44 IMPRESSION: Mild right-sided hydronephrosis. Size asymmetry between the bilateral kidneys. No findings suggesting medical renal disease. Incidental notation is made of bilateral pleural effusions. Chest X-Ray 06/03/24 09:35 IMPRESSION: 1. Stable diffuse lung disease, consistent with pulmonary edema versus pneumonia. 2. Stable small pleural effusions. 3. Central line tip at the superior cavoatrial junction. Labs Labs: Laboratory Results - last 24 hr 06/02/24 06/03/24 06/04/24 13:52 17:46 10:45 WBC RBC Hgb Hct MCV MCH MCHC RDW Plt Count MPV Immature Gran % (Auto) Neut % (Auto) Lymph % (Auto) [place] % (Auto) Eos % (Auto) Baso % (Auto) Lymph # (Auto) [place] # (Auto) Eos # (Auto) Baso # (Auto) Abs Immat Gran (auto) Absolute Neuts (auto) Absolute Nucleated RBC Nucleated RBC % Platelet Estimate % Immature Plt Fraction Anisocytosis [place] Cells Schistocytes PT INR APTT Fibrinogen D-Dimer Puncture Site Not Reportable ABG pH 7.273 L* ABG pCO2 39.7 ABG pO2 71.8 L ABG PO2/FiO2 Ratio 0.72 ABG HCO3 17.9 L ABG O2 Saturation 92.5 L ABG O2 Content 16.9 ABG Base Excess -8.3 A-a Gradient 601.5 Oxyhemoglobin 92.9 Carboxyhemoglobin Methemoglobin Reduced Hemoglobin Total Hemoglobin 12.9 O2 Delivery Device Ventilator O2 Liters/Min Not Reportable Minute Volume Not Reportable Not Reportable Vent Rate 28 28 Vent Mode Cmv Cmv FiO2 100 100 Tidal Volume 450 450 PEEP 14 14 Peak Inspir Pressure Not Reportable Not Reportable Pressure Support Not Reportable Not Reportable Sodium Potassium Chloride Carbon Dioxide Anion Gap BUN Creatinine Estim Creat Clear Calc Estimated GFR Glucose POC Capillary Glucose 260 H Lactic Acid Calcium Phosphorus Magnesium Total Bilirubin AST ALT Alkaline Phosphatase Total Creatine Kinase Total Protein Albumin Lipase Random Vancomycin 06/04/24 06/04/24 06/04/24 11:26 12:21 13:15 WBC RBC Hgb Hct MCV MCH MCHC RDW Plt Count MPV Immature Gran % (Auto) Neut % (Auto) Lymph % (Auto) [place] % (Auto) Eos % (Auto) Baso % (Auto) Lymph # (Auto) [place] # (Auto) Eos # (Auto) Baso # (Auto) Abs Immat Gran (auto) Absolute Neuts (auto) Absolute Nucleated RBC Nucleated RBC % Platelet Estimate % Immature Plt Fraction Anisocytosis [place] Cells Schistocytes PT INR APTT Fibrinogen D-Dimer Puncture Site ABG pH ABG pCO2 ABG pO2 ABG PO2/FiO2 Ratio ABG HCO3 ABG O2 Saturation ABG O2 Content ABG Base Excess A-a Gradient Oxyhemoglobin Carboxyhemoglobin Methemoglobin Reduced Hemoglobin Total Hemoglobin O2 Delivery Device O2 Liters/Min Minute Volume Vent Rate Vent Mode FiO2 Tidal Volume PEEP Peak Inspir Pressure Pressure Support Sodium Potassium Chloride Carbon Dioxide Anion Gap BUN Creatinine Estim Creat Clear Calc Estimated GFR Glucose POC Capillary Glucose 242 H 249 H 231 H Lactic Acid Calcium Phosphorus Magnesium Total Bilirubin AST ALT Alkaline Phosphatase Total Creatine Kinase Total Protein Albumin Lipase Random Vancomycin 06/04/24 06/04/24 06/04/24 14:42 16:08 17:43 WBC RBC Hgb Hct MCV MCH MCHC RDW Plt Count MPV Immature Gran % (Auto) Neut % (Auto) Lymph % (Auto) [place] % (Auto) Eos % (Auto) Baso % (Auto) Lymph # (Auto) [place] # (Auto) Eos # (Auto) Baso # (Auto) Abs Immat Gran (auto) Absolute Neuts (auto) Absolute Nucleated RBC Nucleated RBC % Platelet Estimate % Immature Plt Fraction Anisocytosis [place] Cells Schistocytes PT INR APTT Fibrinogen D-Dimer Puncture Site Artline ABG pH 7.155 L* ABG pCO2 28.9 L ABG pO2 98.4 ABG PO2/FiO2 Ratio 0.98 ABG HCO3 10.0 L ABG O2 Saturation 95.7 ABG O2 Content 16.5 ABG Base Excess -17.4 A-a Gradient 585.7 Oxyhemoglobin 95.2 Carboxyhemoglobin 0.1 Methemoglobin 0.0 Reduced Hemoglobin 4.7 Total Hemoglobin 12.2 O2 Delivery Device Ventilator O2 Liters/Min Not Reportable Minute Volume Not Reportable Vent Rate 32 Vent Mode Cmv FiO2 100 Tidal Volume 390 PEEP 14 Peak Inspir Pressure Not Reportable Pressure Support Not Reportable Sodium Potassium Chloride Carbon Dioxide Anion Gap BUN Creatinine Estim Creat Clear Calc Estimated GFR Glucose POC Capillary Glucose 156 H 130 H Lactic Acid Calcium Phosphorus Magnesium Total Bilirubin AST ALT Alkaline Phosphatase Total Creatine Kinase Total Protein Albumin Lipase Random Vancomycin 06/04/24 06/04/24 06/04/24 17:54 17:54 18:47 WBC 4.8 RBC 3.88 L Hgb 11.2 L Hct 33.2 L MCV 85.6 MCH 28.9 MCHC 33.7 RDW 12.2 Plt Count 13 L* MPV 10.6 H Immature Gran % (Auto) Neut % (Auto) Lymph % (Auto) [place] % (Auto) Eos % (Auto) Baso % (Auto) Lymph # (Auto) [place] # (Auto) Eos # (Auto) Baso # (Auto) Abs Immat Gran (auto) Absolute Neuts (auto) Absolute Nucleated RBC Nucleated RBC % Platelet Estimate % Immature Plt Fraction 14.8 H Anisocytosis [place] Cells Schistocytes PT 27.8 H INR 2.5 APTT 53.0 H Fibrinogen 379 D-Dimer 13.13 H Puncture Site ABG pH ABG pCO2 ABG pO2 ABG PO2/FiO2 Ratio ABG HCO3 ABG O2 Saturation ABG O2 Content ABG Base Excess A-a Gradient Oxyhemoglobin Carboxyhemoglobin Methemoglobin Reduced Hemoglobin Total Hemoglobin O2 Delivery Device O2 Liters/Min Minute Volume Vent Rate Vent Mode FiO2 Tidal Volume PEEP Peak Inspir Pressure Pressure Support Sodium Cancelled Potassium Cancelled Chloride Cancelled Carbon Dioxide Cancelled Anion Gap Cancelled BUN Cancelled Creatinine Cancelled Estim Creat Clear Calc Cancelled Estimated GFR Cancelled Glucose Cancelled POC Capillary Glucose 121 H Lactic Acid 22.6 H* Calcium Cancelled Phosphorus Cancelled Magnesium 2.1 Cancelled Total Bilirubin Cancelled AST Cancelled ALT Cancelled Alkaline Phosphatase Cancelled Total Creatine Kinase Total Protein Cancelled Albumin Cancelled Lipase Cancelled Random Vancomycin 06/04/24 06/04/24 06/04/24 18:50 18:51 21:08 WBC RBC Hgb Hct MCV MCH MCHC RDW Plt Count MPV Immature Gran % (Auto) Neut % (Auto) Lymph % (Auto) [place] % (Auto) Eos % (Auto) Baso % (Auto) Lymph # (Auto) [place] # (Auto) Eos # (Auto) Baso # (Auto) Abs Immat Gran (auto) Absolute Neuts (auto) Absolute Nucleated RBC Nucleated RBC % Platelet Estimate % Immature Plt Fraction Anisocytosis [place] Cells Schistocytes PT INR APTT Fibrinogen D-Dimer Puncture Site [place] ABG pH 7.042 L* ABG pCO2 24.1 L ABG pO2 106.3 H ABG PO2/FiO2 Ratio 1.06 ABG HCO3 6.4 L ABG O2 Saturation 95.3 ABG O2 Content 15.6 L ABG Base Excess -22.7 A-a Gradient 582.6 Oxyhemoglobin 95.2 Carboxyhemoglobin 0.2 Methemoglobin 0.1 Reduced Hemoglobin 4.5 Total Hemoglobin 11.5 L O2 Delivery Device Ventilator O2 Liters/Min Not Reportable Minute Volume Not Reportable Vent Rate 14 Vent Mode Cmv FiO2 100 Tidal Volume 430 PEEP 14 Peak Inspir Pressure Not Reportable Pressure Support Not Reportable Sodium 112 L* Potassium 6.9 H* Chloride 73 L Carbon Dioxide 7 L Anion Gap 32 H BUN 37 H Creatinine 4.40 H Estim Creat Clear Calc 12 Estimated GFR 12 L Glucose 169 H POC Capillary Glucose 155 H Lactic Acid Calcium 5.2 L* Phosphorus Magnesium Total Bilirubin AST ALT Alkaline Phosphatase Total Creatine Kinase Total Protein Albumin Lipase Random Vancomycin 06/04/24 06/04/24 06/05/24 21:54 22:44 00:26 WBC RBC Hgb Hct MCV MCH MCHC RDW Plt Count MPV Immature Gran % (Auto) Neut % (Auto) Lymph % (Auto) [place] % (Auto) Eos % (Auto) Baso % (Auto) Lymph # (Auto) [place] # (Auto) Eos # (Auto) Baso # (Auto) Abs Immat Gran (auto) Absolute Neuts (auto) Absolute Nucleated RBC Nucleated RBC % Platelet Estimate % Immature Plt Fraction Anisocytosis [place] Cells Schistocytes PT INR APTT Fibrinogen D-Dimer Puncture Site ABG pH ABG pCO2 ABG pO2 ABG PO2/FiO2 Ratio ABG HCO3 ABG O2 Saturation ABG O2 Content ABG Base Excess A-a Gradient Oxyhemoglobin Carboxyhemoglobin Methemoglobin Reduced Hemoglobin Total Hemoglobin O2 Delivery Device O2 Liters/Min Minute Volume Vent Rate Vent Mode FiO2 Tidal Volume PEEP Peak Inspir Pressure Pressure Support Sodium Potassium Chloride Carbon Dioxide Anion Gap BUN Creatinine Estim Creat Clear Calc Estimated GFR Glucose POC Capillary Glucose 198 H 163 H Lactic Acid > 24.0 H* Calcium Phosphorus Magnesium Total Bilirubin AST ALT Alkaline Phosphatase Total Creatine Kinase Total Protein Albumin Lipase Random Vancomycin 12.7 06/05/24 06/05/24 06/05/24 00:58 01:59 02:57 WBC 5.6 RBC 3.43 L Hgb 9.8 L Hct 30.2 L MCV 88.0 MCH 28.6 MCHC 32.5 RDW 12.4 Plt Count 11 L* D MPV TNP Immature Gran % (Auto) 2.5 H Neut % (Auto) 80.7 H Lymph % (Auto) 14.6 L [place] % (Auto) 2.0 L Eos % (Auto) 0.0 Baso % (Auto) 0.2 Lymph # (Auto) 0.82 L [place] # (Auto) 0.1 Eos # (Auto) 0.0 Baso # (Auto) 0.0 Abs Immat Gran (auto) 0.14 H Absolute Neuts (auto) 4.5 Absolute Nucleated RBC 0.070 H Nucleated RBC % 1.2 H Platelet Estimate Decreased % Immature Plt Fraction 18.6 H Anisocytosis 1+ [place] Cells 1+ Schistocytes None seen PT 38.0 H D INR 3.8 APTT 65.5 H Fibrinogen D-Dimer Puncture Site Artline ABG pH 7.022 L* ABG pCO2 23.6 L* ABG pO2 97.5 ABG PO2/FiO2 Ratio 0.98 ABG HCO3 6.0 L ABG O2 Saturation 93.8 L ABG O2 Content 15.0 L ABG Base Excess -23.4 A-a Gradient 591.9 Oxyhemoglobin 93.4 Carboxyhemoglobin 0.3 Methemoglobin 0.1 Reduced Hemoglobin 6.2 H Total Hemoglobin 11.3 L O2 Delivery Device Ventilator O2 Liters/Min Not Reportable Minute Volume Not Reportable Vent Rate 32 Vent Mode Cmv FiO2 100 Tidal Volume 430 PEEP 14 Peak Inspir Pressure Not Reportable Pressure Support Not Reportable Sodium 112 L* Potassium 7.4 H* Chloride 73 L Carbon Dioxide < 5 L Anion Gap BUN 36 H Creatinine 4.60 H Estim Creat Clear Calc 11 Estimated GFR 12 L Glucose 179 H POC Capillary Glucose 146 H Lactic Acid > 24.0 H* Calcium 5.5 L* Phosphorus 15.3 H Magnesium 2.4 H Total Bilirubin 2.3 H AST > 7500 H ALT 2709 H Alkaline Phosphatase 210 H Total Creatine Kinase 06655 H Total Protein 4.0 L Albumin 1.7 L Lipase 618 H Random Vancomycin 06/05/24 06/05/24 06/05/24 04:15 06:50 08:06 WBC RBC Hgb Hct MCV MCH MCHC RDW Plt Count MPV Immature Gran % (Auto) Neut % (Auto) Lymph % (Auto) [place] % (Auto) Eos % (Auto) Baso % (Auto) Lymph # (Auto) [place] # (Auto) Eos # (Auto) Baso # (Auto) Abs Immat Gran (auto) Absolute Neuts (auto) Absolute Nucleated RBC Nucleated RBC % Platelet Estimate % Immature Plt Fraction Anisocytosis [place] Cells Schistocytes PT INR APTT Fibrinogen D-Dimer Puncture Site Artline ABG pH 7.063 L* ABG pCO2 25.7 L ABG pO2 93.7 ABG PO2/FiO2 Ratio 0.94 ABG HCO3 7.2 L ABG O2 Saturation 93.8 L ABG O2 Content 11.7 L ABG Base Excess -21.5 A-a Gradient 593.6 Oxyhemoglobin 93.1 Carboxyhemoglobin 0.3 Methemoglobin 0.2 Reduced Hemoglobin 6.4 H Total Hemoglobin 8.8 L O2 Delivery Device Ventilator O2 Liters/Min Not Reportable Minute Volume Not Reportable Vent Rate 32 Vent Mode Cmv FiO2 100 Tidal Volume 430 PEEP 14 Peak Inspir Pressure Not Reportable Pressure Support Not Reportable Sodium Potassium Chloride Carbon Dioxide Anion Gap BUN Creatinine Estim Creat Clear Calc Estimated GFR Glucose POC Capillary Glucose 195 H 205 H Lactic Acid Calcium Phosphorus Magnesium Total Bilirubin AST ALT Alkaline Phosphatase Total Creatine Kinase Total Protein Albumin Lipase Random Vancomycin 06/05/24 06/05/24 06/05/24 08:51 08:58 10:51 WBC 6.2 RBC 2.68 L Hgb 7.7 L Hct 24.0 L MCV 89.6 MCH 28.7 MCHC 32.1 RDW 12.7 Plt Count 9 L* MPV 11.0 H Immature Gran % (Auto) 3.2 H Neut % (Auto) 75.8 H Lymph % (Auto) 18.4 [place] % (Auto) 2.3 L Eos % (Auto) 0.0 Baso % (Auto) 0.3 Lymph # (Auto) 1.14 [place] # (Auto) 0.1 Eos # (Auto) 0.0 Baso # (Auto) 0.0 Abs Immat Gran (auto) 0.20 H Absolute Neuts (auto) 4.7 Absolute Nucleated RBC 0.080 H Nucleated RBC % 1.3 H Platelet Estimate Decreased % Immature Plt Fraction 18.1 H Anisocytosis [place] Cells Schistocytes None seen PT 66.0 H D INR 7.9 H* APTT 94.7 H Fibrinogen D-Dimer Puncture Site Artline ABG pH 6.998 L* ABG pCO2 31.4 L ABG pO2 57.4 L ABG PO2/FiO2 Ratio 0.57 ABG HCO3 7.5 L ABG O2 Saturation 74.1 L* ABG O2 Content 8.5 L ABG Base Excess -22.2 A-a Gradient 624.2 Oxyhemoglobin 73.5 L* Carboxyhemoglobin Methemoglobin Reduced Hemoglobin Total Hemoglobin 8.1 L O2 Delivery Device Ventilator O2 Liters/Min Not Reportable Minute Volume Not Reportable Vent Rate 32 Vent Mode Cmv FiO2 100 Tidal Volume 430 PEEP 14 Peak Inspir Pressure Not Reportable Pressure Support Not Reportable Sodium 113 L* 115 L* Potassium 8.7 H* 9.1 H* Chloride 70 L 68 L Carbon Dioxide 6 L 6 L Anion Gap 37 H 41 H BUN 36 H 36 H Creatinine 4.60 H Estim Creat Clear Calc 13 Estimated GFR 12 L Glucose 281 H 314 H POC Capillary Glucose Lactic Acid > 24.0 H* Calcium 8.3 L 6.9 L Phosphorus 18.3 H Magnesium 2.5 H Total Bilirubin 1.9 H AST TNP ALT 2868 H Alkaline Phosphatase 267 H Total Creatine Kinase 63935 H Total Protein 3.0 L Albumin 1.2 L Lipase 459 H Random Vancomycin
[2024-06-05 11:29] LABS: Estimated CRCL calculation 12 ml/min; Estimated Glomerular Filt Rate 11
--- NOTE | 2024-06-05 12:00 | WPDINTPN ---
Progress Note: A&P Assessment and Plan (1) Septic shock: Code(s): A41.9 - Sepsis, unspecified organism; R65.21 - Severe sepsis with septic shock Status: Acute Assessment and Plan: 06/01: Patient presented to from urgent care via EMS for hypoxia, confusion, cough, hypotensive, -receive 3 L IV fluid bolus, -06/02: worsening renal function, hyperglycemia, significant elevation in LFTs likely related to shock -remains on stress dose steroids -cough bicarb infusion, has been requiring IV bicarb pushes -06/01: Preliminary blood cultures are negative -06/02/2024: Sputum cultures have been obtained and pending -Continue cefepime, vancomycin, Tamiflu, azithromycin (06/01), all renally dosed -06/03: right IJ central line was pulled out 4 cm since it was 20 cm catheter and sitting in the high right atria. Currently on maximum doses of Levophed, phenylephrine, vasopressin, epinephrine to maintain MAP > 65 mmHg at all times for adequate end organ perfusion -lactic acid, LFTs, CK level remain elevated -lactic acid increased to 17, could be related to ischemic bowel, surgery consulted, very poor prognosis per per surgeon and not a candidate for surgery at this time (2) Acute respiratory failure with hypoxia: Code(s): J96.01 - Acute respiratory failure with hypoxia Status: Acute Assessment and Plan: Acute respiratory failure likely related to influenza A. -intubated in the ER on 06/01/2024 -on CMV mode of ventilation peep of 14, 100% FiO2, ventilator adjusted,Vt 390 mL, rate of 32, peep of 14 and 100% FiO2 -ARDS physiology, low tidal volume strategy along with high PEEP -ABGs and chest x-ray reviewed -06/02: patient was in prone position for [address] patient in prone position again today -06/03 [place] -06/03: Patient was again placed in prone position, trial of Bumex 2 mg IV x1 with no significant urine output -patient to remain in prone position today, 06/04/2024 as remains hypoxic - was placed in supine position after the first code blue -pt after the 2nd code, and 11:54 am on 06/05/2024 (3) Influenza A: Code(s): J10.1 - Influenza due to other identified influenza virus with other respiratory manifestations Status: Acute Assessment and Plan: Continue Tamiflu, renally dosed per pharmacy (4) Leukopenia: Code(s): D72.819 - Decreased white blood cell count, unspecified Status: Acute Assessment and Plan: Leukopenia and neutropenia likely related to septic shock, bone marrow suppression -Hematology/Oncology has been consulted -continue to monitor -antibiotics as above (5) Acute kidney injury: Code(s): N17.9 - Acute kidney failure, unspecified Status: Acute Assessment and Plan: Patient presented with a creatinine of 0.4 on admission, now in septic shock, creatinine this morning was 2.60 -urine lytes not reflective of prerenal, urine eosinophils are negative, CK levels are elevated -patient has been adequately fluid-resuscitated, maintenance IV fluids were discontinued, patient 18 L in positive fluid balance since admission, oliguric/anuric -06/03/2023: Renal ultrasound showed mild right-sided hydronephrosis size asymmetry between the bilateral kidneys, no findings suggesting medical renal disease -appreciate Nephrology evaluation recommendation. Currently unstable for dialysis since patient is on multiple pressors on maximum doses. -appreciate Nephrology evaluation recommendation -continue to monitor urine output, electrolytes and renal function -continues to be oliguric/anuric, patient on 4 pressors, and in prone position, discussed with Nephrology, patient not a candidate for hemodialysis due to hemodynamic instability. -hyponatremia likely related to dilution given patient is 18 L positive in fluid balance -worsening CK level -severe hyperkalemia, treated with insulin and D50, lokelma, bicarb (6) Transaminitis: Code(s): R74.01 - Elevation of levels of liver transaminase levels Status: Acute Assessment and Plan: Elevated LFTs likely related to hypoxia, hypotension, shock liver -worsening LFTs -will continue to monitor liver function (7) Type 2 diabetes mellitus: Code(s): E11.9 - Type 2 diabetes mellitus without complications Status: Acute Assessment and Plan: Patient with severe hyperglycemia, started on insulin infusion, likely related to septic shock, possible uncontrolled diabetes since patient's hemoglobin A1c is 12.6 this admission. -hyperglycemia finally improved, insulin infusion on minimal dose, will continue -Accu-Cheks per insulin infusion protocol (8) Thrombocytopenia: Code(s): D69.6 - Thrombocytopenia, unspecified Status: Acute Assessment and Plan: Thrombocytopenia likely related to septic shock, bone marrow suppression -patient has not received any heparin or LMWH -Heme-Onc has been consulted -06/03: 1 unit of platelets to be transfused -remains thrombocytopenic with platelet counts of 9 this morning on 06/04 (9) Electrolyte abnormality: Code(s): E87.8 - Other disorders of electrolyte and fluid balance, not elsewhere classified Status: Acute Assessment and Plan: Replace calcium -patient getting p.r.n. bicarb IV pushes Plan DVT prophylaxis: SCDs, no chemoprophylaxis due to thrombocytopenia Stress ulcer prophylaxis: Protonix IV q.12 hours Nutrition: NPO for now Code Status: Full code Critical Care Time Spent: 77 minutes Discussed with pt's daughters and updated them. Answered all questions Discussed with patient's family which consist of daughters and son and updated them with patient's condition and plan of care. I explained to them that patient is in multiorgan failure, with involvement of lungs, heart, liver dysfunction, acute kidney injury, bone marrow suppression, coagulation defect. I did discuss with them patient is critical and condition is guarded. They are also aware that patient is on 4 blood pressure support medications, on full life support with the breathing machine. I discussed with them regarding code status and also comfort measures. Family stated that they wanted some time discuss among themselves. Family restarted a 100 patient to be a full code and wanted everything to be done in case she has a cardiac arrest. I answered all the questions. The ICU charge nurse was in the conference room with me 06/03: Discussed with 3 daughters, sister, 3 sons and other family members in the conference room, updated them with patient's condition and plan of care. They are aware that patient is on 4 pressors, in prone position with ARDS physiology of her lungs, they also aware that she has acute kidney injury, hyperglycemia, transaminitis elevated LFTs all secondary to severe shock, metabolic acidosis with low blood pressures. I discussed with them in details at the patient condition is guarded and that she could have a cardiac arrest is of low blood pressures, shock, hypoxia, severe metabolic acidosis. Discussed code status and CPR if patient had a cardiac arrest. The daughters agreed to in an initially that they want everything to be done and wanted to be a full code for now and give her chance to fight. Bedside RN was in the conference room with me during the discussion Due to a high probability of clinically significant, life threatening deterioration, the patient required my highest level of preparedness to intervene emergently and I personally spent this critical care time directly and personally managing the patient. This critical care time included obtaining a history; examining the patient; pulse oximetry; ordering and review of studies; arranging urgent treatment with development of a management plan; evaluation of patient's response to treatment; frequent reassessment; and discussions with other providers. It was exclusive of separately billable procedures and treating other patients and teaching time. Please see Assessment and Plan section and the rest of the note for further information on patient assessment and treatment This dictation may have been done utilizing a voice recognition system. Attempts have been made to correct errors. However, there may be uncorrected grammatical, spelling, and recognitions errors present. Subjective Date/time seen: 06/05/24 12:00 Interval history: Reason for consult: Hypoxic respiratory failure, influenza A, ARDS, septic shock, transaminitis, acute kidney injury, leukopenia, lactic acidosis, thrombocytopenia 06/05/2024: Patient seen and examined the ICU, remains intubated on CMV mode of ventilation, 100% FiO2, peep of 14, rate of 32. -Sedated with fentanyl, Versed. Nimbex for neuromuscular blockade. Patient in prone position -Remains on maximum doses of Levophed, vasopressin, Herbie-Synephrine, epinephrine -anuric -platelets 9 -patient remains on insulin infusion, blood sugars in the 200s -potassium 8.7, CO2 6, lactic acid > 24 -creatinine 4.90 -significantly elevated LFTs and CK level, albumin of 1.2 Patient had a cardiac arrest and a code blue was called at 8:08 a.m. this morning and lasted for 10 minutes with ROSC at 8:18 a.m. Patient again coded it is at 11:29 a.m. it is at code was called at 11:54 a.m. after 25 minutes of asystole Review of Systems Review of Systems: ROS unobtainable: Yes unobtainable due to endotracheal tube, unobtainable due to medical condition and unobtainable due to mental status Exam Narrative: General: Supine position, intubated and sedated, on neuromuscular blockade HEENT:? Pupils dilated and fixed, periorbital swelling noted Neck:? Supple, right IJ central line Respiratory:?Coarse breath sounds bilaterally, decreased at bases, no wheezing Cardiac:? Regular rate and rhythm, rate controlled Abdomen:? Abdominal was soft, distended, no bowel sounds Extremities:?Cool extremities, decreased pedal pulses Neuro:?Patient is intubated, sedated, on neuromuscular blockade Skin:? Cool to touch, no lesions noted, skin discoloration of fingers and toes, mottling noted on b/l lower extremities Psych:?Unable to assess at this time Objective Data Vital Signs Vital Signs: Vital Signs - 24 hr 06/04/24 13:40 06/04/24 13:40 06/04/24 14:00 Temperature 97.6 F Pulse Rate 88 88 84 Respiratory Rate 32 H Blood Pressure 143/99 H 143/99 H 148/64 H Oxygen Delivery Fraction of Inspired Oxygen 06/04/24 14:00 06/04/24 14:00 06/04/24 14:00 Temperature Pulse Rate 84 84 110 H Respiratory Rate Blood Pressure 133/94 H 133/94 H Oxygen Delivery Fraction of Inspired Oxygen 06/04/24 14:00 06/04/24 14:00 06/04/24 14:00 Temperature Pulse Rate 84 84 84 Respiratory Rate 32 H Blood Pressure 137/103 H 133/94 H Oxygen Delivery Fraction of Inspired Oxygen 06/04/24 14:00 06/04/24 14:00 06/04/24 14:10 Temperature Pulse Rate 84 84 82 Respiratory Rate 32 H 32 H Blood Pressure 133/94 H Oxygen Delivery Mechanical Ventilation Fraction of Inspired Oxygen 100 06/04/24 14:12 06/04/24 14:29 06/04/24 14:40 Temperature Pulse Rate 82 78 86 Respiratory Rate 32 H Blood Pressure 154/86 H 148/63 H Oxygen Delivery Fraction of Inspired Oxygen 06/04/24 14:50 06/04/24 14:55 06/04/24 15:02 Temperature Pulse Rate 75 75 73 Respiratory Rate Blood Pressure 147/64 H 138/55 L 128/54 L Oxygen Delivery Fraction of Inspired Oxygen 06/04/24 15:23 06/04/24 15:23 06/04/24 16:00 Temperature 97.3 F L Pulse Rate 72 72 92 Respiratory Rate 32 H Blood Pressure 137/56 L 137/56 L 150/55 H Oxygen Delivery Fraction of Inspired Oxygen 06/04/24 16:00 06/04/24 16:00 06/04/24 16:00 Temperature Pulse Rate 94 69 Respiratory Rate 26 H Blood Pressure Oxygen Delivery Mechanical Ventilation Fraction of Inspired Oxygen 100 100 06/04/24 16:00 06/04/24 16:00 06/04/24 16:00 Temperature Pulse Rate 92 92 92 Respiratory Rate Blood Pressure 150/55 H 150/55 H 150/55 H Oxygen Delivery Fraction of Inspired Oxygen 06/04/24 16:00 06/04/24 16:00 06/04/24 16:00 Temperature Pulse Rate 92 92 92 Respiratory Rate 32 H 32 H Blood Pressure 150/55 H Oxygen Delivery Fraction of Inspired Oxygen 06/04/24 16:00 06/04/24 16:14 06/04/24 16:14 Temperature Pulse Rate 92 70 70 Respiratory Rate 32 H Blood Pressure 150/55 H 140/51 L 140/51 L Oxygen Delivery Fraction of Inspired Oxygen 06/04/24 16:36 06/04/24 16:42 06/04/24 16:54 Temperature Pulse Rate 70 72 70 Respiratory Rate 32 H 32 H Blood Pressure 132/50 L Oxygen Delivery Mechanical Ventilation Fraction of Inspired Oxygen 100 06/04/24 16:54 06/04/24 18:00 06/04/24 18:00 Temperature Pulse Rate 70 68 68 Respiratory Rate 32 H Blood Pressure 132/50 L 114/45 L 109/85 Oxygen Delivery Fraction of Inspired Oxygen 06/04/24 18:00 06/04/24 18:00 06/04/24 18:00 Temperature Pulse Rate 68 68 68 Respiratory Rate 32 H Blood Pressure 114/45 L 114/45 L Oxygen Delivery Fraction of Inspired Oxygen 06/04/24 18:00 06/04/24 18:00 06/04/24 19:00 Temperature Pulse Rate 68 68 62 Respiratory Rate 32 H 32 H 32 H Blood Pressure 114/45 L Oxygen Delivery Fraction of Inspired Oxygen 100 06/04/24 20:00 06/04/24 20:00 06/04/24 20:00 Temperature Pulse Rate 70 70 74 Respiratory Rate Blood Pressure 114/47 L 114/47 L 114/47 L Oxygen Delivery Fraction of Inspired Oxygen 06/04/24 20:00 06/04/24 20:00 06/04/24 20:00 Temperature Pulse Rate 72 72 72 Respiratory Rate 32 H Blood Pressure 114/47 L 114/47 L Oxygen Delivery Fraction of Inspired Oxygen 06/04/24 20:00 06/04/24 20:00 06/04/24 20:00 Temperature Pulse Rate 72 72 69 Respiratory Rate 32 H 32 H Blood Pressure 114/47 L Oxygen Delivery Fraction of Inspired Oxygen 06/04/24 20:00 06/04/24 20:00 06/04/24 20:00 Temperature 96.2 F L Pulse Rate 69 74 Respiratory Rate 32 H 32 H Blood Pressure 120/48 L Oxygen Delivery Mechanical Ventilation Fraction of Inspired Oxygen 100 100 06/04/24 20:34 06/04/24 20:34 06/04/24 21:00 Temperature Pulse Rate 139 H 139 H 72 Respiratory Rate 32 H Blood Pressure 132/55 L Oxygen Delivery Mechanical Ventilation Fraction of Inspired Oxygen 100 06/04/24 21:00 06/04/24 22:00 06/04/24 22:00 Temperature 95.6 F L Pulse Rate 72 87 107 H Respiratory Rate 32 H Blood Pressure 132/55 L 172/56 H Oxygen Delivery Fraction of Inspired Oxygen 06/04/24 22:00 06/04/24 22:00 06/04/24 22:00 Temperature Pulse Rate 87 87 87 Respiratory Rate Blood Pressure 153/55 H 153/55 H 153/55 H Oxygen Delivery Fraction of Inspired Oxygen 06/04/24 22:00 06/04/24 22:00 06/04/24 22:00 Temperature Pulse Rate 87 87 87 Respiratory Rate 32 H 32 H Blood Pressure 153/55 H Oxygen Delivery Fraction of Inspired Oxygen 06/04/24 22:00 06/04/24 22:33 06/04/24 22:33 Temperature Pulse Rate 97 74 74 Respiratory Rate 32 H 32 H Blood Pressure 153/55 H Oxygen Delivery Mechanical Ventilation Fraction of Inspired Oxygen 100 06/04/24 23:00 06/05/24 00:00 06/05/24 00:00 Temperature Pulse Rate 107 H 79 79 Respiratory Rate 32 H Blood Pressure 146/48 H 146/48 H Oxygen Delivery Fraction of Inspired Oxygen 100 06/05/24 00:00 06/05/24 00:00 06/05/24 00:00 Temperature Pulse Rate 79 79 79 Respiratory Rate 32 H Blood Pressure 146/48 H 146/48 H Oxygen Delivery Fraction of Inspired Oxygen 06/05/24 00:00 06/05/24 00:00 06/05/24 00:00 Temperature 94.3 F L Pulse Rate 79 77 66 Respiratory Rate 32 H 32 H Blood Pressure 146/49 H Oxygen Delivery Fraction of Inspired Oxygen 06/05/24 00:00 06/05/24 00:00 06/05/24 00:33 Temperature Pulse Rate 77 79 Respiratory Rate 32 H 32 H Blood Pressure 146/48 H Oxygen Delivery Mechanical Ventilation Fraction of Inspired Oxygen 100 100 06/05/24 00:38 06/05/24 00:38 06/05/24 00:50 Temperature Pulse Rate 65 65 92 Respiratory Rate 32 H Blood Pressure 148/49 H 148/49 H Oxygen Delivery Fraction of Inspired Oxygen 06/05/24 01:40 06/05/24 01:40 06/05/24 01:43 Temperature Pulse Rate 72 72 92 Respiratory Rate Blood Pressure 148/54 H 148/54 H Oxygen Delivery Mechanical Ventilation Fraction of Inspired Oxygen 100 06/05/24 01:48 06/05/24 01:48 06/05/24 01:52 Temperature Pulse Rate 80 80 80 Respiratory Rate 32 H Blood Pressure 148/54 H 148/54 H Oxygen Delivery Fraction of Inspired Oxygen 06/05/24 01:52 06/05/24 02:00 06/05/24 02:00 Temperature Pulse Rate 80 78 78 Respiratory Rate 32 H 32 H Blood Pressure 146/55 H 146/55 H Oxygen Delivery Fraction of Inspired Oxygen 06/05/24 02:00 06/05/24 02:00 06/05/24 02:00 Temperature Pulse Rate 78 76 76 Respiratory Rate 32 H Blood Pressure 148/65 H 146/55 H Oxygen Delivery Fraction of Inspired Oxygen 06/05/24 02:00 06/05/24 02:00 06/05/24 02:00 Temperature 93.7 F L 94.0 F L Pulse Rate 76 76 Respiratory Rate 32 H Blood Pressure 146/55 H Oxygen Delivery Fraction of Inspired Oxygen 06/05/24 02:00 06/05/24 02:02 06/05/24 02:35 Temperature Pulse Rate 55 L 76 69 Respiratory Rate 32 H 32 H Blood Pressure 146/55 H Oxygen Delivery Fraction of Inspired Oxygen 06/05/24 03:00 06/05/24 03:04 06/05/24 04:00 Temperature 93.6 F L Pulse Rate 70 65 Respiratory Rate 32 H Blood Pressure 126/48 L Oxygen Delivery Fraction of Inspired Oxygen 100 06/05/24 04:00 06/05/24 04:00 06/05/24 04:00 Temperature Pulse Rate 65 65 65 Respiratory Rate 32 H Blood Pressure 126/48 L 126/48 L Oxygen Delivery Fraction of Inspired Oxygen 06/05/24 04:00 06/05/24 04:00 06/05/24 04:00 Temperature Pulse Rate 65 65 65 Respiratory Rate 32 H 32 H Blood Pressure 126/48 L 126/48 L Oxygen Delivery Fraction of Inspired Oxygen 06/05/24 04:00 06/05/24 04:00 06/05/24 04:00 Temperature 93.9 F L Pulse Rate 65 65 Respiratory Rate 32 H 32 H Blood Pressure 126/48 L Oxygen Delivery Mechanical Ventilation Fraction of Inspired Oxygen 100 100 06/05/24 04:00 06/05/24 04:29 06/05/24 04:36 Temperature Pulse Rate 65 65 79 Respiratory Rate 32 H Blood Pressure Oxygen Delivery Mechanical Ventilation Fraction of Inspired Oxygen 100 06/05/24 05:15 06/05/24 05:15 06/05/24 05:16 Temperature Pulse Rate 75 75 99 Respiratory Rate Blood Pressure 129/44 L 129/44 L 140/47 L Oxygen Delivery Fraction of Inspired Oxygen 06/05/24 05:16 06/05/24 05:17 06/05/24 05:17 Temperature Pulse Rate 99 68 68 Respiratory Rate Blood Pressure 140/47 L 128/45 L 128/45 L Oxygen Delivery Fraction of Inspired Oxygen 06/05/24 06:00 06/05/24 06:00 06/05/24 06:00 Temperature Pulse Rate 88 88 88 Respiratory Rate 32 H Blood Pressure 119/49 L 119/49 L Oxygen Delivery Fraction of Inspired Oxygen 06/05/24 06:00 06/05/24 06:00 06/05/24 06:00 Temperature Pulse Rate 88 88 88 Respiratory Rate 32 H Blood Pressure 119/49 L 119/49 L Oxygen Delivery Fraction of Inspired Oxygen 06/05/24 06:00 06/05/24 06:00 06/05/24 06:00 Temperature 94.7 F L Pulse Rate 88 88 88 Respiratory Rate 32 H 32 H Blood Pressure 119/49 L 119/49 L Oxygen Delivery Fraction of Inspired Oxygen 06/05/24 06:35 06/05/24 06:40 06/05/24 06:45 Temperature Pulse Rate 85 68 85 Respiratory Rate Blood Pressure 96/44 L 97/43 L 113/64 Oxygen Delivery Fraction of Inspired Oxygen 06/05/24 06:50 06/05/24 06:55 06/05/24 07:00 Temperature Pulse Rate 66 68 70 Respiratory Rate Blood Pressure 104/43 L 96/47 L 106/48 L Oxygen Delivery Fraction of Inspired Oxygen 06/05/24 07:00 06/05/24 07:50 06/05/24 07:50 Temperature Pulse Rate 67 65 65 Respiratory Rate 32 H 32 H Blood Pressure Oxygen Delivery Mechanical Ventilation Fraction of Inspired Oxygen 100 100 06/05/24 08:00 06/05/24 08:00 06/05/24 08:00 Temperature 95.8 F L Pulse Rate 65 65 Respiratory Rate 32 H Blood Pressure 103/47 L 103/47 L Oxygen Delivery Fraction of Inspired Oxygen 100 06/05/24 08:00 06/05/24 08:00 06/05/24 08:00 Temperature Pulse Rate 65 65 65 Respiratory Rate 32 H Blood Pressure 103/47 L 103/47 L Oxygen Delivery Fraction of Inspired Oxygen 06/05/24 08:00 06/05/24 08:00 06/05/24 08:00 Temperature Pulse Rate 65 65 65 Respiratory Rate 32 H 32 H Blood Pressure 103/47 L 103/47 L Oxygen Delivery Fraction of Inspired Oxygen 06/05/24 08:00 06/05/24 08:00 06/05/24 09:43 Temperature Pulse Rate 58 L 74 Respiratory Rate Blood Pressure 114/47 L Oxygen Delivery Mechanical Ventilation Fraction of Inspired Oxygen 100 06/05/24 10:00 06/05/24 10:00 06/05/24 10:00 Temperature Pulse Rate 74 80 80 Respiratory Rate Blood Pressure 114/47 L 124/46 L 124/46 L Oxygen Delivery Fraction of Inspired Oxygen 06/05/24 10:00 06/05/24 10:00 06/05/24 10:00 Temperature Pulse Rate 80 80 80 Respiratory Rate 32 H 32 H Blood Pressure 124/46 L Oxygen Delivery Fraction of Inspired Oxygen 06/05/24 10:00 06/05/24 10:01 06/05/24 10:03 Temperature Pulse Rate 80 80 86 Respiratory Rate 32 H Blood Pressure 124/46 L 124/46 L Oxygen Delivery Mechanical Ventilation Fraction of Inspired Oxygen 100 06/05/24 10:03 06/05/24 11:00 06/05/24 11:05 Temperature Pulse Rate 86 116 H 82 Respiratory Rate 32 H Blood Pressure 86/46 L 82/44 L Oxygen Delivery Fraction of Inspired Oxygen 06/05/24 11:10 06/05/24 11:15 06/05/24 11:25 Temperature Pulse Rate 84 76 68 Respiratory Rate Blood Pressure 75/44 L 69/42 L 61/40 L Oxygen Delivery Fraction of Inspired Oxygen Intake/Output Intake/Output: Intake & Output 06/02/24 06/03/24 06/04/24 06/05/24 23:59 23:59 23:59 23:59 Intake Total 6510.9 8707.7 3486.6 2293.4 Output Total 435 760 430 250 Balance 6075.9 7947.7 3056.6 2043.4 Meds/Results Medications: Active Medications Generic Name Dose Route Start Last Admin Trade Name Freq PRN Reason Stop Dose Admin Acetaminophen 650 mg 06/02/24 07:27 06/02/24 09:10 Acetaminophen Elixir 325 Mg/10.15 Ml Udc FEED TUBE 650 mg Q6H PRN Administration Mild Pain (1-3) or Fever Acetylcysteine 200 mg 06/02/24 08:00 06/03/24 08:10 Acetylcysteine 20% Inhal Soln 800 Mg/4 Ml Vial INHALATION [address] Administration Dextrose 12.5 gm 06/02/24 04:03 Dextrose 50% 25 Gm/50 Ml Syringe IV PUSH PRN PRN Hypoglycemia Protocol Epoprostenol Sodium 1 mg 06/03/24 07:39 06/05/24 09:59 Epoprostenol Sodium 0.5 Mg Vial INHALATION 1 mg PRN PRN Administration Titrate Glucagon 1 mg 06/02/24 04:03 Glucagon For Inj 1 Mg Vial IM PRN PRN Hypoglycemia Protocol Glucose 15 gm 06/02/24 04:03 Glucose Oral Gel 15 Gm Of Glucse In 37.5 Gm Tube PO PRN PRN Hypoglycemia Protocol Hydrocortisone Sodium Succinate 100 mg 06/02/24 14:00 06/05/24 05:15 Hydrocortisone Sodium Succinate 100 Mg/2 Ml Vial IV PUSH [address] Administration Azithromycin 500 mg in 250 mls @ 250 mls/hr 06/02/24 12:00 06/04/24 13:14 Zithromax IVPB 06/06/24 23:[address] Infusion Norepinephrine Bitartrate 8 mg in 250 mls @ 37.5 mls/hr 06/01/24 22:15 06/05/24 10:01 Levophed 8 Mg/D5w 250 Ml IV CONT 30 mcg/min .Q6H40M COURT 56.25 mls/hr Titration Protocol 20 MCG/MIN Vasopressin 100 units/ 100 mls @ 2.4 mls/hr 06/02/24 01:10 06/05/24 10:00 Dextrose IV CONT 0.04 units/min .[id number] COURT 2.4 mls/hr Titration Protocol 0.04 UNITS/MIN Phenylephrine HCl 50 mg/ 250 ml in 250 mls @ 54 mls/hr 06/02/24 03:55 06/05/24 10:00 Dextrose IV CONT Infused .Q4H38M COURT Titration Protocol 180 MCG/MIN Dextrose 1,000 mls @ 100 mls/hr 06/02/24 04:03 Dextrose 5% 1,000 Ml IVPB PRN PRN Hypoglycemia Protocol Cisatracurium Besylate 200 mg/ 100 mls @ 1.905 mls/hr 06/02/24 10:15 06/05/24 10:00 Dextrose IV CONT 1 mcg/kg/min .[id number] COURT 1.91 mls/hr Titration Protocol 1 MCG/KG/MIN Epinephrine HCl 4 mg/ Dextrose 254 mls @ 76.2 mls/hr 06/02/24 13:45 06/05/24 11:25 IV CONT 20 mcg/min .Q3H20M COURT 76.2 mls/hr Titration Protocol 20 MCG/MIN Midazolam HCl 100 mg in 100 mls @ 3 mls/hr 06/02/24 15:05 06/05/24 10:00 Versed 100 Mg/Ns 100 Ml IV CONT 3 mg/hr .[id number] COURT 3 mls/hr Titration Protocol 3 MG/HR Fentanyl Citrate 2,500 mcg in 250 mls @ 5 mls/hr 06/03/24 07:30 06/05/24 10:00 Fentanyl 2,500 Mcg/Ns 250 Ml IV CONT Infused .Q50H COURT Titration Protocol 50 MCG/HR Insulin Human Regular 100 100 mls @ 1 mls/hr 06/03/24 07:55 06/05/24 10:00 units/ Sodium Chloride IV CONT 0 unit/hr .Q24H COURT 0 mls/hr Titration Protocol 1 UNIT/HR Cefepime HCl 1 gm in 50 mls @ 100 mls/hr 06/04/24 21:00 06/04/24 22:00 Maxipime 1 Gm/Ns 50 Ml IVPB Infused QHS COUTR Infusion Ipratropium [place] 0.5 mg 06/02/24 08:00 06/03/24 08:11 Ipratropium Br 0.02% Inh Soln 0.5 Mg/2.5 Ml Vial INHALATION 0.[address] Administration Levalbuterol HCl 1.25 mg 06/02/24 08:00 06/03/24 08:11 Levalbuterol Neb 1.25 Mg/3 Ml INHALATION 1.[address] Administration Multi-Ingred Cream/Lotion/Oil/Oint 1 applic 06/02/24 10:05 06/05/24 09:09 Mineral Oil/White Petrolatum Ointment EACH EYE [address] Administration Mupirocin 1 applic 06/02/24 09:00 06/05/24 09:09 Mupirocin 2% Oint 22 Gm Tube EACH NARE 06/06/24 21:[address] Administration Ondansetron HCl 4 mg 06/01/24 16:52 Ondansetron Inj 4 Mg/2 Ml Vial IV PUSH Q4H PRN Nausea Oseltamivir Phosphate 30 mg 06/02/24 21:00 06/04/24 21:25 Oseltamivir Phosphate Oral Susp 30 Mg/5 Ml Syringe FEED TUBE 06/05/24 21:[address] Administration Pantoprazole Sodium 40 mg 06/03/24 21:00 06/05/24 09:08 Pantoprazole Sodium Iv 40 Mg Vial IV PUSH [address] Administration Sodium Chloride 10 ml 06/03/24 14:00 06/05/24 06:51 Central Line Flush IV PUSH [address] Administration Sodium Chloride 20 ml 06/03/24 13:00 Central Line Flush IV PUSH PRN PRN after blood draws Sodium Zirconium Cyclosilicate 10 gm 06/05/24 10:00 06/05/24 09:35 Sodium Zirconium Cyclosilicate 10 Gm Powd.Pack PO 06/07/24 09:59 10 gm TID@1000,1500,2200 COURT Administration Vancomycin HCl 1 each 06/02/24 06:52 Vancomycin For Acute Kidney Injury IVPB PRN PRN Vancomycin Protocol Radiology Results: ITS Impressions Abdomen X-Ray 06/01/24 19:47 IMPRESSION: NG tube, in good position. Renal Ultrasound 06/03/24 08:44 IMPRESSION: Mild right-sided hydronephrosis. Size asymmetry between the bilateral kidneys. No findings suggesting medical renal disease. Incidental notation is made of bilateral pleural effusions. Chest X-Ray 06/03/24 09:35 IMPRESSION: 1. Stable diffuse lung disease, consistent with pulmonary edema versus pneumonia. 2. Stable small pleural effusions. 3. Central line tip at the superior cavoatrial junction. Labs Labs: Laboratory Results - last 24 hr 06/04/24 06/04/24 06/04/24 12:21 13:15 14:42 WBC RBC Hgb Hct MCV MCH MCHC RDW Plt Count MPV Immature Gran % (Auto) Neut % (Auto) Lymph % (Auto) [place] % (Auto) Eos % (Auto) Baso % (Auto) Lymph # (Auto) [place] # (Auto) Eos # (Auto) Baso # (Auto) Abs Immat Gran (auto) Absolute Neuts (auto) Absolute Nucleated RBC Nucleated RBC % Platelet Estimate % Immature Plt Fraction Anisocytosis Librado Cells Schistocytes PT INR APTT Fibrinogen D-Dimer Puncture Site Artline ABG pH 7.155 L* ABG pCO2 28.9 L ABG pO2 98.4 ABG PO2/FiO2 Ratio 0.98 ABG HCO3 10.0 L ABG O2 Saturation 95.7 ABG O2 Content 16.5 ABG Base Excess -17.4 A-a Gradient 585.7 Oxyhemoglobin 95.2 Carboxyhemoglobin 0.1 Methemoglobin 0.0 Reduced Hemoglobin 4.7 Total Hemoglobin 12.2 O2 Delivery Device Ventilator O2 Liters/Min Not Reportable Minute Volume Not Reportable Vent Rate 32 Vent Mode Cmv FiO2 100 Tidal Volume 390 PEEP 14 Peak Inspir Pressure Not Reportable Pressure Support Not Reportable Sodium Potassium Chloride Carbon Dioxide Anion Gap BUN Creatinine Estim Creat Clear Calc Estimated GFR Glucose POC Capillary Glucose 249 H 231 H Lactic Acid Calcium Phosphorus Magnesium Total Bilirubin AST ALT Alkaline Phosphatase Total Creatine Kinase Total Protein Albumin Lipase Random Vancomycin 06/04/24 06/04/24 06/04/24 16:08 17:43 17:54 WBC 4.8 RBC 3.88 L Hgb 11.2 L Hct 33.2 L MCV 85.6 MCH 28.9 MCHC 33.7 RDW 12.2 Plt Count 13 L* MPV 10.6 H Immature Gran % (Auto) Neut % (Auto) Lymph % (Auto) [place] % (Auto) Eos % (Auto) Baso % (Auto) Lymph # (Auto) [place] # (Auto) Eos # (Auto) Baso # (Auto) Abs Immat Gran (auto) Absolute Neuts (auto) Absolute Nucleated RBC Nucleated RBC % Platelet Estimate % Immature Plt Fraction 14.8 H Anisocytosis [place] Cells Schistocytes PT 27.8 H INR 2.5 APTT 53.0 H Fibrinogen 379 D-Dimer 13.13 H Puncture Site ABG pH ABG pCO2 ABG pO2 ABG PO2/FiO2 Ratio ABG HCO3 ABG O2 Saturation ABG O2 Content ABG Base Excess A-a Gradient Oxyhemoglobin Carboxyhemoglobin Methemoglobin Reduced Hemoglobin Total Hemoglobin O2 Delivery Device O2 Liters/Min Minute Volume Vent Rate Vent Mode FiO2 Tidal Volume PEEP Peak Inspir Pressure Pressure Support Sodium Cancelled Potassium Cancelled Chloride Cancelled Carbon Dioxide Cancelled Anion Gap Cancelled BUN Cancelled Creatinine Cancelled Estim Creat Clear Calc Cancelled Estimated GFR Cancelled Glucose Cancelled POC Capillary Glucose 156 H 130 H Lactic Acid 22.6 H* Calcium Cancelled Phosphorus Cancelled Magnesium 2.1 Total Bilirubin AST ALT Alkaline Phosphatase Total Creatine Kinase Total Protein Albumin Lipase Random Vancomycin 06/04/24 06/04/24 06/04/24 17:54 18:47 18:50 WBC RBC Hgb Hct MCV MCH MCHC RDW Plt Count MPV Immature Gran % (Auto) Neut % (Auto) Lymph % (Auto) [place] % (Auto) Eos % (Auto) Baso % (Auto) Lymph # (Auto) [place] # (Auto) Eos # (Auto) Baso # (Auto) Abs Immat Gran (auto) Absolute Neuts (auto) Absolute Nucleated RBC Nucleated RBC % Platelet Estimate % Immature Plt Fraction Anisocytosis [place] Cells Schistocytes PT INR APTT Fibrinogen D-Dimer Puncture Site ABG pH ABG pCO2 ABG pO2 ABG PO2/FiO2 Ratio ABG HCO3 ABG O2 Saturation ABG O2 Content ABG Base Excess A-a Gradient Oxyhemoglobin Carboxyhemoglobin Methemoglobin Reduced Hemoglobin Total Hemoglobin O2 Delivery Device O2 Liters/Min Minute Volume Vent Rate Vent Mode FiO2 Tidal Volume PEEP Peak Inspir Pressure Pressure Support Sodium 112 L* Potassium 6.9 H* Chloride 73 L Carbon Dioxide 7 L Anion Gap 32 H BUN 37 H Creatinine 4.40 H Estim Creat Clear Calc 12 Estimated GFR 12 L Glucose 169 H POC Capillary Glucose 121 H Lactic Acid Calcium 5.2 L* Phosphorus Magnesium Cancelled Total Bilirubin Cancelled AST Cancelled ALT Cancelled Alkaline Phosphatase Cancelled Total Creatine Kinase Total Protein Cancelled Albumin Cancelled Lipase Cancelled Random Vancomycin 06/04/24 06/04/24 06/04/24 18:51 21:08 21:54 WBC RBC Hgb Hct MCV MCH MCHC RDW Plt Count MPV Immature Gran % (Auto) Neut % (Auto) Lymph % (Auto) [place] % (Auto) Eos % (Auto) Baso % (Auto) Lymph # (Auto) [place] # (Auto) Eos # (Auto) Baso # (Auto) Abs Immat Gran (auto) Absolute Neuts (auto) Absolute Nucleated RBC Nucleated RBC % Platelet Estimate % Immature Plt Fraction Anisocytosis [place] Cells Schistocytes PT INR APTT Fibrinogen D-Dimer Puncture Site Artline ABG pH 7.042 L* ABG pCO2 24.1 L ABG pO2 106.3 H ABG PO2/FiO2 Ratio 1.06 ABG HCO3 6.4 L ABG O2 Saturation 95.3 ABG O2 Content 15.6 L ABG Base Excess -22.7 A-a Gradient 582.6 Oxyhemoglobin 95.2 Carboxyhemoglobin 0.2 Methemoglobin 0.1 Reduced Hemoglobin 4.5 Total Hemoglobin 11.5 L O2 Delivery Device Ventilator O2 Liters/Min Not Reportable Minute Volume Not Reportable Vent Rate 14 Vent Mode Cmv FiO2 100 Tidal Volume 430 PEEP 14 Peak Inspir Pressure Not Reportable Pressure Support Not Reportable Sodium Potassium Chloride Carbon Dioxide Anion Gap BUN Creatinine Estim Creat Clear Calc Estimated GFR Glucose POC Capillary Glucose 155 H 198 H Lactic Acid Calcium Phosphorus Magnesium Total Bilirubin AST ALT Alkaline Phosphatase Total Creatine Kinase Total Protein Albumin Lipase Random Vancomycin 06/04/24 06/05/24 06/05/24 22:44 00:26 00:58 WBC RBC Hgb Hct MCV MCH MCHC RDW Plt Count MPV Immature Gran % (Auto) Neut % (Auto) Lymph % (Auto) [place] % (Auto) Eos % (Auto) Baso % (Auto) Lymph # (Auto) [place] # (Auto) Eos # (Auto) Baso # (Auto) Abs Immat Gran (auto) Absolute Neuts (auto) Absolute Nucleated RBC Nucleated RBC % Platelet Estimate % Immature Plt Fraction Anisocytosis [place] Cells Schistocytes PT INR APTT Fibrinogen D-Dimer Puncture Site Artline ABG pH 7.022 L* ABG pCO2 23.6 L* ABG pO2 97.5 ABG PO2/FiO2 Ratio 0.98 ABG HCO3 6.0 L ABG O2 Saturation 93.8 L ABG O2 Content 15.0 L ABG Base Excess -23.4 A-a Gradient 591.9 Oxyhemoglobin 93.4 Carboxyhemoglobin 0.3 Methemoglobin 0.1 Reduced Hemoglobin 6.2 H Total Hemoglobin 11.3 L O2 Delivery Device Ventilator O2 Liters/Min Not Reportable Minute Volume Not Reportable Vent Rate 32 Vent Mode Cmv FiO2 100 Tidal Volume 430 PEEP 14 Peak Inspir Pressure Not Reportable Pressure Support Not Reportable Sodium Potassium Chloride Carbon Dioxide Anion Gap BUN Creatinine Estim Creat Clear Calc Estimated GFR Glucose POC Capillary Glucose 163 H Lactic Acid > 24.0 H* Calcium Phosphorus Magnesium Total Bilirubin AST ALT Alkaline Phosphatase Total Creatine Kinase Total Protein Albumin Lipase Random Vancomycin 12.7 06/05/24 06/05/24 06/05/24 01:59 02:57 04:15 WBC 5.6 RBC 3.43 L Hgb 9.8 L Hct 30.2 L MCV 88.0 MCH 28.6 MCHC 32.5 RDW 12.4 Plt Count 11 L* D MPV TNP Immature Gran % (Auto) 2.5 H Neut % (Auto) 80.7 H Lymph % (Auto) 14.6 L [place] % (Auto) 2.0 L Eos % (Auto) 0.0 Baso % (Auto) 0.2 Lymph # (Auto) 0.82 L [place] # (Auto) 0.1 Eos # (Auto) 0.0 Baso # (Auto) 0.0 Abs Immat Gran (auto) 0.14 H Absolute Neuts (auto) 4.5 Absolute Nucleated RBC 0.070 H Nucleated RBC % 1.2 H Platelet Estimate Decreased % Immature Plt Fraction 18.6 H Anisocytosis 1+ [place] Cells 1+ Schistocytes None seen PT 38.0 H D INR 3.8 APTT 65.5 H Fibrinogen D-Dimer Puncture Site Artline ABG pH 7.063 L* ABG pCO2 25.7 L ABG pO2 93.7 ABG PO2/FiO2 Ratio 0.94 ABG HCO3 7.2 L ABG O2 Saturation 93.8 L ABG O2 Content 11.7 L ABG Base Excess -21.5 A-a Gradient 593.6 Oxyhemoglobin 93.1 Carboxyhemoglobin 0.3 Methemoglobin 0.2 Reduced Hemoglobin 6.4 H Total Hemoglobin 8.8 L O2 Delivery Device Ventilator O2 Liters/Min Not Reportable Minute Volume Not Reportable Vent Rate 32 Vent Mode Cmv FiO2 100 Tidal Volume 430 PEEP 14 Peak Inspir Pressure Not Reportable Pressure Support Not Reportable Sodium 112 L* Potassium 7.4 H* Chloride 73 L Carbon Dioxide < 5 L Anion Gap BUN 36 H Creatinine 4.60 H Estim Creat Clear Calc 11 Estimated GFR 12 L Glucose 179 H POC Capillary Glucose 146 H Lactic Acid > 24.0 H* Calcium 5.5 L* Phosphorus 15.3 H Magnesium 2.4 H Total Bilirubin 2.3 H AST > 7500 H ALT 2709 H Alkaline Phosphatase 210 H Total Creatine Kinase 40654 H Total Protein 4.0 L Albumin 1.7 L Lipase 618 H Random Vancomycin 06/05/24 06/05/24 06/05/24 06:50 08:06 08:51 WBC RBC Hgb Hct MCV MCH MCHC RDW Plt Count MPV Immature Gran % (Auto) Neut % (Auto) Lymph % (Auto) [place] % (Auto) Eos % (Auto) Baso % (Auto) Lymph # (Auto) [place] # (Auto) Eos # (Auto) Baso # (Auto) Abs Immat Gran (auto) Absolute Neuts (auto) Absolute Nucleated RBC Nucleated RBC % Platelet Estimate % Immature Plt Fraction Anisocytosis [place] Cells Schistocytes PT INR APTT Fibrinogen D-Dimer Puncture Site Artline ABG pH 6.998 L* ABG pCO2 31.4 L ABG pO2 57.4 L ABG PO2/FiO2 Ratio 0.57 ABG HCO3 7.5 L ABG O2 Saturation 74.1 L* ABG O2 Content 8.5 L ABG Base Excess -22.2 A-a Gradient 624.2 Oxyhemoglobin 73.5 L* Carboxyhemoglobin Methemoglobin Reduced Hemoglobin Total Hemoglobin 8.1 L O2 Delivery Device Ventilator O2 Liters/Min Not Reportable Minute Volume Not Reportable Vent Rate 32 Vent Mode Cmv FiO2 100 Tidal Volume 430 PEEP 14 Peak Inspir Pressure Not Reportable Pressure Support Not Reportable Sodium Potassium Chloride Carbon Dioxide Anion Gap BUN Creatinine Estim Creat Clear Calc Estimated GFR Glucose POC Capillary Glucose 195 H 205 H Lactic Acid Calcium Phosphorus Magnesium Total Bilirubin AST ALT Alkaline Phosphatase Total Creatine Kinase Total Protein Albumin Lipase Random Vancomycin 06/05/24 06/05/24 08:58 10:51 WBC 6.2 RBC 2.68 L Hgb 7.7 L Hct 24.0 L MCV 89.6 MCH 28.7 MCHC 32.1 RDW 12.7 Plt Count 9 L* MPV 11.0 H Immature Gran % (Auto) 3.2 H Neut % (Auto) 75.8 H Lymph % (Auto) 18.4 [place] % (Auto) 2.3 L Eos % (Auto) 0.0 Baso % (Auto) 0.3 Lymph # (Auto) 1.14 [place] # (Auto) 0.1 Eos # (Auto) 0.0 Baso # (Auto) 0.0 Abs Immat Gran (auto) 0.20 H Absolute Neuts (auto) 4.7 Absolute Nucleated RBC 0.080 H Nucleated RBC % 1.3 H Platelet Estimate Decreased % Immature Plt Fraction 18.1 H Anisocytosis [place] Cells Schistocytes None seen PT 66.0 H D INR 7.9 H* APTT 94.7 H Fibrinogen D-Dimer Puncture Site ABG pH ABG pCO2 ABG pO2 ABG PO2/FiO2 Ratio ABG HCO3 ABG O2 Saturation ABG O2 Content ABG Base Excess A-a Gradient Oxyhemoglobin Carboxyhemoglobin Methemoglobin Reduced Hemoglobin Total Hemoglobin O2 Delivery Device O2 Liters/Min Minute Volume Vent Rate Vent Mode FiO2 Tidal Volume PEEP Peak Inspir Pressure Pressure Support Sodium 113 L* 115 L* Potassium 8.7 H* 9.1 H* Chloride 70 L 68 L Carbon Dioxide 6 L 6 L Anion Gap 37 H 41 H BUN 36 H 36 H Creatinine 4.60 H 4.90 H Estim Creat Clear Calc 13 12 Estimated GFR 12 L 11 L Glucose 281 H 314 H POC Capillary Glucose Lactic Acid > 24.0 H* Calcium 8.3 L 6.9 L Phosphorus 18.3 H Magnesium 2.5 H Total Bilirubin 1.9 H AST TNP ALT 2868 H Alkaline Phosphatase 267 H Total Creatine Kinase 65292 H Total Protein 3.0 L Albumin 1.2 L Lipase 459 H Random Vancomycin Quality VTE Prophylaxis VTE prophylaxis: mechanical ordered and pharmacologic ordered
[2024-06-05 12:04] LABS: Reflex Lactic Acid Yes or No Add Lactic
[2024-06-05 14:09] LABS: Chloride Rand Ur 33 mmol/L (32-290); Chloride/Creatinine Rand Ur 79 (38-318); Creatinine Random Urine 42 mg/dL (20-275)
[2024-06-05 17:24] LABS: Mycoplasma IgM Antibody Titer 163 U/mL
[2024-06-05 17:39] LABS: Pneumococcal Antigen Urine NOT DETECTED
[2024-06-12 00:03] LABS: Legionella pneumophila Ag Ur NOT DETECTED
--- NOTE | 2024-06-21 14:04 | PDCODEBLUE ---
Code Blue Note Code Blue Note Time Arrived at Code Blue: 08:08 a.m. Initial Rhythm on Arrival: Asystole Airway Management: Initiated bagging pt on arrival Chest Compressions: Initiated upon arrival Result of Code Blue: ROSC Cardiac Rhythm Post Code: Atrial fibrillation Code Blue Summary: Patient with hypoxic respiratory failure, influenza A, ARDS requiring prone positioning, high PEEP, Fl[place], septic shock, acute kidney injury, transaminitis. Patient went into asystole and 08:08am, ACLS protocol was commenced right away, patient already had a airway so patient was bagged, received sodium bicarb, calcium, dextrose, epinephrine. Defibrillated x2, dopamine was started with ROSC at 08:18 am I updated the patient's daughters and family, they wanted her to be a full code.
--- NOTE | 2024-06-21 14:11 | PDCODEBLUE ---
Code Blue Note Code Blue Note Time Arrived at Code Blue: 11:30 a.m. Initial Rhythm on Arrival: Asystole Airway Management: Initiated bagging pt on arrival Chest Compressions: Initiated upon arrival Result of Code Blue: Pt Cardiac Rhythm Post Code: Asystole Code Blue Summary: Patient went into asystole again at 11:30 a.m., multiple doses of epinephrine, sodium bicarbonate, calcium gluconate, magnesium, dextrose were administered during CPR and ACLS protocol was followed. Patient also given insulin and D50 as she had elevated potassium levels. Discussed with the family after 15 minutes into the code, daughter stated she wanted everything to be done and continue CPR. Code was called after anybody was agreeable in the room at 11:55 a.m.. During this entire time of the code ROSC or pulse was obtained. Patient was declared at 11:55 a.m. on 06/05/2024
--- NOTE | 2024-06-21 14:15 | P.DN_ITS ---
Discharge Summary Date and Time Date of : 06/05/24 Time of : 11:55 Provider Pronounced By: Provider Name of Provider That Pronounced: Dr. Samantha Fuentes Probable Cause of Probable Cause of : Cardiopulmonary arrest, acute hypoxic respiratory failure, acute renal failure, significant transaminitis Summary Hospital Course: Reason for consult: Hypoxic respiratory failure, influenza A, ARDS, septic shock, transaminitis, acute kidney injury, leukopenia, lactic acidosis, thrombocytopenia 06/05/2024: Patient seen and examined the ICU, remains intubated on CMV mode of ventilation, 100% FiO2, peep of 14, rate of 32. -Sedated with fentanyl, Versed. Nimbex for neuromuscular blockade. Patient in prone position -Remains on maximum doses of Levophed, vasopressin, Herbie-Synephrine, epinephrine -anuric -platelets 9 -patient remains on insulin infusion, blood sugars in the 200s -potassium 8.7, CO2 6, lactic acid > 24 -creatinine 4.90 -significantly elevated LFTs and CK level, albumin of 1.2 Patient had a cardiac arrest and a code blue was called at 8:08 a.m. this morning and lasted for 10 minutes with ROSC at 8:18 a.m. Patient again coded it is at 11:29 a.m. it is at code was called at 11:54 a.m. after 25 minutes of asystole Assessment and Plan (1) Septic shock: Code(s): A41.9 - Sepsis, unspecified organism; R65.21 - Severe sepsis with septic shock Status: Acute Assessment and Plan: 06/01: Patient presented to from urgent care via EMS for hypoxia, confusion, cough, hypotensive, -receive 3 L IV fluid bolus, -06/02: worsening renal function, hyperglycemia, significant elevation in LFTs likely related to shock -remains on stress dose steroids -cough bicarb infusion, has been requiring IV bicarb pushes -06/01: Preliminary blood cultures are negative -06/02/2024: Sputum cultures have been obtained and pending -Continue cefepime, vancomycin, Tamiflu, azithromycin (06/01), all renally dosed -06/03: right IJ central line was pulled out 4 cm since it was 20 cm catheter and sitting in the high right atria. Currently on maximum doses of Levophed, phenylephrine, vasopressin, epinephrine to maintain MAP > 65 mmHg at all times for adequate end organ perfusion -lactic acid, LFTs, CK level remain elevated -lactic acid increased to 17, could be related to ischemic bowel, surgery consulted, very poor prognosis per per surgeon and not a candidate for surgery at this time (2) Acute respiratory failure with hypoxia: Code(s): J96.01 - Acute respiratory failure with hypoxia Status: Acute Assessment and Plan: Acute respiratory failure likely related to influenza A. -intubated in the ER on 06/01/2024 -on CMV mode of ventilation peep of 14, 100% FiO2, ventilator adjusted,Vt 390 mL, rate of 32, peep of 14 and 100% FiO2 -ARDS physiology, low tidal volume strategy along with high PEEP -ABGs and chest x-ray reviewed -06/02: patient was in prone position for [address] patient in prone position again today -06/03 Flolan -06/03: Patient was again placed in prone position, trial of Bumex 2 mg IV x1 with no significant urine output -patient to remain in prone position today, 06/04/2024 as remains hypoxic - was placed in supine position after the first code blue -pt after the 2nd code, and 11:54 am on 06/05/2024 (3) Influenza A: Code(s): J10.1 - Influenza due to other identified influenza virus with other respiratory manifestations Status: Acute Assessment and Plan: Continue Tamiflu, renally dosed per pharmacy (4) Leukopenia: Code(s): D72.819 - Decreased white blood cell count, unspecified Status: Acute Assessment and Plan: Leukopenia and neutropenia likely related to septic shock, bone marrow suppres joan -Hematology/Oncology has been consulted -continue to monitor -antibiotics as above (5) Acute kidney injury: Code(s): N17.9 - Acute kidney failure, unspecified Status: Acute Assessment and Plan: Patient presented with a creatinine of 0.4 on admission, now in septic shock, creatinine this morning was 2.60 -urine lytes not reflective of prerenal, urine eosinophils are negative, CK levels are elevated -patient has been adequately fluid-resuscitated, maintenance IV fluids were discontinued, patient 18 L in positive fluid balance since admission, oliguric/anuric -06/03/2023: Renal ultrasound showed mild right-sided hydronephrosis size asymmetry between the bilateral kidneys, no findings suggesting medical renal disease -appreciate Nephrology evaluation recommendation. Currently unstable for dialysis since patient is on multiple pressors on maximum doses. -appreciate Nephrology evaluation recommendation -continue to monitor urine output, electrolytes and renal function -continues to be oliguric/anuric, patient on 4 pressors, and in prone position, discussed with Nephrology, patient not a candidate for hemodialysis due to hemodynamic instability. -hyponatremia likely related to dilution given patient is 18 L positive in fluid balance -worsening CK level -severe hyperkalemia, treated with insulin and D50, lokelma, bicarb (6) Transaminitis: Code(s): R74.01 - Elevation of levels of liver transaminase levels Status: Acute Assessment and Plan: Elevated LFTs likely related to hypoxia, hypotension, shock liver -worsening LFTs -will continue to monitor liver function (7) Type 2 diabetes mellitus: Code(s): E11.9 - Type 2 diabetes mellitus without complications Status: Acute Assessment and Plan: Patient with severe hyperglycemia, started on insulin infusion, likely related to septic shock, possible uncontrolled diabetes since patient's hemoglobin A1c is 12.6 this admission. -hyperglycemia finally improved, insulin infusion on minimal dose, will continue -Accu-Cheks per insulin infusion protocol (8) Thrombocytopenia: Code(s): D69.6 - Thrombocytopenia, unspecified Status: Acute Assessment and Plan: Thrombocytopenia likely related to septic shock, bone marrow suppression -patient has not received any heparin or LMWH -Heme-Onc has been consulted -06/03: 1 unit of platelets to be transfused -remains thrombocytopenic with platelet counts of 9 this morning on 06/04 (9) Electrolyte abnormality: Code(s): E87.8 - Other disorders of electrolyte and fluid balance, not elsewhere classified Status: Acute Assessment and Plan: Replace calcium -patient getting p.r.n. bicarb IV pushes Additional Data Confirmation of as documented by pronouncing clinician: Pupillary Reflex, Palpable Pulses, Response to Stimuli, Heart Tones and Breath Sounds Name of Provider Notified: Gina Time Provider Notified: 11:55 Provider Requests Autopsy: No Family Requests Autopsy: No (family decided against) Market Research Executive Notified: Yes Date [facility] Notified of : 06/05/[address] [facility] Notified of : 12:25
--- NOTE | 2024-06-22 08:52 | WPDCN ---
HPI Data of Consult Date/Time: 06/03/24 Requesting Physician: Ravinder Fuentes MD Primary Care Provider: UNKNOWN,DOCTOR Consult Narrative Narrative: Noelle Vivar is a 64 year old female [facility] Past Medical History Medical History Type 2 diabetes mellitus Surgical History Surgical History History of tracheostomy Family History Family History Mother Aneurysm Social History Social History Social History: Surrogate medical decision maker: Kay ([phone]), Екатерина ([phone]), and Jos Alarcon ([phone]), daughters. Code status: Full code. Years smoked: 40 Smoking status: Former smoker Alcohol intake: current Alcohol use details: Drinks 4 to 5 beers most days Substance use: never Additional living arrangements comments: The patient lives in her own home in [place]. 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 Spiritual care concerns: No Meds Home Medications and Allergies Home Medications ?Medication ?Instructions ?Recorded ?Confirmed ?Type glipizide 5 mg tablet 5 mg PO DAILY 06/02/24 06/02/24 History metformin 1,000 mg tablet 1,000 mg PO BID 06/02/24 06/02/24 History Allergies Allergy/AdvReac Type Severity Reaction Status Date / Time No Known Allergies Allergy Verified 06/01/24 14:47 Results Labs 06/05/24 08:58 06/05/24 10:51
== END 2024-06-05 11:55 | disposition expired | DRG 871 ==
LOC: ANHED 14:59 → ANHIMU 17:52 → ANHICU 21:42
PROVIDERS: Nurse Practitioner Gerontology; Physician Assistant; Admitting Provider Internal Medicine; Emergency Provider Emergency Medicine; Visit Provider Internal Medicine
DX: A41.9 Sepsis, unspecified organism (principal); J11.00 Influenza due to unidentified influenza virus with unspecified type of pneumonia; R65.21 Severe sepsis with septic shock; J96.01 Acute respiratory failure with hypoxia; N17.0 Acute kidney failure with tubular necrosis; E87.20 Acidosis, unspecified; K55.9 Vascular disorder of intestine, unspecified; E87.1 Hypo-osmolality and hyponatremia; I46.9 Cardiac arrest, cause unspecified; B95.62 Methicillin resistant Staphylococcus aureus infection as the cause of diseases classified elsewhere; D70.9 Neutropenia, unspecified; D69.6 Thrombocytopenia, unspecified; E87.8 Other disorders of electrolyte and fluid balance, not elsewhere classified; E11.65 Type 2 diabetes mellitus with hyperglycemia; R74.01 Elevation of levels of liver transaminase levels; Z87.891 Personal history of nicotine dependence; Z79.84 Long term (current) use of oral hypoglycemic drugs; Z20.822 Contact with and (suspected) exposure to COVID-19
CPT/HCPCS: 31500; 36415; 36430; 36556; 36600; 71045; 76775; 80048; 80053; 80202; 81001; 82010; 82375; 82436; 82550; 82570; 82805; 82948; 83036; 83050; 83605; 83690; 83735; 84100; 84133; 84145; 84300; 84478; 85018; 85025; 85027; 85055; 85380; 85384; 85610; 85730; 85999; 86140; 86738; 86900; 86901; 87040; 87070; 87181; 87205; 87449; 87637; 87641; 87899; 92950; 93005; 94002; 94003; 94640; 94668; 94669; 96361; 96365; 96367; 96375; 96376; 99291; A9270; C1751; G0378; J0171; J0330; J0456; J0612; J0613; J0692; J0696; J1265; J1596; J1650; J1720; J1815; J1939; J2250; J2371; J2405; J2470; J2704; J3010; J3370; J3430; J3475; J3480; J7030; J7050; J7060; J7120; P9034; P9047